=== PATIENT | female | born 1950 | race Caucasian/White ===

== ENCOUNTER 2019-08-13 10:33 | Outpatient (CLI) | payer MEDICARE, OTHER, SELFPAY ==
--- NOTE | ~2019-08-13 | MM_ITS ---
EXAMINATION: MM screening brandon BI w amira HISTORY: Screening mammogram TECHNIQUE: Craniocaudal and mediolateral oblique 3-D tomosynthesis images were obtained and synthetic 2-D images were generated. CAD analysis was submitted and interpreted. COMPARISON: 07/30/2018, 02/12/2017, 12/02/2015 bilateral digital screening mammogram examinations BREAST PARENCHYMAL COMPOSITION: The breasts are almost entirely fatty. FINDINGS: There is no evidence of suspicious mass, calcification, or architectural distortion to sugg est malignancy in either breast. There has been no suspicious interval change. IMPRESSION: 1. No mammographic evidence of malignancy. 2. Recommend routine screening mammography in one year. BI-RADS Category 1: Negative Reviewed, dictated and finalized at location A.
== END 2019-08-13 10:34 | disposition home or self-care (01) ==
PROVIDERS: PCP Internal Medicine; Visit Provider Nurse Practitioner
DX: Z12.31 Encounter for screening mammogram for malignant neoplasm of breast (principal)
CPT/HCPCS: 77063; 77067

== ENCOUNTER 2019-11-04 08:23 | Outpatient (CLI) | payer MEDICARE, OTHER, SELFPAY ==
[2019-11-04 08:55] LABS: Basophils Percent Auto 0.6 % (0.2-1.2); Eosinophils Absolute Auto 0.2 K/mm3 (0-0.3); Eosinophils Percent Auto 4.5 % (0-4.4); Hematocrit 35.8 % (37.0-47.0); Hemoglobin 11.9 g/dL (12.0-15.0); Immature Granulocyte Absolute 0.01 K/mm3 (0.00-0.031); Immature Granulocyte Percent A 0.3 % (0-0.5); Lymphocytes Absolute Auto 1.29 K/mm3 (0.9-3.2); Lymphocytes Percent Auto 36.6 % (18.3-44.2); Mean Corpuscular HGB Conc 33.2 g/dl (32-36); Mean Corpuscular Hemoglobin 34.5 pg (26-34); Mean Corpuscular Volume 103.8 fl (80-100); Mean Platelet Volume 11.1 fl (7.4-10.4); Monocytes Absolute Auto 0.4 K/mm3 (0.1-0.6); Monocytes Percent Auto 10.5 % (2.6-8.5); Neutrophils Absolute Auto 1.7 K/mm3 (1.3-6.7); Neutrophils Percent Auto 47.5 % (45.5-73.1); Platelet Count Result 116 k/mm3 (150-375); Red Blood Count 3.45 M/mm3 (4.2-5.4); Red Cell Distribution Width 12.7 % (11.5-14.5); White Blood Count 3.5 K/mm3 (4.5-10.0)
[2019-11-04 09:07] LABS: Alanine Aminotransferase 17 U/L (4-35); Albumin Level 4.5 g/dL (3.5-5.1); Alkaline Phosphatase 77 U/L (38-126); Anion Gap 10.3 mmol/L (7-16); Aspartate Amino Transferase 30 U/L (14-36); Bilirubin,Total 0.7 mg/dL (0.2-1.3); Blood Urea Nitrogen 25 mg/dL (7-17); Calcium 9.2 mg/dL (8.4-10.2); Carbon Dioxide 27 mmol/L (22-30); Chloride 105 mmol/L (98-107); Cholesterol 195 mg/dL (0-200); Estimated Glomerular Filt Rate > 60; Glucose 115 mg/dL (65-105); HDL Direct 50 mg/dL; Potassium 4.3 mmol/L (3.4-5.0); Sodium 138 mmol/L (137-145); Triglycerides 176 mg/dL (<150)
[2019-11-04 09:11] LABS: Hemoglobin A1C 5.5 % (<5.7)
[2019-11-04 09:18] LABS: LDL Cholesterol Direct 108 mg/dL
[2019-11-04 09:28] LABS: Creatinine Urine 151.4 mg/dL
[2019-11-04 09:43] LABS: Vitamin D 25 Hydroxy 50.4 ng/mL
[2019-11-04 09:49] LABS: MALB Creatinine Ratio 164.8 mg/g (0-30); Microalbumin Urine Random 249.5 mg/L (0-16.7)
== END 2019-11-04 08:24 | disposition home or self-care (01) ==
LOC: ANHLAB 08:26
PROVIDERS: PCP Internal Medicine; Visit Provider Nurse Practitioner
DX: E78.5 Hyperlipidemia, unspecified (principal); E53.8 Deficiency of other specified B group vitamins; E03.9 Hypothyroidism, unspecified; D64.9 Anemia, unspecified; E55.9 Vitamin D deficiency, unspecified; E11.65 Type 2 diabetes mellitus with hyperglycemia; I10 Essential (primary) hypertension
CPT/HCPCS: 36415; 80053; 80061; 82043; 82306; 82607; 83036; 84443; 85025; 85055

== ENCOUNTER 2020-03-06 17:46 | Emergency (ER) | payer MEDICARE, OTHER, SELFPAY ==
--- NOTE | ~2020-03-06 | XR_ITS ---
EXAMINATION: XR elbow RT 2V DATE: 03/06/2020 18:43 INDICATION: Generalized right elbow pain post fall TECHNIQUE: Anteroposterior, oblique and lateral views of the right elbow were obtained. COMPARISON: None. FINDINGS: Alignment is normal. No fracture. Mild osteoarthritis of the right elbow. No right elbow joint effusi on.. Soft tissues are unremarkable. IMPRESSION: 1. Mild right elbow osteoarthritis. No joint effusion or acute osseous abnormality. Reviewed, dictated and finalized at location A. ING MANAGER IMPRESSION: 1. Mild right elbow osteoarthritis. No joint effusion or acute osseous abnormal ity.
--- NOTE | ~2020-03-06 | XR_ITS ---
EXAMINATION: XR shoulder RT min 2V DATE: 03/06/2020 18:43 INDICATION: Proximal right humeral pain post fall TECHNIQUE: AP and transscapular Y views of the right shoulder were obtained. COMPARISON: None FINDINGS: Impacted fracture deformity of the proximal right humerus without a definitive lucent fracture line o r discontinuous or sharply angulated cortex to more specifically suggest acute fracture. Severe right glenohumeral osteoarthritis with moderate to severe nonuniform joint space narrowing, remodeling of the inferior glenoid and prominent marginal osteophytes along the inferior glenoid. Mild acromioclavi cular osteoarthritis. Calcified nodules at the right upper lung zone consistent with old granulomatou s disease. Soft tissues are unremarkable. IMPRESSION: 1. Age indeterminate fracture deformity at the right humeral head. 2. Severe right glenohumeral osteoarthritis. Reviewed, dictated and finalized at location A. ST SURGEON
[2020-03-06 17:48] VITALS: BP 199/79; PULSE 85; RESP 17; TEMP 35.9; O2SAT 98
--- NOTE | 2020-03-06 18:06 | ED.GENADULT ---
HPI - General Adult General Chief complaint: Extremity Injury, Upper Stated complaint: right arm injury/fall Time Seen by Provider: 03/06/20 17:54 Source: patient and family Mode of arrival: ambulatory Limitations: no limitations History of Present Illness HPI narrative: Patient is a 69-year-old female who presents to emergency department for evaluation of right upper extremity injury patient was walking with her hand in her pocket when she tripped over a cable falling onto the right upper extremity injuring the shoulder where she has moderate aching pain with swelling also noting some mild discomfort of the elbow denies head injury syncope loss of consciousness Related Data Home Medications Medication Instructions Recorded Confirmed acetaminophen 500 mg tablet 500 mg PO Q6H PRN 11/10/19 11/10/19 aspirin 81 mg tablet,delayed 81 mg PO DAILY 11/10/19 11/10/19 release calcium carb-vit J4-mtwtjlzka-lzum 1 tablet PO BID tablet 11/10/19 11/10/19 333 mg-200 unit-133 mg-5 mg tablet diphenhydramine HCl 25 mg tablet 25 mg PO .qhs PRN tablet 11/10/19 11/10/19 famotidine 20 mg tablet 20 mg PO BID tablet 11/10/19 11/10/19 loratadine 10 mg tablet 10 mg PO DAILY 11/10/19 11/10/19 naproxen sodium 220 mg tablet 220 mg PO Q12H 11/10/19 11/10/19 vitamin B complex 1 tablet PO .COMPLEX 11/10/19 11/10/19 Allergies Allergy/AdvReac Type Severity Reaction Status Date / Time Penicillins Allergy Unknown Hives Verified 03/06/20 17:52 Sulfa (Sulfonamide Allergy Unknown rash Verified 03/06/20 17:52 Antibiotics) Review of Systems Review of Systems: All systems reviewed & are unremarkable except as noted in HPI and below PMFSH Past Medical History Medical History Screening for breast cancer Screening for colon cancer Surgical History Surgical History History of total right knee replacement Family History Family History Sibling Patient's brother is in good health Patient's brother is Acute myocardial infarction Father Family history of lung cancer, Onset Age: 65 Family history of type 2 diabetes mellitus Social History Social History Smoking status: Current every day smoker Alcohol intake: never Gender identity (if verbalized by the patient): Female Exam Narrative: Exam Narrative: GENERAL: Well-appearing, well-nourished, and in no acute distress. HEAD: Normocephalic, atraumatic. EYES: PERRLA and EOMI. ENT: Nares clear, no rhinorrhea or epistaxis. Mucous membranes moist. Oropharynx without tonsillar hypertrophy exudate or other lesions. Bilateral TMs pearly cordon nonbulging NECK: Supple. No adenopathy or masses. CHEST: Clear to auscultation. No respiratory distress. No wheezes rales or rhonchi HEART: Regular rate and rhythm. No murmur heard. EXTREMITIES: Tenderness of the right shoulder with swelling. Tenderness of the elbow right-sided no deformity. No cervical spine tenderness SKIN: Warm, dry, no rash. NEURO: No focal deficits. Alert and oriented x3. Neurovascularly intact. Capillary refill less than 3 seconds. Cranial nerves II through XII grossly intact PSYCH: Normal mood and affect. Course Course Emergency Course: Patient in the room resting comfortably placed in immobilizer wear discussions with orthopedic surgery will follow in clinic felt appropriate for discharge where she lives with her son patient feels comfortable with this plan Consultations Consultation #1: Discussed the case twice with Dr. Early who reviewed the images and would like the patient to follow in clinic Date: 03/06/20 Time: 20:00 Vital Signs Vital signs: Vital Signs Temperature 96.7 F L 03/06/20 17:48 Pulse Rate 85 03/06/20 17:48 Respiratory Rate 17 03/06/20 17:48 Blood Pressure 199/79
[2020-03-06] MEDS: HYDROcodone/acetaminophen (*CRX) 7.5-325 MG TABLET 1 TAB PO (18:16)
== END 2020-03-06 20:20 | disposition home or self-care (01) ==
PROVIDERS: Emergency Provider Emergency Medicine; PCP Internal Medicine
DX: S42.91XA Fracture of right shoulder girdle, part unspecified, initial encounter for closed fracture (principal); Z79.82 Long term (current) use of aspirin; Z96.651 Presence of right artificial knee joint; F17.200 Nicotine dependence, unspecified, uncomplicated; M19.021 Primary osteoarthritis, right elbow; M19.011 Primary osteoarthritis, right shoulder; W18.09XA Striking against other object with subsequent fall, initial encounter
CPT/HCPCS: 73030; 73070; 73080; 99284; A9270

== ENCOUNTER 2020-05-05 07:23 | Outpatient (CLI) | payer MEDICARE, OTHER, SELFPAY ==
[2020-05-05 08:14] LABS: Alanine Aminotransferase 17 U/L (4-35); Albumin Level 4.2 g/dL (3.5-5.1); Alkaline Phosphatase 75 U/L (38-126); Anion Gap 4 mmol/L (8-16); Aspartate Amino Transferase 31 U/L (14-36); Bilirubin,Total 0.8 mg/dL (0.2-1.3); Blood Urea Nitrogen 18 mg/dL (7-17); Carbon Dioxide 30 mmol/L (22-30); Chloride 107 mmol/L (98-107); Cholesterol 186 mg/dL (0-200); Estimated Glomerular Filt Rate > 60; Glucose 123 mg/dL (65-105); HDL Direct 51 mg/dL; Potassium 4.2 mmol/L (3.4-5.0); Sodium 141 mmol/L (137-145); Triglycerides 192 mg/dL (<150)
[2020-05-05 08:36] LABS: Hemoglobin A1C 5.7 % (<5.7)
[2020-05-05 08:38] LABS: LDL Cholesterol Direct 102 mg/dL
[2020-05-05 09:02] LABS: Creatinine Urine 103.3 mg/dL
[2020-05-05 09:20] LABS: Vitamin D 25 Hydroxy 44.6 ng/mL
[2020-05-05 09:36] LABS: MALB Creatinine Ratio 333.1 mg/g (0-30); Microalbumin Urine Random 344.1 mg/L (0-16.7)
== END 2020-05-05 07:24 | disposition home or self-care (01) ==
PROVIDERS: PCP Internal Medicine; Visit Provider Nurse Practitioner
DX: E55.9 Vitamin D deficiency, unspecified (principal); E53.8 Deficiency of other specified B group vitamins; E11.9 Type 2 diabetes mellitus without complications; E78.5 Hyperlipidemia, unspecified
CPT/HCPCS: 36415; 80053; 80061; 82043; 82306; 82607; 83036

== ENCOUNTER 2020-06-14 16:00 | Outpatient (CLI) | payer MEDICARE, OTHER, SELFPAY | END 2020-06-14 16:01 | disposition home or self-care (01) | LOC: ANHCOVIDVC 16:00 | PROVIDERS: PCP Internal Medicine | DX: Z23 Encounter for immunization (principal) | CPT/HCPCS: 0001A; 91300 ==

== ENCOUNTER 2020-07-05 15:59 | Outpatient (CLI) | payer MEDICARE, OTHER, SELFPAY | END 2020-07-05 16:00 | disposition home or self-care (01) | LOC: ANHCOVIDVC 15:59 | PROVIDERS: PCP Internal Medicine | DX: Z23 Encounter for immunization (principal) | CPT/HCPCS: 0002A; 91300 ==

== ENCOUNTER 2020-08-31 12:18 | Outpatient (CLI) | payer MEDICARE, OTHER, SELFPAY ==
--- NOTE | ~2020-08-31 | MM_ITS ---
EXAMINATION: MM screening brandon BI w amira HISTORY: Screening TECHNIQUE: Craniocaudal and mediolateral oblique 3-D tomosynthesis images were obtained and synthetic 2-D images were generated. CAD analysis was submitted and interpreted. COMPARISON: Comparison to multiple prior studies sequentially, with oldest reviewed study dated 01/30. BREAST PARENCHYMAL COMPOSITION: The breasts are almost entirely fatty. FINDINGS: There is no evidence of suspicious mass, calcification, or architectural distortion to sugg est malignancy in either breast. There has been no suspicious interval change. IMPRESSION: 1. No mammographic evidence of malignancy. 2. Recommend routine screening mammography in one year. BI-RADS Category 1: Negative Reviewed, dictated and finalized at location A.
== END 2020-08-31 12:19 | disposition home or self-care (01) ==
LOC: ANHIMG 12:21
PROVIDERS: PCP Internal Medicine; Visit Provider Internal Medicine
DX: Z12.31 Encounter for screening mammogram for malignant neoplasm of breast (principal)
CPT/HCPCS: 77063; 77067

== ENCOUNTER 2020-11-15 08:53 | Outpatient (CLI) | payer MEDICARE, OTHER, SELFPAY ==
[2020-11-15 09:32] LABS: Basophils Percent Auto 0.3 % (0.2-1.2); Eosinophils Absolute Auto 0.1 K/mm3 (0-0.3); Eosinophils Percent Auto 2.3 % (0-4.4); Hematocrit 34.8 % (37.0-47.0); Hemoglobin 11.5 g/dL (12.0-15.0); Immature Platelet Fraction Pct 5.3 % (0.9-11.2); Lymphocytes Absolute Auto 1.09 K/mm3 (0.9-3.2); Lymphocytes Percent Auto 36.1 % (18.3-44.2); Mean Corpuscular Hemoglobin 33.1 pg (26-34); Mean Corpuscular Volume 100.3 fl (80-100); Mean Platelet Volume 11.3 fl (7.4-10.4); Monocytes Absolute Auto 0.3 K/mm3 (0.1-0.6); Monocytes Percent Auto 9.6 % (2.6-8.5); Neutrophils Absolute Auto 1.6 K/mm3 (1.3-6.7); Neutrophils Percent Auto 51.7 % (45.5-73.1); Platelet Count Result 67 k/mm3 (150-375); Red Blood Count 3.47 M/mm3 (4.2-5.4); Red Cell Distribution Width 13.1 % (11.5-14.5)
[2020-11-15 10:01] LABS: Vitamin D 25 Hydroxy 49.2 ng/mL
[2020-11-15 10:11] LABS: Alanine Aminotransferase 17 U/L (4-35); Albumin Level 4.6 g/dL (3.5-5.1); Alkaline Phosphatase 76 U/L (38-126); Anion Gap 8 mmol/L (8-16); Aspartate Amino Transferase 33 U/L (14-36); Bilirubin,Total 0.8 mg/dL (0.2-1.3); Blood Urea Nitrogen 13 mg/dL (7-17); Calcium 9.2 mg/dL (8.4-10.2); Carbon Dioxide 27 mmol/L (22-30); Chloride 102 mmol/L (98-107); Cholesterol 180 mg/dL (0-200); Estimated Glomerular Filt Rate > 60; Glucose 109 mg/dL (65-110); HDL Direct 52 mg/dL; Potassium 4.3 mmol/L (3.4-5.0); Sodium 137 mmol/L (137-145); Triglycerides 150 mg/dL (<150)
[2020-11-15 10:21] LABS: LDL Cholesterol Direct 93 mg/dL
[2020-11-15 15:24] LABS: Hemoglobin A1C 5.9 % (<5.7)
== END 2020-11-15 08:54 | disposition home or self-care (01) ==
PROVIDERS: PCP Internal Medicine; Visit Provider Internal Medicine
DX: D64.9 Anemia, unspecified (principal); I10 Essential (primary) hypertension; R73.02 Impaired glucose tolerance (oral); E78.5 Hyperlipidemia, unspecified; E03.9 Hypothyroidism, unspecified; E53.8 Deficiency of other specified B group vitamins; E55.9 Vitamin D deficiency, unspecified
CPT/HCPCS: 36415; 80053; 80061; 82306; 82607; 83036; 84443; 85025; 85055

== ENCOUNTER 2020-12-14 12:26 | Outpatient (CLI) | payer MEDICARE, OTHER, SELFPAY ==
--- NOTE | 2020-12-14 12:33 | ECHO_ITS ---
Patient Info Name: Rimma Monzon Age: 70 years : 1950 Gender: Female Ht: 63 in Wt: 180 lbs BSA: 1.94 m2 HR: 72 bpm BP: 176 / 80 mmHg Heart Rhythm: Sinus Rhythm Exam Date: 12/14/2020 1:17 PM Exam Location: [facility] Patient Status: Outpatient Admit Date: 12/14/2020 Staff Ordering Physician: Alejandra Li Pin Attacher: Heraclio Chacon RDCS, RT Attending Provider: Alejandra Li Referring Physician: Jen LOWERY; Exam Type: CA echo doppler color flow Study Info Indications R01.1 - Cardiac murmur, unspecified Complete two-dimensional, color flow and Doppler transthoracic echocardiogram is performed. Strain analysis performed. Summary 1. Complete two-dimensional, color flow and Doppler transthoracic echocardiogram is performed. 2. Strain analysis performed. 3. Left ventricular chamber dimension is normal. 4. Left ventricular systolic function is normal, estimated at 65-70%. 5. There is mildly increased left ventricular wall thickness. 6. The left ventricular diastolic function is normal. 7. Global longitudinal strain is abnormal at -16 %. 8. Left atrial chamber dimension is mildly enlarged. 9. There is moderate aortic valve stenosis with a peak velocity of 252 cm/s, mean gradient of 13 mmHg, and aortic valve area of 1.1 cm2. 10. There is mild aortic valve regurgitation. 11. There is moderate aortic valve calcification. 12. There is mild mitral valve regurgitation. 13. There is mild tricuspid valve regurgitation. Left Ventricle Left ventricular chamber dimension is normal. Left ventricular systolic function is normal, estimated at 65-70%. There is mildly increased left ventricular wall thickness. The left ventricular diastolic function is normal. Global longitudinal strain is abnormal at -16 %. Right Ventricle Right ventricular chamber dimension is normal. Right ventricular systolic function is normal. Left Atria Left atrial chamber dimension is mildly enlarged. Right Atria Right atrial chamber dimension is normal. Atrial Septum Intact interatrial septum visualized by color flow imaging. Aortic Valve The aortic valve is not well visualized. There is moderate aortic valve stenosis with a peak velocity of 252 cm/s, mean gradient of 13 mmHg, and aortic valve area of 1.1 cm2. There is mild aortic valve regurgitation. There is moderate aortic valve calcification. Pulmonic Valve The pulmonic valve is normal. There is no pulmonic valve stenosis. There is trace pulmonic regurgitation. Mitral Valve The mitral valve has thickened leaflets. There is no mitral valve stenosis. There is mild mitral valve regurgitation. Tricuspid Valve The tricuspid valve leaflets are normal. There is no significant tricuspid valve stenosis. There is mild tricuspid valve regurgitation. No pulmonary hypertension, estimated pulmonary arterial systolic pressure is 33 mmHg. Pericardium/Pleural The pericardium appears normal. There is no pericardial effusion. Inferior Vena Cava Normal inferior vena cava with >50% collapse upon inspiration consistent with normal right atrial pressure, 5 mmHg. Aorta The aortic root size at the sinus of Valsalva is normal. The prox ascending aorta size is normal. There is mild aortic atherosclerosis. Left Ventricular Outflow Tract Name Value Normal
== END 2020-12-14 12:27 | disposition home or self-care (01) ==
PROVIDERS: PCP Internal Medicine; Visit Provider Nurse Practitioner
DX: R01.1 Cardiac murmur, unspecified (principal); I34.0 Nonrheumatic mitral (valve) insufficiency; I35.1 Nonrheumatic aortic (valve) insufficiency; I36.1 Nonrheumatic tricuspid (valve) insufficiency
CPT/HCPCS: 93306

== ENCOUNTER 2020-12-19 13:32 | Outpatient (CLI) | payer MEDICARE, OTHER, SELFPAY ==
--- NOTE | ~2020-12-19 | XR_ITS ---
EXAMINATION: XR lumbar spine 2-3V DATE: 12/19/2020 13:53 INDICATION: Low back pain. TECHNIQUE: 3 views of lumbar spine were obtained. COMPARISON: CT abdomen and pelvis 06/19/2012, chest 2 views 08/04/14 FINDINGS: There is a compression fracture of L1 with 1/5 loss of height and focal kyphosis. There is 9 degrees levocurvature of lumbar spine. There is moderately decreased disc height at L1-L2 and sever av decreased disc height at L2-L3 with endplate remodeling. There are endplate osteophytes at all le vels. There is severe facet joint osteoarthritis in lower lumbar spine. Surgical clips in the right u pper quadrant are likely from cholecystectomy. There are staple lines in the area of the stomach and bowel. IMPRESSION: 1. Age-indeterminate L1 compression fracture, new from 08/04/2014. 2. Severe lumbar spondylosis. Reviewed, dictated and finalized at location A.
== END 2020-12-19 13:33 | disposition home or self-care (01) ==
LOC: ANHIMG 13:34
PROVIDERS: PCP Internal Medicine; Visit Provider Internal Medicine
DX: M47.896 Other spondylosis, lumbar region (principal); S32.010A Wedge compression fracture of first lumbar vertebra, initial encounter for closed fracture; X58.XXXA Exposure to other specified factors, initial encounter
CPT/HCPCS: 72100

== ENCOUNTER 2021-01-16 09:32 | Outpatient (CLI) | payer MEDICARE, OTHER, SELFPAY ==
--- NOTE | ~2021-01-16 | DEXA_ITS ---
Bone Density Report Name: Rimma Monzon Age: 70 Sex: Female Ethnicity: White Date of : 1950 Indication: osteopenia; height loss; prior fracture; postmenopausal Referring Provider: Alejandra Li Study: Bone densitometry was performed. Exam Date: January 16, 2021 Accession number: [id number] Bone Density: Region BMD T-score Z-score Classification AP Spine (L1-L4) 1.130 0.8 2.7 Normal Femoral Neck (Left) 0.641 -1.9 -0.2 Osteopenia Total Hip (Left) 0.867 -0.6 0.8 Normal Total Hip Bilateral Avg 0.823 -1.0 0.5 Osteopenia Femoral Neck (Right) 0.617 -2.1 -0.4 Osteopenia Total Hip (Right) 0.778 -1.3 0.1 Osteopenia World Health Organization criteria for BMD impression classify patients as: Normal (T-score at or above -1.0), Osteopenia (T-score between -1.0 and -2.5), or Osteoporosis (T-score at or below -2.5). 10-year Fracture Risk: FRAX not reported because: Prior hip or vertebral fracture Previous Exams: Region Exam Age BMD T-score BMD Change BMD Change Date g/cm2 vs Baseline vs Previous AP Spine(L1-L4) 01/16/2021 70 1.130 0.8 0.094(9.0%)# 0.090(8.7%)* 07/30/2018 67 1.040 -0.1 0.004(0.3%)# 0.063(6.5%)# 03/10/2010 59 0.977 -0.6 -0.060(-5.8%)* -0.060(-5.8%)* 05/04/2003 52 1.037 -0.1 Total Hip(Left) 01/16/2021 70 0.867 -0.6 -0.034(-3.8%)# -0.044(-4.8%)* 07/30/2018 67 0.911 -0.3 0.010(1.1%)# 0.010(1.1%)# 03/10/2010 59 0.901 -0.3 Total Hip(Right) 01/16/2021 70 0.778 -1.3 0.018(2.3%)# -0.029(-3.6%)* 07/30/2018 67 0.807 -1.1 0.047(6.2%)# 0.047(6.2%)# 03/10/2010 59 0.760 -1.5 *Denotes significance at 95% confidence level, LSC for AP Spine = 0.022 g/cm2, LSC for Total Hip = 0.027 g/cm2 Clinical Information Provided by Patient: Have had a previous hip or vertebral fracture Has had a low trauma fracture Has used the following medications: Vitamin D, Calcium Patient maximum height was 63 Menopause Age: 52 No regular weight bearing exercise Drinks caffeinated beverages Onset of menses at age 15 Number of children 2 Impression: The patient has low bone mass, based on the Right Femoral Neck T-score. The patient has risk factors, including: previous fracture. The BMD for the Total Hip(Left) decreased, changing by -4.8% since the last DXA exam. The BMD for the Total Hip(Right) decreased, changing by -3.6% since the last DXA exam. Discussion: INCREASED RISK OF FRACTURE DUE TO HISTORY OF FRACTU
== END 2021-01-16 09:33 | disposition home or self-care (01) ==
PROVIDERS: PCP Internal Medicine; Visit Provider Nurse Practitioner
DX: Z78.0 Asymptomatic menopausal state (principal); M85.852 Other specified disorders of bone density and structure, left thigh; M85.851 Other specified disorders of bone density and structure, right thigh
CPT/HCPCS: 77080

== ENCOUNTER 2021-06-02 07:45 | Outpatient (CLI) | payer MEDICARE, OTHER, SELFPAY ==
[2021-06-02 08:19] LABS: Basophils Percent Auto 0.6 % (0.2-1.2); Eosinophils Absolute Auto 0.1 K/mm3 (0-0.3); Eosinophils Percent Auto 3.9 % (0-4.4); Hematocrit 31.8 % (37.0-47.0); Hemoglobin 10.6 g/dL (12.0-15.0); Immature Granulocyte Absolute 0.01 K/mm3 (0.00-0.031); Immature Granulocyte Percent A 0.3 % (0-0.5); Immature Platelet Fraction Pct 4.2 % (0.9-11.2); Lymphocytes Absolute Auto 1.19 K/mm3 (0.9-3.2); Lymphocytes Percent Auto 38.4 % (18.3-44.2); Mean Corpuscular HGB Conc 33.3 g/dl (32-36); Mean Corpuscular Hemoglobin 35.3 pg (26-34); Mean Platelet Volume 10.1 fl (7.4-10.4); Monocytes Absolute Auto 0.4 K/mm3 (0.1-0.6); Monocytes Percent Auto 11.6 % (2.6-8.5); Neutrophils Absolute Auto 1.4 K/mm3 (1.3-6.7); Neutrophils Percent Auto 45.2 % (45.5-73.1); Platelet Count Result 72 k/mm3 (150-375); Red Cell Distribution Width 13.2 % (11.5-14.5); White Blood Count 3.1 K/mm3 (4.5-10.0)
[2021-06-02 08:32] LABS: Alanine Aminotransferase 17 U/L (4-35); Albumin Level 4.2 g/dL (3.5-5.1); Alkaline Phosphatase 60 U/L (38-126); Anion Gap 6 mmol/L (8-16); Aspartate Amino Transferase 32 U/L (14-36); Bilirubin,Total 0.7 mg/dL (0.2-1.3); Blood Urea Nitrogen 13 mg/dL (7-17); Calcium 8.4 mg/dL (8.4-10.2); Carbon Dioxide 26 mmol/L (22-30); Chloride 108 mmol/L (98-107); Cholesterol 183 mg/dL (0-200); Estimated Glomerular Filt Rate > 60; Glucose 112 mg/dL (65-110); HDL Direct 51 mg/dL; Potassium 4.2 mmol/L (3.4-5.0); Sodium 140 mmol/L (137-145); Triglycerides 147 mg/dL (<150)
[2021-06-02 08:43] LABS: LDL Cholesterol Direct 94 mg/dL
[2021-06-02 08:48] LABS: Hemoglobin A1C 5.5 % (<5.7)
[2021-06-02 09:00] LABS: Creatinine Urine 172.4 mg/dL
[2021-06-02 09:22] LABS: MALB Creatinine Ratio 141.6 mg/g (0-30); Microalbumin Urine Random 244.2 mg/L (0-16.7)
== END 2021-06-02 07:46 | disposition home or self-care (01) ==
LOC: ANHLAB 07:53
PROVIDERS: PCP Internal Medicine; Visit Provider Nurse Practitioner
DX: E11.9 Type 2 diabetes mellitus without complications (principal); E55.9 Vitamin D deficiency, unspecified; D64.9 Anemia, unspecified; E78.2 Mixed hyperlipidemia
CPT/HCPCS: 36415; 80053; 80061; 82043; 82306; 83036; 85025; 85055

== ENCOUNTER 2021-07-04 11:55 | Outpatient (CLI) | payer MEDICARE, OTHER, SELFPAY ==
--- NOTE | 2021-07-04 13:11 | ECG_ITS ---
Measurements Intervals [place] Rate: 68 P: 37 IA: 159 QRS: 21 QRSD: 78 T: 7 QT: 375 QTc: 400 Interpretive Statements SINUS RHYTHM WITH MARKED SINUS ARRHYTHMIA NO PREVIOUS ECG AVAILABLE FOR COMPARISON Electronically Signed On 07-04-2021 16:49:32 CDT by Zaida Leahy M.D.
[2021-07-04 13:35] LABS: Basophils Percent Auto 0.7 % (0.2-1.2); Eosinophils Absolute Auto 0.2 K/mm3 (0-0.3); Eosinophils Percent Auto 3.9 % (0-4.4); Hematocrit 35.2 % (37.0-47.0); Hemoglobin 11.6 g/dL (12.0-15.0); Immature Granulocyte Absolute 0.01 K/mm3 (0.00-0.031); Immature Granulocyte Percent A 0.2 % (0-0.5); Immature Platelet Fraction Pct 4.9 % (0.9-11.2); Lymphocytes Absolute Auto 1.52 K/mm3 (0.9-3.2); Lymphocytes Percent Auto 34.7 % (18.3-44.2); Mean Corpuscular Hemoglobin 35.7 pg (26-34); Mean Corpuscular Volume 108.3 fl (80-100); Mean Platelet Volume 10.7 fl (7.4-10.4); Monocytes Absolute Auto 0.5 K/mm3 (0.1-0.6); Monocytes Percent Auto 10.3 % (2.6-8.5); Neutrophils Absolute Auto 2.2 K/mm3 (1.3-6.7); Neutrophils Percent Auto 50.2 % (45.5-73.1); Platelet Count Result 75 k/mm3 (150-375); Red Blood Count 3.25 M/mm3 (4.2-5.4); Red Cell Distribution Width 12.8 % (11.5-14.5); White Blood Count 4.4 K/mm3 (4.5-10.0)
[2021-07-04 13:47] LABS: Urine Cotinine NEGATIVE
[2021-07-04 13:51] LABS: Anion Gap 7 mmol/L (8-16); Blood Urea Nitrogen 14 mg/dL (7-17); Calcium 8.3 mg/dL (8.4-10.2); Carbon Dioxide 28 mmol/L (22-30); Chloride 104 mmol/L (98-107); Estimated Glomerular Filt Rate 49; Glucose 101 mg/dL (65-110); Potassium 4.3 mmol/L (3.4-5.0); Sodium 139 mmol/L (137-145)
== END 2021-07-04 11:56 | disposition home or self-care (01) ==
LOC: ANHSURGERY 11:59
PROVIDERS: PCP Internal Medicine; Visit Provider Orthopaedic Surgery
DX: M17.12 Unilateral primary osteoarthritis, left knee (principal); Z01.818 Encounter for other preprocedural examination
CPT/HCPCS: 80048; 80307; 85025; 85055; 86850; 86900; 86901; 87070; 93005

== ENCOUNTER 2021-07-17 01:09 | Day surgery (SDC) | payer MEDICARE, OTHER, SELFPAY ==
--- NOTE | 2021-07-04 12:04 | PC.NURSE ---
Report to the Outpatient Waiting Room, entrance under the green pavilion located off [facility], at time __6:00AM on date __07/17/21 . OR Time: __7:30AM . - You and your visitor will be asked a series of questions to screen for COVID 19 for your protection. - A mask is required within the hospital. Preoperative COVID Testing Requirements: No COVID Test needed if: (proof is required; if not received patient will have Rapid Test prior to entry) - Patient has received COVID Vaccine at least 14 days prior to procedure date or - Patient has positive COVID test result within last 90 days of surgery date. COVID Test needed if above criteria is not met If not COVID vaccinated a COVID test must be conducted within 72 hours of surgery and patient is asked to isolate self from time of testing until procedure. You will go to the [facility] for your COVID testing. The [employer] [facility] site is located at the corner of [address] from [facility]. You will only be called if COVID results are positive and your surgeon may reschedule your elective surgery date. Patients may have clear liquids (water, carbonated beverages, clear teas, apple juice) until 3 hours prior to surgery with a maximum of 20 ounces. - No food from midnight until time of surgery - Infants may have breast milk until 4 hours before surgery, formula 6 hours prior to surgery. - Children will be allowed to drink immediately following surgery. If applicable, please bring a bottle or sippy cup to assist with drinking. Juice, water, soda, and popsicles are readily available. For infants on formula, please bring formula the day of surgery. Pacifiers are allowed. Take the following medications with a SIP of water the morning of surgery: __LEVOTHYROXINE, METOPROLOL Medications to discontinue per physician ____HOLD ASPIRIN, MELOXICAM AND ALL VITAMINS/SUPPLEMENTS 7 DAYS PRE-OP Date to take last dose____07/10/21 Please no make-up, nail pitcairn islander, hairspray, perfume, deodorant, or body powder the day of surgery. No jewelry (including any body piercings) or valuables the day of surgery, leave them at home. Please take a shower or bath the night before, or the morning of, surgery with an antibacterial soap. Wear comfortable, loose fitting clothing. Children are encouraged to wear pajamas. - Jewelry must be removed prior to entering the operating room. Rings and piercings that are not removed may be cut off. - The hospital will not accept responsibility for valuables. - Please leave all valuables, including medications, at home the day of surgery. If you are going home after surgery, a licensed furniture delivery driver must drive you home. - NO public transportation without another adult. - We recommend that an adult stay with you for 24 hours following discharge. - We also recommend that you do not drive, make important decision, drink alcoholic beverages, or take any drugs that were not prescribed by your health care provider for at least 24 hours after your discharge time. For Pediatric surgeries, we recommend two adults accompany the child home (only one inside the building at this time). One visitor will be allowed to accompany the patient into the hospital. Patients visitor will be instructed to remain with patient at all times or leave the building. We will allow the visitor to come back to the postoperative area when patient is ready. Follow any additional instructions given to you from your surgeon. Telephone instructions given to __PATIENT and asked if any additional questions and then verbalized understanding. Patient advised to call surgeon office or pre surgery nurse liaison [phone] if any additional questions.
[2021-07-04 12:27] VITALS: BP 153/75; PULSE 80; RESP 16; TEMP 36.9; O2SAT 97; BMI 34.2
--- NOTE | 2021-07-14 08:06 | PM.IMHP ---
H&P: HPI History of Present Illness Date/Time: 07/14/21 08:06 70-year-old female patient who presents today for left total knee arthroplasty. She has had a right knee replaced in the and doing that. She has had continued symptoms in left knee. She has had cortisone injections in the past with minimal symptoms. She has been on meloxicam 15 daily. She has severe medial osteoarthritis in knee and feels this point she is ready to proceed with total knee arthroplasty rather than continue nonsurgical treatment. Chief Complaint: Left knee DJD Review of Systems Review of Systems: All systems reviewed & are unremarkable except as noted in HPI and below PMFSH Past Medical History Medical History Screening for breast cancer Screening for colon cancer Surgical History Surgical History History of total right knee replacement Family History Family History Sibling Patient's brother is in good health Patient's brother is Acute myocardial infarction Father Family history of lung cancer, Onset Age: 65 Family history of type 2 diabetes mellitus Social History Social History Smoking packs per day: 2.5 Smoking cigarettes per day: 50.0 Years smoked: 25 Smoking pack-years: 62.50 Smoking status: Former smoker Tobacco type: cigarettes Second hand tobacco smoke exposure: Yes Smoking end date: 09/29/84 Alcohol intake: current Drinks per week: 1 Alcohol use details: occational use Substance use: never Substance use type: does not use Additional living arrangements comments: SON Gender identity (if verbalized by the patient): Female Spiritual care concerns: No Meds Home Medications and Allergies Home Medications Medication Instructions Recorded Confirmed Type acetaminophen 500 mg tablet 500 mg PO Q6H PRN 11/10/19 07/04/21 History aspirin 81 mg tablet,delayed 81 mg PO DAILY 11/10/19 07/04/21 History release calcium carb-vit N0-maqdtcvln-eecx 1 tablet PO TID tablet 11/10/19 07/04/21 History 333 mg-200 unit-133 mg-5 mg tablet famotidine 20 mg tablet 20 mg PO QACLUNCH tablet 11/10/19 07/04/21 History loratadine 10 mg tablet 10 mg PO DAILY 11/10/19 07/04/21 History alendronate 70 mg tablet 70 mg PO WEEKLY #12 tablet 01/30/21 07/04/21 Rx tizanidine 4 mg capsule 4 mg PO QHS PRN #30 cap 06/07/21 07/04/21 Rx L. gasseri-B. bifidum-B longum 1 cap PO QAM 07/04/21 07/04/21 History [[facility]] aspirin [Aspirin Extra Strength] 500 mg PO Q4-6H PRN 07/04/21 07/04/21 History coenzyme Q10 [CoQ-10] 30 mg PO DAILY 07/04/21 07/04/21 History coffee xt-phosphatidyl serine 1 cap PO QAM 07/04/21 07/04/21 History [Neuriva Original] cyanocobalamin (vitamin B-12) 1,000 mcg PO 2XW 07/04/21 07/04/21 History escitalopram oxalate 10 mg PO QAM 07/04/21 07/04/21 History mgmdrujwlsh-uvgqdnupd-jvw C-Mn 1 cap PO BID 07/04/21 07/04/21 History [Glucosamine Chondroitin MaxStr] losartan 50 mg PO QACLUNCH 07/04/21 07/04/21 History melatonin 3 mg PO HS 07/04/21 07/04/21 History meloxicam 15 mg PO HS 07/04/21 07/04/21 History metoprolol succinate 25 mg PO QAM 07/04/21 07/04/21 History hqxmpvqtusxf-Cq-peyf-minerals 1 tablet PO DAILY 07/04/21 07/04/21 History [Multiple Vitamin, Womens] nutritional supplement-fiber [Keto 1 ea PO DAILY 07/04/21 07/04/21 History Formula] omeprazole 20 mg PO DAILY 07/04/21 07/04/21 History simvastatin 40 mg PO HS 07/04/21 07/04/21 History levothyroxine 88 mcg tablet 88 mcg PO QAM #90 tablet 07/06/21 Rx Allergies Allergy/AdvReac Type Severity Reaction Status Date / Time Penicillins Allergy Mild Hives Verified 07/04/21 12:07 Sulfa (Sulfonamide Allergy Mild rash Verified 07/04/21 12:07 Antibiotics) Exam Narrative: 62-year-old
--- NOTE | 2021-07-14 13:52 | WPDANESEPPF ---
Anes - Initial Pre Proc Eval Procedure: Operation Date: 07/17/21 07:30 Proposed Procedures p Left Total Knee Arthroplasty - Med Hugo MD Date/Time: 07/14/21 13:52 Surgeon: Med Hugo MD Pre Op Diagnosis: OA left knee Patient Data Age: 70 Gender: F Height: 1.55 m Weight: 82.2 kg Last Vital Signs Temp 98.4 F 07/04/21 12:27 Pulse 80 07/04/21 12:27 Resp 16 07/04/21 12:27 BP 153/75 H 07/04/21 12:27 Pulse Ox 97 07/04/21 12:27 Allergies Allergy/AdvReac Type Severity Reaction Status Date / Time Penicillins Allergy Mild Hives Verified 07/17/21 06:24 Sulfa (Sulfonamide Allergy Mild rash Verified 07/17/21 06:24 Antibiotics) Home Medications Medication Instructions Recorded Confirmed Type acetaminophen 500 mg tablet 500 mg PO Q6H PRN 11/10/19 07/17/21 History aspirin 81 mg tablet,delayed 81 mg PO DAILY 11/10/19 07/17/21 History release calcium carb-vit R2-awkescarv-ghwo 1 tablet PO TID tablet 11/10/19 07/17/21 History 333 mg-200 unit-133 mg-5 mg tablet famotidine 20 mg tablet 20 mg PO QACLUNCH tablet 11/10/19 07/17/21 History loratadine 10 mg tablet 10 mg PO DAILY 11/10/19 07/17/21 History alendronate 70 mg tablet 70 mg PO WEEKLY #12 tablet 01/30/21 07/17/21 Rx tizanidine 4 mg capsule 4 mg PO QHS PRN #30 cap 06/07/21 07/17/21 Rx L. gasseri-B. bifidum-B longum 1 cap PO QAM 07/04/21 07/17/21 History [[facility]] aspirin [Aspirin Extra Strength] 500 mg PO Q4-6H PRN 07/04/21 07/17/21 History coenzyme Q10 [CoQ-10] 30 mg PO DAILY 07/04/21 07/17/21 History coffee xt-phosphatidyl serine 1 cap PO QAM 07/04/21 07/17/21 History [Neuriva Original] cyanocobalamin (vitamin B-12) 1,000 mcg PO 2XW 07/04/21 07/17/21 History escitalopram oxalate 10 mg PO QAM 07/04/21 07/17/21 History axetejmbgpd-sdrybkphj-diq C-Mn 1 cap PO BID 07/04/21 07/17/21 History [Glucosamine Chondroitin MaxStr] losartan 50 mg PO QACLUNCH 07/04/21 07/17/21 History melatonin 3 mg PO HS 07/04/21 07/17/21 History meloxicam 15 mg PO HS 07/04/21 07/17/21 History metoprolol succinate 25 mg PO QAM 07/04/21 07/17/21 History redqyihyyccc-Gp-kjna-minerals 1 tablet PO DAILY 07/04/21 07/17/21 History [Multiple Vitamin, Womens] nutritional supplement-fiber [Keto 1 ea PO DAILY 07/04/21 07/17/21 History Formula] omeprazole 20 mg PO DAILY 07/04/21 07/17/21 History simvastatin 40 mg PO HS 07/04/21 07/17/21 History levothyroxine 88 mcg tablet 88 mcg PO QAM #90 tablet 07/06/21 07/17/21 Rx Patient hx anesthesia problems: post op nausea/vomiting Family hx anesthesia problems: none Results Review: All pre-operative results and documents have been reviewed as part of the pre-operative evaluation. [facility] Past Medical History Medical History Screening for breast cancer Screening for colon cancer Surgical History Surgical History History of total right knee replacement Family History Family History Sibling Patient's brother is in good health Patient's brother is Acute myocardial infarction Father Family history of lung cancer, Onset Age: 65 Family history of type 2 diabetes mellitus Social History Social History Smoking packs per day: 2.5 Smoking cigarettes per day: 50.0 Years smoked: 25 Smoking pack-years: 62.50 Smoking status: Former smoker Tobacco type: cigarettes Second hand tobacco smoke exposure: Yes Smoking end date: 09/29/84 Alcohol intake: current Drinks per week: 1 Alcohol use details: occational use Substance use: never Substance use type: does not use Living arrangements: with family Additional living arrangements comments: SON Gender identity (if verbalized by the patient): Female Spiritual care concerns: No Janusz - Prisca
[2021-07-17] VITALS (15 sets, daily range): BP systolic 113–153; BP diastolic 50–67; PULSE 78–88; RESP 14–20; TEMP 36.5–37.2; O2SAT 86–100; BMI 33.7
--- NOTE | ~2021-07-17 | XR_ITS ---
EXAMINATION: XR knee LT 2V DATE: 07/17/2021 11:06 INDICATION: Total left knee arthroplasty. Postop. TECHNIQUE: 2 views of left knee were obtained. COMPARISON: None. FINDINGS: There is a total left knee arthroplasty in near-anatomic alignment without patellar resurfa cing. No fracture. There are tiny osteophytes of the patella. There is gas in the knee joint and soft tissues, consistent with recent surgery. IMPRESSION: 1. Total left knee arthroplasty in near-anatomic alignment. Reviewed, dictated and finalized at location B.
[2021-07-17] MEDS: ACETAMINOPHEN 500 MG TABLET 1000 MG PO ×3 (06:37→20:41)
[2021-07-17] MEDS: LACTATED RINGERS 1,000 ML 30 ML IV CONT ×2 (06:47→11:11)
[2021-07-17] MEDS: TRANEXAMIC ACID 1,000MG/ISO100 1,000 MG/100 ML BAG 200 MG IVPB (06:48)
--- NOTE | 2021-07-17 07:13 | SUR.PREOP ---
DR MADERA NOTIFIED OF PT'S LT FOOT BUNION, RED AND CALOUSED
--- NOTE | 2021-07-17 07:21 | WPDHPUPDATE1 ---
History and Physical Update Update Date/Time: 07/17/21 07:21 History and Physical has been reviewed, including an updated exam of the patient. There are NO changes in the patient's condition. Risks, benefits, and alternatives have been discussed and questions answered. Patient agrees to proceed with procedure.
[2021-07-17] MEDS: SCOPOLAMINE 1.5 MG PATCH TRANSDERM (07:29)
[2021-07-17] MEDS: ceFAZolin 2 GM/D5W 50 ML 2 GM/50 ML BAG IVPB (07:34)
[2021-07-17] MEDS: ceFAZolin SODIUM 1 GM VIAL IV PUSH (10:17)
[2021-07-17] MEDS: TRANEXAMIC ACID 1,000 MG/10 ML AMPUL 1000 MG IV PUSH (10:23)
[2021-07-17] MEDS: ceFAZolin SODIUM 1 GM VIAL 3 GM IRRIGATION (10:24)
--- NOTE | 2021-07-17 11:01 | W.PM.PROC2 ---
Procedure Note - Detailed Date of Procedure 07/17/21 Pre-op Diagnosis OA left knee Post-op Diagnosis Same Procedure Performed Left total knee arthroplasty Surgeon Med Hugo MD Telehealth Nurse Akil Anesthesia General Description of Procedure Patient was brought to the operating room and general anesthesia was administered. She received 2 g of Ancef weight based vancomycin 1 g of tranexamic acid preoperatively. With her history of nausea she had a scopolamine patch placed and also received 8 mg of Decadron. The left knee was prepped draped usual fashion. Limb was exsanguinated and tourniquet elevated to 275 mmHg. A 7 in longitudinal incision and a vastus medialis splitting approach utilized. Infrapatellar and suprapatellar fat pads were excised the quadriceps synovectomy carried out. Her skin was not very stretchable and I found it preferable to increase the length of the incision other 1/2 inch distally and 3/4 of an inch proximally to avoid excessive tension on the skin edges. The patella had normal articular cartilage except for the medial facet. There was chondromalacia of the medial facet with minor osteophytes. I felt this was best treated with non resurfacing. A limited lateral facetectomy was performed. Next a guide roman was inserted down the femoral canal after aspiration of canal contents. As she came out to full extension easily, I elected to removed 8 mm from the distal femur. Next the tibial plateau was cut. Our initial cut was a skim cut. This removed about 8 mm laterally. We were too tight in flexion and additional 2 mm of bone was removed from the tibial plateau at that time. This was made perpendicular to the axis of the tibia. The PCL was recessed. Flexion gap measured a tight 8 mm medially and 11 mm laterally. The femoral sizing guide was applied for degrees of external rotation which matched [place] line and posterior referencing pinholes were placed and the femur was cut with the 62.5 vanguard cutting block. The trial component fit line to line all the way around. Meniscal remnants were excised. We placed the 10 CR insert and it was too tight to insert and therefore we removed an additional 1/2 mm of bone from the tibial plateau. The tibia was sized to a 67. I noted that the center of the lateral tibial plateau was exceptionally soft and 1 could push it with the tip of the finger and indented in the center lateral plateau therefore I elected to use an extended stem length for additional support. As the knee was too tight in extension medially relative to the lateral side we elected to remove posteromedial tibial osteophyte this time. Flexion gaps at 90? were equal between the mediolateral sides.. We trialed and the 10 insert was appropriate in extension. It was significantly loose though in flexion. Additional 2 mm of bone removed the distal femur chamfer cuts revisited and we trialed with the 12 insert which came out to full extension with a negative bounce with 1 mm medial opening and 3 mm lateral opening and had excellent stability with a mm of medial lateral opening at 90? to valgus and varus stress respectively. [place] flexion was to 125. Patellar tracking was excellent. There was no additional posterior femoral osteophytes removed. We did not need to perform a posterior capsular release. Lug holes were drilled in the femoral component. Step drill was used to make drill holes in the denser portions of the medial tibial plateau the medial femoral condyle. On the back table we assembled the 67 vanguard tray to the 80 mm x 10 mm thin stem. Limb was exsanguinated again and tourniquet real a vape. We had put it down at 90 minutes. The bony surfaces were thoroughly irrigated and dried. Methylmethacrylate was mixed 1 containing gentamicin powder the cement was immediately applied the tibial component and the femoral component cement applied to the tibia and inject the canal and pressurized and the tibial compo
--- NOTE | 2021-07-17 11:44 | SUR.PHASEI ---
Simple mask off at 1144.
[2021-07-17] MEDS: fentaNYL CITRATE INJ (*CRX) 100 MCG/2 ML VIAL 25 MCG IV PUSH (12:11)
--- NOTE | 2021-07-17 13:33 | ADMGEN ---
This patient, Rimma Monzon, was admitted to 2 Medical Room 242-. Patient/family oriented to hospital policies and general routines including ID bracelet, bed and alarms, visiting hours, pain management, procedures, bathroom and other care routines, personal items, smoking policy, room service/diet, and visiting hours. Information on how to activate the Rapid Response Team has been discussed. Patient/Family are encouraged to report perceived risks to care and to ask questions if they do not understand what they are told or what they should do. Patient in bed resting comfortably at this time with no complaints. Will continue to monitor patient.
[2021-07-17] MEDS: SODIUM CHLORIDE 0.9% IV 1,000 ML 125 ML IV CONT (13:48)
[2021-07-17] MEDS: oxyCODONE HCL (*CRX) 2.5 MG TAB IR PO ×3 (13:50→20:41)
[2021-07-17] MEDS: SENNA/DOCUSATE SODIUM TABLET 2 TAB PO (16:24)
[2021-07-17] MEDS: SIMVASTATIN 20 MG TABLET 40 MG PO (20:41)
[2021-07-17] MEDS: FAMOTIDINE 20 MG TABLET PO (20:41)
[2021-07-18 01:20] VITALS: BP 130/57; PULSE 80; RESP 16; TEMP 37.2; O2SAT 99
[2021-07-18] MEDS: oxyCODONE HCL (*CRX) 2.5 MG TAB IR PO ×4 (01:31→13:32)
[2021-07-18] MEDS: ACETAMINOPHEN 500 MG TABLET 1000 MG PO ×3 (01:31→13:32)
[2021-07-18 05:29] VITALS: BP 132/57; PULSE 68; RESP 14; TEMP 36.4; O2SAT 98
[2021-07-18 05:40] LABS: Basophils Percent Auto 0.2 % (0.2-1.2); Hematocrit 26.5 % (37.0-47.0); Hemoglobin 8.6 g/dL (12.0-15.0); Immature Granulocyte Absolute 0.02 K/mm3 (0.00-0.031); Immature Granulocyte Percent A 0.3 % (0-0.5); Immature Platelet Fraction Pct 4.9 % (0.9-11.2); Lymphocytes Absolute Auto 1.13 K/mm3 (0.9-3.2); Lymphocytes Percent Auto 18.9 % (18.3-44.2); Mean Corpuscular HGB Conc 32.5 g/dl (32-36); Mean Corpuscular Hemoglobin 35.2 pg (26-34); Mean Corpuscular Volume 108.6 fl (80-100); Mean Platelet Volume 11.1 fl (7.4-10.4); Monocytes Absolute Auto 0.5 K/mm3 (0.1-0.6); Neutrophils Absolute Auto 4.4 K/mm3 (1.3-6.7); Neutrophils Percent Auto 72.6 % (45.5-73.1); Platelet Count Result 54 k/mm3 (150-375); Red Blood Count 2.44 M/mm3 (4.2-5.4)
[2021-07-18 05:53] LABS: Anion Gap 6 mmol/L (8-16); Blood Urea Nitrogen 12 mg/dL (7-17); Calcium 7.6 mg/dL (8.4-10.2); Carbon Dioxide 25 mmol/L (22-30); Chloride 107 mmol/L (98-107); Estimated CRCL calculation 51 ml/min; Estimated Glomerular Filt Rate > 60; Glucose 104 mg/dL (65-110); Potassium 4.3 mmol/L (3.4-5.0); Sodium 138 mmol/L (137-145)
[2021-07-18] MEDS: LEVOTHYROXINE SODIUM 88 MCG TABLET PO (06:21)
--- NOTE | 2021-07-18 06:25 | PM.PNORT ---
Subjective Subjective Date/Time Seen: 07/18/21 06:25 POd 1 alert avss , labs-pending, dressing is dry ,NVI, no nausea and pain is well controlled, pt was up walking yesterday comfortable, plan to have pt work with PT today then home this afternoon Objective Data Vital Signs Vital Signs: Vital Signs - 24 hr 07/17/21 06:30 07/17/21 11:11 07/17/21 11:23 Temperature 36.5 C 36.8 C Pulse Rate 84 78 81 Respiratory Rate 18 20 14 Blood Pressure 153/67 H 127/50 L 116/53 L Pulse Oximetry 98 97 98 07/17/21 11:25 07/17/21 11:40 07/17/21 11:52 Temperature Pulse Rate 81 78 Respiratory Rate 16 16 Blood Pressure 131/63 126/51 L Pulse Oximetry 98 98 86 L 07/17/21 11:55 07/17/21 12:10 07/17/21 12:25 Temperature 36.6 C Pulse Rate 78 79 81 Respiratory Rate 16 16 16 Blood Pressure 120/65 121/59 L 113/55 L Pulse Oximetry 97 95 96 07/17/21 12:40 07/17/21 12:55 07/17/21 13:25 Temperature 36.6 C 36.6 C 36.6 C Pulse Rate 84 84 82 Respiratory Rate 16 16 18 Blood Pressure 118/60 128/66 130/60 Pulse Oximetry 100 100 99 07/17/21 14:22 07/17/21 18:08 07/17/21 20:00 Temperature 36.9 C 37.2 C 36.9 C Pulse Rate 83 88 87 Respiratory Rate 16 16 16 Blood Pressure 126/62 140/59 L 129/51 L Pulse Oximetry 100 95 99 07/18/21 01:20 07/18/21 05:29 Temperature 37.2 C 36.4 C Pulse Rate 80 68 Respiratory Rate 16 14 Blood Pressure 130/57 L 132/57 L Pulse Oximetry 99 98 Intake/Output Intake/Output: Intake & Output 07/15/21 07/16/21 07/17/21 07/18/21 23:59 23:59 23:59 23:59 Intake Total 1620 550 Output Total 550 1600 Balance 1070 -1050 Meds/Results Medications: Active Medications Generic Name Dose Route Start Last Admin Trade Name Freq PRN Reason Stop Dose Admin Acetaminophen 1,000 mg 04/18/22 14:00 07/18/21 01:31 Acetaminophen 500 Mg Tablet PO 1,000 mg Q6H [facility] Administration Apixaban 2.5 mg 07/18/21 09:00 Apixaban 2.5 Mg Tablet PO 07/29/21 21:01 Q12HR JENNY Cephalexin HCl 500 mg 07/18/21 12:00 Cephalexin 500 Mg Capsule PO Q6HR [facility] Cyanocobalamin 1,000 mcg 07/21/21 09:00 Cyanocobalamin 1,000 Mcg Tablet PO MoFr@0900 [facility] Diphenhydramine HCl 25 mg 07/17/21 12:37 Diphenhydramine Hcl Inj 50 Mg/Ml Vial IV PUSH Q6H PRN Itching Escitalopram Oxalate 10 mg 07/18/21 09:00 Escitalopram Oxalate 10 Mg Tablet PO QAM [facility] Famotidine 20 mg 07/17/21 21:00 07/17/21 20:41 Famotidine 20 Mg Tablet PO 20 mg Q12HR [facility] Administration Vancomycin HCl 1,000 mg in 250 mls @ 250 mls/hr 07/17/21 18:00 07/18/21 05:52 Vancomycin 1,000 Mg/D5w 250 Ml IVPB 07/18/21 06:59 250 mls/hr Q12H [facility] Administration Cefazolin Sodium 1 gm in 50 mls @ 100 mls/hr 07/17/21 15:00 07/17/21 23:30 Ancef 1 Gm/D5w 50 Ml Pm IVPB 07/18/21 07:29 Infused Q8H [facility] Infusion Levothyroxine Sodium 88 mcg 07/18/21 06:30 07/18/21 06:21 Levothyroxine Sodium 88 Mcg Tablet PO 88 mcg DAILY@0630 [facility] Administration Losartan Potassium 50 mg 07/18/21 11:30 Losartan Potassium 50 [place] 1130 JENNY Magnesium Hydroxide 30 ml 07/17/21 12:37 Magnesium Hydroxide Susp 30 Ml Udc PO BID PRN Constipation Metoprolol Succinate 25 mg 07/18/21 09:00 Metoprolol Succinate Ext Rel 25 Mg Tabcr PO QAM JENNY Naloxone HCl 0.1 mg 07/17/21 12:37 Naloxone Hcl 0.4 Mg/Ml Vial IV PUSH Q2M PRN Opiate Reversal Ondansetron HCl 4 mg 07/17/21 12:37 Ondansetron Inj 4 Mg/2 Ml Vial IV PUSH Q4H PRN Nausea And Vomiting Oxycodone HCl 2.5 mg 07/17/21 12:37 Oxycodone Hcl (*Crx) 2.5 Mg Tab Ir PO Q4H PRN Pain Rated 1-3 Oxycodone HCl 2.5 mg 07/17/21 13:00 07/18/21 05:08 Oxycodone Hcl (*Crx) 2.5 Mg Tab Ir PO 2.5 mg Q4HR JENNY Administration Polyethylene Glycol 17 gm 07/18/21 09:00 Polyethylene Glycol 3350 17 Gm Powd.Pack PO QAM JENNY Senna/Docusate Sodium 2 tab 07/17/21 17:00
--- NOTE | 2021-07-18 06:33 | PM.DS ---
DS: Admitting Diagnosis Discharge Date 07/18 Admitting Diagnosis Left knee DJD DS: Summary Hospital Course Hospital Course: Stable Time Spent with Patient Time attestation: Total time spent providing and/or coordinating discharge services: 70-year-old female underwent left total knee arthroplasty on 07/17. On the procedure without complications. Postoperatively she has been afebrile vital signs are stable. She has had no nausea postop as she has had with her prior surgery. Pain overall is very well controlled. She was up walking with physical therapy they have surgery comfortable. She is on scheduled Tylenol as well as oxycodone 2.5 mg for pain control. She is allergic to sulfa and therefore we are not using Celebrex on her. Patient is weight-bearing as tolerated. She is on Eliquis for DVT prophylaxis. The patient has a history of thrombocytopenia we are going to be getting blood work postoperatively when she has outpatient to continue to monitor this while she is on the Eliquis per the coil wrapper. Postop day 1 platelets were 54,000. We will recheck these on . Hemoglobin was 8.6. Patient is asymptomatic from the anemia. Patient was advised to keep leg elevated home prevent swelling but her exercise on a regular basis. She has had a right knee replaced in past and is well aware of the exercises. She has outpatient therapy set up. She also go home on a 10 day course Keflex. To also go home on Senokot and MiraLax. Patient was advise any questions or concerns she is to call the office otherwise we will see her at her appointment date. DS: Data Data Completed and Pending Labs on day of discharge: Labs from last 24 hours 07/18/21 07/18/21 05:12 05:12 WBC 6.0 RBC 2.44 L Hgb 8.6 L D Hct 26.5 L MCV 108.6 H MCH 35.2 H MCHC 32.5 RDW 12.0 Plt Count 54 L MPV 11.1 H Immature Gran % (Auto) 0.3 Neut % (Auto) 72.6 Lymph % (Auto) 18.9 Schley % (Auto) 8.0 Eos % (Auto) 0.0 Baso % (Auto) 0.2 Lymph # (Auto) 1.13 Schley # (Auto) 0.5 Eos # (Auto) 0.0 Baso # (Auto) 0.0 Abs Immat Gran (auto) 0.02 Absolute Neuts (auto) 4.4 Absolute Nucleated RBC 0.0 Nucleated RBC % 0.0 % Immature Plt Fraction 4.9 Sodium 138 Potassium 4.3 Chloride 107 Carbon Dioxide 25 Anion Gap 6 L BUN 12 Creatinine 0.90 Estim Creat Clear Calc 51 Estimated GFR > 60 Glucose 104 Calcium 7.6 L Discharge Plan Discharge Patient Disposition: Home, Self-Care Discharge Instructions: MED HUGO [facility], [place] [id number] [place] [id number] POST-OPERATIVE DISCHARGE INSTRUCTIONS TOTAL KNEE ARTHROPLASTY 1. When resting, lie on back with leg elevated above hear to minimize swelling. Significant swelling could indicate a blood clot and if this occurs call the office (or go to the ER) to have a venous ultrasound. 2. Do exercise 5 times a day. 3. Do not sit with leg down except for meals. 4. Wound Care: Nursing will give additional dressings at discharge. Patient to change dressing at home 1 week from surgery, then maintain until seen in office. 5. May shower with dressing in place. Stand Alone Forms: General Discharge Instructions Follow-up/Referrals: Med Hugo MD [Physician] - Keep Reg. Scheduled Appt. Discharge Medications: New polyethylene glycol 3350 [Miralax] 17 gram Powder In Packet 17 g PO QAM Qty: 30 RF: 0 sennosides-docusate sodium [Senokot-S] 8.6-50 mg Tablet 2 tab PO BID Qty: 60 RF: 0 acetaminophen 500 mg Tablet 1,000 mg PO Q6H Qty: 90 RF: 0 cephalexin 500 mg Capsule 500 mg PO Q6HR Qty: 40 RF: 0 Eliquis 2.5 mg Tablet 2.5 mg PO Q12HR Qty: 27 RF: 0 oxycodone 5 mg tablet 5 mg PO Q4H PRN (Reason: pain) Qty: 30 RF: 0 Continued loratadine 10 mg tablet 10 mg PO DAILY RF: 0 famotidine [Pepcid AC] 20 mg tablet 20 mg PO QACLUNCH R
[2021-07-18] MEDS: FAMOTIDINE 20 MG TABLET PO (09:05)
[2021-07-18] MEDS: ESCITALOPRAM OXALATE 10 MG TABLET PO (09:05)
[2021-07-18] MEDS: SENNA/DOCUSATE SODIUM TABLET 2 TAB PO (09:05)
[2021-07-18] MEDS: polyethylene glycoL 3350 17 GM POWD.PACK PO (09:07)
[2021-07-18 09:08] VITALS: PULSE 80
[2021-07-18] MEDS: METOPROLOL SUCCINATE EXT REL 25 MG TABCR PO (09:08)
[2021-07-18 10:03] VITALS: BP 115/56; PULSE 83; RESP 16; TEMP 36.6; O2SAT 96
[2021-07-18 11:37] VITALS: BP 98/51
[2021-07-18] MEDS: CEPHALEXIN 500 MG CAPSULE PO (11:40)
[2021-07-18] MEDS: APIXABAN 2.5 MG TABLET PO (13:31)
--- NOTE | 2021-07-18 14:00 | WPDANESPN ---
Anes - Prog Note Post-Op Date/Time: 07/18/21 14:00 Cardiovascular status: normal Respiratory status: normal Airway patency: baseline Mental status: baseline Post-Op hydration status: normal Vital Signs: Last Vital Signs Temp 97.9 F 07/18/21 10:03 Pulse 83 07/18/21 10:03 Resp 16 07/18/21 10:03 BP 98/51 L 07/18/21 11:37 Pulse Ox 96 07/18/21 10:03 Pain Score (VAS): 3 I/O: Intake & Output 07/17/21 07/18/21 07/18/21 23:59 07:59 15:59 Intake Total 770 850 240 Output Total 350 1600 Balance 420 -750 240 Laboratory Tests 07/18/21 05:12 07/18/21 05:12 07/18/21 07/18/21 05:12 05:12 WBC 6.0 RBC 2.44 L Hgb 8.6 L D Hct 26.5 L MCV 108.6 H MCH 35.2 H MCHC 32.5 RDW 12.0 Plt Count 54 L MPV 11.1 H Immature Gran % (Auto) 0.3 Neut % (Auto) 72.6 Lymph % (Auto) 18.9 Johnson % (Auto) 8.0 Eos % (Auto) 0.0 Baso % (Auto) 0.2 Lymph # (Auto) 1.13 Johnson # (Auto) 0.5 Eos # (Auto) 0.0 Baso # (Auto) 0.0 Abs Immat Gran (auto) 0.02 Absolute Neuts (auto) 4.4 Absolute Nucleated RBC 0.0 Nucleated RBC % 0.0 % Immature Plt Fraction 4.9 Sodium 138 Potassium 4.3 Chloride 107 Carbon Dioxide 25 Anion Gap 6 L BUN 12 Creatinine 0.90 Estim Creat Clear Calc 51 Estimated GFR > 60 Glucose 104 Calcium 7.6 L Post-procedural complaints: none Patient Feedback: Patient satisfied with anesthetic care.
[2021-07-18 14:14] VITALS: BP 132/58; PULSE 69; RESP 16; TEMP 36.6; O2SAT 99
--- NOTE | 2021-07-18 15:07 | PM.IMCN ---
Assessment and Plan Assessment and plan (1) History of total left knee replacement: Code(s): Z96.652 - Presence of left artificial knee joint Status: Acute Assessment and Plan: Patient is doing very well postoperatively from her left total knee replacement. Pain medication and VTE prophylaxis will be deferred to Orthopedic surgery. For the medical standpoint patient is stable for discharge home will need to follow up with her primary care provider (2) Anemia, unspecified: Code(s): D64.9 - Anemia, unspecified Status: Acute Assessment and Plan: Does appear to be somewhat delusional. Will recommend the patient have a follow-up CBC done in 1-2 weeks postoperatively. (3) Essential (primary) hypertension: Code(s): I10 - Essential (primary) hypertension Status: Acute Assessment and Plan: Patient's blood pressure has been stable will continue with home medications. (4) Heart murmur: Code(s): R01.1 - Cardiac murmur, unspecified Status: Acute Assessment and Plan: Patient states that her cardiac murmur is no and she follows with Cardiology on a routine basis. No further workup is needed at this time. HPI Data of Consult Consult date: 07/18/21 Requesting Physician: Med Hugo MD Primary Care Provider: Angus Cope DO Consult Narrative Narrative: Rimma Monzon is a 70 year old female who presented to the hospital as an outpatient for an elective left total knee replacement. Patient underwent left total knee arthroplasty on 07/17/2021 and has been doing well postoperatively. Patient states she has had no nausea until this afternoon when she attempted to eat lunch she became mildly nauseous, but denies any vomiting. Patient states she does have a history of PVCs at home and she does take Lopressor for this. Patient states she also has a history of hypertension she takes losartan on a daily basis and her blood pressure has been well controlled with this. 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 Patient states she has been out of bed today without any difficulty. Patient denies any lightheadedness, dizziness, syncopal, or near syncopal episodes. Patient denies any chest pain, shortness a breath, orthopnea, or PND. Review of Systems Review of Systems: A 12 point review of systems was completed patient all pertinent positive and negative per HPI the remainder are unremarkable. [facility] Past Medical History Medical History (Updated 07/18/21 @ 15:10 by Lizzy Degroot APRN) Aortic stenosis, moderate Essential (primary) hypertension Hypothyroidism, unspecified Screening for breast cancer Screening for colon cancer Surgical History Surgical History (Updated 07/18/21 @ 15:13 by Lizzy Degroot APRN) History of total left knee replacement History of total right knee replacement Family History Family History Sibling Patient's brother is in good health Patient's brother is Acute myocardial infarction Father Family history of lung cancer, Onset Age: 65 Family history of type 2 diabetes mellitus Social History Social History Smoking packs per day: 2.5 Smoking cigarettes per day: 50.0 Years smoked: 16 Smoking pack-years: 40.00 Smoking status: Former smoker Tobacco type: cigarettes Second hand tobacco smoke exposure: Yes Smoking end date: 09/29/84 Alcohol intake: never Drinks per week: 1 Alcohol use details: occational use Substance use: never Substance use type: does not use Living arrangements: with family Additional living arrangements comments: SON Gender identity (if verbalized by the patient): Female Spiritual care concerns: No Meds Home Medications and Allergies Home Medications Medication Instructions Rec
== END 2021-07-18 16:17 | disposition home or self-care (01) ==
LOC: ANHSURGERY 06:08 → ANH2MED 12:42
PROVIDERS: Physician Assistant Surgical; PCP Internal Medicine; Visit Provider Orthopaedic Surgery
PROC: (CPT 27447; principal; 2021-07-17 07:30)
DX: M17.12 Unilateral primary osteoarthritis, left knee (principal); I10 Essential (primary) hypertension; D64.9 Anemia, unspecified; R01.1 Cardiac murmur, unspecified; I35.0 Nonrheumatic aortic (valve) stenosis; E03.9 Hypothyroidism, unspecified; Z87.891 Personal history of nicotine dependence; E66.9 Obesity, unspecified; Z68.33 Body mass index [BMI] 33.0-33.9, adult
CPT/HCPCS: 27447; 36415; 73560; 80048; 85025; 85055; 97110; 97116; 97161; 97165; 97530; 97535; A9270; C1713; C1776; J0171; J0690; J1100; J1170; J1885; J2250; J2270; J2405; J2704; J2795; J3010; J3370; J7030; J7120

== ENCOUNTER 2021-07-24 10:26 | Outpatient (RCR) | payer MEDICARE, OTHER, SELFPAY ==
[2021-07-19 11:12] LABS: Basophils Percent Auto 0.4 % (0.2-1.2); Eosinophils Absolute Auto 0.2 K/mm3 (0-0.3); Eosinophils Percent Auto 3.6 % (0-4.4); Hematocrit 26.1 % (37.0-47.0); Hemoglobin 8.7 g/dL (12.0-15.0); Immature Granulocyte Absolute 0.01 K/mm3 (0.00-0.031); Immature Granulocyte Percent A 0.2 % (0-0.5); Immature Platelet Fraction Pct 5.7 % (0.9-11.2); Lymphocytes Absolute Auto 0.84 K/mm3 (0.9-3.2); Lymphocytes Percent Auto 16.6 % (18.3-44.2); Mean Corpuscular HGB Conc 33.3 g/dl (32-36); Mean Corpuscular Hemoglobin 36.1 pg (26-34); Mean Corpuscular Volume 108.3 fl (80-100); Mean Platelet Volume 11.1 fl (7.4-10.4); Monocytes Absolute Auto 0.4 K/mm3 (0.1-0.6); Monocytes Percent Auto 8.5 % (2.6-8.5); Neutrophils Absolute Auto 3.6 K/mm3 (1.3-6.7); Neutrophils Percent Auto 70.7 % (45.5-73.1); Platelet Count Result 53 k/mm3 (150-375); Red Blood Count 2.41 M/mm3 (4.2-5.4); Red Cell Distribution Width 12.3 % (11.5-14.5); White Blood Count 5.1 K/mm3 (4.5-10.0)
[2021-07-21 10:16] LABS: Basophils Percent Auto 0.5 % (0.2-1.2); Eosinophils Absolute Auto 0.1 K/mm3 (0-0.3); Eosinophils Percent Auto 1.9 % (0-4.4); Hematocrit 27.7 % (37.0-47.0); Immature Granulocyte Absolute 0.02 K/mm3 (0.00-0.031); Immature Granulocyte Percent A 0.5 % (0-0.5); Immature Platelet Fraction Pct 5.8 % (0.9-11.2); Lymphocytes Absolute Auto 0.72 K/mm3 (0.9-3.2); Lymphocytes Percent Auto 16.8 % (18.3-44.2); Mean Corpuscular HGB Conc 32.5 g/dl (32-36); Mean Corpuscular Hemoglobin 35.3 pg (26-34); Mean Corpuscular Volume 108.6 fl (80-100); Mean Platelet Volume 10.8 fl (7.4-10.4); Monocytes Absolute Auto 0.3 K/mm3 (0.1-0.6); Monocytes Percent Auto 6.8 % (2.6-8.5); Neutrophils Absolute Auto 3.2 K/mm3 (1.3-6.7); Neutrophils Percent Auto 73.5 % (45.5-73.1); Platelet Count Result 72 k/mm3 (150-375); Red Blood Count 2.55 M/mm3 (4.2-5.4); Red Cell Distribution Width 12.2 % (11.5-14.5); White Blood Count 4.3 K/mm3 (4.5-10.0)
[2021-07-24 10:50] LABS: Basophils Percent Auto 0.4 % (0.2-1.2); Eosinophils Absolute Auto 0.2 K/mm3 (0-0.3); Eosinophils Percent Auto 3.3 % (0-4.4); Hematocrit 28.5 % (37.0-47.0); Hemoglobin 9.3 g/dL (12.0-15.0); Immature Granulocyte Absolute 0.02 K/mm3 (0.00-0.031); Immature Granulocyte Percent A 0.4 % (0-0.5); Immature Platelet Fraction Pct 3.2 % (0.9-11.2); Lymphocytes Absolute Auto 1.29 K/mm3 (0.9-3.2); Lymphocytes Percent Auto 28.3 % (18.3-44.2); Mean Corpuscular HGB Conc 32.6 g/dl (32-36); Mean Corpuscular Hemoglobin 34.8 pg (26-34); Mean Corpuscular Volume 106.7 fl (80-100); Mean Platelet Volume 10.1 fl (7.4-10.4); Monocytes Absolute Auto 0.5 K/mm3 (0.1-0.6); Monocytes Percent Auto 11.4 % (2.6-8.5); Neutrophils Absolute Auto 2.6 K/mm3 (1.3-6.7); Neutrophils Percent Auto 56.2 % (45.5-73.1); Platelet Count Result 99 k/mm3 (150-375); Red Blood Count 2.67 M/mm3 (4.2-5.4); Red Cell Distribution Width 12.3 % (11.5-14.5); White Blood Count 4.6 K/mm3 (4.5-10.0)
== END 2021-10-17 23:59 | disposition home or self-care (01) ==
LOC: ANHLAB 10:26
PROVIDERS: PCP Internal Medicine; Visit Provider Orthopaedic Surgery
DX: D64.9 Anemia, unspecified (principal); Z96.653 Presence of artificial knee joint, bilateral
CPT/HCPCS: 36415; 85025; 85055

== ENCOUNTER 2021-08-17 10:05 | Outpatient (CLI) | payer MEDICARE, OTHER, SELFPAY ==
--- NOTE | ~2021-08-17 | US_ITS ---
US abdomen complete EXAMINATION: US Abdomen Complete INDICATION: Secondary thrombocytopenia. Recent knee replacement. PROCEDURE: Realtime High Resolution abdomen ultrasound. COMPARISON: Ultrasound dated 04/09/[address] dated 06/19/2012 FINDINGS: Gallbladder is surgically absent. Common bile duct measures 13 mm. Liver echotexture is increased, consistent with fatty infiltration.. Pancreas within normal limits. Pancreatic tail is obscured by bowel gas. Spleen is unremarkeable. Renal echotexture is within norm al limits bilaterally without hydronephrosis, contour deforming mass or renal stone. Right kidney rebeca sures 9.4 cm. Left kidney measures 10 cm. There is a left renal parapelvic cyst measuring 1.3 cm. Visualized aspects of the aorta and IVC are within normal limits. Portal vein is patent. No sonograph ic Chacon's sign indicated by the technologist. IMPRESSION: 1: Status post cholecystectomy with expected prominence of the common duct. 2: Hepatic steatosis. Reviewed, dictated and finalized at location B.
== END 2021-08-17 10:06 | disposition home or self-care (01) ==
LOC: ANHIMG 10:06
PROVIDERS: PCP Internal Medicine; Visit Provider Internal Medicine Hematology & Oncology
DX: D69.59 Other secondary thrombocytopenia (principal); K76.0 Fatty (change of) liver, not elsewhere classified; Z90.49 Acquired absence of other specified parts of digestive tract
CPT/HCPCS: 76700

== ENCOUNTER 2021-09-07 08:35 | Outpatient (CLI) | payer MEDICARE, OTHER, SELFPAY ==
[2021-09-07 09:42] LABS: Basophils Percent Auto 0.6 % (0.2-1.2); Eosinophils Absolute Auto 0.1 K/mm3 (0-0.3); Eosinophils Percent Auto 2.6 % (0-4.4); Hematocrit 32.6 % (37.0-47.0); Hemoglobin 10.4 g/dL (12.0-15.0); Immature Granulocyte Absolute 0.01 K/mm3 (0.00-0.031); Immature Granulocyte Percent A 0.3 % (0-0.5); Immature Platelet Fraction Pct 5.6 % (0.9-11.2); Lymphocytes Absolute Auto 1.18 K/mm3 (0.9-3.2); Lymphocytes Percent Auto 33.6 % (18.3-44.2); Mean Corpuscular HGB Conc 31.9 g/dl (32-36); Mean Corpuscular Hemoglobin 35.1 pg (26-34); Mean Corpuscular Volume 110.1 fl (80-100); Mean Platelet Volume 11.2 fl (7.4-10.4); Monocytes Absolute Auto 0.4 K/mm3 (0.1-0.6); Monocytes Percent Auto 10.8 % (2.6-8.5); Neutrophils Absolute Auto 1.8 K/mm3 (1.3-6.7); Neutrophils Percent Auto 52.1 % (45.5-73.1); Platelet Count Result 70 k/mm3 (150-375); Red Blood Count 2.96 M/mm3 (4.2-5.4); Red Cell Distribution Width 12.8 % (11.5-14.5); White Blood Count 3.5 K/mm3 (4.5-10.0)
[2021-09-07 09:57] LABS: Alanine Aminotransferase 11 U/L (6-35); Albumin Level 4.2 g/dL (3.5-5.1); Alkaline Phosphatase 61 U/L (38-126); Anion Gap 5 mmol/L (8-16); Aspartate Amino Transferase 23 U/L (14-36); Bilirubin,Total 0.6 mg/dL (0.2-1.3); Blood Urea Nitrogen 16 mg/dL (7-17); Calcium 8.5 mg/dL (8.4-10.2); Carbon Dioxide 27 mmol/L (22-30); Chloride 108 mmol/L (98-107); Estimated Glomerular Filt Rate 55; Glucose 96 mg/dL (65-110); Potassium 4.4 mmol/L (3.4-5.0); Sodium 140 mmol/L (137-145)
[2021-09-07 10:25] LABS: Iron 81 ug/dL (37-170)
[2021-09-07 10:34] LABS: Percent Iron Saturation 28 % (20-50)
[2021-09-07 11:02] LABS: Folic Acid > 20.0 ng/mL (2.76->20); Vitamin B12 > 1000.0 pg/mL (239-931)
[2021-09-12 09:42] LABS: Methylmalonic Acid 208 nmol/L (87-318)
[2021-09-14 01:17] LABS: Platelet Antibody, Direct IgG NEGATIVE (NEGATIVE)
== END 2021-09-07 08:36 | disposition home or self-care (01) ==
LOC: ANHLAB 08:46
PROVIDERS: PCP Internal Medicine; Visit Provider Internal Medicine Hematology & Oncology
DX: D53.1 Other megaloblastic anemias, not elsewhere classified (principal); D69.59 Other secondary thrombocytopenia
CPT/HCPCS: 36415; 80053; 82607; 82728; 82746; 83540; 83550; 83921; 84443; 85025; 85055; 86023

== ENCOUNTER 2021-10-26 09:43 | Outpatient (CLI) | payer MEDICARE, OTHER, SELFPAY ==
--- NOTE | ~2021-10-26 | MM_ITS ---
EXAMINATION: MM screening brandon BI w amira HISTORY: Screening mammogram TECHNIQUE: Craniocaudal and mediolateral oblique 3-D tomosynthesis images were obtained and synthetic 2-D images were generated. CAD analysis was submitted and interpreted. COMPARISON: 08/31/2020, 08/13/2019, 07/30/2018 bilateral screening mammogram examinations BREAST PARENCHYMAL COMPOSITION: The breasts are almost entirely fatty. FINDINGS: There is no evidence of suspicious mass, calcification, or architectural distortion to sugg est malignancy in either breast. There has been no suspicious interval change. IMPRESSION: 1. No mammographic evidence of malignancy. 2. Recommend routine screening mammography in one year. BI-RADS Category 1: Negative.... Reviewed, dictated and finalized at location A.
== END 2021-10-26 09:44 | disposition home or self-care (01) ==
LOC: ANHIMG 09:48
PROVIDERS: PCP Internal Medicine; Visit Provider Internal Medicine
DX: Z12.31 Encounter for screening mammogram for malignant neoplasm of breast (principal)
CPT/HCPCS: 77063; 77067

== ENCOUNTER 2021-12-06 08:11 | Outpatient (CLI) | payer MEDICARE, OTHER, SELFPAY ==
[2021-12-06 08:54] LABS: Basophils Percent Auto 0.3 % (0.2-1.2); Eosinophils Absolute Auto 0.1 K/mm3 (0-0.3); Eosinophils Percent Auto 3.2 % (0-4.4); Hematocrit 32.1 % (37.0-47.0); Hemoglobin 10.8 g/dL (12.0-15.0); Immature Granulocyte Absolute 0.01 K/mm3 (0.00-0.031); Immature Granulocyte Percent A 0.3 % (0-0.5); Immature Platelet Fraction Pct 5.8 % (0.9-11.2); Lymphocytes Absolute Auto 1.19 K/mm3 (0.9-3.2); Lymphocytes Percent Auto 37.5 % (18.3-44.2); Mean Corpuscular HGB Conc 33.6 g/dl (32-36); Mean Corpuscular Hemoglobin 35.6 pg (26-34); Mean Corpuscular Volume 105.9 fl (80-100); Mean Platelet Volume 11.5 fl (7.4-10.4); Monocytes Absolute Auto 0.3 K/mm3 (0.1-0.6); Monocytes Percent Auto 9.5 % (2.6-8.5); Neutrophils Absolute Auto 1.6 K/mm3 (1.3-6.7); Neutrophils Percent Auto 49.2 % (45.5-73.1); Platelet Count Result 65 k/mm3 (150-375); Red Blood Count 3.03 M/mm3 (4.2-5.4); Red Cell Distribution Width 13.2 % (11.5-14.5); White Blood Count 3.2 K/mm3 (4.5-10.0)
[2021-12-06 09:02] LABS: Cholesterol 170 mg/dL (0-200); HDL Direct 53 mg/dL; Triglycerides 140 mg/dL (<150)
[2021-12-06 09:08] LABS: Hemoglobin A1C 5.6 % (<5.7)
[2021-12-06 09:10] LABS: LDL Cholesterol Direct 71 mg/dL
[2021-12-06 09:31] LABS: Anisocytosis 1+ (NORMAL); Platelet Estimate Decreased (Adequate)
[2021-12-06 09:39] LABS: Iron 94 ug/dL (37-170)
[2021-12-06 09:44] LABS: Vitamin D 25 Hydroxy 39.3 ng/mL
[2021-12-06 09:49] LABS: Percent Iron Saturation 31 % (20-50)
== END 2021-12-06 08:12 | disposition home or self-care (01) ==
PROVIDERS: PCP Internal Medicine; Visit Provider Internal Medicine
DX: E11.9 Type 2 diabetes mellitus without complications (principal); E55.9 Vitamin D deficiency, unspecified; E78.5 Hyperlipidemia, unspecified; D64.9 Anemia, unspecified; E53.8 Deficiency of other specified B group vitamins
CPT/HCPCS: 36415; 80061; 82306; 82607; 83036; 83540; 83550; 85025; 85055

== ENCOUNTER 2021-12-12 11:58 | Outpatient (CLI) | payer MEDICARE, OTHER, SELFPAY ==
--- NOTE | 2021-12-12 12:14 | ECHO_ITS ---
Patient Info Name: Rimma Monzon Age: 71 years : 1950 Gender: Female Ht: 62 in Wt: 180 lbs BSA: 1.92 m2 HR: 67 bpm BP: 154 / 86 mmHg Technical Quality: Good Exam Date: 12/12/2021 12:48 PM Exam Location: [facility] Patient Status: Outpatient Admit Date: 12/12/2021 Staff Ordering Physician: Parminder Reese DO Signing Agent: Heraclio Chacon RDCS, RT Attending Provider: Parminder Reese DO Referring Physician: Hugh TURNER; Exam Type: CA echo doppler color flow Study Info Indications I35.0 - Nonrheumatic aortic (valve) stenosis Complete two-dimensional, color flow and Doppler transthoracic echocardiogram is performed. Summary 1. Complete two-dimensional, color flow and Doppler transthoracic echocardiogram is performed. 2. Left ventricular chamber dimension is normal. 3. Left ventricular systolic function is normal, estimated at 60-65%. 4. The left ventricular diastolic function is grade I diastolic dysfunction. 5. E/e' 12 is mildly elevated. 6. The aortic valve is not well visualized. Cannot determine number of aortic valve leaflets. 7. There is moderate aortic valve sclerosis. 8. There is moderate aortic valve stenosis with a peak velocity of 234 cm/s, mean gradient of 12 mmHg, and aortic valve area of 1.2 cm2. 9. There is trace aortic valve regurgitation. 10. There is trace mitral valve regurgitation. Left Ventricle E/e' 12 is mildly elevated. Left ventricular chamber dimension is normal. Left ventricular systolic function is normal, estimated at 60-65%. The left ventricular diastolic function is grade I diastolic dysfunction. Right Ventricle Right ventricular systolic function is normal and with normal TAPSE 2.0 cm. Right ventricular chamber dimension is normal. Left Atria Left atrial chamber dimension is normal. Right Atria Right atrial chamber dimension is normal. Aortic Valve The aortic valve is not well visualized. Cannot determine number of aortic valve leaflets. There is moderate aortic valve sclerosis. There is moderate aortic valve stenosis with a peak velocity of 234 cm/s, mean gradient of 12 mmHg, and aortic valve area of 1.2 cm2. There is trace aortic valve regurgitation. Pulmonic Valve There is no pulmonic regurgitation. Mitral Valve There is no mitral valve stenosis. There is trace mitral valve regurgitation. Tricuspid Valve There is no tricuspid valve regurgitation. Pericardium/Pleural There is no pericardial effusion. Inferior Vena Cava Normal inferior vena cava with >50% collapse upon inspiration consistent with normal right atrial pressure, 5 mmHg. Aorta The aortic root size at the sinus of Valsalva is normal. Left Ventricular Outflow Tract Name Value Normal LVOT 2D LVOT Diameter 2.0 cm LVOT Doppler LVOT Peak Gradient 4 mmHg LVOT Mean Gradient 2 mmHg LVOT VTI 19 cm LVOT VTI/AV VTI Ratio 0.4 LVOT Stroke Volume 61 ml LVOT CO 4.9 l/min LVOT CI
== END 2021-12-12 11:59 | disposition home or self-care (01) ==
PROVIDERS: PCP Internal Medicine; Visit Provider Internal Medicine Cardiovascular Disease
DX: I35.0 Nonrheumatic aortic (valve) stenosis (principal)
CPT/HCPCS: 93306

== ENCOUNTER 2022-03-12 10:07 | Outpatient (CLI) | payer MEDICARE, OTHER, SELFPAY ==
[2022-03-12 10:58] LABS: Basophils Percent Auto 0.5 % (0.2-1.2); Eosinophils Absolute Auto 0.1 K/mm3 (0-0.3); Eosinophils Percent Auto 2.7 % (0-4.4); Hematocrit 31.5 % (37.0-47.0); Hemoglobin 10.5 g/dL (12.0-15.0); Immature Platelet Fraction Pct 5.3 % (0.9-11.2); Lymphocytes Absolute Auto 1.35 K/mm3 (0.9-3.2); Lymphocytes Percent Auto 36.2 % (18.3-44.2); Mean Corpuscular HGB Conc 33.3 g/dl (32-36); Mean Corpuscular Hemoglobin 36.6 pg (26-34); Mean Corpuscular Volume 109.8 fl (80-100); Mean Platelet Volume 11.6 fl (7.4-10.4); Monocytes Absolute Auto 0.4 K/mm3 (0.1-0.6); Monocytes Percent Auto 10.2 % (2.6-8.5); Neutrophils Absolute Auto 1.9 K/mm3 (1.3-6.7); Neutrophils Percent Auto 50.4 % (45.5-73.1); Platelet Count Result 56 k/mm3 (150-375); Red Blood Count 2.87 M/mm3 (4.2-5.4); Red Cell Distribution Width 12.3 % (11.5-14.5); White Blood Count 3.7 K/mm3 (4.5-10.0)
== END 2022-03-12 10:08 | disposition home or self-care (01) ==
LOC: ANHLAB 10:10
PROVIDERS: PCP Internal Medicine; Visit Provider Internal Medicine Hematology & Oncology
DX: D53.1 Other megaloblastic anemias, not elsewhere classified (principal)
CPT/HCPCS: 36415; 85025; 85055

== ENCOUNTER 2022-03-20 00:48 | Day surgery (SDC) | payer MEDICARE, OTHER, SELFPAY ==
[2022-03-19 14:58] VITALS: BMI 32.5
--- NOTE | ~2022-03-20 | BM_ITS ---
EXAMINATION: CCL bone marrow asp w bx diag DATE: 03/20/2022 10:38 INDICATION: Pancytopenia. TECHNIQUE: A time-out was performed to verify the patient's name, date of , and procedure to b e performed. The procedure including the risks, benefits, and alternatives was discussed with the pat ient. Risks discussed included bleeding and infection. The patient understood the risks and agreed to proceed. The skin overlying the left ilium was prepped and draped in usual sterile fashion. Anesth etic was administered with 1% lidocaine subcutaneously. Moderate sedation was achieved with 1 mg Vers ed IV and 50 mg fentanyl IV. An 11 gauge needle was inserted into the ilium with fluoroscopic guidan ce. Bone marrow was aspirated. An 8 gauge needle was then inserted into the ilium with fluoroscopic g uidance. A core bone marrow biopsy was obtained. There were no immediate complications. Fluoroscopy e xposure time was 0.1 minutes. The total number of images was 41. FINDINGS: Real-time fluoroscopy demonstrates a marker overlying the left posterior superior iliac spi ne. IMPRESSION: 1. Fluoro-guided bone marrow aspiration. 2. Fluoro-guided bone marrow core biopsy. Reviewed, dictated and finalized at location A. AGE CALLER
[2022-03-20 09:18] VITALS: BP 153/80; PULSE 77; RESP 18; TEMP 36.7; O2SAT 97
[2022-03-20 09:18] LABS: Basophils Percent Auto 0.7 % (0.2-1.2); Eosinophils Absolute Auto 0.1 K/mm3 (0-0.3); Eosinophils Percent Auto 3.3 % (0-4.4); Hematocrit 32.4 % (37.0-47.0); Hemoglobin 10.9 g/dL (12.0-15.0); Immature Granulocyte Absolute 0.01 K/mm3 (0.00-0.031); Immature Granulocyte Percent A 0.3 % (0-0.5); Immature Platelet Fraction Pct 4.9 % (0.9-11.2); Lymphocytes Absolute Auto 1.19 K/mm3 (0.9-3.2); Mean Corpuscular HGB Conc 33.6 g/dl (32-36); Mean Corpuscular Hemoglobin 36.7 pg (26-34); Mean Corpuscular Volume 109.1 fl (80-100); Mean Platelet Volume 11.1 fl (7.4-10.4); Monocytes Absolute Auto 0.3 K/mm3 (0.1-0.6); Monocytes Percent Auto 10.2 % (2.6-8.5); Neutrophils Absolute Auto 1.4 K/mm3 (1.3-6.7); Neutrophils Percent Auto 46.5 % (45.5-73.1); Platelet Count Result 60 k/mm3 (150-375); Red Blood Count 2.97 M/mm3 (4.2-5.4); Red Cell Distribution Width 12.4 % (11.5-14.5); White Blood Count 3.1 K/mm3 (4.5-10.0)
[2022-03-20 09:31] LABS: Prothrombin Time 12.7 Seconds (11.1-14.7)
[2022-03-20 09:42] LABS: Anisocytosis 1+ (NORMAL); Ovalocytes 1+ (NORMAL); Platelet Estimate Decreased (Adequate)
--- NOTE | 2022-03-20 09:51 | WPDMODSED ---
Moderate Sedation Note-Pt Data Patient Data Diagnosis: Pancytopenia. Present Complaint: Pancytopenia. Procedure to be performed/Plan: Fluoro-guided bone marrow biopsy of ilium. Allergies Allergy/AdvReac Type Severity Reaction Status Date / Time Penicillins Allergy Mild Hives Verified 03/20/22 09:12 Sulfa (Sulfonamide Allergy Mild rash Verified 03/20/22 09:12 Antibiotics) Home Medications Medication Instructions Recorded Confirmed Type calcium carb-vit O2-sidkozvwd-yono 1 tablet PO BID 11/10/19 03/19/22 History 333 mg-200 unit-133 mg-5 mg tablet famotidine 20 mg tablet (Pepcid AC) 20 mg PO QACLUNCH 11/10/19 03/19/22 History loratadine 10 mg tablet 10 mg PO DAILY 11/10/19 03/19/22 History tizanidine 4 mg capsule 4 mg PO QHS PRN muscle spasticity 06/07/21 03/19/22 Rx #30 caps Lactobacills gasseri-Bifidobac 1 cap PO QAM 07/04/21 03/19/22 History bifidum,longum 1.5 billion cell capsule (IGG) alflszcorfew-Ys-zyqw-minerals 1 tablet PO DAILY 07/04/21 03/19/22 History omeprazole 20 mg capsule,delayed 20 mg PO DAILY 07/04/21 03/19/22 History release aspirin 81 mg tablet,delayed 81 mg PO BID 08/21/21 03/19/22 History release (Adult Low Dose Aspirin) losartan 50 mg tablet 50 mg PO QACLUNCH #90 tabs 10/19/21 03/19/22 Rx cyanocobalamin (vitamin B-12) 1,000 mcg PO WEEKLY 12/15/21 03/19/22 History 1,000 mcg capsule metoprolol succinate 25 mg 25 mg PO QAM #90 tabs 12/25/21 03/19/22 Rx tablet,extended release 24 hr levothyroxine 88 mcg tablet 88 mcg PO QAM #90 tabs 01/03/22 03/19/22 Rx (Euthyrox) simvastatin 40 mg tablet 40 mg PO HS #90 tabs 02/27/22 03/19/22 Rx acetaminophen 500 mg tablet 1,000 mg PO Q8H 03/19/22 03/19/22 History escitalopram oxalate 10 mg tablet 10 mg PO QAM #90 tabs 03/19/22 03/19/22 Rx melatonin 5 mg tablet 5 mg PO HS 03/19/22 03/19/22 History meloxicam 15 mg tablet 15 mg PO HS 03/19/22 03/19/22 History Sedation/Anesthesia: No previous sedation/anesthesia problems (including family history). [facility] Past Medical History Medical History Aortic stenosis, moderate Essential (primary) hypertension Hypothyroidism, unspecified Screening for breast cancer Screening for colon cancer Surgical History Surgical History History of left knee replacement History of total left knee replacement History of total right knee replacement Family History Family History Sibling Patient's brother is in good health Patient's brother is Acute myocardial infarction Father Family history of lung cancer, Onset Age: 65 Family history of type 2 diabetes mellitus Social History Social History Smoking packs per day: 2.5 Smoking cigarettes per day: 50.0 Years smoked: 16 Smoking pack-years: 40.00 Smoking status: Former smoker Tobacco type: cigarettes Second hand tobacco smoke exposure: Yes Smoking end date: 09/29/84 Additional smoking assessment comments: quit smoking 30 plus years Alcohol intake: current Drinks per week: 1 Alcohol use details: last drinks in october Substance use: never Substance use type: does not use Living arrangements: with family Additional living arrangements comments: SON Gender identity (if verbalized by the patient): Female Spiritual care concerns: No Mod Sed Physical Exam Physical Exam Pre Procedural Exam: Normal: Airway, Lungs, Heart Rate, Heart Rhythm and Abdomen Hours since solid foods: 12 Hours since liquid intake: 12 Mallampati Classification: class 1 Internal Medicine - PN: Obj Da Vital Signs Vital Signs: Vital Signs - 24 hr 03/20/22 09:18 Temperature 36.7 C Pulse Rate 77 Respiratory Rate 18 Blood Pressure 153/80 H Pulse Oximetry 97 Oxygen Delivery Room
[2022-03-20 10:30] VITALS: BP 130/81; PULSE 89; RESP 21; O2SAT 95
[2022-03-20 10:36] LABS: Schistocytes None Seen (NORMAL)
[2022-03-20 10:45] VITALS: BP 123/63; PULSE 74; RESP 18; O2SAT 94
[2022-03-20 11:00] VITALS: BP 135/88; PULSE 87; RESP 16; O2SAT 96
[2022-03-20 11:28] VITALS: BP 132/84; PULSE 84; RESP 18; O2SAT 96
== END 2022-03-20 11:30 | disposition home or self-care (01) ==
PROVIDERS: PCP Nurse Practitioner; Referring Provider Internal Medicine Hematology & Oncology; Visit Provider Radiology Diagnostic Radiology
DX: D61.818 Other pancytopenia (principal); I10 Essential (primary) hypertension; E03.9 Hypothyroidism, unspecified; I35.0 Nonrheumatic aortic (valve) stenosis; Z79.82 Long term (current) use of aspirin; Z87.891 Personal history of nicotine dependence
CPT/HCPCS: 36415; 38222; 85025; 85055; 85610; 88184; 88185; 88237; 88264; 88305; 88311; 88313; 88341; 88342; 88360; J1642; J2250; J3010; J7040

== ENCOUNTER 2022-04-19 12:51 | Outpatient (CLI) | payer MEDICARE, OTHER, SELFPAY ==
[2022-04-19 14:56] LABS: Basophils Percent Auto 0.7 % (0.2-1.2); Eosinophils Absolute Auto 0.1 K/mm3 (0-0.3); Eosinophils Percent Auto 1.9 % (0-4.4); Hematocrit 30.8 % (37.0-47.0); Hemoglobin 10.2 g/dL (12.0-15.0); Immature Granulocyte Absolute 0.01 K/mm3 (0.00-0.031); Immature Granulocyte Percent A 0.2 % (0-0.5); Immature Platelet Fraction Pct 4.5 % (0.9-11.2); Lymphocytes Absolute Auto 1.24 K/mm3 (0.9-3.2); Lymphocytes Percent Auto 29.7 % (18.3-44.2); Mean Corpuscular HGB Conc 33.1 g/dl (32-36); Mean Corpuscular Hemoglobin 36.8 pg (26-34); Mean Corpuscular Volume 111.2 fl (80-100); Mean Platelet Volume 11.3 fl (7.4-10.4); Monocytes Absolute Auto 0.4 K/mm3 (0.1-0.6); Monocytes Percent Auto 10.1 % (2.6-8.5); Neutrophils Absolute Auto 2.4 K/mm3 (1.3-6.7); Neutrophils Percent Auto 57.4 % (45.5-73.1); Platelet Count Result 87 k/mm3 (150-375); Red Blood Count 2.77 M/mm3 (4.2-5.4); Red Cell Distribution Width 13.2 % (11.5-14.5); White Blood Count 4.2 K/mm3 (4.5-10.0)
[2022-04-19 15:21] LABS: Partial Thromboplastin Time 24.4 SECONDS (22.3-36.8)
[2022-04-19 15:43] LABS: Anisocytosis 1+ (NORMAL); Hypochromasia 1+ (NORMAL); Platelet Estimate Decreased (Adequate); Schistocytes None Seen (NORMAL)
[2022-04-19 15:44] LABS: Atypical Lymphocytes Present
== END 2022-04-19 12:52 | disposition home or self-care (01) ==
LOC: ANHSURGERY 12:54
PROVIDERS: PCP Nurse Practitioner; Visit Provider Surgery
DX: D46.9 Myelodysplastic syndrome, unspecified (principal); Z01.818 Encounter for other preprocedural examination
CPT/HCPCS: 36415; 85025; 85055; 85730

== ENCOUNTER 2022-04-25 01:31 | Day surgery (SDC) | payer MEDICARE, OTHER, SELFPAY ==
[2022-04-18 09:21] VITALS: BMI 33.7
--- NOTE | 2022-04-18 09:36 | PC.NURSE ---
PRE-OP INSTRUCTIONS, PLEASE READ CAREFULLY Report to the Outpatient Waiting Room, entrance under the green pavilion located off [facility], at time _1230_ on date _04/25/22_. Planned Procedure Time: _2:30 PM_. Time changes happen often and if your time is changed the preop area will call you the afternoon before. - You and your visitor will be asked to self-screen and do not enter if you have any COVID symptoms. - Only one visitor is requested with a max of two and NO children visitors are allowed at this time. - The patient visitor may be requested to leave or wait in car when not with patient due to distancing restrictions. - A mask is optional within the hospital. Patients may have clear liquids (water, carbonated beverages, clear teas, apple juice) until 3 hours prior to surgery (1130 AM) with a maximum of 20 ounces. - No food from midnight until time of surgery Take the following medications with a SIP of water the morning of surgery: _ESCITALOPRAM, LEVOTHYROXINE, METOPROLOL_ Medications to discontinue _ASPIRIN PER DR. MARES, Date last dose taken 04/17/22_ Medications to discontinue per ANESTHESIA - _MULTIVITAMIN, Date to take last dose 04/21/22_ Please no make-up, nail american, hairspray, perfume, deodorant, or body powder the day of surgery. No jewelry (including any body piercings) or valuables the day of surgery, leave them at home. Please take a shower or bath the night before, or the morning of, surgery with an antibacterial soap. Wear comfortable, loose fitting clothing. Children are encouraged to wear pajamas. - Jewelry must be removed prior to entering the operating room. Rings and piercings that are not removed may be cut off. - The hospital will not accept responsibility for valuables. - Please leave all valuables, including medications, at home the day of surgery. If you are going home after surgery, a licensed [place] driver must drive you home. - NO public transportation without another adult if you receive anesthesia. - We recommend that an adult stay with you for 24 hours following discharge. - We also recommend that you do not drive, make important decision, drink alcoholic beverages, or take any drugs that were not prescribed by your health care provider for at least 24 hours after your discharge time. Follow any additional instructions given to you from your surgeon. If you or anyone in your household have experienced Covid symptoms in the past week, please notify your surgeon or the nurse liaison at the phone number below for possible testing. Telephone instructions given to __PATIENT__and asked if any additional questions and then verbalized understanding. Patient advised to call surgeon office or pre surgery nurse liaison [phone] if any additional questions.
--- NOTE | ~2022-04-25 | XR_ITS ---
EXAMINATION: XR chest port-a-cath/central DATE: 04/25/2022 15:13 INDICATION: Port placement. TECHNIQUE: A single frontal view of the chest was obtained. COMPARISON: Chest 2 views 08/04/2014 FINDINGS: There is mild elevation of right hemidiaphragm. There is mild atelectasis at right lung bas e. No pleural effusion or pneumothorax. The heart size is normal. There is a right internal jugular p ort with tip in superior vena cava. There is a total right shoulder arthroplasty. IMPRESSION: 1. Port tip in superior vena cava. Reviewed, dictated and finalized at location A. OMER INSIGHT ANALYST
--- NOTE | ~2022-04-25 | XR_ITS ---
EXAMINATION: XR fl guide central line place DATE: 04/25/2022 14:54 INDICATION: Port placement. TECHNIQUE: A single intraoperative fluoroscopic view of the chest was obtained. I was not present. Fl uoroscopy exposure time was 30 seconds. COMPARISON: None. FINDINGS: There is a right chest port with tip overlying superior cavoatrial junction. IMPRESSION: 1. Port tip overlying superior cavoatrial junction. Reviewed, dictated and finalized at location A. T LOADER
--- NOTE | 2022-04-25 07:43 | WPDANESEPPF ---
Anes - Initial Pre Proc Eval Procedure: Operation Date: 04/25/22 14:30 Proposed Procedures p Insertion Iktty Cath - Bob Cameron MD Date/Time: 04/25/22 07:43 Surgeon: Bob Cameron MD Pre Op Diagnosis: Myelodysplastic Syndrome Patient Data Age: 71 Gender: F Height: 1.55 m Weight: 80.9 kg Allergies Allergy/AdvReac Type Severity Reaction Status Date / Time Penicillins Allergy Mild Hives Verified 04/18/22 09:21 Sulfa (Sulfonamide Allergy Mild rash Verified 04/18/22 09:21 Antibiotics) Home Medications Medication Instructions Recorded Confirmed Type calcium carb-vit L9-jobmvylmf-scqt 1 tablet PO BID 11/10/19 04/18/22 History 333 mg-200 unit-133 mg-5 mg tablet famotidine 20 mg tablet (Pepcid AC) 20 mg PO QACLUNCH 11/10/19 04/18/22 History loratadine 10 mg tablet 10 mg PO DAILY 11/10/19 04/18/22 History tizanidine 4 mg capsule 4 mg PO QHS PRN muscle spasticity 06/07/21 04/18/22 Rx #30 caps Lactobacills gasseri-Bifidobac 1 cap PO QAM 07/04/21 04/18/22 History bifidum,longum 1.5 billion cell capsule ([employer]) adhdhkpybsoy-Kl-swyw-minerals 1 tablet PO DAILY 07/04/21 04/18/22 History omeprazole 20 mg capsule,delayed 20 mg PO DAILY 07/04/21 04/18/22 History release aspirin 81 mg tablet,delayed 81 mg PO BID 08/21/21 04/18/22 History release (Adult Low Dose Aspirin) cyanocobalamin (vitamin B-12) 1,000 mcg PO WEEKLY 12/15/21 04/18/22 History 1,000 mcg capsule metoprolol succinate 25 mg 25 mg PO QAM #90 tabs 12/25/21 04/18/22 Rx tablet,extended release 24 hr levothyroxine 88 mcg tablet 88 mcg PO QAM #90 tabs 01/03/22 04/18/22 Rx (Euthyrox) simvastatin 40 mg tablet 40 mg PO HS #90 tabs 02/27/22 04/18/22 Rx acetaminophen 500 mg tablet 1,000 mg PO Q8H 03/19/22 04/18/22 History escitalopram oxalate 10 mg tablet 10 mg PO QAM #90 tabs 03/19/22 04/18/22 Rx melatonin 5 mg tablet 5 mg PO HS 03/19/22 04/18/22 History meloxicam 15 mg tablet 15 mg PO HS 03/19/22 04/18/22 History losartan 50 mg tablet 50 mg PO QACLUNCH #90 tabs 04/24/22 Rx Patient hx anesthesia problems: none Family hx anesthesia problems: none Results Review: All pre-operative results and documents have been reviewed as part of the pre-operative evaluation. [facility] Past Medical History Medical History (Updated 04/25/22 @ 07:43 by Deyvi Metzger DO) Aortic stenosis, moderate Essential (primary) hypertension Hypothyroidism, unspecified PONV (postoperative nausea and vomiting) Screening for breast cancer Screening for colon cancer Surgical History Surgical History History of left knee replacement History of total left knee replacement History of total right knee replacement Family History Family History Sibling Patient's brother is in good health Patient's brother is Acute myocardial infarction Father Family history of lung cancer, Onset Age: 65 Family history of type 2 diabetes mellitus Social History Social History Smoking packs per day: 2.5 Smoking cigarettes per day: 50.0 Years smoked: 25 Smoking pack-years: 62.50 Smoking status: Former smoker Tobacco type: cigarettes Second hand tobacco smoke exposure: No Smoking end date: 09/29/84 Additional smoking assessment comments: quit smoking 30 plus years Alcohol intake: current Drinks per week: 1 Alcohol use details: RARELY 2-3 DRINKS/YEAR Substance use: never Substance use type: does not use Living arrangements: with family Additional living arrangements comments: PT LIVES WITH SON Gender identity (if verbalized by the patient): Female Spiritual care concerns: No Anes - Eval Final PreProcedure Day of Procedure 04/25/22 07:43 Patient weight: obese Heart: regular rate and rhythm Lungs: clear to auscultation
[2022-04-25 12:35] VITALS: BP 156/60; PULSE 80; RESP 18; TEMP 36.9; O2SAT 97
[2022-04-25] MEDS: LACTATED RINGERS 1,000 ML 30 ML IV CONT (12:53)
[2022-04-25 13:08] LABS: Basophils Percent Auto 0.4 % (0.2-1.2); Eosinophils Absolute Auto 0.2 K/mm3 (0-0.3); Eosinophils Percent Auto 3.8 % (0-4.4); Hematocrit 31.4 % (37.0-47.0); Hemoglobin 10.6 g/dL (12.0-15.0); Immature Granulocyte Absolute 0.01 K/mm3 (0.00-0.031); Immature Granulocyte Percent A 0.2 % (0-0.5); Immature Platelet Fraction Pct 4.3 % (0.9-11.2); Lymphocytes Absolute Auto 1.39 K/mm3 (0.9-3.2); Lymphocytes Percent Auto 31.1 % (18.3-44.2); Mean Corpuscular HGB Conc 33.8 g/dl (32-36); Mean Corpuscular Hemoglobin 37.1 pg (26-34); Mean Corpuscular Volume 109.8 fl (80-100); Mean Platelet Volume 10.9 fl (7.4-10.4); Monocytes Absolute Auto 0.5 K/mm3 (0.1-0.6); Monocytes Percent Auto 11.4 % (2.6-8.5); Neutrophils Absolute Auto 2.4 K/mm3 (1.3-6.7); Neutrophils Percent Auto 53.1 % (45.5-73.1); Platelet Count Result 76 k/mm3 (150-375); Red Blood Count 2.86 M/mm3 (4.2-5.4); Red Cell Distribution Width 13.3 % (11.5-14.5); White Blood Count 4.5 K/mm3 (4.5-10.0)
--- NOTE | 2022-04-25 13:56 | PM.IMHP ---
H&P: HPI History of Present Illness Date/Time: 04/25/22 13:56 Chief Complaint: Need for portacatheter placement Narrative: Pt with myelodysplastic syndrome who needs portacatheter placed in anticipation of treatment by medical oncology. [place] [address] today. Review of Systems Review of Systems: The remainder of the review of systems to include constitutional, HEENT, cardiovascular, respiratory, GI, , integumentary, musculoskeletal, endocrine, immunologic, hematologic, psychiatric, and neurologic are all negative except for which is mentioned above in the HPI. [facility] Past Medical History Medical History Aortic stenosis, moderate Essential (primary) hypertension Hypothyroidism, unspecified PONV (postoperative nausea and vomiting) Screening for breast cancer Screening for colon cancer Surgical History Surgical History History of left knee replacement History of total left knee replacement History of total right knee replacement Family History Family History Sibling Patient's brother is in good health Patient's brother is Acute myocardial infarction Father Family history of lung cancer, Onset Age: 65 Family history of type 2 diabetes mellitus Social History Social History Smoking packs per day: 2.5 Smoking cigarettes per day: 50.0 Years smoked: 25 Smoking pack-years: 62.50 Smoking status: Former smoker Tobacco type: cigarettes Second hand tobacco smoke exposure: No Smoking end date: 09/29/84 Additional smoking assessment comments: quit smoking 30 plus years Alcohol intake: current Drinks per week: 1 Alcohol use details: RARELY 2-3 DRINKS/YEAR Substance use: never Substance use type: does not use Living arrangements: with family Additional living arrangements comments: PT LIVES WITH SON Gender identity (if verbalized by the patient): Female Spiritual care concerns: No Meds Home Medications and Allergies Home Medications Medication Instructions Recorded Confirmed Type calcium carb-vit L4-ksvhvdddg-mukb 1 tablet PO BID 11/10/19 04/18/22 History 333 mg-200 unit-133 mg-5 mg tablet famotidine 20 mg tablet (Pepcid AC) 20 mg PO QACLUNCH 11/10/19 04/18/22 History loratadine 10 mg tablet 10 mg PO DAILY 11/10/19 04/18/22 History tizanidine 4 mg capsule 4 mg PO QHS PRN muscle spasticity 06/07/21 04/18/22 Rx #30 caps Lactobacills gasseri-Bifidobac 1 cap PO QAM 07/04/21 04/18/22 History bifidum,longum 1.5 billion cell capsule ([employer]) bgegpuyjbtsi-Cp-nskd-minerals 1 tablet PO DAILY 07/04/21 04/18/22 History omeprazole 20 mg capsule,delayed 20 mg PO DAILY 07/04/21 04/18/22 History release aspirin 81 mg tablet,delayed 81 mg PO BID 08/21/21 04/18/22 History release (Adult Low Dose Aspirin) cyanocobalamin (vitamin B-12) 1,000 mcg PO WEEKLY 12/15/21 04/18/22 History 1,000 mcg capsule metoprolol succinate 25 mg 25 mg PO QAM #90 tabs 12/25/21 04/18/22 Rx tablet,extended release 24 hr levothyroxine 88 mcg tablet 88 mcg PO QAM #90 tabs 01/03/22 04/18/22 Rx (Euthyrox) simvastatin 40 mg tablet 40 mg PO HS #90 tabs 02/27/22 04/18/22 Rx acetaminophen 500 mg tablet 1,000 mg PO Q8H 03/19/22 04/18/22 History escitalopram oxalate 10 mg tablet 10 mg PO QAM #90 tabs 03/19/22 04/18/22 Rx melatonin 5 mg tablet 5 mg PO HS 03/19/22 04/18/22 History meloxicam 15 mg tablet 15 mg PO HS 03/19/22 04/18/22 History losartan 50 mg tablet 50 mg PO QACLUNCH #90 tabs 04/24/22 Rx Allergies Allergy/AdvReac Type Severity Reaction Status Date / Time Penicillins Allergy Mild Hives Verified 04/18/22 09:21 Sulfa (Sulfonamide Allergy Mild rash Verified 04/18/22 09:21 Antibiotics) Vital Signs Vital Signs - 24 hr 04/25/22
--- NOTE | 2022-04-25 14:01 | WPDHPUPDATE1 ---
History and Physical Update Update Date/Time: 04/25/22 14:01 History and Physical has been reviewed, including an updated exam of the patient. There are NO changes in the patient's condition. Risks, benefits, and alternatives have been discussed and questions answered. Patient agrees to proceed with procedure.
[2022-04-25] MEDS: ceFAZolin 2 GM/D5W 50 ML 2 GM/50 ML BAG IVPB (14:04)
[2022-04-25] MEDS: BUPIVACAINE/EPINEPHRINE 0.5% 30 ML VIAL INFILTRATE (14:22)
--- NOTE | 2022-04-25 14:22 | SUR.OPER ---
platelets 76 and surgeon informed in preop/no blood consent as per surgeon
[2022-04-25] MEDS: HEPARIN SODIUM 5,000 UNITS/ML VIAL 1000 UNITS IRRIGATION (14:45)
[2022-04-25] MEDS: HEPARIN SODIUM 5,000 UNITS/ML VIAL 5000 UNITS IRRIGATION (14:47)
--- NOTE | 2022-04-25 14:52 | SUR.OPER ---
PACU AND RADIOLOGY INFORMED OF POST OP CHEST XRAY.
[2022-04-25 15:02] VITALS: BP 128/57; PULSE 76; RESP 16
--- NOTE | 2022-04-25 15:02 | W.PM.PROC2 ---
Procedure Note - Detailed Date of Procedure 04/25/22 Pre-op Diagnosis Myelodysplastic Syndrome Post-op Diagnosis Same Procedure Performed Placement of right internal jugular vein single-lumen Smart Port. Surgeon Bob Cameron MD Research Chemist Amber WOMACK Anesthesia MAC Indications Patient has myelodysplastic syndrome and needs placement of a Port a catheter for oncology treatment. Description of Procedure After informed consent was obtained the patient was brought to the operating room where she was placed in the supine position and then IV sedation was administered by anesthesia. The bilateral anterior upper chest and neck was then prepped and draped in usual sterile fashion. a time-out was then performed correctly identifying the patient as well as the procedure to be performed and verified that she received Ancef for IV antibiotics. We then placed the patient in the head-down Trendelenburg position and then I utilized 0.5% Marcaine mixed with 2% lidocaine and injected this between the 2 heads of the right sternocleidomastoid muscle. I also anesthetized the area of the intended port pocket on the upper right anterior chest just below the medial 1/3 of the clavicle. A 18gauge long spinal needle was then used to percutaneously cannulate the right internal jugular vein on the 1st pass without difficulty. There was return of dark venous appearing blood and then I advanced a guidewire through the needle into the right internal jugular vein and down into the superior vena cava. Intraoperative fluoroscopy was used to verify proper placement of the tip of the guidewire. I then made a transverse incision on the right anterior chest with a scalpel and then dissected down through the subcutaneous tissues with electro cautery to the anterior pectoralis major muscle fascia. With a combination electrocautery and blunt finger dissection I developed the subcutaneous port pocket. I then enlarged the incision at the insertion site of the guidewire and then tunneled the catheter between the incision on the chest wall and the neck. I then advanced a dilator and breakaway sheath over the guidewire and then removed the guidewire and dilator. A 9.6 Lao single-lumen catheter was then advanced through the sheath into the right internal jugular vein and subsequently down into the right atrium of the heart. Utilizing intraoperative fluoroscopy once again I visualize the tip of the catheter and then pulled back on the catheter until the tip was located at the atrial caval junction on fluoroscopy. I then cut the catheter to the appropriate length at the skin level and then attached it to the Smart Port. the port was then secured in the subcutaneous port pocket utilizing multiple 3 0 Prolene sutures. Then irrigated out the incision with sterile saline solution and then closed the port pocket incision utilizing interrupted 3 0 Vicryl sutures in the subcu tissues which was then followed by a running subcuticular 4 0 Monocryl suture to approximate the skin edges. I then percutaneously access the port and it aspirated blood easily. It was then flushed with 5000 units of heparin. The incision was then cleaned and skin glue was applied for dressing. The patient tolerated the procedure well no complications. All sponges, needles, and instrument counts were correct at the end procedure. EBL was _10__cc. The patient was awakened and taken to recovery in stable satisfactory condition. Post procedure chest x-ray result was pending at the time of dictation. Implants Smart Port in Right IJ vein. Estimated Blood Loss 10 Drains No Packing No Pathology None sent Complications No immediate complications Condition Stable Disposition PACU [facility] Billing Surgery - Charge Forward: Surgery Billing
[2022-04-25 15:30] VITALS: BP 156/81; PULSE 67; RESP 20
[2022-04-25 15:45] VITALS: BP 140/71; PULSE 73; RESP 20
== END 2022-04-25 15:53 | disposition home or self-care (01) ==
PROVIDERS: PCP Nurse Practitioner; Visit Provider Surgery
PROC: (CPT 36561; principal; 2022-04-25 14:30)
DX: D46.9 Myelodysplastic syndrome, unspecified (principal); I10 Essential (primary) hypertension; E03.9 Hypothyroidism, unspecified; I35.0 Nonrheumatic aortic (valve) stenosis; Z79.82 Long term (current) use of aspirin; Z87.891 Personal history of nicotine dependence; E66.9 Obesity, unspecified; Z68.33 Body mass index [BMI] 33.0-33.9, adult
CPT/HCPCS: 36561; 36415; 77001; 85025; 85055; C1788; J0690; J1644; J2250; J2370; J2704; J3010; J7030; J7120

== ENCOUNTER 2022-06-22 07:29 | Outpatient (CLI) | payer MEDICARE, OTHER, SELFPAY ==
[2022-06-22 08:03] LABS: Alanine Aminotransferase 19 U/L (6-35); Albumin Level 4.1 g/dL (3.5-5.1); Alkaline Phosphatase 59 U/L (38-126); Anion Gap 4 mmol/L (8-16); Aspartate Amino Transferase 26 U/L (14-36); Bilirubin,Total 0.8 mg/dL (0.2-1.3); Blood Urea Nitrogen 18 mg/dL (7-17); Calcium 8.7 mg/dL (8.4-10.2); Carbon Dioxide 28 mmol/L (22-30); Chloride 108 mmol/L (98-107); Cholesterol 167 mg/dL (0-200); Estimated Glomerular Filt Rate 55; Glucose 120 mg/dL (65-110); HDL Direct 47 mg/dL; Potassium 4.9 mmol/L (3.4-5.0); Sodium 140 mmol/L (137-145); Triglycerides 166 mg/dL (<150)
[2022-06-22 08:14] LABS: LDL Cholesterol Direct 78 mg/dL
[2022-06-22 08:47] LABS: Hemoglobin A1C 5.7 % (<5.7)
== END 2022-06-22 07:30 | disposition home or self-care (01) ==
PROVIDERS: Visit Provider Nurse Practitioner
DX: R73.02 Impaired glucose tolerance (oral) (principal); E78.5 Hyperlipidemia, unspecified
CPT/HCPCS: 36415; 80053; 80061; 83036

== ENCOUNTER 2022-11-14 12:53 | Outpatient (CLI) | payer MEDICARE, OTHER, SELFPAY ==
--- NOTE | ~2022-11-14 | MM_ITS ---
EXAMINATION: MM screening brandon BI w amira HISTORY: Screening TECHNIQUE: Craniocaudal and mediolateral oblique 3-D tomosynthesis images were obtained and synthetic 2-D images were generated. CAD analysis was submitted and interpreted. COMPARISON: Comparison to multiple prior studies sequentially, with oldest reviewed study dated 05/2015. BREAST PARENCHYMAL COMPOSITION: The breasts are almost entirely fatty. FINDINGS: There is no evidence of suspicious mass, calcification, or architectural distortion to sugg est malignancy in either breast. There has been no suspicious interval change. IMPRESSION: 1. No mammographic evidence of malignancy. 2. Recommend routine screening mammography in one year. BI-RADS Category 1: Negative Reviewed, dictated and finalized at location A.
== END 2022-11-14 12:54 | disposition home or self-care (01) ==
LOC: ANHIMG 12:56
PROVIDERS: PCP Family Medicine; Visit Provider Nurse Practitioner
DX: Z12.31 Encounter for screening mammogram for malignant neoplasm of breast (principal)
CPT/HCPCS: 77063; 77067

== ENCOUNTER 2023-02-01 12:29 | Outpatient (CLI) | payer MEDICARE, OTHER, SELFPAY ==
--- NOTE | 2023-02-01 12:34 | ECHO_ITS ---
Patient Info Name: Rimma Monzon Age: 72 years : 1950 Gender: Female Ht: 63 in Wt: 170 lbs BSA: 1.88 m2 HR: 78 bpm BP: 139 / 63 mmHg Technical Quality: Fair Exam Date: 02/01/2023 12:55 PM Exam Location: Echo Lab Patient Status: Outpatient Admit Date: 02/01/2023 Staff Ordering Physician: Parminder Reese DO [employer] Supervisor: Shauna Santos RDCS Attending Provider: Parminder Reese DO Referring Physician: Hugh TURNER; Exam Type: CA echo doppler color flow Study Info Indications - nonrheumatic aortic valve stenosis chemo Complete two-dimensional, color flow and Doppler transthoracic echocardiogram is performed. Summary 1. Complete two-dimensional, color flow and Doppler transthoracic echocardiogram is performed. 2. Left ventricular chamber dimension is normal. 3. Left ventricular systolic function is normal, estimated at 65-70%. 4. The left ventricular diastolic function is grade I diastolic dysfunction. 5. E/e' 12 is mildly elevated. 6. There is severe aortic valve sclerosis. 7. There is moderate aortic valve stenosis with a peak velocity of 322 cm/s, mean gradient of 27 mmHg, and aortic valve area of 1.0 cm2. 8. There is mild aortic valve regurgitation. 9. There is mild mitral valve regurgitation. 10. There is trace tricuspid valve regurgitation. 11. No pulmonary hypertension, estimated pulmonary arterial systolic pressure is 37 mmHg. Left Ventricle E/e' 12 is mildly elevated. Left ventricular chamber dimension is normal. Left ventricular systolic function is normal, estimated at 65-70%. The left ventricular diastolic function is grade I diastolic dysfunction. Right Ventricle Right ventricular chamber dimension is normal. Right ventricular systolic function is normal. Left Atria Left atrial chamber dimension is normal. Right Atria Right atrial chamber dimension is normal. Aortic Valve The aortic valve is probable trileaflet. There is severe aortic valve sclerosis. There is moderate aortic valve stenosis with a peak velocity of 322 cm/s, mean gradient of 27 mmHg, and aortic valve area of 1.0 cm2. There is mild aortic valve regurgitation. Pulmonic Valve There is no pulmonic regurgitation. Mitral Valve There is no mitral valve stenosis. There is mild mitral valve regurgitation. Tricuspid Valve There is trace tricuspid valve regurgitation. No pulmonary hypertension, estimated pulmonary arterial systolic pressure is 37 mmHg. Pericardium/Pleural There is no pericardial effusion. Inferior Vena Cava Normal inferior vena cava with >50% collapse upon inspiration consistent with normal right atrial pressure, 5 mmHg. Aorta The aortic root size at the sinus of Valsalva is normal. Left Ventricular Outflow Tract Name Value Normal LVOT 2D LVOT Diameter 2.0 cm LVOT Doppler LVOT Peak Gradient 6 mmHg LVOT Mean Gradient 3 mmHg LVOT VTI 22 cm LVOT VTI/AV VTI Ratio 0.3 LVOT Stroke Volume 67 ml LVOT CO 15.8 l/min LVOT CI 8.4 l/min/m2 Pulmonic Valve
== END 2023-02-01 12:30 | disposition home or self-care (01) ==
PROVIDERS: PCP Nurse Practitioner; Visit Provider Internal Medicine Cardiovascular Disease
DX: I35.0 Nonrheumatic aortic (valve) stenosis (principal); I34.0 Nonrheumatic mitral (valve) insufficiency; I35.1 Nonrheumatic aortic (valve) insufficiency
CPT/HCPCS: 93306

== ENCOUNTER 2023-02-05 03:09 | Day surgery (SDC) | payer MEDICARE, OTHER, SELFPAY ==
--- NOTE | 2023-02-01 11:32 | SUR.PREOP ---
Patient called regarding upcoming procedure. Reviewed preop instructions, appointment times, and procedure prep.
[2023-02-05 08:38] VITALS: BP 117/69; PULSE 84; RESP 18; TEMP 36.1; O2SAT 100
[2023-02-05] MEDS: LACTATED RINGERS 1,000 ML 150 ML IV CONT (08:52)
--- NOTE | 2023-02-05 09:35 | PM.HPGS ---
History of Present Illness History of Present Illness Consent: Risks, benefits, and alternatives have been discussed and questions answered. Patient agrees to proceed with procedure. Chief complaint: Chronic Anemia, fecal abnormalities Narrative: Rimma Monzon is a 72 year old female with h/o myelodysplasia on treatment but recently more anemia than usual, also gastric bypass, denies overt gib but occult blood stool positive. Last colonoscopy 10 years ago Review of Systems Constitutional: Constitutional: Denies headache(s) and Denies weakness Eyes: Eyes: Denies blurry vision ENT: Reports Normal hearing present, Denies headache(s) and Denies neck pain Cardiovascular: Cardiovascular: Denies chest pain and Denies dyspnea Respiratory: Respiratory: Denies dyspnea Gastrointestinal: Gastrointestinal: Reports no additional gastrointestinal complaints Genitourinary: Genitourinary: Denies dysuria Musculoskeletal: Musculoskeletal: Denies neck pain Integumentary/Breasts: Skin/Breast: Denies dry skin Neurologic: Reports Normal hearing present, Denies headache(s) and Denies weakness Psychiatric: Psychiatric: Denies anxiety Endocrine: Endocrine: Denies change in body appearance Hematologic/Lymphatic: Hematologic/Lymphatic: Denies easy bleeding Allergic/Immunologic: Allergic/Immunologic: Denies urticaria PMFSH Past Medical History Medical History Aortic stenosis, moderate Essential (primary) hypertension Hypothyroidism, unspecified PONV (postoperative nausea and vomiting) Screening for breast cancer Screening for colon cancer Surgical History Surgical History History of left knee replacement History of total left knee replacement History of total right knee replacement Family History Family History Sibling Patient's brother is in good health Patient's brother is Acute myocardial infarction Father Family history of lung cancer, Onset Age: 65 Family history of type 2 diabetes mellitus Social History Social History Smoking packs per day: 3 Smoking cigarettes per day: 60.0 Years smoked: 30 Smoking pack-years: 90.00 Smoking status: Former smoker Tobacco type: cigarettes Second hand tobacco smoke exposure: No Smoking end date: 01/08/98 Additional smoking assessment comments: quit smoking 30 plus years Alcohol intake: current Drinks per week: 1 Alcohol use details: RARELY 2-3 DRINKS/YEAR Substance use: never Substance use type: does not use Living arrangements: with family Additional living arrangements comments: PT LIVES WITH SON Gender identity (if verbalized by the patient): Female Spiritual care concerns: No Meds Home Medications and Allergies Home Medications Medication Instructions Recorded Confirmed Type calcium carb-vit [id number]-[id number]-[id number] 1 tablet PO BID 11/10/19 01/24/23 History 333 mg-200 unit-133 mg-5 mg tablet famotidine 20 mg tablet (Pepcid AC) 20 mg PO QACLUNCH 11/10/19 01/24/23 History loratadine 10 mg tablet 10 mg PO DAILY 11/10/19 01/24/23 History Lactobacills gasseri-Bifidobac 1 cap PO QAM 07/04/21 01/24/23 History bifidum,longum 1.5 billion cell capsule ([employer]) hfocfclfzzcq-Wr-mpxh-minerals 1 tablet PO DAILY 07/04/21 01/24/23 History omeprazole 20 mg capsule,delayed 20 mg PO DAILY 07/04/21 01/24/23 History release aspirin 81 mg tablet,delayed 81 mg PO DAILY 08/21/21 01/24/23 History release (Adult Low Dose Aspirin) cyanocobalamin (vitamin B-12) 1,000 mcg PO WEEKLY 12/15/21 01/24/23 History 1,000 mcg capsule acetaminophen 500 mg tablet 1,000 mg PO Q8H 03/19/22 01/24/23 History melatonin 5 mg tablet 10 mg PO HS 03/19/22 01/24/23 History metoprolol succinate 25 mg 25 mg PO QAM #90
--- NOTE | 2023-02-05 09:42 | WPDANESEPPF ---
Anes - Initial Pre Proc Eval Procedure: Operation Date: 02/05/23 10:00 Proposed Procedures p Colonoscopy - Nino Bautista MD Date/Time: 02/05/23 09:42 Surgeon: Nino Bautista MD Pre Op Diagnosis: Chronic Anemia, fecal abnormalities Patient Data Age: 72 Gender: F Height: 1.6 m Weight: 74.2 kg Last Vital Signs Temp 97.0 F L 02/05/23 08:38 Pulse 84 02/05/23 08:38 Resp 18 02/05/23 08:38 BP 117/69 02/05/23 08:38 Pulse Ox 100 02/05/23 08:38 O2 Del Method Room Air 02/05/23 08:38 Allergies Allergy/AdvReac Type Severity Reaction Status Date / Time Penicillins Allergy Mild Hives Verified 02/05/23 08:35 Sulfa (Sulfonamide Allergy Mild rash Verified 02/05/23 08:35 Antibiotics) Home Medications Medication Instructions Recorded Confirmed Type calcium carb-vit H5-cqgmsffxz-mbrv 1 tablet PO BID 11/10/19 01/24/23 History 333 mg-200 unit-133 mg-5 mg tablet famotidine 20 mg tablet (Pepcid AC) 20 mg PO QACLUNCH 11/10/19 01/24/23 History loratadine 10 mg tablet 10 mg PO DAILY 11/10/19 01/24/23 History Lactobacills gasseri-Bifidobac 1 cap PO QAM 07/04/21 01/24/23 History bifidum,longum 1.5 billion cell capsule ([employer]) vemgaytwzxgw-Vf-fwud-minerals 1 tablet PO DAILY 07/04/21 01/24/23 History omeprazole 20 mg capsule,delayed 20 mg PO DAILY 07/04/21 01/24/23 History release aspirin 81 mg tablet,delayed 81 mg PO DAILY 08/21/21 01/24/23 History release (Adult Low Dose Aspirin) cyanocobalamin (vitamin B-12) 1,000 mcg PO WEEKLY 12/15/21 01/24/23 History 1,000 mcg capsule acetaminophen 500 mg tablet 1,000 mg PO Q8H 03/19/22 01/24/23 History melatonin 5 mg tablet 10 mg PO HS 03/19/22 01/24/23 History metoprolol succinate 25 mg 25 mg PO QAM #90 tabs 03/28/23 10/26/23 Rx tablet,extended release 24 hr simvastatin 40 mg tablet 40 mg PO HS #90 tabs 06/26/22 01/24/23 Rx losartan 100 mg tablet 100 mg PO DAILY #90 tabs 07/31/22 01/24/23 Rx escitalopram oxalate 10 mg tablet 10 mg PO QAM #90 tabs 09/20/22 01/24/23 Rx felodipine 5 mg tablet,extended 5 mg PO DAILY #30 tabs 10/03/22 01/24/23 Rx release 24 hr tizanidine 4 mg capsule 4 mg PO QHS PRN muscle spasticity 10/03/22 01/24/23 Rx #30 caps meloxicam 15 mg tablet 15 mg PO HS #90 tabs 12/06/22 01/24/23 Rx levothyroxine 88 mcg tablet 88 mcg PO QAM #90 tabs 12/31/22 01/24/23 Rx (Euthyrox) acyclovir 400 mg tablet 400 mg PO DAILY 01/24/23 01/24/23 History ferrous sulfate 325 mg (65 mg 325 mg PO BID 01/24/23 01/24/23 History iron) tablet (Iron (ferrous sulfate)) fluconazole 100 mg tablet 100 mg PO DAILY 01/24/23 01/24/23 History Patient hx anesthesia problems: none Family hx anesthesia problems: none Results Review: All pre-operative results and documents have been reviewed as part of the pre-operative evaluation. [facility] Past Medical History Medical History Aortic stenosis, moderate Essential (primary) hypertension Hypothyroidism, unspecified PONV (postoperative nausea and vomiting) Screening for breast cancer Screening for colon cancer Surgical History Surgical History History of left knee replacement History of total left knee replacement History of total right knee replacement Family History Family History Sibling Patient's brother is in good health Patient's brother is Acute myocardial infarction Father Family history of lung cancer, Onset Age: 65 Family history of type 2 diabetes mellitus Social History Social History Smoking packs per day: 3 Smoking cigarettes per day: 60.0 Years smoked: 30 Smoking pack-years: 90.00 Smoking status: Former smoker Tobacco type: cigarettes Second hand tobacco smoke exposure: No
[2023-02-05 09:59] VITALS: BP 87/48; PULSE 73; RESP 26; O2SAT 99
[2023-02-05 10:09] VITALS: BP 102/48; PULSE 72; RESP 22; O2SAT 99
[2023-02-05 10:19] VITALS: BP 123/53; PULSE 73; RESP 16; O2SAT 96
== END 2023-02-05 10:29 | disposition home or self-care (01) ==
PROVIDERS: PCP Nurse Practitioner; Visit Provider Internal Medicine Gastroenterology
PROC: 0DJD8ZZ Inspection of Lower Intestinal Tract, Via Natural or Artificial Opening Endoscopic (ICD-10-PCS; CPT 45378; principal; 2023-02-05 10:00)
DX: D64.9 Anemia, unspecified (principal); K57.30 Diverticulosis of large intestine without perforation or abscess without bleeding; K64.8 Other hemorrhoids; R19.5 Other fecal abnormalities; I10 Essential (primary) hypertension; E03.9 Hypothyroidism, unspecified; I35.0 Nonrheumatic aortic (valve) stenosis; Z79.82 Long term (current) use of aspirin; Z87.891 Personal history of nicotine dependence
CPT/HCPCS: 45378; J2704; J7120

== ENCOUNTER 2023-04-15 09:16 | Outpatient (CLI) | payer MEDICARE, OTHER, SELFPAY ==
[2023-04-15 11:04] LABS: Cholesterol 169 mg/dL (0-200); HDL Direct 46 mg/dL; Triglycerides 146 mg/dL (<150)
[2023-04-15 11:14] LABS: LDL Cholesterol Direct 84 mg/dL
[2023-04-15 11:19] LABS: Vitamin D 25 Hydroxy 48.1 ng/mL
[2023-04-15 11:23] LABS: Hemoglobin A1C 5.7 % (<5.7)
[2023-04-15 11:33] LABS: Thyroid Stimulating Hormone 0.746 uIU/mL (0.465-4.680)
== END 2023-04-15 09:17 | disposition home or self-care (01) ==
LOC: ANHLAB 09:20
PROVIDERS: PCP Nurse Practitioner; Visit Provider Internal Medicine Hematology & Oncology
DX: E78.5 Hyperlipidemia, unspecified (principal); E03.9 Hypothyroidism, unspecified; E55.9 Vitamin D deficiency, unspecified; R73.02 Impaired glucose tolerance (oral)
CPT/HCPCS: 36415; 80061; 82306; 83036; 84443

== ENCOUNTER 2023-11-04 08:25 | Outpatient (CLI) | payer MEDICARE, OTHER, SELFPAY ==
[2023-11-04 09:57] LABS: Cholesterol 169 mg/dL (0-200); HDL Direct 47 mg/dL; Triglycerides 150 mg/dL (<150)
[2023-11-04 10:07] LABS: LDL Cholesterol Direct 81 mg/dL
[2023-11-04 11:01] LABS: Hemoglobin A1C 5.5 % (<5.7)
== END 2023-11-04 08:26 | disposition home or self-care (01) ==
LOC: ANHLAB 08:30
PROVIDERS: PCP Nurse Practitioner; Visit Provider Internal Medicine Hematology & Oncology
DX: E78.5 Hyperlipidemia, unspecified (principal); E11.9 Type 2 diabetes mellitus without complications; E03.9 Hypothyroidism, unspecified
CPT/HCPCS: 36415; 80061; 83036; 84443

== ENCOUNTER 2023-11-19 13:47 | Outpatient (CLI) | payer MEDICARE, OTHER, SELFPAY ==
--- NOTE | ~2023-11-19 | MM_ITS ---
EXAMINATION: MM screening brandon BI w amira HISTORY: Screening TECHNIQUE: Craniocaudal and mediolateral oblique 3-D tomosynthesis images were obtained and synthetic 2-D images were generated. CAD analysis was submitted and interpreted. COMPARISON: Comparison to multiple prior studies sequentially, with oldest reviewed study dated 04/2018. BREAST PARENCHYMAL COMPOSITION: Not dense: There are scattered areas of fibroglandular density. FINDINGS: There is no evidence of suspicious mass, calcification, or architectural distortion to sugg est malignancy in either breast. There has been no suspicious interval change. IMPRESSION: 1. No mammographic evidence of malignancy. 2. Recommend routine screening mammography in one year. BI-RADS Category 1: Negative Reviewed, dictated and finalized at location B.
== END 2023-11-19 13:48 | disposition home or self-care (01) ==
PROVIDERS: PCP Nurse Practitioner; Visit Provider Nurse Practitioner
DX: Z12.31 Encounter for screening mammogram for malignant neoplasm of breast (principal)
CPT/HCPCS: 77063; 77067

== ENCOUNTER 2024-01-24 01:33 | Day surgery (SDC) | payer MEDICARE, OTHER, SELFPAY ==
[2024-01-23 10:20] VITALS: BMI 29.2
--- NOTE | ~2024-01-24 | BM_ITS ---
EXAMINATION: CCL bone marrow asp w bx diag Moderate sedation (sedation time 30 minutes). ORDER COMPLETED DATE: 01/24/2024 14:43 INDICATION: Leukopenia TECHNIQUE: The procedure including the risks and benefits was discussed with the patient. Risks discussed includ ed bleeding, infection, nerve injury and allergic reaction. The patient understood the risks and agreed to proceed. The patient was brought to the interventional suite and placed in the prone position on the intervent ional table. A time-out was then performed to verify the patient's name, date of , and procedure to be perf ormed. The skin overlying the right posterior iliac spine was prepped and draped in usual sterile fashion. Anesthetic was administered with 1% lidocaine subcutaneously. Moderate conscious sedation was then performed at my direction and given by the nurse in the room for the procedure (Wendy Monzon RN) who monitored throughout. The patient received a total of: 4 mg of Zofran IV, 50 mcg fentanyl IV and 2 mg of Versed IV. An 8 gauge bone marrow biopsy device was inserted into the right ilium with fluoroscopic guidance. Bone marrow was aspirated, and passed off the table as a specimen. This device was then utilized to gain a core biopsy. The specimen was somewhat limited, and therefore an additional specimen was obtained. The 8 gauge needle was then re-inserted into the right ilium with fluoroscopic guidance. A second core bone marrow biopsy was obtained. The needle was removed and the entry site was cleaned and dressed. There were no immediate complications. A total of 11 fluoroscopic images were recorded. Fluoroscopy exposure time was 0.3 minutes. DOSE AREA PRODUCT: 437 Gy-cm2 FINDINGS: Real-time fluoroscopy demonstrates the forceps overlying the right posterior iliac spine. IMPRESSION: 1. Successful fluoroscopic guided bone marrow aspiration. 2. Successful fluoroscopic guided bone marrow core biopsy x2. The patient tolerated the procedure without difficulty, and was transported to the recovery area in s table condition. Reviewed, dictated and finalized at location A. IMPRESSION: 1. Successful fluoroscopic guided bone marrow aspiration. 2. Successful fluoroscopic guided bone marrow core biopsy x2. The patient tolerated the procedure without difficulty, and was transported to the recovery area in stable condition.
[2024-01-24 08:26] LABS: Basophils Percent Auto 1.3 % (0.2-1.2); Eosinophils Absolute Auto 0.1 K/mm3 (0-0.3); Eosinophils Percent Auto 5.7 % (0-4.4); Hematocrit 26.4 % (37.0-47.0); Hemoglobin 8.9 g/dL (12.0-15.0); Immature Granulocyte Absolute 0.01 K/mm3 (0.00-0.031); Immature Granulocyte Percent A 0.6 % (0-0.5); Immature Platelet Fraction Pct 5.2 % (0.9-11.2); Lymphocytes Absolute Auto 0.83 K/mm3 (0.9-3.2); Lymphocytes Percent Auto 52.2 % (18.3-44.2); Mean Corpuscular HGB Conc 33.7 g/dl (32-36); Mean Corpuscular Volume 115.8 fl (80-100); Mean Platelet Volume 12.2 fl (7.4-10.4); Monocytes Absolute Auto 0.1 K/mm3 (0.1-0.6); Monocytes Percent Auto 8.2 % (2.6-8.5); Neutrophils Absolute Auto 0.5 K/mm3 (1.3-6.7); Platelet Count Result 40 k/mm3 (150-375); Red Blood Count 2.28 M/mm3 (4.2-5.4); Red Cell Distribution Width 14.3 % (11.5-14.5)
[2024-01-24 08:31] VITALS: BP 160/95; PULSE 65; RESP 14; TEMP 36.6; O2SAT 98; BMI 29.2
[2024-01-24 08:36] LABS: INR 0.9; Prothrombin Time 12.9 Seconds (11.1-14.7)
[2024-01-24 09:02] LABS: White Blood Count 1.6 K/mm3 (4.5-10.0)
[2024-01-24 09:03] LABS: Macrocytosis 1+ (NORMAL); Platelet Estimate Decreased (Adequate); Schistocytes None Seen
[2024-01-24 11:40] VITALS: BP 113/79; PULSE 73; RESP 16; TEMP 37.3; O2SAT 94
[2024-01-24 11:55] VITALS: BP 111/68; PULSE 74; RESP 16; O2SAT 91
--- NOTE | 2024-01-24 12:01 | P.SEDATION_ITS ---
Moderate Sedation Note-Pt Data Patient Data Diagnosis: MDS Present Complaint: leukopenia Procedure to be performed/Plan: BM Bx Allergies Allergy/AdvReac Type Severity Reaction Status Date / Time Penicillins Allergy Mild Hives Verified 01/24/24 08:29 Sulfa (Sulfonamide Allergy Mild rash Verified 01/24/24 08:29 Antibiotics) Home Medications Medication Instructions Recorded Confirmed Type calcium 333 mg-vit D3 200 1 tablet PO BID 11/10/19 01/24/24 History unit-magnesium 133 mg-zinc 5 mg tablet famotidine 20 mg tablet (Pepcid AC) 20 mg PO QACLUNCH 11/10/19 01/24/24 History loratadine 10 mg tablet 10 mg PO DAILY 11/10/19 01/24/24 History Lactobacills gasseri-Bifidobac 1 cap PO QAM 07/04/21 01/24/24 History bifidum,longum 1.5 billion cell capsule ([employer]) yrzxsbmiwike-Ct-eadh-minerals 1 tablet PO DAILY 07/04/21 01/24/24 History omeprazole 20 mg capsule,delayed 20 mg PO DAILY 07/04/21 01/24/24 History release aspirin 81 mg tablet,delayed 81 mg PO DAILY 08/21/21 01/24/24 History release (Adult Low Dose Aspirin) cyanocobalamin (vitamin B-12) 1,000 mcg PO DAILY 12/15/21 01/24/24 History 1,000 mcg capsule acetaminophen 500 mg tablet 1,000 mg PO Q8H PRN Pain 03/19/22 01/24/24 History melatonin 5 mg tablet 10 mg PO HS 03/19/22 01/24/24 History tizanidine 4 mg capsule 4 mg PO QHS PRN muscle spasticity 10/03/22 01/24/24 Rx #30 caps acyclovir 400 mg tablet 400 mg PO BID 01/24/23 01/24/24 History ferrous sulfate 325 mg (65 mg 325 mg PO TID 01/24/23 01/24/24 History iron) tablet (Iron (ferrous sulfate)) meloxicam 15 mg tablet 15 mg PO HS #90 tabs 12/06/23 01/24/24 Rx felodipine 5 mg tablet,extended 5 mg PO DAILY #90 tabs 12/18/23 01/24/24 Rx release 24 hr levothyroxine 88 mcg tablet 88 mcg PO QAM #90 tabs 12/18/23 01/24/24 Rx (Euthyrox) metoprolol succinate 25 mg 25 mg PO QAM #90 tabs 12/18/23 01/24/24 Rx tablet,extended release 24 hr escitalopram oxalate 10 mg tablet 10 mg PO DAILY 01/23/24 01/24/24 History losartan 100 mg tablet 100 mg PO DAILY 01/23/24 01/24/24 History simvastatin 40 mg tablet 40 mg PO HS 01/23/24 01/24/24 History Sedation/Anesthesia: No previous sedation/anesthesia problems (including family history). [facility] Past Medical History Medical History Aortic stenosis, moderate Essential (primary) hypertension Hypothyroidism, unspecified PONV (postoperative nausea and vomiting) Screening for breast cancer Screening for colon cancer Surgical History Surgical History History of left knee replacement History of total left knee replacement History of total right knee replacement Family History Family History Sibling Patient's brother is in good health Patient's brother is Acute myocardial infarction Father Family history of lung cancer, Onset Age: 65 Family history of type 2 diabetes mellitus Social History Social History Smoking packs per day: 3 Smoking cigarettes per day: 60.0 Years smoked: 20 Smoking pack-years: 60.00 Smoking status: Former smoker Tobacco type: cigarettes Second hand tobacco smoke exposure: Yes Smoking end date: 01/08/98 Additional smoking assessment comments: quit smoking 30 plus years Alcohol intake: current Drinks per week: 1 Alcohol use details: RARELY 2-3 DRINKS/YEAR Substance use: never Substance use type: does not use Do You Feel Safe in your Home?: Yes Lack of Transportation: No Lack of Food: Never True Current Housing: I Have Housing Concerned About Future Housing: No Difficulty Paying Gas/Electric Bills: No Difficulty Paying for Meds: No Currently Unemployed: No Education: Associate Degree Difficulty w/ Childcare or Family Care: No Living arrangements: with family Additional living arrangements comments: son lives w/ her Gender identity (if verbalized by the patient): Female Spiritual care concerns: No Mod Sed Physical Exam Physical Exam Pre Procedural Exam: Normal: Appearance, Eyes, Airway, Lungs, Heart Rhythm, Neuro Exam and Abdomen Hours since solid foods: 8 Hours since liquid intake: 8 Mallampati Classification: class II Internal Medicine - PN: Obj Da Vital Signs Vital Signs: Vital Signs - 24 hr 01/24/24 08:31 Temperature 36.6 C Pulse Rate 65 Respiratory Rate 14 Blood Pressure 160/95 H Pulse Oximetry 98 Oxygen Delivery Room Air Labs 01/24/24 08:15 Labs: Laboratory Results - last 24 hr 01/24/24 08:15 WBC 1.6 L* RBC 2.28 L Hgb 8.9 L Hct 26.4 L MCV 115.8 H MCH 39.0 H MCHC 33.7 RDW 14.3 Plt Count 40 L MPV 12.2 H Immature Gran % (Auto) 0.6 H Neut % (Auto) 32.0 L Lymph % (Auto) 52.2 H [place] % (Auto) 8.2 Eos % (Auto) 5.7 H Baso % (Auto) 1.3 H Lymph # (Auto) 0.83 L [place] # (Auto) 0.1 Eos # (Auto) 0.1 Baso # (Auto) 0.0 Abs Immat Gran (auto) 0.01 Absolute Neuts (auto) 0.5 L Absolute Nucleated RBC 0.000 Nucleated RBC % 0.0 Platelet Estimate Decreased % Immature Plt Fraction 5.2 Macrocytosis 1+ Schistocytes None seen PT 12.9 INR 0.9 ASA Classification/Sedation ASA Classification/Sedation ASA Class: II Emergent: No Risks: Risks, benefits and alternatives explained and patient accepted plan for sedation. Patient re-evaluated immediately prior to sedation.
[2024-01-24 12:10] VITALS: BP 126/65; PULSE 72; RESP 16; O2SAT 92
[2024-01-24 12:25] VITALS: BP 130/61; PULSE 72; RESP 16; O2SAT 94
[2024-01-24 13:00] VITALS: BP 132/69; PULSE 67; RESP 16; O2SAT 95
== END 2024-01-24 13:30 | disposition home or self-care (01) ==
PROVIDERS: PCP Nurse Practitioner; Referring Provider Radiology Diagnostic Radiology; Visit Provider Radiology Diagnostic Radiology
DX: D46.9 Myelodysplastic syndrome, unspecified (principal); I35.0 Nonrheumatic aortic (valve) stenosis; I10 Essential (primary) hypertension; E03.9 Hypothyroidism, unspecified; Z79.82 Long term (current) use of aspirin; Z98.890 Other specified postprocedural states; Z87.891 Personal history of nicotine dependence; Z80.1 Family history of malignant neoplasm of trachea, bronchus and lung; Z82.49 Family history of ischemic heart disease and other diseases of the circulatory system
CPT/HCPCS: 36415; 38222; 85025; 85055; 85610; 88305; 88311; 88313; J2003; J2250; J2405; J3010

== ENCOUNTER 2024-03-13 07:32 | Outpatient (CLI) | payer MEDICARE, OTHER, SELFPAY ==
--- NOTE | 2024-03-13 07:37 | ECHO_ITS ---
Patient Info Name: Rimma Monzon Age: 73 years : 1950 Gender: Female Ht: 63 in Wt: 165 lbs BSA: 1.85 m2 HR: 81 bpm BP: 126 / 74 mmHg Technical Quality: Good Exam Date: 03/13/2024 7:39 AM Exam Location: Echo Lab Patient Status: Outpatient Admit Date: 03/13/2024 Staff Ordering Physician: Parminder Reese DO Household Appliance Repairer: Gris Stringer RDCS Attending Provider: Parminder Reese DO Referring Physician: Hugh TURNER; Exam Type: CA echo doppler color flow Study Info Indications I35.0 - Nonrheumatic aortic (valve) stenosis Complete two-dimensional, color flow and Doppler transthoracic echocardiogram is performed. Strain analysis performed. Summary 1. Complete two-dimensional, color flow and Doppler transthoracic echocardiogram is performed. 2. Left ventricular chamber dimension is normal. 3. Left ventricular systolic function is normal, estimated at 60-65%. 4. The left ventricular diastolic function is abnormal. 5. E/e' 13 is mildly elevated. 6. Global longitudinal strain is normal at -17.4%. 7. There is severe aortic valve sclerosis. 8. There is moderate to severe aortic valve stenosis with a peak velocity of 330 cm/s, mean gradient of 21 mmHg, and aortic valve area of 1.0 cm2. 9. There is trace aortic valve regurgitation. 10. There is trace mitral valve regurgitation. 11. There is trace tricuspid valve regurgitation. 12. Mild pulmonary hypertension, estimated pulmonary arterial systolic pressure is 40 mmHg. Left Ventricle E/e' 13 is mildly elevated. Global longitudinal strain is normal at -17.4%. Left ventricular chamber dimension is normal. Left ventricular systolic function is normal, estimated at 60-65%. The left ventricular diastolic function is abnormal. Right Ventricle Right ventricular chamber dimension is normal. Right ventricular systolic function is normal. Left Atria Left atrial chamber dimension is normal. Right Atria Right atrial chamber dimension is normal. Aortic Valve The aortic valve is trileaflet. There is severe aortic valve sclerosis. There is moderate to severe aortic valve stenosis with a peak velocity of 330 cm/s, mean gradient of 21 mmHg, and aortic valve area of 1.0 cm2. There is trace aortic valve regurgitation. Pulmonic Valve There is no pulmonic regurgitation. Mitral Valve There is no mitral valve stenosis. There is trace mitral valve regurgitation. Tricuspid Valve There is trace tricuspid valve regurgitation. Mild pulmonary hypertension, estimated pulmonary arterial systolic pressure is 40 mmHg. Pericardium/Pleural There is no pericardial effusion. Inferior Vena Cava Normal inferior vena cava with >50% collapse upon inspiration consistent with normal right atrial pressure, 5 mmHg. Aorta The aortic root size at the sinus of Valsalva is normal. Left Ventricular Outflow Tract Name Value Normal LVOT 2D LVOT Diameter 2.0 cm LVOT Doppler LVOT Peak Gradient 5 mmHg LVOT Mean Gradient 3 mmHg LVOT VTI 25 cm LVOT VTI/AV VTI Ratio 0.3 LVOT Stroke Volume 75 ml LVOT CO 5.8 l/min LVOT CI 3.1 l/min/m2 Pulmonic Valve Name Value Normal RVOT Doppler RVOT Peak Gradient 2 mmHg PV Doppler PV Peak Gradient 4 mmHg Mitral Valve Name Value Normal MV Doppler MV Decel [place] 721 cm/s2 MV PHT 49 ms MV Area (PHT) 4.5 cm2 4.0-5.0 MV Diastolic Function MV E Peak Velocity 122 cm/s MV A Peak Velocity 117 cm/s MV E/A 1.0 MV Decel Time 170 ms Tricuspid Valve Name Value Normal TV Regurgitation Doppler TR Peak Velocity 296 cm/s TR Peak Gradient 35 mmHg Estimated PAP/RSVP RA Pressure 5 mmHg <=5 PA Systolic Pressure 40 mmHg <36 RV Systolic Pressure 40 mmHg <36 Aorta Name Value Normal Ascending Aorta Ao Root Diameter (MM) 2.2 cm Ao Root Diam Index (MM) 1.2 cm/m2 Aortic Valve Name Value Normal AV Doppler AV Peak Velocity 330 cm/s AV Peak Gradient 37 mmHg AV Mean Gradient 21 mmHg AV VTI 77 cm AV Area (Cont Eq VTI) 1.0 cm2 >=3.0 AV Area (Cont Eq Arjun) 1.1 cm2 AV Regurgitation 2D LVOT Area 3.0 cm2 AV Regurgitation Doppler AR Decel Time 1,594 ms AR Decel [place] 220 cm/s2 AR PHT 462 ms Ventricles Name Value Normal LV Dimensions 2D/MM IVS Diastolic Thickness (2D) 0.9 cm 0.6-1.0 IVS Diastole Thickness (MM) 0.9 cm 0.6-0.9 LVID Diastole (2D) 3.6 cm 3.8-5.2 LVID Diastole (MM) 5.7 cm 3.8-5.2 LVIW Diastolic Thickness (2D) 1.0 cm 0.6-0.9 LVIW Diastolic Thickness (MM) 1.0 cm 0.6-0.9 LVID Systole (2D) 2.4 cm 2.2-3.5 LVID Systole (MM) 3.4 cm 2.2-3.5 LVOT Diameter 2.0 cm LV Mass (2D Cubed) 97.91 g 67.00-162.00 LV Mass Index (2D Cubed) 53 g/m2 43-95 Relative Wall Thickness (2D) 0.54 LV Mass (MM Cubed) 206.14 g 67.00-162.00 LV Mass Index (MM Cubed) 112 g/m2 43-95 Relative Wall Thickness (MM) 0.34 LV Fractional Shortening/Ejection Fraction 2D/MM LV Fractional Shortening (2D) 34 % 27-45 LV Fractional Shortening (MM) 41 % 27-45 LV EF (MM Teicholz) 71 % 54-74 LV EF (2D Teicholz) 63 % 54-74 LV Diastolic Volume (4C MOD) 72 ml LV EF (4C MOD) 60 % LV Diastolic Volume (2C MOD) 68 ml LV EF (2C MOD) 58 % LV Diastolic Volume (BP MOD) 70 ml 46-106 LV Diastolic Volume Index (BP MOD) 38 ml/m2 29-61 LV Systolic Volume (BP MOD) 30 ml 14-42 LV Systolic Volume Index (BP MOD) 16 ml/m2 8-24 LV EF (BP MOD) 58 % 54-74 LV Diastolic Length (4C) 7.6 cm LV Systolic Length (4C) 6.7 cm LV Stroke Volume (4C MOD) 43 ml Atria Name Value Normal LA Dimensions LA Dimension (MM) 4.2 cm 2.7-3.8 LA Volume (4C A-L) 23 ml LA Volume (BP A-L) 39 ml RA Dimensions RA Area (4C) 11.3 cm2 <=18.0 EchoPAC Name Value Normal AutoEF LVCO_BiP_Q (Ztfa3JXE) 4.1 l/min LVEF_BiP_Q (Fsfw7OIS) 61 % LVSV_BiP_Q (Ppqw3KAA) 56 ml LVVED_BiP_Q (Woet0UIR) 92 ml LVVES_BiP_Q (Sdpa6CNJ) 36 ml HR_4Ch_Q (Bals0HDR) 71 bpm LVCO_4Ch_Q (Sbgj2JYV) 3.6 l/min LVEF_4Ch_Q (Uvww8VWT) 60 % LVLd_4Ch_Q (Bvhj7HKW) 8.0 cm LVLs_4Ch_Q (Ogte9TUY) 6.8 cm LVSV_4Ch_Q (Ujqb1QCI) 50 ml LVVED_4Ch_Q (Dren3FWM) 83 ml LVVES_4Ch_Q (Vdgv4SUR) 33 ml HR_2Ch_Q (Kowm3DFF) 73 bpm LVCO_2Ch_Q (Hrlw5VSR) 4.6 l/min LVEF_2Ch_Q (Sctt3ORU) 62 % LVLd_2Ch_Q (Noci5VKZ) 7.6 cm LVLs_2Ch_Q (Slbk6TFK) 6.5 cm LVSV_2Ch_Q (Xkqm7NIQ) 63 ml LVVED_2Ch_Q (Ynde9KXI) 102 ml LVVES_2Ch_Q (Mdlh1DYB) 38 ml ALEKS AA peak sys SL (AWMA) 15.1 % AAS peak sys SL (AWMA) 27.4 % AI peak sys SL (AWMA) 25.1 % AL peak sys SL (AWMA) 12.6 % AP peak sys SL (AWMA) 13.9 % peak sys SL (AWMA) 22.2 % AVC (AWMA) 360 ms BA peak sys SL (AWMA) 16.5 % BAS peak sys SL (AWMA) 14.7 % BI peak sys SL (AWMA) 19.4 % BL peak sys SL (AWMA) 14.0 % BP peak sys SL (AWMA) 13.3 % BS peak sys SL (AWMA) 15.7 % G peak SL(A2C) (AWMA) 19.4 % G peak SL(A4C) (AWMA) 16.6 % G peak SL(APLAX) (AWMA) 16.2 % G peak SL(Avg) (AWMA) 17.4 % MA peak sys SL (AWMA) 13.1 % MAS peak sys SL (AWMA) 22.3 % IN peak sys SL (AWMA) 27.8 % ML peak sys SL (AWMA) 13.4 % MP peak sys SL (AWMA) 7.1 % MS peak sys SL (AWMA) 22.6 % Report Signatures
== END 2024-03-13 07:33 | disposition home or self-care (01) ==
LOC: ANHCARD 07:33
PROVIDERS: PCP Nurse Practitioner; Visit Provider Internal Medicine Cardiovascular Disease
DX: I35.0 Nonrheumatic aortic (valve) stenosis (principal)
CPT/HCPCS: 93306

== ENCOUNTER 2024-09-09 07:44 | Outpatient (CLI) | payer MEDICARE, OTHER, SELFPAY ==
--- NOTE | ~2024-09-09 | XR_ITS ---
SINGLE AP VIEW PELVIS Ordering provider: Bang Donnelly MD History: . bI HIP PAIN . Comparison: None. FINDINGS: BONES: No acute fracture or dislocation. HIP JOINT SPACES: Bilateral hip mild to moderate osteoarthritic changes. SACROILIAC JOINT SPACES/LUMBAR SPINE: The sacroiliac joint spaces are normal. Mild degenerative kennedy es of the visualized lower lumbar spine. PUBIC SYMPHYSIS: Normal. SOFT TISSUES: Normal. IMPRESSION: No acute osseous abnormality pelvis. Reviewed, dictated and finalized at location A.
--- OUTSIDE RECORDS SUMMARY | 2024-09-09 07:58 | XMS_ITS | Data Portability ---
Author Organization [facility], Main Office Address [address] [place] [address] Care Team Providers Care Set Decorator Name Role Phone CAL SAKSHI Primary Care Provider CAL SAKSHI Referring Provider [phone] Assessment Encounter Date Assessment Date Assessment LastModified by Organization Details LastModified Time 07/18/2022 07/18/2022 HPI: Patient returns. She is 1 year out from left total knee arthroplasty. She states the knee is doing well for her. She is very happy with the. She has problems since last time we saw her August of last year. Physical exam: 71 year female alert pleasant. She walks well. She has well-healed incision. Range motion is from 0-115 degrees. She has lost of her flexion. She has excellent stability in both flexion extension. Impression: Patient doing well 1 out left total arthroplasty. X-rays of excellent. She has last little bit of motion but at this point patient is content. She is having symptoms in the knee. Long-term risk of infection as discussed. On seeing her back in 5 years for routine x-ray surveillance or sooner if she has problems. [email or web address] Not available 07/18/2022 09:29:56 Plan of Treatment Reminders Order Date Submit Date Provider Last Modified By Organization Details Last Modified Time Details Appointments None record ed. Lab None record ed. Referral None record ed. Procedures None record ed. Surgeries None record ed. Imaging XR, knee 023 07/19/19 23 [email or web address] [facility] [place], [facility], [place], [address], 3 10:50:57 Medication Orders None record ed. Patient TargetsNo targets recorded. Patient InstructionsNo instructions recorded. Reason for Referral None Reported. Results Created Date Observation Date Name Description Value Unit Range Abnormal Flag Note LastModifiedBy Organization Detail LastModifiedTime 07/18/19 22 07/17/2021 XR, knee No observ ation record ed. [id number] [facility] [address], [place], [address], 05/30/2022 03:10:56 08/31/19 22 XR, knee No observ ation record ed. [id number] [facility] [place] [address], [place], [address], 05/30/2022 03:10:56 01/24/20 22 XR, shoul gwen, 2 or more view No observ ation record ed. [id number] [facility] [place] [address], [place], [address], 05/30/2022 03:10:56 07/19/19 23 XR, knee No observ ation record ed. [email or web address] [facility] [place] [address], [place], [address], 07/18/2022 09:28:53 Result Notes None recorded. Problems Name Problem SNOMED Code Status Onset Date Resolution Date Notes Provider Name and Address Organization Details Recorded Time Knee pain Active Not Available [facility] 3 02:57:11 Osteoarthriti s [id number] Active Not Available [facility] 3 02:57:11 Problem Notes None recorded. Procedures Surgical History Date Name Laterality Status Provider Name and Address Organization Details Recorded Time total knee replacement completed Not Available [facility] 05/30/2022 02:46:36 total shoulder replacement completed Not Available [facility] 05/30/2022 02:46:36 Imaging Results None recorded. Procedure Notes None recorded. Medical Equipment None Reported. Allergies Allergen ID Allergen Name Allergen Category Reaction Reaction Severity Criticality Documentation Date Start Date Code Code System Note Provider Name and Address Organization Details Recorded Time 5377 Substance with sulfonami de structure and antibacte rial mechanism of action (substanc e) medicatio n rash Not available Not available 05/30/2022 50038 8003 SNOMED Not Available [facility] 3 03:10:23 5378 Product containin g penicilli n (product) medicatio n hives severe Not available 05/30/2022 59088 8001 SNOMED Not Available [facility] 3 03:10:23 Medications Name Sig Start Date Stop Date Status Note LastModified by Organization Details LastModified Time losartan 50 mg tablet TAKE 1 TABLET BY MOUTH ONCE DAILY BEFORE LUNCH active Not Available Not Available No t Available fluconazole 100 mg tablet TAKE 1 TABLET BY MOUTH ONCE DAILY active Not Available Not Available No t Available cefuroxime axetil 250 mg tablet 03/09 completed Not Available Not Available Not Available hydrocodone 5 mg-acetamin ophen 325 mg tablet TAKE 1 TABLET BY MOUTH EVERY 4 HOURS NEEDED FOR PAIN active Not Available Not Available No t Available ondansetron HCl 8 mg tablet TAKE 1 TABLET BY MOUTH EVERY 8 HOURS NEEDED FOR NAUSEA/EM ESIS active Not Available Not Available No t Available meloxicam 15 mg tablet TAKE 1 TABLET BY MOUTH ONCE DAILY AT BEDTIME active Not Available Not Available No t Available alendronate 70 mg tablet TAKE 1 TABLET BY MOUTH ONCE A WEEK IN THE MORNING WITH A FULL GLASS OF WATER, 30 MINUTES BEFORE THE FIRST MEAL, BEVERAGE OR MEDICATIO N OF THE DAY. REMAIN UPRIGHT 07/28 completed Not Available Not Available Not Available clindamycin HCl 150 mg capsule TAKE FOUR CAPSULES BY MOUTH ONE HOUR BEFORE APPOINTME NT active Not Available Not Available No t Available acyclovir 400 mg tablet TAKE 1 TABLET BY MOUTH. SEE ADMINISTR ATION INSTRUCTI ONS active Not Available Not Available No t Available ciprofloxac in 500 mg tablet TAKE 1 TABLET BY MOUTH TWICE DAILY active Not Available Not Available No t Available simvastatin 40 mg tablet TAKE 1 TABLET BY MOUTH ONCE DAILY AT BEDTIME active Not Available Not Available No t Available lidocaine-p rilocaine 2.5 %-2.5 % topical cream APPLY TO THE AFFECTED AREA(S) DIRECTED active Not Available Not Available No t Available levothyroxi ne 100 mcg tablet 03/09 completed Not Available Not Available Not Available levothyroxi ne 88 mcg tablet TAKE 1 TABLET BY MOUTH ONCE DAILY IN THE MORNING active Not Available Not Available No t Available Kenalog 10 mg/mL suspension for injection In office injection administe red by the provider 04/05 completed [facility]: 0003- 0494- 20 Not Available Not Available Not Available hydrocodone 7.5 mg-acetamin ophen 325 mg tablet TAKE 1 TABLET BY MOUTH EVERY 6 HOURS NEEDED FOR MODERATE PAIN (4 TO 6 ON SCALE) active Not Available Not Available No t Available cephalexin 500 mg capsule TAKE 1 CAPSULE BY MOUTH EVERY 6 HOURS 08/14 completed Not Available Not Available Not Available levothyroxi ne 125 mcg tablet TK 1 T PO QD 02/05 completed Not Available Not Available Not Available losartan 25 mg tablet 06/21 completed Not Available Not Available Not Available omeprazole 20 mg capsule,del ayed release 03/09 completed Not Available Not Available Not Available metoprolol succinate ER 25 mg tablet,exte nded release 24 hr TAKE 1 TABLET BY MOUTH ONCE DAILY IN THE MORNING active Not Available Not Available No t Available Pepcid 20 mg tablet Take 1 tablet twice a day by oral route. 2018 active Not Available Not Available Not Avai lable levofloxaci n 500 mg tablet TAKE 1 TABLET BY MOUTH ONCE DAILY FOR 7 DAYS active Not Available Not Available No t Available doxycycline hyclate 100 mg tablet 03/09 completed Not Available Not Available Not Available oxycodone 5 mg tablet Take 1 tablet every 4 hours by oral route. active Not Available Not Available No t Available escitalopra m 10 mg tablet TAKE 1 TABLET BY MOUTH ONCE DAILY IN THE MORNING active Not Available Not Available No t Available tizanidine 4 mg capsule TAKE 1 CAPSULE BY MOUTH ONCE DAILY AT BEDTIME NEEDED FOR MUSCLE SPASTICIT Y active Not Available Not Available No t Available loratadine 2020 active Not Available Not Available Not Avai lable aspirin 81 mg once daily 07/28 completed Not Available Not Available Not Available levothyroxi ne 2020 active Not Available Not Available Not Avai lable IBU-200 NEEDED 06/21 completed Not Available Not Available Not Available Glucosamine 07/28 completed Not Available Not Available Not Available multivitami n 2020 active Not Available Not Available Not Avai lable lidocaine (PF) 10 mg/mL (1 %) injection solution In office injection administe red by the provider 04/05 completed [facility]: 0409- 4276- 17 Not Available Not Available Not Available B12 2020 active Not Available Not Available Not Avai lable Eliquis 2.5 mg tablet TAKE 1 TABLET BY MOUTH EVERY 12 HOURS 08/14 completed Not Available Not Available Not Available Tylenol 325 mg capsule Take as needed by oral route. 2020 active Not Available Not Available Not Avai lable Fluad 2017- 65yr up(PF)45 mcg(15 mcgx3)/0.5 mL intramuscul ar syringe ADM 0.5ML IM UTD 02/05 completed Not Available Not Available Not Available Fluad Quad (6 5yr up)(PF) 60 mcg (15 mcg x 4)/0.5mL IM syringe ADM 0.5ML IM UTD 04/05 completed Not Available Not Available Not Available Neuriva De-Stress 07/28 completed Not Available Not Available Not Available Vitals Date Recorded Body height Provider Name an d Address Organization Details Last Updated DateTime 07/18/2022 154.94 cm ESCOBAR Sofia [place] - [facility] [employer] [facility] 07/18/2022 09:00:33 Date Recorded Body height Provider Name an d Address Organization Details Last Updated DateTime 08/14/2021 154.94 cm Not Available [facility] 3 02:54:22 Date Recorded Body height Provider Name an d Address Organization Details Last Updated DateTime 08/30/2021 154.94 cm Not Available [facility] 3 02:54:22 Date Recorded Body height Provider Name an d Address Organization Details Last Updated DateTime 09/27/2021 154.94 cm Not Available [facility] 3 02:54:22 Date Recorded Body mass index (BMI) Body height Body weight Provider Name and Address Organization Details Last Updated DateTime 01/23/2022 32.1 kg/m2 154.94 cm 42564.7 g Not Available [facility] 05/30/2022 02:54:23 Social History Question Answer Notes LastModified by Organizat ion Details LastModified Time Tobacco Smoking Status Former Smoker quit 30 yrs ago Not Available [facility] 05/30/2022 02:44:17 What Was The Date Of Your Most Recent Tobacco Screening? 08/09/2020 [id number] Information not available 05/30/2022 Sex: Unknown Functional Status Question Answer Note LastModified by Organizat ion Details LastModified Time What is your level of alcohol consumption? Occasional [id number] Information not available 05/30/2022 Mental Status None recorded. Family History Relationship Description Onset Age of this Age Resolved Age Notes LastModified by Organization Details LastModified Time Father Family history of malignant neoplasm [id number] Not available 05/30/2022 02:46:46 Father Diabetes mellitus [id number] Not available 05/30/2022 02:46:46 Medical History Condition Response BLINDNESS N KIDNEY STONES N MRSA N CARPAL TUNNEL SYNDROME N LUNG DISEASE/DISORDER N HISTORY OF DRUG ABUSE N COPD N RADIATION / CHEMOTHERAPY N SPORTS INJURY N ANKLE PAIN N BLOOD DISEASES N SCHIZOPHRENIA N SHINGLES N BOWEL PROBLEMS N SHOULDER PAIN N DEPRESSION (INCLUDING POST ) N STROKE/TIA N KNEE PAIN N ULCERS N BENIGN PROSTATIC HYPERPLASIA N OBESITY N GERD/NAUSEA N ANEURYSM N URINARY/BLADDER/KIDNEY PROBLEMS N CORONARY ARTERY DISEASE (CAD) N ADDICTION CONCERNS N USE OF BLOOD THINNERS N SKIN PROBLEMS N EMPHYSEMA N MUSCLE,JOINT OR BONE PROBLEMS N DVT N STOMACH ULCERS N BLOOD CLOTS N USE OF NSAIDS Y CONCUSSION OR SPINAL TRAUMA N NEUROPATHY N AIDS/HIV N FRACTURES N ELBOW PAIN N HYPERTENSION Y TOURETTE'S N ANXIETY DISORDER N Metal allergy N BLOOD TRANSFUSION N ANEMIA/BLOOD DISORDER N BIPOLAR DISORDER N BRONCHITIS N OSTEOARTHRITIS N TUBERCULOSIS N FOOT PROBLEM N HEART VALVE DISORDERS N ALLERGIES/HAYFEVER N SOFT TISSUE INJURY N INFECTIOUS DISEASE N HEART ARRHYTHMIA N INSOMNIA N RHEUMATOID ARTHRITIS N HIGH CHOLESTEROL / HYPERLIPIDEMIA N EDEMA N CHRONIC PAIN SYNDROME N CAROTID BLOCKAGE N BACK / NECK PROBLEMS N HAVE YOU BEEN HOSPITALIZED OR SEEN IN [facility] IN THE PAST YEAR ? N BURSITIS N HERNIATED DISC N DIALYSIS N FIBROMYALGIA N OSTEOPOROSIS N ARTHRITIS Y NO SIGNIFICANT PAST MEDICAL HISTORY N PERIPHERAL NEUROPATHY N DIABETES, TYPE Y HEARTBURN / REFLUX N HEPATITIS / LIVER DISEASE N GOUT N SLEEP DISORDER N ALZHEIMER'S DISEASE N HERPES N SEIZURES/EPILEPSY N HEADACHES/MIGRAINES N VASCULAR DISEASE N HIP PAIN N Blood Disorder N DIZZINESS N HEAD TRAUMA OR INJURY N HEART DISEASE/HEART PROBLEMS N MULTIPLE SCLEROSIS N CARDIAC ARRHYTHMIA N CANCER: SPECIFY N ANESTHESIA COMPLICATIONS N ATRIAL FIBRILLATION N AUTOIMMUNE DISEASE N Gynecological HistoryNo gynecological history recorded. Obstetrics History GPAL:G 0 P 0 0 0 0 Past Encounters Encounter ID Performer Location Encounter Start Date Encounter Closed Date Diagnosis/Indication Diagnosis SNOMED-CT Code Diagnosis ICD10 Code Diagnosis Note [id number] [facility] [place] [address] [place] [address] 06/14/2020 00:00:00 06/14/2020 14:42:18 [id number] Josse Miller MD [facility] [place] [address] [place] [address] 07/12/2020 00:00:00 07/12/2020 15:00:07 [id number] Josse Miller MD [facility] [place] [address] [place] [address] 08/09/2020 00:00:00 08/09/2020 13:00:01 [id number] Josse Miller MD [facility] [place] [address] [place] [address] 09/27/2020 00:00:00 09/27/2020 12:34:17 [id number] Josse Miller MD [facility] [place] [address] [place] [address] 01/24/2021 00:00:00 01/24/2021 12:15:13 [id number] Med Hugo MD [facility] [place] [address] [place] [address] 06/21/2021 00:00:00 07/05/2021 15:05:20 [id number] Med Hugo MD [facility] [place] [address] [place] [address] 07/28/2021 00:00:00 07/28/2021 10:12:10 [id number] Med Hugo MD [facility] [place] [address] [place] [address] 08/14/2021 00:00:00 08/14/2021 15:35:33 [id number] Med Hugo MD [facility] [place] [address] [place] [address] 08/30/2021 00:00:00 09/04/2021 13:04:54 [id number] Med Hugo MD [facility] [place] [address] [place] [address] 09/27/2021 00:00:00 09/27/2021 08:57:24 [id number] Josse Miller MD [facility] [place] [address] [place] [address] 01/23/2022 00:00:00 01/23/2022 12:21:52 [id number] Med Hugo MD [facility] [place] [address] [place], [place] [address] 07/18/2022 08:57:45 07/18/2022 09:31:55 History of left total knee replacement [id number] Z96.652 Health Concerns Section Related Observation LastModified by Organization Detai ls LastModified Time None Recorded Concern Status LastModified by Organization Details LastModified Time None Recorded Advance Directives Directive None Recorded Payers Encounter Date Sequence Insurance Name Policy Number Policy Tatum Covered Member ID Tatum Member ID Guarantor Name 07/18/2022 1 [place] Rimma Monzon [id number] Rimma Monzon 07/18/2022 2 [facility] (MEDICARE SUPPLEMENT) Rimma Monzon [id number] Rimma Monzon OBGyn Episode No OBEpisode recorded.
--- OUTSIDE RECORDS SUMMARY | 2024-09-09 07:58 | XMS_ITS | Encounter Summary ---
Author Organization [facility] Address [address] [place] [address] Care Team Providers Care Keno Clerk Name Role Phone Unavailable Primary Care Provider Unavailabl e Encounter Details Date Type Department Care Team (Late st Contact Info) Description 01/27/2024 Lab Requisition [facility] - Pathology Lab [address] [place] [address] Kannan Short MD [address] [place] [address] Illness, unspecified Social History Tobacco Use Types Packs/Day Years Used Date Smoking Tobacco: Never Assessed Comments Unknown Sex and Gender Information Value Date Recorded Sex Assigned at Not on file 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 Gender Identity Not on file Sexual Orientation Not on file documented as of this encounter Plan of Treatment Not on file documented as of this encounter Procedures Procedure Name Priority Date/Time Associated Diagnosis Comments BONE MARROW BIOPSY (STL) Routine 01/24/2024 11:00 AM CDT Illness, unspecified documented in this encounter Results * BONE MARROW BIOPSY (STL) (01/24/2024 11:00 AM CDT) Case Report Bone Marrow Patholog y Report Case: [id number] Authorizing Provider: Kannan Short Collected: 01/24/2024 11:00 AM MD [place] Ordering Location: [facility] - Received: 01/27/2024 04:22 PM Pathology Lab Pathologist: Natalee Ceja MD Specimens: A) - Bone Marrow Clot B) - Bone Marrow Core 01/28/2024 2:26 PM [facility] Final Diagnosis Bone marrow, aspirate, clot section, and core biopsy: - 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 01/28/2024 2:26 PM [facility] at 1426 CDT Peripheral Smear Description Not submitted. 01/28/2024 2:26 PM [facility] Bone Marrow Aspirate Differential count (200 cells): not performed due to hemodilution. Specimen quality: hemodilute. Spicules: absent. Most of the paucicellularity represents peripheral blood elements. No overtly increased blasts are seen. 01/28/2024 2:26 PM [facility] Bone Marrow Core Biopsy and Clot Section Description Specimen quality: fragmented with 0.9 cm of evaluable marrow. Cellularity: 30% Myeloid to Erythroid ratio: normal. Myeloid maturation and localization: left-shifted with increased blasts. Erythroid maturation and localization: architectural disarray. Megakaryocyte number: increased. Megakaryocyte distribution: dysplastic. Lymphoid aggregates: absent. Bone trabeculae: thin. Plasma cells: normal. Clot section marrow particles: few. Clot section morphology: similar to core biopsy. Storage iron (by special stain): increased. Sideroblastic iron (by special stain): no ring sideroblasts. 01/28/2024 2:26 PM [facility] Flow Cytometry Summary Bone marrow, flow cytometry ([id number]): - Expanded CD34+ blast population identified (~8% of overall events 01/28/2024 2:26 PM [facility] Clinical History MDS with excess blasts. 01/28/2024 2:26 PM [facility] Materials Received Received are 18 slide(s) and 3 blocks labeled [id number] along with a copy of the outside pathology report. [place] [address]. All original materials are returned to the referring institution, along with a copy of our final report. 01/28/2024 2:26 PM [facility] Microscopic Description Immunohistochemistry is performed to assess staining cells in an architectural context: CD34 and CD117 highlight mildly increased blasts at ~7% of marrow cellularity. CD61 highlights the increased and dysplastic blasts. P53 is essentially negative. 01/28/2024 2:26 PM CDT [facility] Pathologist Location at [facility] 01/28/2024 2:26 PM CDT [facility] Disclaimer The performance characteristics of all immunohistochemical and indirect immunofluorescence stains (if any) cited in this report were determined by the Histopathology Laboratory of [facility]. Some of these tests were developed by our own laboratory and have not been cleared or approved by the US Food and Drug Administration. The FDA does not require this test to go through premarket FDA review. These tests are used for clinical purposes. They should not be regarded as investigational or for research. This laboratory is certified under the Clinical Laboratory Improvement Amendments (CLIA) as qualified to perform high complexity clinical laboratory testing. This case has been personally reviewed and interpreted by the attending (teaching) pathologist. 01/28/2024 2:26 PM CDT [facility] Embedded Images 01/28/2024 2:26 PM CDT [facility] Pathology/Cytology BONE MARROW SPECIMEN / Unknown 01/24/2024 11:00 AM CDT 01/27/2024 4:22 PM CDT Miscellaneous samples (specimen) BONE MARROW SPECIMEN / Unknown 01/24/2024 11:00 AM CDT 01/27/2024 4:22 PM CDT Kannan Short MD LAB - PATHOLOGY/CYT OLOGY ORDERABLES Final Result Performing Organization Address City/State/[facility] Co de Phone Number [facility] [address] [place], [place] [id number] [place] [address] documented in this encounter Visit Diagnoses Diagnosis Illness, unspecified documented in this encounter
--- OUTSIDE RECORDS SUMMARY | 2024-09-09 07:58 | XMS_ITS | Clinical Summary ---
Author Organization [facility] Address [address] [place] [address] Care Team Providers Care Teleservices Representative Name Role Phone Unavailable Primary Care Provider Unavailabl e Source Comments [facility],non-owned Affiliates and Associated Physician Practices is amultiple site organization consisting of ambulatory clinics and hospital sitesin [place], [place], [place] and [place]. This disclosure is being madepursuant to the Care Everywhere program and may not contain all information available regarding this patient. 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 Gender Identity Not on file Sexual Orientation Not on file Plan of Treatment Health Maintenance Due Date Last Done Comments BONE DENSITY TESTING 1950 COLOGUARD (AGES 45-75) - COL ON CA SCREENING 1950 COLON MONITORING 1952 COLONOSCOPY - COLON CA SCREENING 1952 CT COLONOGRAPHY - COLON CA SCREENING 1950 Colorectal Cancer Screening 1950 FIT - COLON CA SCREENING 1952 FLEX SIG - COLON CA SCREENING 1952 LIPID TESTING 1950 MAMMOGRAM 1950 MEDICARE AWV 12 MONTHS 1950 HEPATITIS C SCREENING 11/13/1970 DTAP/TDAP/TD VACCINES (1 - Tdap) 11/18/1971 ZOSTER VACCINE (2 of 3) 04/24/2016 02/28/2016 PNEUMOCOCCAL VACCINE 50+ (2 of 2 - PPSV23) 02/27/2017 02/28/2016 COVID-19 VACCINE (2023-2 5 season) 2023 DEPRESSION SCREENING 04/01/2024 INFLUENZA VACCINE (Season Ended) 2024 Respiratory Syncytial Virus (RSV) Vaccine Pt: or over 60 yrs (1 - 1-dose 75+ series) 11/18/2027 HEPATITIS B VACCINE Aged Out No longe r eligible based on patient's age to complete this topic HIB VACCINE Aged Out No longer eligi ble based on patient's age to complete this topic HPV VACCINE Aged Out No longer eligi ble based on patient's age to complete this topic MENINGOCOCCAL (Group B) VACC INE SHARED DECISION-MAKING Aged Out No longer eligibl e based on patient's age to complete this topic MENINGOCOCCAL GROUPS A/C/Y/W VACCINE Aged Out No longer eligible b ased on patient's age to complete this topic Insurance MEDICARE MEDICARE
--- OUTSIDE RECORDS SUMMARY | 2024-09-09 07:58 | XMS_ITS | Clinical Summary ---
Author Organization [facility] Address [address], [address] [address] Phone Care Team Providers Care Shell Molder Name Role Phone Micha Baker MD Primary Care Provider [phone] Rakesh Irby DO Unavailable [phone] Allergies Active Allergy Reactions Criticality Noted Date Comments Penicillins Unknown 10/14/2015 Sulfa Antibiotics Unknown 10/14/2015 Medications escitalopram (LEXAPRO) 10 MG Tablet Take 10 mg by mouth 2 times daily. Active metoprolol Succinate (TOPROL-XL) 25 MG TABLET SR 24 HR Take 25 mg by mouth daily. Active levothyroxine (SYNTHROID) 100 MCG Tablet Take 100 mcg by mouth daily. Active Aspirin 81 MG Tablet Take 81 mg by mouth daily. Active famotidine (PEPCID) 20 MG Tablet Take 20 mg by mouth 2 times daily. Active Loratadine 10 MG Capsule Take by mouth daily. Active Glucosamine-Panchito droit-Vit C-Mn (GLUCOSAMINE CHONDR 1500 COMPLX) Capsule Take by mouth 2 times daily. Active Calcium Carbonate-Vitami n D (CALCIUM + D PO) Take by mouth 2 times daily. Active Multiple Vitamins-Mineral s (MULTIVITAMIN PO) Take by mouth daily. Active vitamin b-12 (CYANOCOBALAMIN) 100 MCG Tablet Take 100 mcg by mouth once a week. Active Immunizations Immunization Administration Dates Next Due Covid-19, Mrna, Lnp-s, Pf, 30 Mcg/0.3 Ml Dose (Ramona paredes) 07/05/2020,06/14/2020 Family History Medical History Relation Name Comments Diabetes Brother Diabetes Father Lung Cancer Father Hypertension Mother Breast Cancer Other aunt Relation Name Status Comments Brother Father Mother Other Social History Tobacco Use Types Packs/Day Years Used Date Smoking Tobacco: Former Cigarettes 3 30 Smokeless Tobacco: Never Alcohol Use Standard Drinks/Week Comments Yes 0 (1 standard drink = 0.6 oz pur e alcohol) Comments Unknown Sex and Gender Information Value Date Recorded Sex Assigned at Not on file Legal Sex Female 11:50 PM CDT Gender Identity Not on file Sexual Orientation Not on file Plan of Treatment Health Maintenance Due Date Last Done Comments DEXA Bone Density 1950 Hepatitis C Virus (HCV) Screening 1950 TdaP Immunization 1950 Cologuard 2002 Immunochemical Fecal Occult Blood 2002 Mammogram 2002 Zoster Immunization (2 of 3) 04/24/2016 02/28/2016 Pneumococcal Immunization (5 0+ years) (2 of 2 - PPSV23) 02/27/2017 02/28/2016 Influenza Immunization (#1) 12/01/202312/01, 01/14/2018 SARS-COV-2 Immunization ( season) 2023 01/10/2021, 07/05/2020, 06/14/2020 Colonoscopy 10/09/2025 10/10/2015 Colorectal Cancer Screening 10/09/2025 Respiratory Syncytial Virus (RSV) Immunization (Adult) (1 - 1-dose 75+ series) 11/18/2027 Pneumococcal Immunization Combined Discontinued 02/28/2016 Hepatitis B Immunization Aged Out No longer eligible based on patient's age to complete this topic Meningococcal Immunization (ACWY) Aged Out No longer eligible based on patient's age to complete this topic Rotavirus Immunization Aged Out No lo nger eligible based on patient's age to complete this topic Procedures Procedure Name Priority Date/Time Associated Diagnosis Comments COLONOSCOPY Routine 10/10/2015 from Last 3 Months or Most Recently Relevant to Health Maintenance Results * COLONOSCOPY (10/10/2015) Micha Baker MD PROCEDURE/MINOR SURGICAL ORDER DELVIN Final Result from Last 3 Months or Most Recently Relevant to Health Maintenance Insurance [facility] Care Teams Shell Molder Relationship Specialty Start Date End Date Micha Baker MD [address] [facility] [address] [place] [address] PCP - General Internal Medicine 10/10/15 Rakesh Irby DO [address] [facility] [address] [place] [address] Consulting Physician Gastroenterology 10/10/15
--- OUTSIDE RECORDS SUMMARY | 2024-09-09 07:58 | XMS_ITS | Clinical Summary ---
Author Organization [facility] Address [address] [place] [address] Care Team Providers Care Cooler Room Worker Name Role Phone Angus Cope DO Primary Care Provider [phone] Allergies Active Allergy Reactions Criticality Noted Date Comments Penicillins Hives High 07/14/2021 Sulfa (Sulfonamide Antibiotics) Rash Low 06/30 Medications escitalopram oxalate (LEXAPRO) 10 mg tablet Take 10 mg by mouth daily. 2 Active losartan (COZAAR) 50 mg tablet Take 50 mg by mouth daily. 2 Active meloxicam (MOBIC) 15 mg tablet Take 15 mg by mouth daily. 2 Active metoprolol succinate (TOPROL XL) 25 mg Extended Release 24 hour tablet Take 25 mg by mouth daily. 2 Active simvastatin (ZOCOR) 40 mg tablet Take 40 mg by mouth daily. 2 Active famotidine (Pepcid) 20 mg tablet Pepcid 20 mg tablet Take 1 tablet twice a day by oral route. 9 Active coffee-theanin e-superoxide dis (Neuriva De-Stress) 100-200-10 mg Capsule Neuriva De-Stress 1 Active loratadine 10 mg Capsule loratadine 1 Active levothyroxine 88 mcg tablet levothyroxine 1 Active mecobalamin, vitamin B12, (B12 Active) 1,000 mcg Tablet, Chewable 1,000 mcg twice weekly. 1 Active acetaminophen (TylenoL) 325 mg Capsule Tylenol 325 mg capsule Take as needed by oral route. 1 Active cyanocobalamin (VITAMIN B-12) 100 mcg tablet Take 100 mcg by mouth every 7 days. Active aspirin (ECOTRIN EC) 81 mg Tablet, Delayed Release (E.C.) Take 81 mg by mouth daily. Active melatonin 5 mg Tablet Take by mouth nightly as needed. Active omeprazole (PriLOSEC) 20 mg Capsule, Delayed Release(E.C.) Take 20 mg by mouth daily. Active calcium as carbonate (CALTRATE) 1,500 mg (600 mg elemental) Tablet Take 600 mg by mouth. Active multivitamin (DAILY-MAGUE) tablet Take 1 Tablet by mouth daily. 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 60 Tablet 3 3 Active ferrous sulfate 325 mg (65 mg iron) tablet Take 325 mg by mouth 2 times daily. Active metroNIDAZOLE (FLAGYL) 500 mg tablet Take 1 Tablet (500 mg) by mouth 3 times daily. 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 30 Tablet 5 Active cephALEXin (KEFLEX) 500 mg capsule Take 1 Capsule (500 mg) by mouth 4 times daily for 7 days. 28 Capsule 5 025 Active Problems Problem Noted Date Diagnosed Date MDS (myelodysplastic syndrome) 08/05/2023 Pancytopenia 07/14/2021 Encounters Date Type Department Care Team Description 09/07/2024 9:30 AM CDT Office Visit [facility] - [address] [place] [id number] Bang Donnelly MD Bilateral hip pain (Primary Dx); MDS (myelodysplastic syndrome) (CMS/HCC) 09/01/2024 Telephone [facility] - [address] [place] [phone] Bang Donnelly MD Nail Problem 08/28/2024 Orders Only [facility] - [address] [place] [id number] Bang Donnelly MD 08/25/2024 External Device Data STL ABSTRACTION Provider, Abstract 08/24/2024 Orders Only [facility] - [address] [place] [id number] Bang Donnelly MD MDS (myelodysplastic syndrome) ([facility]/HCC) 08/20/2024 External Device Data STL ABSTRACTION Provider, Abstract 08/19/2024 External Device Data STL ABSTRACTION Provider, Abstract 08/18/2024 External Device Data STL ABSTRACTION Provider, Abstract 08/17/2024 Orders Only [facility] - [address] [place] [phone] Bang Donnelly MD 08/12/2024 Orders Only [facility] - [address] [place] [id number] Scanning, Provider 08/11/2024 Orders Only [facility] - [address] [place] [address] Bang Donnelly MD 08/10/2024 9:30 AM CDT Office Visit [facility] - [address] [place] [id number] Bang Donnelly MD MDS (myelodysplastic syndrome) (CMS/HCC) 08/10/2024 Orders Only [facility] - [address] Bang Donnelly MD MDS (myelodysplastic syndrome) (CMS/HCC) (Primary Dx) 08/06/2024 Orders Only [facility]ology - [address] [place] [address] Bang Donnelly MD 08/05/2024 Orders Only [facility] - [address] Bang Donnelly MD 07/27/2024 Orders Only [facility] - [address] Bang Donnelly MD MDS (myelodysplastic syndrome) ([facility]/HCC) 07/22/2024 Orders [facility] - [address] [place] [address] Bang Donnelly MD 07/20/2024 Orders [facility] - [address] Bang Donnelly MD 07/14/2024 Orders [facility] - [address] Bang Donnelly MD 07/13/2024 Orders Only [facility] - [address] [place] [address] Bang Donnelly MD MDS (myelodysplastic syndrome) (CMS/HCC) 07/07/2024 Orders [facility] - [address] [place] [phone] Bang Donnelly MD 07/06/2024 9:15 AM CDT [facility] - [address] Bang Donnelly MD MDS (myelodysplastic syndrome) (CMS/HCC) 07/03/2024 Abstract [facility] - [address] Bang Donnelly MD 07/01/2024 Telephone [facility] - [address] Bang Donnelly MD Lab Results 06/30/2024 Orders Only [facility] - [address] [place] [address] Bang Donnelly MD MDS (myelodysplastic syndrome) ([facility]/HCC) (Primary Dx) 06/25/2024 Refill [facility] - [address] Dot Bean MD 06/22/2024 Orders Only [facility] - [address] Bang Donnelly MD MDS (myelodysplastic syndrome) ([facility]/HCC) 06/18/2024 Orders Only [facility] - [address] Bang Donnelly MD 06/17/2024 External Device Data STL ABSTRACTION Provider, Abstract 06/15/2024 Refill [facility] - [address] [place] [address] Bang Donnelly MD from Last 3 Months Family History Medical History Relation Name Comments Lung Cancer Father Relation Name Status Comments Brother 1 Alive Brother 2 Alive Brother 3 Brother 4 Brother 5 Brother 6 Father Mother Son 1 Alive Son 2 Social History Tobacco Use Types Packs/Day Years Used Date Smoking Tobacco: Former Cigarettes Smokeless Tobacco: Never Tobacco Cessation:Counseling Given: Not Answered Comments:quit 25 years ago Alcohol Use Standard Drinks/Week Comments Never 0 (1 standard drink = 0.6 oz pur e alcohol) Comments Unknown Sex and Gender Information Value Date Recorded Sex Assigned at Not on file Legal Sex Female 9:09 AM CDT Gender Identity Not on file Sexual Orientation Not on file Last Filed Vital Signs Vital Sign Reading Time Taken Comments Blood Pressure 92/69 09/07/2024 9:17 AM CDT Pulse 64 09/07/2024 9:17 AM CDT Temperature 36.6 C (97.9 F) 09/07/2024 9:17 AM CDT Respiratory Rate 15 09/07/2024 9:17 AM CDT Oxygen Saturation 95% 09/07/2024 9:17 AM CDT Inhaled Oxygen Concentration - - Weight 72 kg (158 lb 12.8 oz) 09/07/2024 9:17 AM CDT Height 157.5 cm (5' 2) 12/12/2021 2:16 PM CDT Body Mass Index 29.04 12/12/2021 2:16 PM CDT Plan of Treatment Upcoming Encounters Date Type Department Care Team (Late st Contact Info) Description 10/07/2024 9:00 AM CDT Office Visit [facility] - [address] [facility] [address] [place] [address] Bang Donnelly MD [address] [facility] [address] [place] [address] Health Maintenance Due Date Last Done Comments DTAP/TDAP/TD VACCINES (1 - Tdap) 11/18/1971 Traditional Medicare (ACO) A nnual Wellness Visit 11/18/1971 FIT-DNA Q 3 years 1997 FIT/FOBT Q 1 year 1997 Flex Sig/CT Colonography Q 5 years 1997 ZOSTER VACCINE (2 of 3) 04/24/2016 02/28/2016 PNEUMOCOCCAL VACCINE 50+ YEA RS (2 of 2 - PPSV23) 02/27/2017 02/28/2016 OSTEOPOROSIS SCREENING 07/31/2023 07/30/2018 INFLUENZA VACCINE (#1) 2023 COVID-19 Vaccine (3 - 2023-2 5 season) 2023 07/05/2020, 06/14/2020 BREAST CANCER SCREENING 11/18/2024 11/19/19, 11/19/2023, 11/14/2022, Additional history exists RSV VACCINE (60+ or ) (1 - 1-dose 75+ series) 11/18/2027 COLORECTAL SCREENING 02/05/2033 02/05/2023, 10/10/19 Colorectal Cancer Screening 02/05/2033 Procedures Procedure Name Priority Date/Time Associated Diagnosis Comments CBC WITH DIFFERENTIAL Routine 08/21/2024 4:24 PM CDT CBC WITH DIFFERENTIAL Routine 08/17/2024 3:38 PM CDT BASIC METABOLIC PANEL Routine 08/10/2024 3:29 PM CDT COMPREHENSIVE METABOLIC PANEL Routine 08/10/2024 2:18 PM CDT CBC WITH AUTODIFFERENTIAL Routine 2024 1:12 PM CDT CBC WITH DIFFERENTIAL Routine 08/05/2024 3:47 PM CDT IRON, TIBC, AND PERCENT SATURATION Routine 08/05/2024 10:24 AM CDT CBC MIXED CELL DIFFERENTIAL Routine 07/01 1:04 PM CDT CBC MIXED CELL DIFFERENTIAL Routine 07/01 3:25 PM CDT COMPREHENSIVE METABOLIC PANEL Routine 07/13/2024 3:51 PM CDT BASIC METABOLIC PANEL Routine 07/13/2024 11:54 AM CDT CBC WITH AUTODIFFERENTIAL Routine 2024 11:58 AM CDT BASIC METABOLIC PANEL Routine 07/06/2024 12:07 PM CDT CBC WITH AUTODIFFERENTIAL Routine 2024 1:01 PM CDT CBC WITH DIFFERENTIAL Routine 06/16/2024 8:11 AM CDT from Last 3 Months Results * CBC WITH DIFFERENTIAL (08/21/2024 4:24 PM CDT) Only the most recent of4 resultswithin the time period is included. Blood us Bang Donnelly MD HEMATOLOGY ORDERABLES Final Res ult * BASIC METABOLIC PANEL (08/10/2024 3:29 PM CDT) Only the most recent of3 resultswithin the time period is included. Blood Bang Donnelly MD CHEMISTRY ORDERABLES Final Resu lt * COMPREHENSIVE METABOLIC PANEL (08/10/2024 2:18 PM CDT) Only the most recent of2 resultswithin the time period is included. Blood Provider Scanning CHEMISTRY ORDERABLES Final Res ult * CBC WITH AUTODIFFERENTIAL (08/10/2024 1:12 PM CDT) Only the most recent of3 resultswithin the time period is included. Blood Bang Donnelly MD HEMATOLOGY ORDERABLES Final Res ult * IRON, TIBC, AND PERCENT SATURATION (08/05/2024 10:24 AM CDT) Blood Bang Donnelly MD CHEMISTRY ORDERABLES Final Resu lt * CBC MIXED CELL DIFFERENTIAL (07/22/2024 1:04 PM CDT) Only the most recent of2 resultswithin the time period is included. Blood Bang Donnelly MD HEMATOLOGY ORDERABLES Final Res ult from Last 3 Months Insurance MEDICARE PART A AND B [facility] Care Teams Cooler Room Worker Relationship Specialty Start Date End Date Angus Cope DO [address] [facility] [address] [facility] [address] [place] [address] PCP - General Internal Medicine 11/04/23
--- OUTSIDE RECORDS SUMMARY | 2024-09-09 07:58 | XMS_ITS | Encounter Summary ---
Author Organization [facility] Address [address] [facility] [place] [address] Care Team Providers Care Resource Forester Name Role Phone Unavailable Primary Care Provider Unavailabl e Encounter Details Date Type Department Care Team (Late st Contact Info) Description 01/24/2024 Lab Requisition [facility] - Pathology Lab [address] [place] [address] Kannan Short MD [address] [facility] [address] [place] [id number] Myelodysplastic syndrome, unspecified Social History Tobacco Use Types Packs/Day Years Used Date Smoking Tobacco: Never Assessed Comments Unknown Sex and Gender Information Value Date Recorded Sex Assigned at Not on file 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 Gender Identity Not on file Sexual Orientation Not on file documented as of this encounter Plan of Treatment Not on file documented as of this encounter Procedures Procedure Name Priority Date/Time Associated Diagnosis Comments FLOW CYTOMETRY BONE MARROW Routine 01/24/2024 11:10 AM CDT Myelodysplastic syndrome, unspecified (HCC) documented in this encounter Results * FLOW CYTOMETRY BONE MARROW (01/24/2024 11:10 AM CDT) Case Report Flow Cytometry Case: [id number] Authorizing Provider: Kannan Short Collected: 01/24/2024 11:10 AM MD [place] Ordering Location: [facility] - Received: 01/24/2024 02:58 PM Pathology Lab Pathologist: Natalee Ceja MD Specimen: Bone Marrow 01/27/2024 8:40 AM CDT [facility] PATH[facility] Final Diagnosis Bone marrow, flow cytometry: - Expanded CD34+ blast population identified (~8% of overall events) 01/27/2024 8:40 AM [facility] PATH[facility] at 0840 CDT Flow Cytometry Interpretation Viability: 100% B-cells: polytypic, kappa:lambda ratio 2:1 T-cells: not increased Blasts: detected, ~8%, express CD34, CD33, CD13, CD117, subset CD56, A small subset of CD64+ monocytic events are immature with diminished CD14 expression and CD117 expression (~5% of overall events). A bone marrow aspirate smear prepared from the flow cytometry specimen has been reviewed for quality control systems manager purposes. 01/27/2024 8:40 AM [facility] Flow Cytometry Results Differential Result Comment Flow Cell Count /uL 1,800 Total Viability % 100.0 Lymphocytes % 17 Dim CD45 Region % 16 Monocytes % 14 Granulocytes % 51 01/27/2024 8:40 AM [facility] Reason for test Myelodysplastic syndrome, unspecified (HCC) 238.75 01/27/2024 8:40 AM [facility] Client Specimen ID # [id number] 01/27/2024 8:40 AM [facility] Number of markers 19 were performed. A-2 Flow CD10 A-3 Flow CD13 A-5 Flow CD20 A-11 Flow CD2 A-13 Flow CD14 A-16 Flow CD117 A-17 Flow CD11b A-18 Flow CD11c A-1 Flow CD5 A-4 Flow CD19 A-6 Flow CD33 A-7 Flow CD34 A-8 Flow CD45 A-12 Flow CD7 A-14 Flow CD56 A-15 Flow CD64 A-9 [place]+CD19+ A-10 Lambda+CD19+ A-19 Flow HLA-DR 01/27/2024 8:40 AM [facility] Pathologist Location at [facility] 01/27/2024 8:40 AM [facility] Disclaimer Test performed at [facility], [address] [place] [address], [id number]. *The established laboratory minimum viability is 70%. Values below the minimum may result in the failure to find an abnormal population of cells. This test was developed and its performance characteristics determined by the Flow Cytometry Laboratory. It has not been cleared by the [place] Food and Drug Administration (FDA). The FDA has determined that such clearance or approval is not necessary. This test is used for clinical purposes. It should not be regarded as investigational or for research. This laboratory is regulated under the Clinical Laboratory Improvement Amendments of 1998 (CLIA) as a qualified to perform high complexity clinical testing. 01/27/2024 8:40 AM CDT [facility] Embedded Images 8:40 AM CDT [facility] Pathology/Cytolo gy BONE MARROW SPECIMEN / Unknown 01/24/2024 11:10 AM CDT 01/24/2024 2:58 PM CDT Kannan Short MD LAB - PATHOLOGY/CYT OLOGY ORDERABLES Final Result Performing Organization Address City/State/[facility] Co de Phone Number [facility] [address] [place] [address], [facility] [phone] documented in this encounter Visit Diagnoses Diagnosis Myelodysplastic syndrome, unspecified (HCC) Myelodysplastic syndrome, unspecified documented in this encounter
--- OUTSIDE RECORDS SUMMARY | 2024-09-09 07:58 | XMS_ITS | Encounter Summary ---
Author Organization [facility] Address [address] [facility] [place] [address] Care Team Providers Care Government Affairs Manager Name Role Phone Unavailable Primary Care Provider Unavailabl e Encounter Details Date Type Department Care Team (Late st Contact Info) Description 03/21/2022 Lab Requisition [facility] Care Pathology Lab [address] [place] [address] Zurdo Thurman MD [address] [address] Illness, unspecified Social History Tobacco Use Types Packs/Day Years Used Date Smoking Tobacco: Never Assessed Comments Unknown Sex and Gender Information Value Date Recorded Sex Assigned at Not on file 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 Gender Identity Not on file Sexual Orientation Not on file documented as of this encounter Plan of Treatment Not on file documented as of this encounter Procedures Procedure Name Priority Date/Time Associated Diagnosis Comments BONE MARROW BIOPSY (STL) Routine 03/20/2022 10:10 AM AGRICULTURE ENGINEER Illness, unspecified documented in this encounter Results * BONE MARROW BIOPSY (STL) (03/20/2022 10:10 AM AGRICULTURE ENGINEER) Case Report Bone Marrow Patholog y Report Case: [id number] Authorizing Provider: Zurdo Thurman MD Collected: 03/20/2022 10:10 AM Ordering Location: [facility] Care Pathology Lab Received: 03/21/2022 02:13 PM Pathologist: Yvonne Cassidy Mai, DO Specimens: A) - Bone Marrow Clot B) - Bone Marrow Core 03/22/2022 10:49 AM AGRICULTURE ENGINEER [facility] Final Diagnosis Bone marrow, aspirate, clot section, and core biopsy: - Normocellular marrow with multilineage dysplasia and increased blasts (11% by manual count) - See description Peripheral blood smear: - Pancytopenia - See description 03/22/2022 10:49 AM AGRICULTURE ENGINEER [facility] PATHOLOGY LAB at 1049 AGRICULTURE ENGINEER AP Comment The bone marrow specimen is normocellular for age (20-30%) but demonstrates dysplasia involving the myeloid and megakaryocyte lineages. There is an increased proportion of blasts by manual differential count (11%), CD34 immunohistochemistry (5-10%) and flow cytometry (10.7% by CD34). 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 Per the 2022 International Consensus Classification of Myeloid Neoplasms and Acute Leukemias, although the blast threshold of 20% defining AML remains, several additional genetic lesions are now considered to be defining of AML for myeloid neoplasms with >=10% BM or blood blasts. To acknowledge the biologic continuum between MDS and AML, the name of the previous category of MDS-EB2 in adults with 10% or more blasts is changed to MDS/AML, defined as a cytopenic myeloid neoplasm and 10% to 19% blasts in the blood or BM. Patients with MDS/AML should be eligible for both MDS and AML trials, which will facilitate optimizing the management of such patients. In the future, genetic features rather than an arbitrary blast cutoff may drive treatment decisions in this group [1]. Correlation with pending cytogenetic/molecular testing is required for further classification of this process. [place] DA, Mariel A, Naya RP, Erik MJ, Disha KR, Nikki HM, Pierce SA, Brock A, Pipo T, Broadway S, [place] CE, Galindo JE, Kendrick Venegas P, Dereje CD, Andrew H, David EJ, Abbey BL, Jose Miguel EH, Ivan F, Fopriscar K, Ganjairo N, Jeimy U, Joanie LA, G kamaljit N, Del J, [facility] E, El GS, Figueroa R, Miles EJ, Park JohnsonJ, Jairo RA, Shireen Arechiga MM, Crow ML, L claudia B, Krishan E, Jenifer L, Antonio CG, Jan C, Shirley OM, Ogawa S, Orfao A, Papaemmanuil E, Passamonti F, Porkka K, Nishant CH, Radihema LAY, Karlo A, Morro M, Adam M, Arline MR, Elizabeth CA, Aleah A, Guillermo A, Nina J, Jaziel WA, Stone RM, Caleb MS, Charles J, Cesar HF, Hazel A, Shelbi AM, Michael P, Kosta AH, Criss OK, Gela A, Librado Baumann, Carey daley H, Mehdi A. International Consensus Classification of Myeloid Neoplasms and Acute Leukemias: integrating morphologic, clinical, and genomic data. Blood. 2021 15;140(11):8638-4406. doi: 10.1182/blood.98277685 50. PMID: 67146647; PMCID: [id number]. 03/22/2022 10:49 AM [facility] Peripheral Smear Description Manual Differential Count (100 cells): 50% neutrophils, 34% lymphocytes, 10% monocytes, 5% eosinophils, and 1% basophils. 0 nRBCs / 100 WBCs. Leukocytes: Decreased with reactive lymphocytes, no circulating blasts seen Erythrocytes: Macrocytic anemia with no significant anisopoikilocytosis Platelets: Decreased 03/22/2022 10:49 AM [facility] Bone Marrow Aspirate Differential count (500 cells): 11% blasts, 44.4% maturing myeloid precursors, 21.8% erythroid progenitors, 4.4% monocytes, 7.6% eosinophils, 7.6% lymphocytes, 3.2% plasma cells. Myeloid/erythroid ratio= 2.6 The sample is spiculated and cellular. There is maturing trilineage hematopoeisis with normal myeloid/erythroid ratio. Myeloid elements show slightly left shifted maturation and a subset with hypogranular cytoplasm consistent with dysgranulopoiesis. Erythroid elements show occasional forms with irregular nuclear contours but no obvious dysplasia. Megkaryocytes demonstrate hyperlobated forms and forms with widely nuclei consistent with dysmegakaryopoiesis. Storage iron (by special stain): Decreased stainable storage iron (trace amount), however, the sample is paucispiculate. Control is appropriately reactive. Sideroblastic iron (by special stain): No ring sideroblasts seen 03/22/2022 10:49 AM [facility] Bone Marrow Core Biopsy and Clot Section Description The core biopsy is adequate with 1.4 cm of evaluable marrow. Cellularity is variable and estimated at 20-30% overall with maturing trilineage hematopoiesis. Myeloid/erythroid ratio is reflective of the aspirate count. Myeloid elements show left shifted but complete maturation into segmented neutrophils. Erythroid elements show normal maturation and localization. Megakaryocytes are adequate with a subset showing dysplasia. There are no lymphoid aggregates. The clot section contains variably cellular marrow particles with similar morphologic features to the core. Immunohistochemical stains are performed on the core biopsy in the [facility] Department of Pathology, with appropriately reactive controls, and demonstrate the following: CD34: Stains variable density of blasts, 5-10% of marrow cellularity CD117: Highlights blasts, mast cells and erythroid precursors E-cadherin: Weakly stains erythroid precursors 03/22/2022 10:49 AM [facility] Flow Cytometry Summary [id number]: Increased myeloblasts (10.7% by CD34) 03/22/2022 10:49 AM [facility] Clinical History Pancytopenia 03/22/2022 10:49 AM [facility] Materials Received Received are 21 slides and three blocks (A1, A2, B1) labeled [id number] along with a copy of the outside pathology report. [place] [address]. All original materials are returned to the referring institution, along with a copy of our final report. 03/22/2022 10:49 AM [facility] Disclaimer The performance characteristics of all immunohistochemical and indirect immunofluorescence stains (if any) cited in this report were determined by the Histopathology Laboratory of [facility]. Some of these tests were developed by [...] and interpreted by the attending (teaching) pathologist. 03/22/2022 10:49 AM AGRICULTURE ENGINEER [facility] Embedded Images 03/22/2022 10:49 AM AGRICULTURE ENGINEER [facility] Pathology/Cytology BONE MARROW SPECIMEN / Unknown 03/20/2022 10:10 AM AGRICULTURE ENGINEER 03/21/2022 2:13 PM AGRICULTURE ENGINEER Miscellaneous samples (specimen) BONE MARROW SPECIMEN / Unknown 03/20/2022 10:10 AM AGRICULTURE ENGINEER 03/21/2022 2:13 PM AGRICULTURE ENGINEER us Zurdo Thurman MD LAB - PATHOLOGY/CYTOLOGY ORDERAB LES Final Result [facility] [address] [place] [address], [facility] [phone] documented in this encounter Visit Diagnoses Diagnosis Illness, unspecified documented in this encounter
--- OUTSIDE RECORDS SUMMARY | 2024-09-09 07:58 | XMS_ITS | Encounter Summary ---
Author Organization [facility] Address [address] [facility] [place] [address] Care Team Providers Care Publishing Systems Analyst Name Role Phone Unavailable Primary Care Provider Unavailabl e Encounter Details Date Type Department Care Team (Late st Contact Info) Description 03/21/2022 Lab Requisition [facility] Pathology Lab [address] [place] [address] uZrdo Thurman MD [address] [address] Other pancytopenia Social History Tobacco Use Types Packs/Day Years Used Date Smoking Tobacco: Never Assessed Comments Unknown Sex and Gender Information Value Date Recorded Sex Assigned at Not on file Legal 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 Female 8:51 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 OUTPUT 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 Gender Identity Not on file Sexual Orientation Not on file documented as of this encounter Plan of Treatment Not on file documented as of this encounter Procedures Procedure Name Priority Date/Time Associated Diagnosis Comments FLOW CYTOMETRY BONE MARROW Routine 03/20/2022 10:10 AM INPUT OUTPUT CLERK Other pancytopenia (CMS/HCC) documented in this encounter Results * FLOW CYTOMETRY BONE MARROW (03/20/2022 10:10 AM INPUT OUTPUT CLERK) Case Report Flow Cytometry Case: [id number] Authorizing Provider: Zurdo Thurman MD Collected: 03/20/2022 10:10 AM Ordering Location: [facility] Care Pathology Lab Received: 03/21/2022 09:01 AM Pathologist: Yvonne Cassidy Mai, DO Specimen: Bone Marrow 03/21/2022 11:58 AM INPUT OUTPUT CLERK [facility] Final Diagnosis Bone marrow, flow cytometric immunophenotypic analysis: - Increased myeloblasts (10.7% by CD34) - See description 03/21/2022 11:58 AM [facility] PATH[facility] at 1158 INPUT OUTPUT CLERK Flow Cytometry Interpretation The bone marrow specimen has a viability of 93%. The dim CD45 region is expanded (21%). Within the lymphocyte gate, there is no monotypic B-cell population identified (kappa: lambda ratio = 1.9:1). By CD34, 10.7% of all events analyzed are blasts. The blasts express CD34, CD117, CD33, and CD13. The blasts lack/show no significant expression of CD19, CD20, CD10, CD5, CD11b, CD11c, CD14, CD64, CD2, CD7, HLA-DR, and CD56. A bone marrow aspirate smear prepared from the flow cytometry specimen is reviewed for manufacturing quality engineer purposes. The sample is aspiculate and hemodilute. The bone marrow aspirate specimen shows an increased myeloblast population comprising 10.7% of events analyzed. Correlation with clinical findings, the concurrent bone marrow core biopsy (accession number pending), and relevant cytogenetic/molecu lar studies is required. 03/21/2022 11:58 AM [facility] Flow Cytometry Results Differential Result Comment Flow Cell Count /uL 16,000 Total Viability % 93.0 Lymphocytes % 33 Dim CD45 Region % 21 Monocytes % 10 Granulocytes % 35 03/21/2022 11:[address] [facility] Reason for test Other pancytopenia (CMS/HCC) 284.19 03/21/2022 11:58 AM [facility] Client Specimen ID # [id number] 03/21/2022 11:58 AM [facility] Number of markers 19 were performed. A-2 Flow CD10 A-3 Flow CD13 A-5 Flow CD20 A-11 Flow CD2 A-13 Flow CD14 A-16 Flow CD117 A-17 Flow CD11b A-18 Flow CD11c A-1 Flow CD5 A-4 Flow CD19 A-6 Flow CD33 A-7 Flow CD34 A-8 Flow CD45 A-12 Flow CD7 A-14 Flow CD56 A-15 Flow CD64 A-9 [place]+CD19+ A-10 Lambda+CD19+ A-19 Flow HLA-DR 03/21/2022 11:58 AM [facility] Disclaimer Test performed at [facility], [address] [place], [place], [address]. *The established laboratory minimum viability is 70%. [...] qualified to perform high complexity clinical testing. 03/21/2022 11:58 AM INPUT OUTPUT CLERK [facility] Embedded Images 11:58 AM INPUT OUTPUT CLERK [facility] Pathology/Cytolo gy BONE MARROW SPECIMEN / Unknown 03/20/2022 10:10 AM INPUT OUTPUT CLERK 03/21/2022 9:01 AM INPUT OUTPUT CLERK Zurdo Thurman MD LAB - PATHOLOGY/CYTOLOGY ORDERAB LES Final Result [facility] [address] [place] [address], [facility] [place] [phone] documented in this encounter Visit Diagnoses Diagnosis Other pancytopenia (HCC) Other pancytopenia documented in this encounter
== END 2024-09-09 07:45 | disposition home or self-care (01) ==
PROVIDERS: PCP Nurse Practitioner; Visit Provider Internal Medicine Hematology & Oncology
DX: M25.552 Pain in left hip (principal); M25.551 Pain in right hip
CPT/HCPCS: 72170

== ENCOUNTER 2024-11-05 14:57 | Emergency (ER) | payer MEDICARE, OTHER, SELFPAY ==
--- NOTE | ~2024-11-05 | XR_ITS ---
XR lumbar spine 2-3V 11/05/2024 15:31 Indication: Low back pain status post recent fall Procedure: 3 views lumbar spine Comparison: 12/19/2020 Findings: There is a chronic wedge compression fracture of L1 unchanged. There is severe multilevel s pondylosis characterized by disc narrowing, endplate hypertrophy and facet arthropathy. There is hype rtrophy of the spinous processes. There is a new severe superior endplate compression fracture of L4, age indeterminate. Impression: 1: Severe L4 superior endplate compression fracture which is new compared with 12/19/2020, although ag e-indeterminate. 2: Chronic wedge compression fracture of L2. 3: Severe lumbar spondylosis. Reviewed, dictated and finalized at location A. Impression: 1: Severe L4 superior endplate compression fracture which is new compared with 12/19/2020, although age-indeterminate. 2: Chronic wedge compression fracture of L2. 3: Severe lumbar spondylosis.
--- NOTE | 2024-11-05 14:59 | ED_ITS ---
HPI - Back Pain/Injury General Chief Complaint: Back Pain/Injury Stated Complaint: fall/back pain Time Seen by Provider: 11/05/24 15:15 Source: patient, RN notes reviewed and old records reviewed Mode of arrival: ambulatory Limitations: no limitations History of Present Illness HPI Narrative: Patient sitting in exam room. Patient presents with low back pain after getting her slipper caught on a bath mat and falling backwards landing on her backside. Currently wearing a brace, wearing a walker to help assist her. Has chronic back pain No bruising or swelling noted States that she is taking ibuprofen and acetaminophen. Has tramadol and Zanaflex at home Denies any numbness or tingling that is new in her feet. No loss or retention of bowel or bladder. Denies abdominal pain. Denies hitting head, no loss of consciousness. Denies neck pain Onset (ago): hour(s) Related Data Home Medications ?Medication ?Instructions ?Recorded ?Confirmed ?Last Taken ?Type calcium 333 mg-vit D3 200 1 tablet PO BID 11/10/19 07/29/24 01/23/24 History unit-magnesium 133 mg-zinc 5 mg tablet famotidine 20 mg tablet (Pepcid AC) 20 mg PO QACLUNCH 11/10/19 07/29/24 01/23/24 History loratadine 10 mg tablet 10 mg PO DAILY 11/10/19 07/29/24 01/23/24 History Lactobacills gasseri-Bifidobac 1 cap PO QAM 07/04/21 07/29/24 01/23/24 History bifidum,longum 1.5 billion cell capsule ([facility]) zpretlkdnbbi-Sa-mmcg-minerals 1 tablet PO DAILY 07/04/21 07/29/24 01/23/24 History omeprazole 20 mg capsule,delayed 20 mg PO DAILY 07/04/21 07/29/24 01/23/24 History release cyanocobalamin (vitamin B-12) 1,000 mcg PO DAILY 12/15/21 07/29/24 01/23/24 History 1,000 mcg capsule melatonin 5 mg tablet 10 mg PO HS 03/19/22 07/29/24 01/23/24 History acyclovir 400 mg tablet 400 mg PO BID 01/24/23 07/29/24 01/23/24 History ferrous sulfate 325 mg (65 mg 325 mg PO TID 01/24/23 07/29/24 01/23/24 History iron) tablet (Iron (ferrous sulfate)) Magic Mouthwash 50 mL suspension 10 ml PO .every 4 hours PRN mouth 07/03/24 07/29/24 Unknown History pain #50 mL epoetin whit 20,000 unit/mL 20,000 unit subcut WEEKLY PRN 07/29/24 08/05/24 Unknown History injection solution (Epogen) based on labs ondansetron HCl 8 mg tablet 8 mg PO Q12H 07/29/24 08/05/24 Unknown History tramadol 50 mg tablet 50 mg PO Q6H PRN pain 09/14/24 09/14/24 Unknown History gabapentin 100 mg capsule 100 mg PO Q12H 10/01/24 10/01/24 Unknown History decitabine 50 mg intravenous 11/05/24 Unknown History solution (Dacogen) Allergies Allergy/AdvReac Type Severity Reaction Status Date / Time Penicillins Allergy Mild Hives Verified 11/05/24 15:08 Sulfa (Sulfonamide Allergy Mild rash Verified 11/05/24 15:08 Antibiotics) Review of Systems 2 Review of Systems: All systems reviewed & are unremarkable except as noted in HPI and below Constitutional: Constitutional: Reports no additional constitutional complaints Genitourinary: Genitourinary: Reports no additional female genitourinary complaints Musculoskeletal: Musculoskeletal: Reports as per HPI and Reports back pain Integumentary/Breasts: Skin/Breast: Reports system reviewed and no additional complaints, except as docu Neurologic: Denies confusion, Denies vertigo and Denies dizziness PMFSH Past Medical History Medical History BMI 28.0-28.9,adult PONV (postoperative nausea and vomiting) Aortic stenosis, moderate Screening for breast cancer Screening for colon cancer Essential (primary) hypertension Hypothyroidism, unspecified Surgical History Surgical History History of left knee replacement History of total left knee replacement History of total right knee replacement Family History Family History Sibling Patient's brother is Acute myocardial infarction Father Family history of lung cancer, Onset Age: 65 Family history of type 2 diabetes mellitus Mother No problems noted. Other Social History Social History Smoking packs per day: 3 Smoking cigarettes per day: 60.0 Years smoked: 20 Smoking pack-years: 60.00 Smoking status: Former smoker Tobacco type: cigarettes Second hand tobacco smoke exposure: Yes Smoking end date: 01/08/98 Additional smoking assessment comments: quit smoking 30 plus years Alcohol intake: current Drinks per week: 1 Alcohol use details: RARELY 2-3 DRINKS/YEAR Substance use: never Substance use type: does not use Do You Feel Safe in your Home?: Yes Lack of Transportation: No Lack of Food: Never True Current Housing: I Have Housing Concerned About Future Housing: No Difficulty Paying Gas/Electric Bills: No Difficulty Paying for Meds: No Currently Unemployed: No Education: Associate Degree Difficulty w/ Childcare or Family Care: No Living arrangements: with family Additional living arrangements comments: son lives w/ her Occupation/Education: retired 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 Gender identity (if verbalized by the patient): Female Spiritual care concerns: No Comments At the time of my signature, I reviewed and agree with the nursing past medical, surgical, social, and family history. There is no relevant family history pertinent to the patient complaint. Exam 2 Const: General: cooperative, no acute distress, well developed, alert, ill appearing chronically; not acutely, uncomfortable and well nourished N utritional Appearance: well nourished Orientation/consciousness: patient oriented x3 Limitations: no limitations HENMT: Head: normal to inspection Eyes: General: appearance normal, both eyes and all related structures A lignment and Position: alignment normal Neck: Neck: normal visual inspection, full ROM, no lymphadenopathy and no meningeal signs Resp: Effort & Inspection: normal respiratory effort and able to speak in complete sentences Cardio: Rate: regular rate GI: GI Palp: No abdominal tenderness : General: Yes no CVA tenderness Back/Spine/Pelvis: Back: No ecchymosis and back tenderness (Low lumbar) C ervical Spine: normal cervical lordosis, cervical ROM normal, No cervical muscular tenderness and No Cervical spine tenderness Thoracic/Lumbar Spine: N o thoracic spinal tenderness and lumbar spinal tenderness at L3, at L4 and at L5 Pelvis: no pain with anterior-posterior compression and no pain with lateral compression Back/spine/pelvis image: 1. Tenderness to palpation without erythema, ecchymosis. No rashes, no swelling. Skin: General skin exam: normal color and no rashes or lesions noted Neuro: General: patient oriented x3, gait normal, moves all extremities and no meningeal signs Cognition (Neuro): normal cognition Speech: normal speech Gait exam (Neuro): Normal gait present Extrem: General: normal to inspection, full ROM, capillary refill normal and normal gait Psych: Appearance: grossly normal and well kempt Mental Status: mental status grossly normal Speech and movement: Normal speech and movement present and Clear speech present Affect: normal affect Attitude: cooperative Course Course Emergency Course: Call neuro CAD, talked with female. They will see her, discussed putting Dr. Naylor on the discharge papers, name and date of given they will look her up if no referral is given. Level of Care: Express Care Visit Vital Signs Vital signs: Vital Signs Temperature 97.1 F L 11/05/24 15:11 Pulse Rate 77 11/05/24 15:11 Respiratory Rate 18 11/05/24 15:11 Blood Pressure 147/63 H 11/05/24 15:11 Pulse Oximetry 100 11/05/24 15:11 Oxygen Delivery Room Air 11/05/24 15:11 Temperature 97.1 F L 11/05/24 15:11 Pulse Rate 77 11/05/24 15:11 Respiratory Rate 18 11/05/24 15:11 Blood Pressure 147/63 H 11/05/24 15:11 Pulse Oximetry 100 11/05/24 15:11 Oxygen Delivery Room Air 11/05/24 15:11 Reviewed MDM - Back Pain/Injury MDM Narrative Medical decision making narrative: Patient sitting in exam room. Patient is nontoxic, vitals are stable. Patient presents with low back pain, currently wearing a brace that she has had for her back pain in the past Walking with a walker X-ray does show L4 endplate fracture superior Patient with no neurologic deficits Discussed in great detail with patient and her family member signs and symptoms to proceed to the emergency room which she verbalized understanding. Discharge instructions reviewed with patient, as well as provided in writing per nursing staff. The instructions also include specific and strict return/GO TO THE ER as well as f/u information. All questions have been answered, and the patient deny any further questions with discharge and discharge plan. Some parts of this dictation were generated by voice recognition software and may contain typographical and/or grammatical inaccuracies. Differential Diagnosis Differential diagnosis: Likely lumbar radiculopathy, sciatica and strain of lumbar region Imaging Data Radiologist's impression: XR lumbar spine 2-3V 11/05/2024 15:31 Indication: Low back pain status post recent fall Procedure: 3 views lumbar spine Comparison: 12/19/2020 Findings: There is a chronic wedge compression fracture of L1 unchanged. There is severe multilevel spondylosis characterized by disc narrowing, endplate hypertrophy and facet arthropathy. There is hypertrophy of the spinous processes. There is a new severe superior endplate compression fracture of L4, age indeterminate. Impression: 1: Severe L4 superior endplate compression fracture which is new compared with 12/19/2020, although age-indeterminate. 2: Chronic wedge compression fracture of L2. 3: Severe lumbar spondylosis. Critical Care Time Critical Care Time Critical Care Time: No Discharge Plan Discharge Clinical Impression: Acute exacerbation of chronic low back pain Fall Qualifiers: Encounter type: initial encounter Qualified Code(s): W19.XXXA - Unspecified fall, initial encounter Compression fracture of L4 vertebra Qualifiers: Encounter type: initial encounter Qualified Code(s): S32.040A - Wedge compression fracture of fourth lumbar vertebra, initial encounter for closed fracture Patient Disposition: Home Condition: Stable Instructions: Vertebral Compression Fracture (ED), Fall Prevention (ED) Additional Instructions: Take pain medications as prescribed Do not lift anything more than a gal of the Proper Posture:Good posture is important for avoiding future problems. A therapist can teach you how to safely stand, sit, and lift. Use warm moist heat to help with pain. Using topical such as Biofreeze, Francis-Wang or Aspercreme can also help Follow up with Primary provider in 2-3 days, This may become a chronic condition and they will be the one to help manage your pain and order additional testing. Follow-up with neuro surgery Go to the nearest ER if you develop problems with bladder/bowel function, weakness or loss of feeling in one or both of your legs. Patient Language: Salvadorean Prescriptions: New tizanidine 4 mg capsule 4 mg PO HS PRN (Reason: muscle spasticity) Qty: 14 0RF No Action decitabine [Dacogen] 50 mg recon soln Magic Mouthwash 50 mL suspension 10 ml PO .every 4 hours PRN (Reason: mouth pain) Qty: 50 Patient Comments: . tramadol 50 mg tablet 50 mg PO Q6H PRN (Reason: pain) gabapentin 100 mg capsule 100 mg PO Q12H loratadine 10 mg tablet 10 mg PO DAILY Patient Comments: . famotidine [Pepcid AC] 20 mg tablet 20 mg PO QACLUNCH Patient Comments: . calcium carb-D3-mag [id number] [phone] pq-arta-bq-mg tablet 1 tablet PO BID Patient Comments: . Rx Instructions: administer with a meal escitalopram oxalate 10 mg tablet 10 mg PO DAILY Qty: 90 2RF Patient Comments: . Rx Instructions: TAKE 1 TABLET BY MOUTH ONCE DAILY IN THE MORNING felodipine 5 mg tablet extended release 24 hr 5 mg PO DAILY Qty: 90 2RF Patient Comments: . ondansetron HCl 8 mg tablet 8 mg PO Q12H Epogen 20,000 unit/mL solution 20,000 unit subcut WEEKLY PRN (Reason: based on labs) Patient Comments: . cyanocobalamin (vitamin B-12) 1,000 mcg capsule 1,000 mcg PO DAILY Patient Comments: . tizanidine 4 mg capsule 4 mg PO QHS PRN (Reason: muscle spasticity) Qty: 30 2RF Patient Comments: . melatonin 5 mg Tablet 10 mg PO HS Patient Comments: . acyclovir 400 mg tablet 400 mg PO BID Patient Comments: . ferrous sulfate [Iron (ferrous sulfate)] 325 mg (65 mg iron) Tablet 325 mg PO TID Patient Comments: . omeprazole 20 mg Capsule,Delayed Release(Dr/Ec) 20 mg PO DAILY yrhndbwemjcu-Tx-hsqt-minerals Tablet 1 tablet PO DAILY [facility] 1.5 billion cell Capsule 1 cap PO QAM Patient Comments: ... losartan 100 mg tablet See Rx Instructions .ROUTE .COMPLEX Qty: 90 2RF Dose Instruction: Take 1 tablet by mouth once daily Patient Comments: . Rx Instructions: Take 1 tablet by mouth once daily simvastatin 40 mg tablet 40 mg PO HS Qty: 90 2RF Rx Instructions: TAKE 1 TABLET BY MOUTH ONCE DAILY AT BEDTIME metoprolol succinate 25 mg tablet extended release 24 hr 25 mg PO QAM Qty: 90 2RF Rx Instructions: Take 1 tablet by mouth once daily meloxicam 15 mg tablet 15 mg PO HS Qty: 90 1RF Patient Comments: . levothyroxine [Levoxyl] 100 mcg tablet 100 mcg PO DAILY Qty: 90 1RF Follow-up/Referrals: Shashank Sheehan APRN [Primary Care Provider] - 1 Week (fall express care follow up ) Elizabeth Mckinnon MD [Physician] - 3 Days (express care follow up ) Time of Disposition: 16:09
--- OUTSIDE RECORDS SUMMARY | 2024-11-05 15:00 | XMS_ITS | Encounter Summary ---
Author Organization [facility] Address [address] [place] [address] Care Team Providers Care Environmental Education Specialist Name Role Phone Unavailable Primary Care Provider Unavailabl e Encounter Details Date Type Department Care Team (Late st Contact Info) Description 03/21/2022 Lab Requisition [facility] Pathology Lab [address] [place] [address] Zurdo Thurman MD [address] [address] Other pancytopenia Social History Tobacco Use Types Packs/Day Years Used Date Smoking Tobacco: Never Assessed Comments Unknown Sex and Gender Information Value Date Recorded Sex Assigned at Not on file Legal Sex Female 8:51 AM SCANNER OPERATOR Gender Identity Not on file Sexual Orientation Not on file documented as of this encounter Plan of Treatment Not on file documented as of this encounter Procedures Procedure Name Priority Date/Time Associated Diagnosis Comments FLOW CYTOMETRY BONE MARROW Routine 03/20/2022 10:10 AM SCANNER OPERATOR Other pancytopenia (CMS/HCC) documented in this encounter Results * FLOW CYTOMETRY BONE MARROW (03/20/2022 10:10 AM SCANNER OPERATOR) Case Report Flow Cytometry Case: [id number] Authorizing Provider: Zurdo Thurman MD Collected: 03/20/2022 10:10 AM Ordering Location: [facility] Care Pathology Lab Received: 03/21/2022 09:01 AM Pathologist: Yvonne Cassidy Mai, DO Specimen: Bone Marrow 03/21/2022 11:58 AM SCANNER OPERATOR [facility] Final Diagnosis Bone marrow, flow cytometric immunophenotypic analysis: - Increased myeloblasts (10.7% by CD34) - See description 03/21/2022 11:58 AM [facility] PATHOLOGY LAB at [address] SCANNER OPERATOR Flow Cytometry Interpretation The bone marrow specimen [...] the flow cytometry specimen is reviewed for senior manager quality assurance purposes. The sample is aspiculate and hemodilute. The bone marrow aspirate specimen shows an increased myeloblast population comprising 10.7% of events analyzed. Correlation with clinical findings, the concurrent bone marrow core biopsy (accession number pending), and relevant cytogenetic/molecu lar studies is required. 03/21/2022 11:58 AM [facility] PATH[facility] Flow Cytometry Results Differential Result Comment Flow Cell Count /uL 16,000 Total Viability % 93.0 Lymphocytes % 33 Dim CD45 Region % 21 Monocytes % 10 Granulocytes % 35 03/21/2022 11:58 AM [facility] Reason for test Other pancytopenia (CMS/HCC) 284.19 03/21/2022 11:58 AM [facility] PATH[facility] Client Specimen ID # [id number] 03/21/2022 11:58 AM [facility] Number of markers 19 were performed. A-2 Flow CD10 A-3 Flow CD13 A-5 Flow CD20 A-11 Flow CD2 A-13 Flow CD14 A-16 Flow CD117 A-17 Flow CD11b A-18 Flow CD11c A-1 Flow CD5 A-4 Flow CD19 A-6 Flow CD33 A-7 Flow CD34 A-8 Flow CD45 A-12 Flow CD7 A-14 Flow CD56 A-15 Flow CD64 A-9 [facility] [place]+CD19+ A-10 Lambda+CD19+ A-19 Flow HLA-DR 03/21/2022 11:58 AM [facility] PATH[facility] Disclaimer Test performed at [facility], [address] [place], [place], [address]. *The established laboratory minimum viability is 70%. [...] high complexity clinical testing. 03/21/2022 11:58 AM SCANNER OPERATOR [facility] PATHOLOGY LAB Embedded Images 11:58 AM SCANNER OPERATOR [facility] PATHOLOGY LAB Pathology/Cytolo gy BONE MARROW SPECIMEN / Unknown 03/20/2022 10:10 AM SCANNER OPERATOR 03/21/2022 9:01 AM SCANNER OPERATOR Zurdo Thurman MD LAB - PATHOLOGY/CYTOLOGY ORDERAB LES Final Result [facility] PATHOLOGY LAB [address] [place] [address], [facility] [phone] documented in this encounter Visit Diagnoses Diagnosis Other pancytopenia (HCC) Other pancytopenia documented in this encounter
--- OUTSIDE RECORDS SUMMARY | 2024-11-05 15:00 | XMS_ITS | Encounter Summary ---
Author Organization [facility] Address [address] [place] [address] Care Team Providers Care Resident Services Manager Name Role Phone Unavailable Primary Care Provider Unavailabl e Encounter Details Date Type Department Care Team (Late st Contact Info) Description 03/21/2022 Lab Requisition [facility] Care Pathology Lab [address] [place] [address] Zurdo Thurman MD [address] [address] Illness, unspecified Social History Tobacco Use Types Packs/Day Years Used Date Smoking Tobacco: Never Assessed Comments Unknown Sex and Gender Information Value Date Recorded Sex Assigned at Not on file Legal Sex Female 8:51 AM NEWS ANALYST Gender Identity Not on file Sexual Orientation Not on file documented as of this encounter Plan of Treatment Not on file documented as of this encounter Procedures Procedure Name Priority Date/Time Associated Diagnosis Comments BONE MARROW BIOPSY (STL) Routine 03/20/2022 10:10 AM NEWS ANALYST Illness, unspecified documented in this encounter Results * BONE MARROW BIOPSY (STL) (03/20/2022 10:10 AM NEWS ANALYST) Case Report Bone Marrow Patholog y Report Case: [id number] Authorizing Provider: Zurdo Thurman MD Collected: 03/20/2022 10:10 AM Ordering Location: [facility] Care Pathology Lab Received: 03/21/2022 02:13 PM Pathologist: Yvonne Cassidy Mai, DO Specimens: A) - Bone Marrow Clot B) - Bone Marrow Core 03/22/2022 10:49 AM NEWS ANALYST [facility] Final Diagnosis Bone marrow, aspirate, clot section, and core biopsy: - Normocellular marrow with multilineage dysplasia and increased blasts (11% by manual count) - See description Peripheral blood smear: - Pancytopenia - See description 03/22/2022 10:49 AM NEWS ANALYST [facility] PATHOLOGY LAB at [address]49 NEWS ANALYST AP Comment The bone marrow specimen is [...] HM, Pierce SA, Brock A, Pipo T, Howe S, [place] CE, Galindo JE, Kendrick Venegas P, Dereje CD, Andrew H, David EJ, Abbey BL, Jose Miguel EH, Ivan F, Fopriscar K, Ganjairo N, Jeimy U, Joanie LA, G kamaljit N, Del J, [facility] E, El GS, Figueroa R, Miles EJ, [...] morphologic, clinical, and genomic data. Blood. 2021 15;140(11):1879-9961. doi: 10.1182/blood.17045104 50. PMID: [id number]; PMCID: [id number]. 03/22/2022 10:49 AM [facility] PATHOLOG[facility] LAB Peripheral Smear Description Manual Differential Count (100 cells): 50% neutrophils, 34% lymphocytes, 10% monocytes, 5% eosinophils, and 1% basophils. 0 nRBCs / 100 WBCs. Leukocytes: Decreased with reactive lymphocytes, no circulating blasts seen Erythrocytes: Macrocytic anemia with no significant anisopoikilocytosis Platelets: Decreased 03/22/2022 10:49 AM [facility] PATH[facility] Bone Marrow Aspirate Differential count [...] No ring sideroblasts seen 03/22/2022 10:49 AM [facility] PATH[facility] Bone Marrow Core Biopsy and [...] performed on the core biopsy in the [facility] Department of Pathology, with appropriately reactive controls, and demonstrate the following: CD34: Stains variable density of blasts, 5-10% of marrow cellularity CD117: Highlights blasts, mast cells and erythroid precursors E-cadherin: Weakly stains erythroid precursors 03/22/2022 10:49 AM [facility] PATH[facility] Flow Cytometry Summary [id number]: Increased myeloblasts (10.7% by CD34) 03/22/2022 10:49 AM [facility] PATH[facility] Clinical History Pancytopenia 03/22/2022 10:49 AM [facility] Materials Received Received are 21 slides and three blocks (A1, A2, B1) labeled [id number] along with a copy of the outside pathology report. [place] [address]. All original materials are returned to the referring institution, along with a copy of our final report. 03/22/2022 10:49 AM [facility] PATH[facility] Disclaimer The performance characteristics of all immunohistochemical and indirect immunofluorescence stains (if any) cited in this report were determined by the Histopathology Laboratory of [facility]. Some of these tests were developed by [...] the attending (teaching) pathologist. 03/22/2022 10:49 AM NEWS ANALYST [facility] PATHOLOGY LAB Embedded Images 03/22/2022 10:49 AM NEWS ANALYST [facility] PATHOLOGY LAB Pathology/Cytology BONE MARROW SPECIMEN / Unknown 03/20/2022 10:10 AM NEWS ANALYST 03/21/2022 2:13 PM NEWS ANALYST Miscellaneous samples (specimen) BONE MARROW SPECIMEN / Unknown 03/20/2022 10:10 AM NEWS ANALYST 03/21/2022 2:13 PM NEWS ANALYST us Zurdo Thurman MD LAB - PATHOLOGY/CYTOLOGY ORDERAB LES Final Result [facility] PATHOLOGY LAB [address] [place] [address], [facility] [place] [phone] documented in this encounter Visit Diagnoses Diagnosis Illness, unspecified documented in this encounter
--- OUTSIDE RECORDS SUMMARY | 2024-11-05 15:00 | XMS_ITS | Clinical Summary ---
Author Organization [facility] [email or web address] Address [address] [place] [address] Care Team Providers Care Automation Specialist Name Role Phone Unavailable Primary Care Provider Unavailabl e Source Comments [facility],non-owned Affiliates and Associated Physician Practices is amultiple site organization consisting of ambulatory clinics and hospital sitesin [place], [place], [place] and [place]. This disclosure is being madepursuant to the Care Everywhere program and may not contain all information available regarding this patient. Last updated 17.[facility] [email or web address] Immunizations Immunization Administration Dates Next Due Pneumococcal Pcv13 Conj 02/28/2016 ZOSTER VACCINE, LIVE 02/28/2016 Social History Tobacco Use Types Packs/Day Years Used Date Smoking Tobacco: Never Assessed Comments Unknown Sex and Gender Information Value Date Recorded Sex Assigned at Not on file Legal Sex Female 8:51 AM FACULTY INSTRUCTOR Gender Identity Not on file Sexual Orientation [...] PNEUMOCOCCAL VACCINE 50+ (2 of 2 - PCV20 or PCV21) 02/27/2017 02/28/2016 COVID-19 VACCINE (2023-2 5 season) 2023 DEPRESSION SCREENING 04/01/2024 INFLUENZA VACCINE (#1) 2024 Respiratory Syncytial Virus (RSV) Vaccine Pt: [...] patient's age to complete this topic Insurance [facility] Address: [address] [address] [place] [address] [place] [phone]
--- OUTSIDE RECORDS SUMMARY | 2024-11-05 15:00 | XMS_ITS | Encounter Summary ---
Author Organization [facility] Address [address] [facility] [place] [address] Care Team Providers Care Warehouse Handler Name Role Phone Unavailable Primary Care Provider Unavailabl e Encounter Details Date Type Department Care Team (Late st Contact Info) Description 01/24/2024 Lab Requisition [facility] - Pathology Lab [address] [place] [address] Kannan Short MD [address] [facility] [address] [place] [id number] Myelodysplastic syndrome, unspecified Social History Tobacco Use Types Packs/Day Years Used Date Smoking Tobacco: Never Assessed Comments Unknown Sex and Gender Information Value Date Recorded Sex Assigned at Not on file 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 Gender Identity Not on file Sexual Orientation [...] AM CDT) Case Report Flow Cytometry Case: [id number] Authorizing Provider: Kannan Short Collected: 01/24/2024 11:10 AM MD [place] Ordering Location: [facility] - Received: 01/24/2024 02:58 PM Pathology Lab Pathologist: Natalee Ceja MD Specimen: Bone Marrow 01/27/2024 8:40 AM CDT [facility] PATH[facility] Final Diagnosis Bone marrow, flow cytometry: - Expanded CD34+ blast population identified (~8% of overall events) 01/27/2024 8:40 AM [facility] PATHOLOGY LAB at 0840 CDT Flow [...] specimen has been reviewed for quality control specialist purposes. 01/27/2024 8:40 AM [facility] Flow Cytometry Results Differential Result Comment Flow Cell Count /uL 1,800 Total Viability % 100.0 Lymphocytes % 17 Dim CD45 Region % 16 Monocytes % 14 Granulocytes % 51 01/27/2024 8:40 AM [facility] PATH[facility] Reason for test Myelodysplastic syndrome, unspecified (HCC) 238.75 01/27/2024 8:40 AM [facility] Client Specimen ID # [id number] 01/27/2024 8:40 AM [facility] Number of markers 19 were performed. A-2 Flow CD10 A-3 Flow CD13 A-5 Flow CD20 A-11 Flow CD2 A-13 Flow CD14 A-16 Flow CD117 A-17 Flow CD11b A-18 Flow CD11c A-1 Flow CD5 A-4 Flow CD19 A-6 Flow CD33 A-7 Flow CD34 A-8 Flow CD45 A-12 Flow CD7 A-14 Flow CD56 A-15 Flow CD64 A-9 Ophir+CD19+ A-10 Lambda+CD19+ A-19 Flow HLA-DR 01/27/2024 8:40 AM [facility] Pathologist Location at [facility] 01/27/2024 8:40 AM [facility] PATH[facility] Disclaimer Test performed at [facility], [address] [place] [address], [address]. *The established laboratory minimum viability is 70%. [...] complexity clinical testing. 01/27/2024 8:40 AM CDT [facility] PATH[facility] Embedded Images 8:40 AM CDT [facility] Pathology/Cytolo gy BONE MARROW SPECIMEN / Unknown 01/24/2024 11:10 AM CDT 01/24/2024 2:58 PM CDT Kannan Short MD LAB - PATHOLOGY/CYT OLOGY ORDERABLES Final Result Performing Organization Address City/State/[facility] Co de Phone Number [facility] PATHOLOGY LAB [address] [place] [address], [facility] [phone] documented in this encounter Visit Diagnoses Diagnosis Myelodysplastic syndrome, unspecified (HCC) Myelodysplastic syndrome, unspecified documented in this encounter
--- OUTSIDE RECORDS SUMMARY | 2024-11-05 15:00 | XMS_ITS | Clinical Summary ---
Author Organization [facility] Address [address], [address] [address] Phone Care Team Providers Care Carburetor Repairer Name Role Phone Micha Baker MD Primary Care Provider [phone] Rakesh Irby DO Unavailable [phone] Allergies Active Allergy Reactions Criticality Noted [...] Health Maintenance Due Date Last Done Comments Hepatitis C Virus (HCV) Screening 1950 TdaP Immunization 1950 Cologuard 1997 Immunochemical Fecal Occult Blood 1997 Zoster Immunization (2 of 3) 04/24/2016 02/28/2016 Pneumococcal Immunization (5 0+ years) (2 of 2 - PCV20 or PCV21) 02/27/2017 02/28/2016 SARS-COV-2 Immunization ( - season) 2023 01/10/2021, 07/05/2020, 06/14/2020 Influenza Immunization (#1) 2024 0912/2019, 01/14/2018 Colonoscopy 10/09/2025 10/10/2015 Colorectal Cancer Screening 10/09/2025 Respiratory Syncytial Virus (RSV) Immunization (Adult) (1 - 1-dose 75+ series) 11/18/2027 Pneumococcal Immunization Combined Discontinued 02/28/2016 Hepatitis B Immunization Aged Out No longer eligible based on patient's age to complete this topic Human Papillomavirus (HPV) Immunization Aged Out No longer eligible based [...] Most Recently Relevant to Health Maintenance Insurance [facility] Care Teams Carburetor Repairer Relationship Specialty Start Date End Date Micha Baker MD [address] [facility] [address] [place] [address] PCP - General Internal Medicine 10/10/15 Rakesh Irby DO [address] [facility] [address] [place] [address] Consulting Physician Gastroenterology 10/10/15
--- OUTSIDE RECORDS SUMMARY | 2024-11-05 15:00 | XMS_ITS | Encounter Summary ---
Author Organization [facility] CHRISTOPHER Flores [facility] Address [address] [place] [address] Care Team Providers Care Obgyn Nurse Name Role Phone Angus Cope DO Primary Care Provider [phone] Reason for Visit * Reason Comments Chemotherapy Follow Up Encounter Details Date Type Department Care Team (Late st Contact Info) Description 11/04/2024 9:00 AM CDT Office Visit [facility] Oncology and Hematology - Vik [address] [facility] [address] [place] [address] Bang Donnelly MD [address] [facility] [address] [place] [address] MDS (myelodysplastic syndrome) (CMS/HCC) (Primary Dx) Social History Tobacco Use Types Packs/Day Years [...] on file documented as of this encounter Last Filed Vital Signs Vital Sign Reading Time Taken Comments Blood Pressure 119/60 11/04/2024 8:42 AM CDT Pulse 72 11/04/2024 8:42 AM CDT Temperature 36.6 C (97.9 F) 11/04/2024 8:42 AM CDT Respiratory Rate 15 11/04/2024 8:42 AM CDT Oxygen Saturation 91% 11/04/2024 8:42 AM CDT Inhaled Oxygen Concentration - - Weight 70.9 kg (156 lb 3.2 oz) 11/04/2024 8:42 A M CDT Height - - Body Mass Index 28.57 12/12/2021 2:16 PM CDT documented in this encounter Progress Notes * Bang Donnelly MD - 11/04/2024 12:21 PM CDT HEMATOLOGY / ONCOLOGY PROGRESS NOTE Patient Identification: Name: Rimma Monzon Age: 73 y.o. 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 SUBJECTIVE Patient came to the office for follow-up visit and continuation of chemotherapy with decitabine. She has been tolerating chemotherapy well. She has been experiencing some back pain and using tramadol. No other new complaints. Review of system Constitutional: Patient did not mention fevers, sweats, weight and appetite stable, denies any tiredness and fatigue HEENT: Patient did not mention sinus congestion, hearing or vision problems, complain of sore throat Respiratory: Patient did not mention cough, dyspnea, wheeze Cardiovascular: Patient did not mention chest pain, exertional chest pressure/discomfort, nausea, syncope, shortness of breath GI: Patient did not mention constipation, dsyphagia, reflux symptoms, vomiting, denies any diarrheaand bloating : Patient did not mention dysuria, frequency, incontinence, urgency Integumentary system: no lymphadenopathy, sweats, flushing Musculoskeletal: Patient not mention: myalgia, complain of left hip pain Neurological: Patient did not mention blurry or disturbed vision, numbness/weakness, dizziness Skin: No lumps, denies any rash 12 point review of system was reviewed objective: Vital signs in last 24 hours: As per nursing note Exam: General appearance: alert, cooperative, no distress, appears stated age Head: normocephalic, without obvious abnormality, atraumatic Eyes: conjunctivae/corneas clear, EOM's intact Ears: normal external ear canals AU Nose: Nares normal. Septum midline. Mucosa normal. No drainage or sinus tenderness Throat: Lips, mucosa, and tongue normal. Teeth and gums normal Neck: supple, symmetrical, trachea midline. Lungs: clear to auscultation bilaterally Heart: regular rate and rhythm, S1, S2 normal, no murmur, click, rub or gallop Abdomen: soft, non-tender. Bowel sounds normal. No masses, No organomegaly Extremities: extremities normal, atraumatic, no cyanosis or edema Skin: Skin color, texture, turgor normal. Lymph nodes: No lymphadenopathy Neuro: No obvious focal deficit Exam as above PATH LABS Labs from September 07, 2021 showed creatinine 1.0 total bilirubin 0.6 vitamin B12 more than 1000 TSH 0.32 iron 81 iron saturation 28% ferritin 41.9 WBC 3.5 hemoglobin 10.4 MCV 110 platelets 70,000 neutrophils 52% lymphocyte 33% Labs from December 06 showed WBC 3.2 hemoglobin 10.8 MCV 105 platelet 65,000 neutrophils 49% Labs from March 12 showed WBC 3.1 hemoglobin 10.5 platelet 56,000 MCV 109. Labs from May 07 showed creatinine 1.1 WBC 4.1 hemoglobin 10 platelet 54,000 Labs from June 04 showed WBC 2.3 ANC 800 hemoglobin 8.2 platelet 546,000 creatinine 0.9 Labs from July 02 showed WBC 3.1 hemoglobin 9.4 platelet 222,000 ANC 1300 Labs from July 30 showed WBC 2.9 ANC 1300 hemoglobin 9.7 platelet 185,000 creatinine 0.9 Labs from August 28 show WBC 2.7 hemoglobin 9.6 platelet 245,000 ANC 900 Labs from September 24 showed WBC 3.1 ANC 1300 hemoglobin 10.5 platelet 184,000 creatinine 0.9 Labs from October 18 showed WBC 2.2 hemoglobin 10.6 platelet 165,000 ANC 500 creatinine 1.6 Labs from November 26 showed WBC 3.7 ANC 1900 hemoglobin 10.1 platelet 267,000 creatinine 1.0 Labs from December 24 showed WBC 4.0 hemoglobin 8.6 platelet 249,000 creatinine 1.0 MCV 105 Labs from February 18 showed WBC 3.4 hemoglobin 10.4 platelet 244,000 creatinine 1.0 Labs from April 15 showed WBC 3.1 hemoglobin 11.2 platelet 189,000 Labs from June 09 showed WBC 2.5 hemoglobin 10.8 platelet 166,000 Labs from September 01 showed WBC 2.0 hemoglobin 10.4 platelet 143,000 ANC 600 Labs from September 08 showed WBC 5.4 hemoglobin 10.9 ANC 3200 platelet 198,000 creatinine 0.9 Labs from October 06 showed creatinine 1.1 GFR 49 hemoglobin 9.9 WBC 3.4 platelet 95,000 ANC 1800 Labs from November 03 showed WBC 2.1 hemoglobin 9.5 platelet 88,000 ANC 1000 creatinine 1.3 Labs from December 09 show WBC 2.9 hemoglobin 9.8 platelet 99,000 ANC 1400 vitamin B12 more than 1000 iron 35 saturation 12 ferritin 18.6 Labs from January 05 showed creatinine 1.1 WBC 2.4 hemoglobin 8.5 MCV 114 platelet 55,000 Labs from January 07 showed iron 113 saturation 47 ferritin 76 vitamin B12 more than 1000 Labs from February 03 showed WBC 1.6 hemoglobin 8.4 platelet 51,000 creatinine 1.4 GFR 37 Labs from March 09 showed WBC 1.7 hemoglobin 8.9 platelet 36,000 creatinine 1.2 Lab from April 06 showed WBC 1.2 hemoglobin 8.4 platelet 89,000 ANC 300 creatinine 1.6 Labs from May 11 showed creatinine 1.1 WBC 2.4 hemoglobin 10.2 platelet 90,000 ANC 1300 Labs from June 08 showed WBC 1.4 hemoglobin 9.9 platelet 123,000 ANC 500 creatinine 1.1 Labs from July 06 showed WBC 1.1 ANC 300 hemoglobin 9.3 platelet 112,000 creatinine 1.5 Labs from August 10 showed WBC 3.7 hemoglobin 9.7 platelet 225,000 creatinine 1.1 Labs from September 07 showed WBC 2.5 hemoglobin 10.2 platelet 206,000 neutrophils 1200 creatinine 1.0 Labs from October 05 showed WBC 1.3 hemoglobin 9.6 platelet 211,000 ANC 500 creatinine 1.0 Labs from November 02 showed WBC 1.8 hemoglobin 9.7 platelet 197,000 ANC 800 creatinine 1.2 potassium 4.4 Patient Active Problem List Diagnosis Date Noted MDS (myelodysplastic syndrome) ([facility]) 08/05/2023 Pancytopenia ([facility]) 07/14/2021 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 Cytogenetic analysis showed complex cytogenetics including deletion of 5 q. This is unfavorable prognosis with complex cytogenetics. Patient is started cycle 1 day 1 of decitabine treatment on May 07, 2022. Bone marrow aspiration and biopsy was performed on January 24, 2024 that showed persistent MDS withincreased blast count of 7% with no evidence of acute leukemia. Labs showed stable findings. Patient will proceed with chemotherapy with decitabine day 3/5. She has been tolerating treatment well. I plan to see her back in 4 weeks. Neutropenia prophylaxis. ANC stable at 800. Continue Neupogen. She will continue acyclovir and Diflucan for prophylaxis. Hip arthralgia and back pain. She will continue tramadol. I asked her to make follow-up appointmentwith the neurosurgery Anemia of chronic kidney disease. Patient will continue Procrit biweekly basis along with iron and B12. Hemoglobin stable. Follow-up in 4 weeks. 11/04/2024 Bang Donnelly MD documented in this encounter Plan of Treatment Scheduled Orders Name Type Priority Associated Diagnoses Orde r Schedule BASIC METABOLIC PANEL Lab Stat MDS (myelodysplastic syndrome) (CMS/HCC) Expected: 12/02/2024, Expires: 11/04/2025 CBC WITH DIFFERENTIAL Lab Stat MDS (myelodysplastic syndrome) (CMS/HCC) Expected: 12/02/2024, Expires: 11/04/2025 documented as of this encounter Visit Diagnoses Diagnosis MDS (myelodysplastic syndrome) (CMS/HCC)- Primary Myelodysplastic syndrome, unspecified documented in this encounter Care Teams Obgyn Nurse Relationship Specialty Start Date End Date Angus Cope DO [address] [facility] [address] [place] [address] PCP - General Internal Medicine 11/04/23 documented as of this encounter
--- OUTSIDE RECORDS SUMMARY | 2024-11-05 15:00 | XMS_ITS | Encounter Summary ---
Author Organization [facility] CHRISTOPHER Flores [facility] Address [address] [place] [address] Care Team Providers Care Repairer Name Role Phone Angus Cope DO Primary Care Provider [phone] Encounter Details Date Type Department Care Team (Late st Contact Info) Description 11/02/2024 Orders Only [facility] Oncology and Hematology - Vik [address] [facility] [address] [place] [address] Bang Donnelly MD [address] [facility] [address] [place] [address] MDS (myelodysplastic syndrome) (CMS/HCC) Social History Tobacco Use Types Packs/Day Years Used Date Smoking Tobacco: Former Cigarettes Smokeless Tobacco: Never Comments:quit 25 years ago Alcohol Use Standard [...] on file documented as of this encounter Visit Diagnoses Diagnosis MDS (myelodysplastic syndrome) (CMS/HCC) Myelodysplastic syndrome, unspecified documented in this encounter Care Teams Repairer Relationship Specialty Start Date End Date Angus Cope DO [address] [facility] [address] [place] [id number] PCP - General Internal Medicine 11/04/23 documented as of this encounter
--- OUTSIDE RECORDS SUMMARY | 2024-11-05 15:00 | XMS_ITS | Clinical Summary ---
Author Organization [facility] Ward dhaliwal [facility] Address [address] [place] [address] Care Team Providers Care Camp Head Counselor Name Role Phone Angus Cope DO Primary Care Provider [phone] Allergies Active Allergy Reactions Criticality Noted Date Comments Penicillins Hives High 07/14/2021 Sulfa (Sulfonamide Antibiotics) Rash Low 06/30 Medications escitalopram oxalate (LEXAPRO) 10 mg tablet Take 10 mg by mouth daily. 06/29/19 22 Active losartan (COZAAR) 50 mg tablet Take 50 mg by mouth daily. 04/24/19 22 Active meloxicam (MOBIC) 15 mg tablet Take 15 mg by mouth daily. 05/11/19 22 Active metoprolol succinate (TOPROL XL) 25 mg Extended Release 24 hour tablet Take 25 mg by mouth daily. 04/25/19 22 Active simvastatin (ZOCOR) 40 mg tablet Take 40 mg by mouth daily. 06/05/19 22 Active famotidine (Pepcid) 20 mg tablet Pepcid 20 mg tablet Take 1 tablet twice a day by oral route. 03/09/20 19 Active coffee-theani ne-superoxide dis (Neuriva De-Stress) 100-200-10 mg Capsule Neuriva De-Stress 04/05/19 21 Active loratadine 10 mg Capsule loratadine 04/05/19 21 Active levothyroxine 88 mcg tablet levothyroxine 04/05/19 21 Active mecobalamin, vitamin B12, (B12 Active) 1,000 mcg Tablet, Chewable 1,000 mcg twice weekly. 04/05/19 21 Active acetaminophen (TylenoL) 325 mg Capsule Tylenol 325 mg capsule Take as needed by oral route. 04/05/19 21 Active cyanocobalami n (VITAMIN B-12) 100 mcg tablet Take 100 [...] mouth daily. 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 60 Tablet 3 04/30/19 23 Active ferrous sulfate 325 mg (65 mg iron) tablet Take 325 mg by mouth 2 times daily. Active metroNIDAZOLE (FLAGYL) 500 mg tablet Take 1 Tablet (500 mg) by mouth 3 times daily. 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) APPLY TO THE AFFECTED AREA(S) DIRECTED 30 Gram 12/11/19 24 Active fluconazole (DIFLUCAN) 100 mg tablet Take 1 tablet by mouth once daily 90 Tablet 3 06/16/19 25 Active acyclovir (ZOVIRAX) 400 mg tablet Take 1 tablet by mouth twice daily 180 Tablet 09/23/19 25 Active traMADol (ULTRAM) 50 mg tabletIndicat ions:Bilatera l hip pain TAKE 1 TABLET BY MOUTH EVERY 6 HOURS NEEDED FOR PAIN 30 Tablet 10/27/19 25 Active traMADol (ULTRAM) 50 mg tabletIndicat ions:Bilatera l hip pain TAKE 1 TABLET BY MOUTH EVERY 6 HOURS NEEDED FOR PAIN 30 Tablet 09/23/19 25 025 Discontinued dicloxacillin (DYNAPEN) 500 mg Capsule Take 1 Capsule (500 mg) by mouth every 6 hours for 7 days. 28 Capsule 10/10/19 25 025 clindamycin HCL (CLEOCIN) 300 mg Capsule Take 1 Capsule (300 mg) by mouth 3 times daily for 7 days. 21 Capsule 10/15/19 25 025 Active Problems Problem Noted Date Diagnosed Date MDS (myelodysplastic syndrome) 08/05/2023 Pancytopenia 07/14/2021 Encounters Date Type Department Care Team Description 11/04/2024 9:00 AM CDT Office Visit [facility] Oncology and Hematology - [address] [place] [phone] Bang Donnelly MD MDS (myelodysplastic syndrome) ([facility]/HCC) (Primary Dx) 11/03/2024 Orders Only [facility] Oncology and Hematology - [address] [place] [phone] Bang Donnelly MD 11/02/2024 Orders Only [facility] Oncology and Hematology - [address] [place] [phone] Bang Donnelly MD MDS (myelodysplastic syndrome) ([facility]/HCC) 10/27/2024 Orders Only [facility] Oncology and Hematology - [address] Bang Donnelly MD 10/26/2024 Refill [facility] Oncology and Hematology - Vik [address] [place] [phone] Bang Donnelly MD Bilateral hip pain 10/21/2024 Orders Only [facility] Oncology and Hematology - [address] [place] [phone] Bang Donnelly MD 10/19/2024 Orders Only [facility] Oncology and Hematology - Vik [address] [place] [address] Bang Donnelly MD MDS (myelodysplastic syndrome) ([facility]/HCC) 10/16/2024 Orders Only [facility] Oncology and Hematology - [address] Bang Donnelly MD 10/14/2024 External Device Data STL ABSTRACTION Provider, Abstract 10/14/2024 Orders Only [facility] Oncology and Hematology - [address] [place] [address] Bang Donnelly MD 10/14/2024 Telephone [facility] Oncology and Hematology - [address] [place] [address] Bang Donnelly MD Medication Review 10/13/2024 Orders Only [facility] Oncology and Hematology - [address] [place] [address] Bang Donnelly MD 10/13/2024 External Device Data STL ABSTRACTION Provider, Abstract 10/09/2024 Orders Only [facility] Oncology and Hematology - [address] [place] [address] Bang Donnelly MD 10/07/2024 9:00 AM CDT Office Visit [facility] Oncology and Hematology - [address] [place] [address] Bang Donnelly MD MDS (myelodysplastic syndrome) (CMS/HCC) (Primary Dx) 10/05/2024 Orders Only [facility] Oncology and Hematology - [address] [place] [phone] Bang Donnelly MD MDS (myelodysplastic syndrome) (CMS/HCC) 09/25/2024 Orders Only [facility] Oncology and Hematology - [address] [place] [address] Bang Donnelly MD 09/22/2024 External Device Data STL ABSTRACTION Provider, Abstract 09/22/2024 Refill [facility] Oncology and Hematology - [address] [place] [address] Dot Bean MD 09/22/2024 Refill [facility] Oncology and Hematology - [address] [place] [address] Bang Donnelly MD Bilateral hip pain 09/21/2024 Orders Only [facility] Oncology and Hematology - [address] [place] [address] Bang Donnelly MD MDS (myelodysplastic syndrome) ([facility]/HCC) 09/15/2024 Orders Only [facility] Oncology and Hematology - [address] [place] [address] Bang Donnelly MD 09/15/2024 External Device Data STL ABSTRACTION Provider, Abstract 09/14/2024 Orders Only [facility] Oncology and Hematology - [address] [place] [address] Bang Donnelly MD 09/10/2024 Orders Only [facility] Oncology and Hematology - [address] [place] [address] Bang Donnelly MD 09/07/2024 9:30 AM CDT Office Visit [facility] Oncology and Hematology - [place] [address] [place] [address] Bang Donnelly MD Bilateral hip pain (Primary Dx); MDS (myelodysplastic syndrome) ([facility]/HCC) 09/01/2024 Telephone [facility] Oncology and Hematology - [place] [address] [place] [address] Bang Donnelly MD Nail Problem 08/28/2024 Orders Only [facility] Oncology and Hematology - [place] [address] [place], [place] [phone] Bang Donnelly MD 08/25/2024 External Device Data STL ABSTRACTION Provider, Abstract 08/24/2024 Orders Only [facility] Oncology and Hematology - [place] [address] [place] [address] Bang Donnelly MD MDS (myelodysplastic syndrome) (CMS/HCC) 08/20/2024 External Device Data STL ABSTRACTION Provider, Abstract 08/19/2024 External Device Data STL ABSTRACTION Provider, Abstract 08/18/2024 External Device Data STL ABSTRACTION Provider, Abstract 08/17/2024 Orders Only [facility] Oncology and Hematology - [address] [place] [address] Bang Donnelly MD 08/12/2024 Orders Only [facility] Oncology and Hematology - [address] [place] [address] Scanning, Provider 08/11/2024 Orders Only [facility] Oncology and Hematology - [address] [place] [address] Bang Donnelly MD 08/10/2024 9:30 AM CDT Office Visit [facility] Oncology and Hematology - [place] [address] Bang Donnelly MD MDS (myelodysplastic syndrome) (CMS/HCC) 08/10/2024 Orders Only [facility] Oncology and Hematology - Vik [address] [place] [phone] Bang Donnelly MD MDS (myelodysplastic syndrome) (CMS/HCC) (Primary Dx) 08/06/2024 Orders Only [facility] Oncology and Hematology - [place] [address] [place] [phone] Bang Donnelly MD 08/05/2024 Orders Only [facility] Oncology and Hematology - [place] [address] Bang Donnelly MD from Last 3 Months [...] oz) 11/04/2024 8:42 A M CDT Height 157.5 cm (5' 2) 12/12/2021 2:16 PM CDT Body Mass Index 28.57 12/12/2021 2:16 PM CDT Plan of Treatment Health Maintenance Due Date Last Done Comments DTAP/TDAP/TD VACCINES (1 - Tdap) 11/18/1971 Traditional Medicare (ACO) A nnual Wellness Visit 11/18/1971 FIT-DNA Q 3 years 1997 FIT/FOBT Q 1 year 1997 Flex Sig/CT Colonography Q 5 years 1997 ZOSTER VACCINE (2 of 3) 04/24/2016 02/28/2016 PNEUMOCOCCAL VACCINE 50+ YEA RS (2 of 2 - PCV20 or PCV21) 02/27/2017 02/28/2016 OSTEOPOROSIS SCREENING 07/31/2023 07/30/2018 COVID-19 Vaccine (3 - 2023-2 5 season) 2023 07/05/2020, 06/14/2020 INFLUENZA VACCINE (#1) 2024 BREAST CANCER SCREENING 11/18/2024 11/19/19, 11/19/2023, 11/14/2022, Additional history exists RSV VACCINE (60+ or ) (1 - 1-dose 75+ series) 11/18/2027 COLORECTAL SCREENING 02/05/2033 02/05/2023, 10/10/19 Colorectal Cancer Screening 02/05/2033 Procedures Procedure Name Priority Date/Time Associated Diagnosis Comments COMPREHENSIVE METABOLIC PANEL Routine 11/02/2024 11:29 AM CDT COMPREHENSIVE METABOLIC PANEL Routine 11/02/2024 9:25 AM CDT CBC WITH AUTODIFFERENTIAL Routine 2024 8:05 AM CDT CBC WITH DIFFERENTIAL Routine 10/26/2024 4:22 PM CDT CBC WITH DIFFERENTIAL Routine 10/19/2024 2:42 PM CDT CBC WITH DIFFERENTIAL Routine 10/16/2024 1:55 PM CDT CBC WITH DIFFERENTIAL Routine 10/13/2024 4:08 PM CDT IRON LEVEL Routine 10/13/2024 8:59 AM CDT CBC WITH DIFFERENTIAL Routine 09/18/2024 1:29 PM CDT COMPREHENSIVE METABOLIC PANEL Routine 09/14/2024 5:31 PM CDT CBC WITH DIFFERENTIAL Routine 09/14/2024 4:10 PM CDT XR HIP 2 OR 3 VIEWS LT Routine 10:04 AM CDT CBC WITH DIFFERENTIAL Routine 09/04/2024 1:41 PM CDT CBC WITH DIFFERENTIAL Routine 08/21/2024 4:24 PM CDT CBC WITH DIFFERENTIAL Routine 08/17/2024 3:38 PM CDT BASIC METABOLIC PANEL Routine 08/10/2024 3:29 PM CDT COMPREHENSIVE METABOLIC PANEL Routine 08/10/2024 2:18 PM CDT CBC WITH AUTODIFFERENTIAL Routine 2024 1:12 PM CDT CBC WITH DIFFERENTIAL Routine 08/05/2024 3:47 PM CDT IRON, TIBC, AND PERCENT SATURATION Routine 08/05/2024 10:24 AM CDT from Last 3 Months Results * COMPREHENSIVE METABOLIC PANEL (11/02/2024 11:29 AM CDT) Only the most recent of4 resultswithin the time period is included. Blood Bang Donnelly MD CHEMISTRY ORDERABLES Final Resu lt * CBC WITH AUTODIFFERENTIAL (11/02/2024 8:05 AM CDT) Only the most recent of2 resultswithin the time period is included. Blood us Bang Donnelly MD HEMATOLOGY ORDERABLES Final Res ult * CBC WITH DIFFERENTIAL (10/26/2024 4:22 PM CDT) Only the most recent of10 resultswithin the time period is included. Blood us Bang Donnelly MD HEMATOLOGY ORDERABLES Final Res ult * IRON LEVEL (10/13/2024 8:59 AM CDT) Blood Result Richard Donnelly MD CHEMISTRY ORDERABLES Final Resu lt * XR HIP 2 OR 3 VIEWS LT (09/09/2024 10:04 AM CDT) Anatomical Region Laterality Modality Lower Extremity Left Other Result Richard Donnelly MD DIAGNOSTIC IMAGING ORDERABLES F inal Result * BASIC METABOLIC PANEL (08/10/2024 3:29 PM CDT) Blood Result Richard Donnelly MD CHEMISTRY ORDERABLES Final Resu lt * IRON, TIBC, AND PERCENT SATURATION (08/05/2024 10:24 AM CDT) Blood us Bang Donnelly MD CHEMISTRY ORDERABLES Final Resu lt from Last 3 Months Insurance MEDICARE PART A AND B [facility] Care Teams Camp Head Counselor Relationship Specialty Start Date End Date Angus Cope DO [address] [facility] [address] [place] [phone] PCP - General Internal Medicine 11/04/23
--- OUTSIDE RECORDS SUMMARY | 2024-11-05 15:00 | XMS_ITS | Encounter Summary ---
Author Organization [facility] CHRISTOPHER Flores [facility] Address [address] [place] [address] Care Team Providers Care Sales Representative Printing Paper Name Role Phone Angus Cope DO Primary Care Provider [phone] Encounter Details Date Type Department Care Team (Late st Contact Info) Description 11/03/2024 Orders Only [facility] Oncology and Hematology - [address] [facility] [address] [place] [address] Bang Donnelly MD [address] [facility] [address] [place] [address] Social History Tobacco Use Types Packs/Day Years [...] WITH AUTODIFFERENTIAL Routine 2024 8:05 AM CDT documented in this encounter Results * COMPREHENSIVE METABOLIC PANEL (11/02/2024 11:29 AM CDT) Blood us Bang Donnelly MD CHEMISTRY ORDERABLES Final Resu lt * COMPREHENSIVE METABOLIC PANEL (11/02/2024 9:25 AM CDT) Blood us Bang Donnelly MD CHEMISTRY ORDERABLES Final Resu lt * CBC WITH AUTODIFFERENTIAL (11/02/2024 8:05 AM CDT) Blood us Bang Donnelly MD HEMATOLOGY ORDERABLES Final Res ult documented in this encounter Visit Diagnoses Not on filedocumented in this encounter Care Teams Sales Representative Printing Paper Relationship Specialty Start Date End Date Angus Cope DO [address] [facility] [address] [place] [address] PCP - General Internal Medicine 11/04/23 documented as of this encounter
--- OUTSIDE RECORDS SUMMARY | 2024-11-05 15:00 | XMS_ITS | Encounter Summary ---
Author Organization [facility] Address [address] [facility] [place] [address] Care Team Providers Care Food Safety Auditor Name Role Phone Unavailable Primary Care Provider Unavailabl e Encounter Details Date Type Department Care Team (Late st Contact Info) Description 01/27/2024 Lab Requisition [facility] - Pathology Lab [address] [place] [address] Kannan Short MD [address] [facility] [address] [place] [address] Illness, unspecified Social History Tobacco Use Types Packs/Day Years Used Date Smoking Tobacco: Never Assessed Comments Unknown Sex and Gender Information Value Date Recorded Sex Assigned at Not on file 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 Final Diagnosis Bone marrow, aspirate, clot section, and core biopsy: - 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 01/28/2024 2:[address] [facility] PATH[facility]Y [facility] at 1426 CDT Peripheral Smear Description Not submitted. 01/28/2024 2:[address] [facility] Bone Marrow Aspirate Differential count (200 cells): not performed due to hemodilution. Specimen quality: hemodilute. Spicules: absent. Most of the paucicellularity represents peripheral blood elements. No overtly increased blasts are seen. 01/28/2024 2:[address] [facility] Bone Marrow Core [...] stain): no ring sideroblasts. 01/28/2024 2:[address] [facility] Flow Cytometry Summary Bone marrow, flow cytometry ([id number]): - Expanded CD34+ blast population identified (~8% of overall events 01/28/2024 2:[address] [facility] Clinical History MDS with excess blasts. 01/28/2024 2:[address] [facility] Materials Received Received are 18 slide(s) and 3 blocks labeled [id number] along with a copy of the outside pathology report. [place] [address]. All original materials are returned to the referring institution, along with a copy of our final report. 01/28/2024 2:[address] [facility] Microscopic Description Immunohistochemistry is performed to assess staining cells in an architectural context: CD34 and CD117 highlight mildly increased blasts at ~7% of marrow cellularity. CD61 highlights the increased and dysplastic blasts. P53 is essentially negative. 01/28/2024 2:26 PM CDT [facility] PATH[facility] Pathologist Location at [facility] 01/28/2024 2:26 PM CDT [facility] Disclaimer The performance characteristics of all immunohistochemical and indirect immunofluorescence stains (if any) cited in this report were determined by the Histopathology Laboratory of [facility]. Some of these tests were developed [...] attending (teaching) pathologist. 01/28/2024 2:26 PM CDT [facility] Embedded Images 01/28/2024 2:26 PM CDT [facility] Pathology/Cytology BONE MARROW SPECIMEN / Unknown 01/24/2024 11:00 AM CDT 01/27/2024 4:22 PM CDT Miscellaneous samples (specimen) BONE MARROW SPECIMEN / Unknown 01/24/2024 11:00 AM CDT 01/27/2024 4:22 PM CDT Kannan Short MD LAB - PATHOLOGY/CYT OLOGY ORDERABLES Final Result Performing Organization Address City/State/[facility] Co de Phone Number [facility] PATHOLOGY LAB [address] [place], [place] [id number] [place] [address] documented in this encounter Visit Diagnoses Diagnosis Illness, unspecified documented in this encounter
[2024-11-05 15:11] VITALS: BP 147/63; PULSE 77; RESP 18; TEMP 36.2; O2SAT 100
== END 2024-11-05 16:15 | disposition home or self-care (01) ==
PROVIDERS: Emergency Provider Nurse Practitioner; PCP Nurse Practitioner
DX: M54.50 Low back pain, unspecified (principal); G89.29 Other chronic pain; S32.040A Wedge compression fracture of fourth lumbar vertebra, initial encounter for closed fracture; W18.09XA Striking against other object with subsequent fall, initial encounter; Z87.891 Personal history of nicotine dependence; I10 Essential (primary) hypertension; E03.9 Hypothyroidism, unspecified; Z96.653 Presence of artificial knee joint, bilateral; I35.0 Nonrheumatic aortic (valve) stenosis
CPT/HCPCS: 72100; 99213; G0463

== ENCOUNTER 2024-12-04 17:11 | Inpatient (IN) | payer MEDICARE, OTHER, SELFPAY ==
[2024-12-04] VITALS (8 sets, daily range): BP systolic 128–152; BP diastolic 54–96; PULSE 84–96; RESP 14–21; TEMP 36.2–37.1; O2SAT 97–100; BMI 27.3
--- NOTE | ~2024-12-04 | CT_ITS ---
EXAMINATION: CTA chest PE protocol DATE: 12/04/2024 20:38 CDT INDICATION: Shortness of breath. Heart failure. TECHNIQUE: Computed tomographic angiography (CTA) of the chest was performed with 100 mL Omnipaque-350 intravenous contrast. The dose-length product was 427.16 mGy-cm. Maximum intensity projection 3D-reconstructions of the aorta and other arteries were constructed by the technologist on a separate workstation. COMPARISON: None. FINDINGS: No significant pleural or pericardial effusion. Study is technically adequate without evidence for pulmonary embolism. There is evidence of chronic granulomatous disease. Moderate elevation of the right diaphragm. Aorta is within normal limits with without aneurysm or dissection. Mildly enlarged pulmonary arteries consistent with pulmonary hypertension. Calcified granulomas of the spleen. Status post cholecystectomy. There are calcified granulomas of the lung parenchyma. No suspicious pulmonary nodules or masses. No focal airspace consolidation. No endobronchial lesions. There is a right-sided IJ portacatheter, tip in the SVC. There is a right shoulder arthroplasty. Moderate thoracic spondylosis. There is a T12 burst fracture and wedge compression fracture of L1, most likely chronic. IMPRESSION: 1. No acute cardiopulmonary disease. No evidence for pulmonary embolism. 2: Fractures of T12 and L1, most likely chronic. Reviewed, dictated and finalized at location O.
--- NOTE | ~2024-12-04 | XR_ITS ---
XR chest 1V portable 12/04/2024 19:01 Indication: Shortness of breath Procedure: AP portable chest Comparison: 04/25/2022 Findings: Portacatheter tip in the SVC. Elevated right diaphragm. No focal air space disease, pulmonary edema, pleural effusion or suspected pneumothorax. There is a right shoulder arthroplasty. There are cholecystectomy clips. Impression: 1: No acute cardiopulmonary disease. Reviewed, dictated and finalized at location O. Impression: 1: No acute cardiopulmonary disease.
--- NOTE | 2024-12-04 17:59 | ECG_ITS ---
Test Date: 2024-12-04 18:52:13 Measurements Intervals [place] Path Rate: 80 P: 68 MI: 120 QRS: 44 QRSD: 86 T: 40 QT: 368 QTc: 425 Interpretive Statements SINUS RHYTHM WITH OCCASIONAL SUPRAVENTRICULAR PREMATURE COMPLEXES LOW QRS VOLTAGE IN PRECORDIAL LEADS [QRS DEFLECTION < 1.0 mV IN CHEST LEADS] NONSPECIFIC T-WAVE ABNORMALITY No previous ECG available for comparison Electronically Signed On 12-05-2024 10:49:20 CDT by Luis Farrell M.D.
[2024-12-04 18:19] LABS: Hematocrit 32.2 % (37.0-47.0); Hemoglobin 10.4 g/dL (12.0-15.0); Immature Granulocyte Percent A 1.9 % (0-0.5); Lymphocytes Absolute Auto 0.84 K/mm3 (0.9-3.2); Mean Corpuscular HGB Conc 32.3 g/dl (32-36); Mean Corpuscular Hemoglobin 36.2 pg (26-34); Mean Corpuscular Volume 112.2 fl (80-100); Nucleated Red Blood Cells Absolute Auto 0.000 K/mm3 (0.0-0.012); Nucleated Red Blood Cells Perc 0.0 % (0.0-0.2); Platelet Count Result 422 k/mm3 (150-375); Red Blood Count 2.87 M/mm3 (4.2-5.4); White Blood Count 3.2 K/mm3 (4.5-10.0)
--- OUTSIDE RECORDS SUMMARY | 2024-12-04 18:20 | XMS_ITS | Encounter Summary ---
Author Organization [facility] Address [address] [facility] [place] [address] Care Team Providers Care Handtools Repairer Name Role Phone Unavailable Primary Care Provider Unavailabl e Encounter Details Date Type Department Care Team (Late st Contact Info) Description 01/24/2024 Lab Requisition [facility] - Pathology Lab [address] [place] [address] Kannan Short MD [address] [facility] [address] [place] [address] Myelodysplastic syndrome, unspecified Social History Tobacco Use Types Packs/Day Years Used Date Smoking Tobacco: Never Assessed Comments Unknown Sex and Gender Information Value Date Recorded Sex Assigned at Not on file 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 Gender Identity Not on file Sexual Orientation [...] AM CDT) Case Report Flow Cytometry Case: [id number] Authorizing Provider: Kannan Short Collected: 01/24/2024 11:10 AM MD Cuauhtemoc Ordering Location: [facility] - Received: 01/24/2024 02:58 PM Pathology Lab Pathologist: Natalee Ceja MD Specimen: Bone Marrow 01/27/2024 8:40 AM CDT [facility] PATH[facility] Final Diagnosis Bone marrow, flow cytometry: - Expanded CD34+ blast population identified (~8% of overall events) 01/27/2024 8:40 AM [facility] PATHOLOGY LAB at 0840 CDT Flow Cytometry [...] specimen has been reviewed for quality control lab tech purposes. 01/27/2024 8:40 AM [facility] PATH[facility] Flow Cytometry Results Differential Result Comment Flow Cell Count /uL 1,800 Total Viability % 100.0 Lymphocytes % 17 Dim CD45 Region % 16 Monocytes % 14 Granulocytes % 51 01/27/2024 8:40 AM [facility] PATH[facility] Reason for test Myelodysplastic syndrome, unspecified (HCC) 238.75 01/27/2024 8:40 AM [facility] Client Specimen ID # [id number] 01/27/2024 8:40 AM [facility] Number of markers 19 were performed. A-2 Flow CD10 A-3 Flow CD13 A-5 Flow CD20 A-11 Flow CD2 A-13 Flow CD14 A-16 Flow CD117 A-17 Flow CD11b A-18 Flow CD11c A-1 Flow CD5 A-4 Flow CD19 A-6 Flow CD33 A-7 Flow CD34 A-8 Flow CD45 A-12 Flow CD7 A-14 Flow CD56 A-15 Flow CD64 A-9 [place]+CD19+ A-10 Lambda+CD19+ A-19 Flow HLA-DR 01/27/2024 8:40 AM [facility] Pathologist Location at [facility] 01/27/2024 8:40 AM [facility] Disclaimer Test performed at [facility], [address] [place] [address], [id number]. *The established laboratory minimum viability is 70%. [...] complexity clinical testing. 01/27/2024 8:40 AM CDT [facility] PATH[facility] Embedded Images 8:40 AM CDT [facility] Pathology/Cytolo gy BONE MARROW SPECIMEN / Unknown 01/24/2024 11:10 AM CDT 01/24/2024 2:58 PM CDT Kannan Short MD LAB - PATHOLOGY/CYT OLOGY ORDERABLES Final Result Performing Organization Address City/State/[facility] Co de Phone Number [facility] PATHOLOGY LAB [address] [place] [address], [facility] [phone] documented in this encounter Visit Diagnoses Diagnosis Myelodysplastic syndrome, unspecified (HCC) Myelodysplastic syndrome, unspecified documented in this encounter
--- OUTSIDE RECORDS SUMMARY | 2024-12-04 18:20 | XMS_ITS | Clinical Summary ---
Author Organization [facility] Ward d[facility] [facility] Address [address] [place] [address] Care Team Providers Care Social Welfare Administrator Name Role Phone Angus Cope DO Primary Care Provider Allergies Active Allergy Reactions Criticality Noted Date [...] 6 HOURS NEEDED FOR PAIN 30 Tablet 11/24/19 25 Active HYDROcodone-a cetaminophen (NORCO) 5-325 mg tabletIndicat ions:Bilatera l hip pain Take 1 Tablet by mouth every 4 hours as needed for Pain, Moderate. Max Daily Amount: 6 Tablets 20 Tablet 11/28/19 25 Active traMADol (ULTRAM) 50 mg tabletIndicat ions:Bilatera l hip pain TAKE 1 TABLET BY MOUTH EVERY 6 HOURS NEEDED FOR PAIN 30 Tablet 10/27/19 25 025 Discontinued traMADol (ULTRAM) 50 mg tabletIndicat ions:Bilatera l hip pain TAKE 1 TABLET BY MOUTH EVERY 6 HOURS NEEDED FOR PAIN 30 Tablet 11/13/19 25 025 Discontinued Active Problems Problem Noted Date Diagnosed Date MDS (myelodysplastic syndrome) 08/05/2023 Pancytopenia 07/14/2021 Encounters Date Type Department Care Team Description 12/02/2024 Orders Only [facility] Oncology and Hematology - [address] Bang Donnelly MD 12/02/2024 Telephone [facility] Oncology and Hematology [facility] [address] [place] [phone] Mable Caputo MD Urine Results 12/01/2024 Orders Only [facility] Oncology and Hematology [facility] [address] [place] [address] Bang Donnelly MD MDS (myelodysplastic syndrome) ([facility]/HCC) (Primary Dx) 11/30/2024 Orders Only [facility] Oncology and Hematology - Vik [address] [place] [address] Bang Donnelly MD MDS (myelodysplastic syndrome) ([facility]/HCC) 11/27/2024 Orders Only [facility] Oncology and Hematology - [address] [place] [address] Bang Donnelly MD Bilateral hip pain (Primary Dx) 11/23/2024 Refill [facility] Oncology and Hematology - [address] [place] [address] Bang Donnelly MD Bilateral hip pain 11/16/2024 Orders Only [facility] Oncology and Hematology [facility] [address] [place] [address] Bang Donnelly MD MDS (myelodysplastic syndrome) ([facility]/HCC) 11/11/2024 Refill [facility] Oncology and Hematology - [place] [address] [place] [id number] Bang Donnelly MD Bilateral hip pain 11/10/2024 Orders Only [facility] Oncology and Hematology - [address] [place] [address] Bang Donnelly MD 11/04/2024 9:00 AM CDT [facility] Oncology and Hematology - Vik [address] [place] [address] Bang Donnelly MD MDS (myelodysplastic syndrome) (CMS/HCC) (Primary Dx) 11/03/2024 Orders Only [facility] Oncology and Hematology - [address] [place] [address] Bang Donnelly MD 11/02/2024 Orders Only [facility] Oncology and Hematology - [address] [place] [address] Bang Donnelly MD MDS (myelodysplastic syndrome) (CMS/HCC) 10/27/2024 Orders Only [facility] Oncology and Hematology - Vik [address] [place] [address] Bang Donnelly MD 10/26/2024 Refill [facility] Oncology and Hematology - [address] [place] [address] Bang Donnelly MD Bilateral hip pain 10/21/2024 Orders Only [facility] Oncology and Hematology - [address] [place] [address] Bang Donnelly MD 10/19/2024 Orders Only [facility] Oncology and Hematology - [address] [place] [address] Bang Donnelly MD MDS (myelodysplastic syndrome) (CMS/HCC) 10/16/2024 Orders Only [facility] Oncology and Hematology - [address] [place] [id number] Bang Donnelly MD 10/14/2024 External Device Data STL ABSTRACTION Provider, Abstract 10/14/2024 Orders Only [facility] Oncology and Hematology - [address] [place] [address] Bang Donnelly MD 10/14/2024 Telephone [facility] Oncology and Hematology - [address] Bang Donnelly MD Medication Review 10/13/2024 Orders Only [facility] Oncology and Hematology - [address] [place] [id number] Bang Donnelly MD 10/13/2024 External Device Data STL ABSTRACTION Provider, Abstract 10/09/2024 Orders Only [facility] Oncology and Hematology - Vik [address] [place] [id number] Bang Donnelly MD 10/07/2024 9:00 AM CDT Office Visit [facility] Oncology and Hematology [facility] [address] Bang Donnelly MD MDS (myelodysplastic syndrome) (CMS/HCC) (Primary Dx) 10/05/2024 Orders Only [facility] Oncology and Hematology - Vik [address] [place] [id number] Bang Donnelly MD MDS (myelodysplastic syndrome) (CMS/HCC) 09/25/2024 Orders Only [facility] Oncology and Hematology - Vik [address] Bang Donnelly MD 09/22/2024 External Device Data STL ABSTRACTION Provider, Abstract 09/22/2024 Refill [facility] Oncology and Hematology - [place] [address] Dot Breen MD 09/22/2024 Refill [facility] Oncology and Hematology - Vik [address] [place] [address] Bang Donnelly MD Bilateral hip pain 09/21/2024 Orders Only [facility] Oncology and Hematology - Vik [address] [place] [address] Bang Donnelly MD MDS (myelodysplastic syndrome) (CMS/HCC) 09/15/2024 Orders Only [facility] Oncology and Hematology - [address] [place] [address] Bang Donnelly MD 09/15/2024 External Device Data STL ABSTRACTION Provider, Abstract 09/14/2024 Orders Only [facility] Oncology and Hematology - Vik [address] [place] [address] Bang Donnelly MD 09/10/2024 Orders Only [facility] Oncology and Hematology - [address] [place] [address] Bang Donnelly MD 09/07/2024 9:30 AM CDT Office Visit [facility] Oncology and Hematology - Vik [address] [place] [address] Bang Donnelly MD Bilateral hip pain (Primary Dx); MDS (myelodysplastic syndrome) (CMS/HCC) from Last 3 Months Family History Medical [...] Care Team (Late st Contact Info) Description 12/09/2024 9:30 AM CDT Office Visit [facility] Oncology and Hematology - [place] [address] [place] [address] Mable Caputo MD [address] [place] [address] Health Maintenance Due Date Last Done Comments DTAP/TDAP/TD VACCINES (1 - Tdap) 11/18/1971 FIT-DNA Q 3 years 1997 FIT/FOBT Q 1 year 1997 Flex Sig/CT Colonography Q 5 years 1997 ZOSTER VACCINE (2 of 3) 04/24/2016 02/28/2016 PNEUMOCOCCAL VACCINE 50+ YEA RS (2 of 2 - PCV20 or PCV21) 02/27/2017 02/28/2016 OSTEOPOROSIS SCREENING 07/31/2023 07/30/2018 INFLUENZA VACCINE (#1) 2024 BREAST CANCER SCREENING 11/18/2024 11/19/19, 11/19/2023, 11/14/2022, Additional history exists COVID-19 Vaccine (3 - 2024-2 6 season) 2024 07/05/2020, 06/14/2020 RSV VACCINE (60+ or ) (1 - 1-dose 75+ series) 11/18/2027 COLORECTAL SCREENING 02/05/2033 02/05/2023, 10/10/19 Colorectal Cancer Screening 02/05/2033 Procedures Procedure Name Priority Date/Time Associated Diagnosis Comments URINE CULTURE Routine 12/01/2024 12:51 PM CDT BASIC METABOLIC PANEL Routine 12/01/2024 12:31 PM CDT COMPREHENSIVE METABOLIC PANEL Routine 12/01/2024 12:28 PM CDT CBC WITH AUTODIFFERENTIAL Routine 2024 12:27 PM CDT CBC WITH AUTODIFFERENTIAL Routine 2024 12:53 PM CDT CBC WITH AUTODIFFERENTIAL Routine 2024 12:27 PM CDT COMPREHENSIVE METABOLIC PANEL Routine 11/02/2024 11:29 AM [...] WITH DIFFERENTIAL Routine 09/04/2024 1:41 PM CDT from Last 3 Months Results * URINE CULTURE (12/01/2024 12:51 PM CDT) Urine us Bang Donnelly MD MICROBIOLOGY - GENERAL ORDERABL ES Final Result * BASIC METABOLIC PANEL (12/01/2024 12:31 PM CDT) Blood us Bang Donnelly MD CHEMISTRY ORDERABLES Final Resu lt * COMPREHENSIVE METABOLIC PANEL (12/01/2024 12:28 PM CDT) Only the most recent of4 resultswithin the time period is included. Blood us Bang Donnelly MD CHEMISTRY ORDERABLES Final Resu lt * CBC WITH AUTODIFFERENTIAL (11/27/2024 12:27 PM CDT) Only the most recent of4 resultswithin the time period is included. Blood us Bang Donnelly MD HEMATOLOGY ORDERABLES Final Res ult * CBC WITH DIFFERENTIAL (10/26/2024 4:22 PM CDT) Only the most recent of7 resultswithin the time period is included. Blood us Bang Donnelly MD HEMATOLOGY ORDERABLES Final Res ult * IRON LEVEL (10/13/2024 8:59 AM CDT) Blood us Bagn Donnelly MD CHEMISTRY ORDERABLES Final Resu lt * XR HIP 2 OR 3 VIEWS LT (09/09/2024 10:04 AM CDT) Anatomical Region Laterality Modality Lower Extremity Left Other us Bang Donnelly MD DIAGNOSTIC IMAGING ORDERABLES F inal Result from Last 3 Months Insurance MEDICARE PART A AND B [employer] [facility] [place] [address] Care Teams Social Welfare Administrator Relationship Specialty Start Date End Date Angus Cope DO [address] [facility] [address] [place] [address] PCP - General Internal Medicine 11/04/23
--- OUTSIDE RECORDS SUMMARY | 2024-12-04 18:20 | XMS_ITS | Encounter Summary ---
Author Organization [facility] Address [address] [place] [address] Care Team Providers Care Land Development Manager Name Role Phone Unavailable Primary Care Provider Unavailabl e Encounter Details Date Type Department Care Team (Late st Contact Info) Description 03/21/2022 Lab Requisition [facility] Care Pathology Lab [address] [place] [address] Zurdo Thurman MD [address] [address] Illness, unspecified Social History Tobacco Use Types Packs/Day Years Used Date Smoking Tobacco: Never Assessed Comments Unknown Sex and Gender Information Value Date Recorded Sex Assigned at Not on file Legal Sex Female 8:51 AM TESTER WASTE DISPOSAL LEAKAGE Gender Identity Not on file Sexual Orientation Not on file documented as of this encounter Plan of Treatment Not on file documented as of this encounter Procedures Procedure Name Priority Date/Time Associated Diagnosis Comments BONE MARROW BIOPSY (STL) Routine 03/20/2022 10:10 AM TESTER WASTE DISPOSAL LEAKAGE Illness, unspecified documented in this encounter Results * BONE MARROW BIOPSY (STL) (03/20/2022 10:10 AM TESTER WASTE DISPOSAL LEAKAGE) Case Report Bone Marrow Patholog y Report Case: [id number] Authorizing Provider: Zurdo Thurman MD Collected: 03/20/2022 10:10 AM Ordering Location: [facility] Care Pathology Lab Received: 03/21/2022 02:13 PM Pathologist: Yvonne Cassidy Mai, DO Specimens: A) - Bone Marrow Clot B) - Bone Marrow Core 03/22/2022 10:49 AM TESTER WASTE DISPOSAL LEAKAGE [facility] Final Diagnosis Bone marrow, aspirate, clot section, and core biopsy: - Normocellular marrow with multilineage dysplasia and increased blasts (11% by manual count) - See description Peripheral blood smear: - Pancytopenia - See description 03/22/2022 10:49 AM TESTER WASTE DISPOSAL LEAKAGE [facility] PATHOLOGY LAB at [address] TESTER WASTE DISPOSAL LEAKAGE AP Comment The bone marrow specimen is [...] HM, Pierce SA, Brock A, Pipo T, [place] S, [place] CE, Gal[place] JE, Kendrick Venegas P, Dereje CD, Andrew H, David EJ, Abbey BL, Jose Miguel EH, Ivan F, Fopriscar K, Ganjairo N, Jeimy U, Joanie LA, G kamaljit N, Del J, [facility]-Rina E, El GS, Figueroa R, Miles [...] morphologic, clinical, and genomic data. Blood. 2021 15;140(11):3280-0052. doi: 10.1182/blood.94354323 50. PMID: [id number]; PMCID: [id number]. 03/22/2022 10:49 AM [facility] PATHOLOGY LAB Peripheral Smear Description Manual Differential Count (100 cells): 50% neutrophils, 34% lymphocytes, 10% monocytes, 5% eosinophils, and 1% basophils. 0 nRBCs / 100 WBCs. Leukocytes: Decreased with reactive lymphocytes, no circulating blasts seen Erythrocytes: Macrocytic anemia with no significant anisopoikilocytosis Platelets: Decreased 03/22/2022 10:49 AM [facility] PATHOLOGY LAB Bone Marrow Aspirate [...] No ring sideroblasts seen 03/22/2022 10:49 AM [facility] PATHOLOGY LAB Bone Marrow Core [...] performed on the core biopsy in the [facility] Department of Pathology, with appropriately reactive controls, and demonstrate the following: CD34: Stains variable density of blasts, 5-10% of marrow cellularity CD117: Highlights blasts, mast cells and erythroid precursors E-cadherin: Weakly stains erythroid precursors 03/22/2022 10:49 AM [facility] PATHOLOGY LAB Flow Cytometry Summary [id number]: Increased myeloblasts (10.7% by CD34) 03/22/2022 10:49 AM [facility] PATHOLOGY LAB Clinical History Pancytopenia 03/22/2022 10:49 AM [facility] PATH[facility] Materials Received Received are 21 slides and three blocks (A1, A2, B1) labeled [id number] along with a copy of the outside pathology report. [place] [address]. All original materials are returned to the referring institution, along with a copy of our final report. 03/22/2022 10:49 AM [facility] PATHOLOGY LAB Disclaimer The performance characteristics of all immunohistochemical and indirect immunofluorescence stains (if any) cited in this report were determined by the Histopathology Laboratory of [facility]. Some of these tests were developed by [...] the attending (teaching) pathologist. 03/22/2022 10:49 AM TESTER WASTE DISPOSAL LEAKAGE [facility] PATHOLOGY LAB Embedded Images 03/22/2022 10:49 AM TESTER WASTE DISPOSAL LEAKAGE [facility] PATHOLOGY LAB Pathology/Cytology BONE MARROW SPECIMEN / Unknown 03/20/2022 10:10 AM TESTER WASTE DISPOSAL LEAKAGE 03/21/2022 2:13 PM TESTER WASTE DISPOSAL LEAKAGE Miscellaneous samples (specimen) BONE MARROW SPECIMEN / Unknown 03/20/2022 10:10 AM TESTER WASTE DISPOSAL LEAKAGE 03/21/2022 2:13 PM TESTER WASTE DISPOSAL LEAKAGE us Zurdo Thurman MD LAB - PATHOLOGY/CYTOLOGY ORDERAB LES Final Result [facility] PATHOLOGY LAB [address] [place] [address], [facility] [phone] documented in this encounter Visit Diagnoses Diagnosis Illness, unspecified documented in this encounter
--- OUTSIDE RECORDS SUMMARY | 2024-12-04 18:20 | XMS_ITS | Encounter Summary ---
Author Organization [facility] Address [address] [place] [address] Care Team Providers Care Client Leader Name Role Phone Unavailable Primary Care Provider Unavailabl e Encounter Details Date Type Department Care Team (Late st Contact Info) Description 01/27/2024 Lab Requisition [facility] - Pathology Lab [address] [place] [address] Kannan Short MD [address] [facility] [address] [place] [address] Illness, unspecified Social History Tobacco Use Types Packs/Day Years Used Date Smoking Tobacco: Never Assessed Comments Unknown Sex and Gender Information Value Date Recorded Sex Assigned at Not on file Legal Sex Female 8:51 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 OPERATOR Gender Identity Not on file Sexual [...] Report Bone Marrow Patholog y Report Case: [id number] Authorizing Provider: Kannan Short Collected: 01/24/2024 11:00 AM MD [place] Ordering Location: [facility] - Received: 01/27/2024 04:22 PM Pathology Lab Pathologist: Natalee Ceja MD Specimens: A) - Bone Marrow Clot B) - Bone Marrow Core 01/28/2024 2:26 PM [facility] PATH[facility] Final Diagnosis Bone marrow, aspirate, clot section, and core biopsy: - 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 01/28/2024 2:26 PM [facility] PATHOLOGY LAB at 1426 CDT Peripheral Smear Description Not submitted. 01/28/2024 2:26 PM [facility] PATH[facility] Bone Marrow Aspirate Differential count (200 cells): not performed due to hemodilution. Specimen quality: hemodilute. Spicules: absent. Most of the paucicellularity represents peripheral blood elements. No overtly increased blasts are seen. 01/28/2024 2:26 PM [facility] PATH[facility] Bone Marrow Core Biopsy [...] stain): no ring sideroblasts. 01/28/2024 2:26 PM [facility] PATH[facility] Flow Cytometry Summary Bone marrow, flow cytometry ([id number]): - Expanded CD34+ blast population identified (~8% of overall events 01/28/2024 2:26 PM [facility] Clinical History MDS with excess blasts. 01/28/2024 2:26 PM [facility] PATH[facility] Materials Received Received are 18 slide(s) and 3 blocks labeled [id number] along with a copy of the outside pathology report. [place] [address]. All original materials are returned to the referring institution, along with a copy of our final report. 01/28/2024 2:26 PM [facility] Microscopic Description Immunohistochemistry is performed to assess staining cells in an architectural context: CD34 and CD117 highlight mildly increased blasts at ~7% of marrow cellularity. CD61 highlights the increased and dysplastic blasts. P53 is essentially negative. 01/28/2024 2:26 PM CDT [facility] Pathologist Location at [facility] 01/28/2024 2:26 PM CDT [facility] Disclaimer The performance characteristics of all immunohistochemical and indirect immunofluorescence stains (if any) cited in this report were determined by the Histopathology Laboratory of [facility]. Some of these tests were developed [...] attending (teaching) pathologist. 01/28/2024 2:26 PM CDT [facility] Embedded Images 01/28/2024 2:26 PM CDT [facility] Pathology/Cytology BONE MARROW SPECIMEN / Unknown 01/24/2024 11:00 AM CDT 01/27/2024 4:22 PM CDT Miscellaneous samples (specimen) BONE MARROW SPECIMEN / Unknown 01/24/2024 11:00 AM CDT 01/27/2024 4:22 PM CDT Kannan Short MD LAB - PATHOLOGY/CYT OLOGY ORDERABLES Final Result Performing Organization Address City/State/[facility] Co de Phone Number [facility] PATHOLOG[facility] LAB [address] [place], [place] [address] [place] [address] documented in this encounter Visit Diagnoses Diagnosis Illness, unspecified documented in this encounter
--- OUTSIDE RECORDS SUMMARY | 2024-12-04 18:20 | XMS_ITS | Clinical Summary ---
Author Organization [facility] [employer] Address [address] [place] [address] Care Team Providers Care Grain Distributor Name Role Phone Unavailable Primary Care Provider Unavailabl e Source Comments [facility],non-owned Affiliates and Associated Physician Practices is amultiple site organization consisting of ambulatory clinics and hospital sitesin [place], [place], [place] and [place]. This disclosure is being madepursuant to the Care Everywhere program and may not contain all information available regarding this patient. Last updated 17.[facility] [employer] Immunizations Immunization Administration Dates Next Due Pneumococcal Pcv13 Conj 02/28/2016 ZOSTER VACCINE, LIVE 02/28/2016 Social History Tobacco Use Types Packs/Day Years Used Date Smoking Tobacco: Never Assessed Comments Unknown Sex and Gender Information Value Date Recorded Sex Assigned at Not on file Legal Sex Female 8:51 AM ADULT CARE PROVIDER Gender Identity Not on file Sexual Orientation [...] 2 - PCV20 or PCV21) 02/27/2017 02/28/2016 DEPRESSION SCREENING 04/01/2024 COVID-19 VACCINE ( - 2023-2 5 season) 2024 INFLUENZA VACCINE (#1) 2024 Respiratory Syncytial Virus [...]
--- OUTSIDE RECORDS SUMMARY | 2024-12-04 18:20 | XMS_ITS | Encounter Summary ---
Author Organization [facility] [employer] [facility] Address [address] [place] [address] Care Team Providers Care Windows Deployment Technician Name Role Phone Angus Cope DO Primary Care Provider [phone] Encounter Details Date Type Department Care Team (Late Contact Info) Description 12/02/2024 Orders Only [facility] Oncology and Hematology [facility] [address] [place] [address] Bang Donnelly MD [address] [facility] [address] [place] [address] Social History Tobacco Use Types [...] as of this encounter Plan of Treatment Upcoming Encounters Date Type Department Care Team (Late st Contact Info) Description 12/09/2024 9:30 AM CDT Office Visit [facility] Oncology and Hematology [address] [place] [address] Mable Caputo MD [address] [place] [address] documented as of this encounter Procedures Procedure Name Priority Date/Time Associated Diagnosis Comments URINE CULTURE Routine 12/01/2024 12:51 PM CDT documented in this encounter Results * URINE CULTURE (12/01/2024 12:51 PM CDT) Urine Bang Donnelly MD MICROBIOLOGY - GENERAL ORDERABL ES Final Result documented in this encounter Visit Diagnoses Not on filedocumented in this encounter Care Teams Windows Deployment Technician Relationship Specialty Start Date End Date Angus Cope DO [address] [facility] [address] [place] [address] PCP - General Internal Medicine 11/04/23 documented as of this encounter
--- OUTSIDE RECORDS SUMMARY | 2024-12-04 18:20 | XMS_ITS | Encounter Summary ---
Author Organization [facility] [employer] [facility] Address [address] [place] [address] Care Team Providers Care Leather Case Finisher Name Role Phone Angus Cope DO Primary Care Provider [phone] Encounter Details Date Type Department Care Team ([facility] Contact Info) Description 11/30/2024 Orders Only [facility] Oncology and Hematology [facility] [address] [place] [address] Bang Donnelly MD [address] [facility] [address] [place] [address] MDS (myelodysplastic syndrome) (CMS/HCC) Social [...] Encounters Date Type Department Care Team (Late Contact Info) Description 12/09/2024 9:30 AM CDT Office Visit [facility] Oncology and Hematology [address] [place] [address] Mable Caputo MD [address] [place] [address] documented as of this encounter Visit Diagnoses Diagnosis MDS (myelodysplastic syndrome) (CMS/HCC) Myelodysplastic syndrome, unspecified documented in this encounter Care Teams Leather Case Finisher Relationship Specialty Start Date End Date Angus Cope DO [address] [facility] [address] [facility] [address] [place] [address] PCP - General Internal Medicine 11/04/23 documented as of this encounter
--- OUTSIDE RECORDS SUMMARY | 2024-12-04 18:20 | XMS_ITS | Clinical Summary ---
Author Organization [facility] Address [address], [address] [address] Phone Care Team Providers Care Corporate Planning Manager Name Role Phone Micha Baker MD Primary Care Provider [phone] Rakesh Irby DO Unavailable [phone] Allergies Active Allergy Reactions Criticality Noted [...] Most Recently Relevant to Health Maintenance Insurance [facility] Care Teams Corporate Planning Manager Relationship Specialty Start Date End Date Micha Baker MD [address] [facility] [address] [place] [address] PCP - General Internal Medicine 10/10/15 Rakesh Irby DO [address] [facility] [address] [place] [address] Consulting Physician Gastroenterology 10/10/15
--- OUTSIDE RECORDS SUMMARY | 2024-12-04 18:20 | XMS_ITS | Encounter Summary ---
Author Organization [facility] Address [address] [place] [address] Care Team Providers Care Agile Java Developer Name Role Phone Unavailable Primary Care Provider Unavailabl e Encounter Details Date Type Department Care Team (Late st Contact Info) Description 03/21/2022 Lab Requisition [facility] Pathology Lab [address] [place] [address] Zurdo Thurman MD [address] [address] Other pancytopenia Social History Tobacco Use Types Packs/Day Years Used Date Smoking Tobacco: Never Assessed Comments Unknown Sex and Gender Information Value Date Recorded Sex Assigned at Not on file Legal Sex Female 8:51 AM [employer] NEED CONSULTANT Gender Identity Not on file Sexual Orientation Not on file documented as of this encounter Plan of Treatment Not on file documented as of this encounter Procedures Procedure Name Priority Date/Time Associated Diagnosis Comments FLOW CYTOMETRY BONE MARROW Routine 03/20/2022 10:10 AM [employer] NEED CONSULTANT Other pancytopenia (CMS/HCC) documented in this encounter Results * FLOW CYTOMETRY BONE MARROW (03/20/2022 10:10 AM [employer] NEED CONSULTANT) Case Report Flow Cytometry Case: [id number] Authorizing Provider: Zurdo Thurman MD Collected: 03/20/2022 10:10 AM Ordering Location: [facility] Pathology Lab Received: 03/21/2022 09:01 AM Pathologist: Yvonne Cassidy Mai, DO Specimen: Bone Marrow 03/21/2022 11:58 AM [employer] NEED CONSULTANT [facility] Final Diagnosis Bone marrow, flow cytometric immunophenotypic analysis: - Increased myeloblasts (10.7% by CD34) - See description 03/21/2022 11:58 AM [facility] at [address] [employer]SULTANT Flow Cytometry Interpretation The bone marrow specimen [...] the flow cytometry specimen is reviewed for quality analyst purposes. The sample is aspiculate and hemodilute. The bone marrow aspirate specimen shows an increased myeloblast population comprising 10.7% of events analyzed. Correlation with clinical findings, the concurrent bone marrow core biopsy (accession number pending), and relevant cytogenetic/molecu lar studies is required. 03/21/2022 11:58 AM [facility] Flow Cytometry Results Differential Result Comment Flow Cell Count /uL 16,000 Total Viability % 93.0 Lymphocytes % 33 Dim CD45 Region % 21 Monocytes % 10 Granulocytes % 35 03/21/2022 11:58 AM [facility] Reason for test Other pancytopenia (CMS/HCC) 284.19 03/21/2022 11:58 AM [facility] Client Specimen ID # [id number] 03/21/2022 11:58 AM [facility] Number of markers 19 were performed. A-2 Flow CD10 A-3 Flow CD13 A-5 Flow CD20 A-11 Flow CD2 A-13 Flow CD14 A-16 Flow CD117 A-17 Flow CD11b A-18 Flow CD11c A-1 Flow CD5 A-4 Flow CD19 A-6 Flow CD33 A-7 Flow CD34 A-8 Flow CD45 A-12 Flow CD7 A-14 Flow CD56 A-15 Flow CD64 A-9 [place]+CD19+ A-10 Lambda+CD19+ A-19 Flow HLA-DR 03/21/2022 11:58 AM [facility] Disclaimer Test performed at [facility], [address] [place], [place], [address]. *The established laboratory minimum viability is 70%. [...] high complexity clinical testing. 03/21/2022 11:58 AM [employer]ER[employer] NEED CONSULTANT [facility] Embedded Images 11:58 AM [employer]ER[employer] NEED CONSULTANT [facility] Pathology/Cytolo gy BONE MARROW SPECIMEN / Unknown 03/20/2022 10:10 AM [employer]ER[employer] NEED CONSULTANT 03/21/2022 9:01 AM [employer] NEED CONSULTANT Zurdo Thurman MD LAB - PATHOLOGY/CYTOLOGY ORDERAB LES Final Result [facility] [address] [facility] [place] [address], [facility] [phone] documented in this encounter Visit Diagnoses Diagnosis Other pancytopenia (HCC) Other pancytopenia documented in this encounter
[2024-12-04 18:31] LABS: INR 1.1; Prothrombin Time 14.3 Seconds (11.1-14.7)
[2024-12-04 18:32] LABS: Partial Thromboplastin Time 37.6 Seconds (22.3-36.8)
[2024-12-04 18:37] LABS: Alanine Aminotransferase 18 U/L (6-35); Albumin Level 2.8 g/dL (3.5-5.1); Alkaline Phosphatase 181 U/L (38-126); Anion Gap 6 mmol/L (4-12); Aspartate Amino Transferase 30 U/L (14-36); Bilirubin,Total 0.3 mg/dL (0.2-1.3); Blood Urea Nitrogen 15 mg/dL (7-17); Calcium 8.3 mg/dL (8.4-10.2); Carbon Dioxide 24 mmol/L (22-30); Chloride 108 mmol/L (98-107); Estimated Glomerular Filt Rate > 60; Glucose 88 mg/dL (65-110); Potassium 3.2 mmol/L (3.4-5.0); Sodium 138 mmol/L (137-145); Total Protein 6.1 g/dL (6.3-8.2)
[2024-12-04 18:43] LABS: Macrocytosis 2+ (NORMAL)
[2024-12-04 18:44] LABS: Band Neutrophils Percent 0 % (0-6); Schistocytes Occasional; Troponin I < 0.012 ng/mL (0.000-0.034)
[2024-12-04 18:45] LABS: Anisocytosis 2+; Microcytosis 1+ (NORMAL)
[2024-12-04 18:46] LABS: Hypochromasia 1+
--- NOTE | 2024-12-04 18:54 | ED.SOB ---
HPI - SOB/Dyspnea General Chief Complaint: Shortness of Breath/Dyspnea Stated Complaint: legs swollen, SOB Time Seen by Provider: 12/04/24 18:11 Related Data Home Medications ?Medication ?Instructions ?Recorded ?Confirmed ?Last Taken ?Type calcium 333 mg-vit D3 200 1 tablet PO BID 11/10/19 12/04/24 12/04/24 History unit-magnesium 133 mg-zinc 5 mg tablet famotidine 20 mg tablet (Pepcid AC) 20 mg PO QACLUNCH 11/10/19 12/04/24 12/04/24 14:00 History 20 mg loratadine 10 mg tablet 10 mg PO DAILY 11/10/19 12/04/24 12/04/24 14:00 History 10 mg Lactobacills gasseri-Bifidobac 1 cap PO QAM 07/04/21 12/04/24 12/04/24 09:08 History bifidum,longum 1.5 billion cell 1 cap capsule (Semantify) knmlghhehztg-Fs-fyqk-minerals 1 tablet PO DAILY 07/04/21 12/04/24 12/03/24 09:13 History 1 tablet omeprazole 20 mg capsule,delayed 20 mg PO DAILY 07/04/21 12/04/24 12/04/24 09:00 History release 20 mg cyanocobalamin (vitamin B-12) 1,000 mcg PO DAILY 12/15/21 11/18/24 01/23/24 History 1,000 mcg capsule melatonin 5 mg tablet 10 mg PO HS 03/19/22 12/04/24 12/03/24 21:09 History 10 mg acyclovir 400 mg tablet 400 mg PO BID 01/24/23 12/04/24 12/04/24 09:06 History 400 mg ferrous sulfate 325 mg (65 mg 325 mg PO TID 01/24/23 12/04/24 12/04/24 14:07 History iron) tablet (Iron (ferrous 325 mg sulfate)) Magic Mouthwash 50 mL suspension 10 ml PO .every 4 hours PRN mouth 07/03/24 12/04/24 Unknown History pain #50 mL epoetin whit 20,000 unit/mL 20,000 unit subcut WEEKLY PRN 07/29/24 11/18/24 Unknown History injection solution (Epogen) based on labs ondansetron HCl 8 mg tablet 8 mg PO Q12H 07/29/24 12/04/24 Unknown History tramadol 50 mg tablet 50 mg PO Q6H PRN pain 09/14/24 12/04/24 12/04/24 16:12 History 50 mg gabapentin 100 mg capsule 100 mg PO Q12H 10/01/24 12/04/24 12/04/24 09:00 History 100 mg decitabine 50 mg intravenous 35 mg IV .COMPLEX 11/05/24 11/18/24 Unknown History solution (Dacogen) Allergies Allergy/AdvReac Type Severity Reaction Status Date / Time Penicillins Allergy Mild Hives Verified 12/08/24 12:15 Sulfa (Sulfonamide Allergy Mild rash Verified 12/08/24 12:15 Antibiotics) [facility] Past Medical History Medical History Myelodysplastic syndrome, unspecified L4 vertebral fracture BMI 28.0-28.9,adult PONV (postoperative nausea and vomiting) Aortic stenosis, moderate Screening for breast cancer Screening for colon cancer Essential (primary) hypertension Hypothyroidism, unspecified Surgical History Surgical History (Updated 12/09/24 @ 15:25 by Josephine Huynh MD) History of total left knee replacement History of total right knee replacement Family History Family History Sibling Patient's brother is Acute myocardial infarction Father Family history of lung cancer, Onset Age: 65 Family history of type 2 diabetes mellitus Mother No problems noted. Other Social History Social History (Updated 12/09/24 @ 15:26 by Josephine Huynh MD) Smoking packs per day: 3 Smoking cigarettes per day: 60.0 Years smoked: 20 Smoking pack-years: 60.00 Smoking status: Former smoker Tobacco type: cigarettes Second hand tobacco smoke exposure: Yes Smoking end date: 01/08/98 Additional smoking assessment comments: quit smoking 30 plus years Alcohol intake: former Drinks per week: 1 Alcohol use details: RARELY 2-3 DRINKS/YEAR Substance use: never Substance use type: does not use Do You Feel Safe in your Home?: Yes Lack of Transportation: No Lack of Food: Never True Current Housing: I Have Housing Concerned About Future Housing: No Difficulty Paying Gas/Electric Bills: No Difficulty Paying for Meds: No Currently Unemployed: No Education: Associate Degree Difficulty w/ Childcare or Family Care: No Living arrangements: with family Additional living arrangements comments: son and grandson live with her Occupation/Education: retired 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 Gender identity (if verbalized by the patient): Female Spiritual care concerns: No Exam Narrative: GENERAL: Well-appearing, well-nourished, and in no acute distress. HEAD: Normocephalic, atraumatic. EYES: Non injected, non icteric ENT: Nares clear, no rhinorrhea or epistaxis. Gross auditory acuity intact. NECK: Supple. No meningismus. CHEST: Speaking in full sentences. No respiratory distress. Lungs clear on auscultation. Non labored. HEART: Regular rate and rhythm. . ABDOMEN: Soft, nondistended. No rigidity or guarding. Not peritoneal EXTREMITIES: Normal range of motion. 2+ left, 1+ right lower extremity pitting edema. SKIN: Warm, dry, no rash. NEURO: No focal deficits. Alert and oriented. Answering questions. Following commands. Normal speech without aphasia or dysarthria. PSYCH: Normal mood and affect. Course Vital Signs Vital signs: Vital Signs Temperature 98.7 F 12/04/24 17:15 Pulse Rate 96 12/04/24 17:15 Respiratory Rate 20 12/04/24 17:15 Blood Pressure 149/54 H 12/04/24 17:15 Pulse Oximetry 100 12/04/24 17:15 Oxygen Delivery Room Air 12/04/24 17:15 Temperature 97.7 F 12/06/24 06:00 Pulse Rate 98 12/06/24 08:29 Respiratory Rate 18 12/06/24 06:00 Blood Pressure 121/49 L 12/06/24 06:00 Pulse Oximetry 95 12/06/24 06:00 Oxygen Delivery Room Air 12/06/24 08:00 MDM - SOB/Dyspnea MDM Narrative Medical decision making narrative: Patient presents with shortness of breath, particularly [place]. ALso acute onset bilateral leg swelling beginning today. Currently undergoing chemo for myelodysplastic syndrome. In the emergency department she is afebrile with acceptable vital signs although slightly elevated systolic and slightly low diastolic but with appropriate mean arterial pressure. Leukopenia (chronic), macrocytic anemia (chronic), thrombocytosis. Mild hypokalemia. Oral repletion ordered. Calcium corrects to normal (9.3) in the setting of albumin level. Elevated alk phos (chronic, likely due to malignancy). Dimer mildly elevated though less than 1. However, will proceed with CTA imaging out of abundance of precaution and for further evaluation. BNP is elevated concerning for acute heart failure. Small dose Lasix ordered. Viral panel negative. Recommend admission for further work up. Reviewed previous Echo (below). I did discuss with patient her code status and she states for now will be full code however she has filled out DNR paperwork and is hoping to have a more extensive discussion with her son regarding this twice in decision but is amenable to being full code as an order at present until she can thoroughly explained to her family her desires and wishes. Discussed with Dr. Narvaez , information technology coordinator hospitalist. Ordered repeat echo to assess / compare Differential Diagnosis Differential diagnosis: Likely congestive heart failure, community acquired pneumonia, pulmonary embolism and other (acute viral syndrome; ACS; myocarditis/pericarditis; pericardial effusion) Medical Records Attestation: I reviewed the patient's medical records. Medical records narrative: Summary 1. Complete two-dimensional, color flow and Doppler transthoracic echocardiogram is performed. 2. Left ventricular chamber dimension is normal. 3. Left ventricular systolic function is normal, estimated at 60-65%. 4. The left ventricular diastolic function is abnormal. 5. E/e' 13 is mildly elevated. 6. Global longitudinal strain is normal at -17.4%. 7. There is severe aortic valve sclerosis. 8. There is moderate to severe aortic valve stenosis with a peak velocity of 330 cm/s, mean gradient of 21 mmHg, and aortic valve area of 1.0 cm2. 9. There is trace aortic valve regurgitation. 10. There is trace mitral valve regurgitation. 11. There is trace tricuspid valve regurgitation. 12. Mild pulmonary hypertension, estimated pulmonary arterial systolic pressure is 40 mmHg. Lab Data Attestation: I reviewed the patient's lab results. 12/06/24 05:14 12/06/24 05:14 Labs: Lab Results 12/04/24 12/04/24 12/04/24 Range/Units 18:15 19:13 19:37 WBC 3.2 L (4.5-10.0) K/mm3 RBC 2.87 L (4.2-5.4) M/mm3 Hgb 10.4 L (12.0-15.0) g/dL Hct 32.2 L (37.0-47.0) % MCV 112.2 H (80-100) fl MCH 36.2 H (26-34) pg MCHC 32.3 (32-36) g/dl RDW 15.9 H (11.5-14.5) % Plt Count 422 H D (150-375) k/mm3 MPV 9.4 (7.4-10.4) fl Immature Gran % (Auto) 1.9 H (0-0.5) % Neut % (Auto) 52.8 (45.5-73.1) % Lymph % (Auto) 26.4 (18.3-44.2) % Major % (Auto) 17.3 H (2.6-8.5) % Eos % (Auto) 0.3 (0-4.4) % Baso % (Auto) 1.3 H (0.2-1.2) % Lymph # (Auto) 0.84 L (0.9-3.2) K/mm3 Major # (Auto) 0.6 (0.1-0.6) K/mm3 Eos # (Auto) 0.0 (0-0.3) K/mm3 Baso # (Auto) 0.0 (0.0-0.1) K/mm3 Abs Immat Gran (auto) 0.06 H (0.00-0.031) K/mm3 Absolute Neuts (auto) 1.7 (1.3-6.7) K/mm3 Absolute Nucleated RBC 0.000 (0.0-0.012) K/mm3 Band Neutrophils % 0 (0-6) % Nucleated RBC % 0.0 (0.0-0.2) % Platelet Estimate Increased (Adequate) Hypochromasia 1+ Anisocytosis 2+ Microcytosis 1+ (NORMAL) Macrocytosis 2+ (NORMAL) Ovalocytes Schistocytes Occasional PT 14.3 (11.1-14.7) Seconds INR 1.1 APTT 37.6 H (22.3-36.8) Seconds D-Dimer 0.85 H (<0.48) ug/mL Sodium 138 (137-145) mmol/L Potassium 3.2 L (3.4-5.0) mmol/L Chloride 108 H (98-107) mmol/L Carbon Dioxide 24 (22-30) mmol/L Anion Gap 6 (4-12) mmol/L BUN 15 D (7-17) mg/dL Creatinine 0.86 (0.7-1.0) mg/dL Estim Creat Clear Calc Not Reportable Estimated GFR > 60 (59 - ) Glucose 88 (65-110) mg/dL Calcium 8.3 L (8.4-10.2) mg/dL Magnesium 2.1 (1.6-2.3) mg/dL Total Bilirubin 0.3 (0.2-1.3) mg/dL AST 30 (14-36) U/L ALT 18 (6-35) U/L Alkaline Phosphatase 181 H (38-126) U/L Total Creatine Kinase 34 (30-135) U/L Troponin I < 0.012 (0.000-0.034) ng/mL NT-Pro-B Natriuret Pep 2770 H (19.9-100) pg/mL Total Protein 6.1 L (6.3-8.2) g/dL Albumin 2.8 L (3.5-5.1) g/dL TSH 2.690 (0.465-4.680) uIU/mL Urine Color Yellow (Yellow) Urine Appearance Clear (Clear) Urine pH 5.0 (5.0-9.0) Ur Specific [place] 1.020 (1.001-1.035) Urine Protein Negative (Negative) mg/dL Urine Glucose (UA) Negative (Negative) mg/dL Urine Ketones Negative (Negative) mg/dL Ur Blood (Man) Negative (Negative) Urine Nitrate Negative (Negative) Urine Bilirubin Negative (Negative) Urine Urobilinogen 0.2 (<2.0) mg/dL Leukocyte Esterase Rfl Negative (Negative) YANCI/UL Influenza A (RT-PCR) Negative (Negative) Influenza B (RT-PCR) Negative (Negative) RSV (RT-PCR) Negative (Negative) SARS-CoV-2 RNA (RT-PCR) Negative (Negative) 12/05/24 Range/Units 05:46 WBC 2.7 L (4.5-10.0) K/mm3 RBC 2.60 L (4.2-5.4) M/mm3 Hgb 9.4 L (12.0-15.0) g/dL Hct 29.1 L (37.0-47.0) % MCV 111.9 H (80-100) fl MCH 36.2 H (26-34) pg MCHC 32.3 (32-36) g/dl RDW 15.9 H (11.5-14.5) % Plt Count 420 H (150-375) k/mm3 MPV 9.7 (7.4-10.4) fl Immature Gran % (Auto) 2.6 H (0-0.5) % Neut % (Auto) 42.6 L (45.5-73.1) % Lymph % (Auto) 31.4 (18.3-44.2) % Major % (Auto) 21.5 H (2.6-8.5) % Eos % (Auto) 0.4 (0-4.4) % Baso % (Auto) 1.5 H (0.2-1.2) % Lymph # (Auto) 0.86 L (0.9-3.2) K/mm3 Major # (Auto) 0.6 (0.1-0.6) K/mm3 Eos # (Auto) 0.0 (0-0.3) K/mm3 Baso # (Auto) 0.0 (0.0-0.1) K/mm3 Abs Immat Gran (auto) 0.07 H (0.00-0.031) K/mm3 Absolute Neuts (auto) 1.2 L (1.3-6.7) K/mm3 Absolute Nucleated RBC 0.000 (0.0-0.012) K/mm3 Band Neutrophils % Not Reportable (0-6) % Nucleated RBC % 0.0 (0.0-0.2) % Platelet Estimate Slightly increased (Adequate) Hypochromasia 1+ Anisocytosis 1+ Microcytosis (NORMAL) Macrocytosis 1+ (NORMAL) Ovalocytes Occasional Schistocytes None seen PT (11.1-14.7) Seconds INR APTT (22.3-36.8) Seconds D-Dimer (<0.48) ug/mL Sodium 138 (137-145) mmol/L Potassium 3.4 (3.4-5.0) mmol/L Chloride 107 (98-107) mmol/L Carbon Dioxide 27 (22-30) mmol/L Anion Gap 4 (4-12) mmol/L BUN 13 (7-17) mg/dL Creatinine 0.84 (0.7-1.0) mg/dL Estim Creat Clear Calc 49 Estimated GFR > 60 (59 - ) Glucose 80 (65-110) mg/dL Calcium 8.0 L (8.4-10.2) mg/dL Magnesium 1.8 (1.6-2.3) mg/dL Total Bilirubin < 0.1 L (0.2-1.3) mg/dL AST 26 (14-36) U/L ALT 15 (6-35) U/L Alkaline Phosphatase 145 H (38-126) U/L Total Creatine Kinase (30-135) U/L Troponin I (0.000-0.034) ng/mL NT-Pro-B Natriuret Pep (19.9-100) pg/mL Total Protein 5.3 L (6.3-8.2) g/dL Albumin 2.4 L (3.5-5.1) g/dL TSH (0.465-4.680) uIU/mL Urine Color (Yellow) Urine Appearance (Clear) Urine pH (5.0-9.0) Ur Specific [place] (1.001-1.035) Urine Protein (Negative) mg/dL Urine Glucose (UA) (Negative) mg/dL Urine Ketones (Negative) mg/dL Ur Blood (Man) (Negative) Urine Nitrate (Negative) Urine Bilirubin (Negative) Urine Urobilinogen (<2.0) mg/dL Leukocyte Esterase Rfl (Negative) YANCI/UL Influenza A (RT-PCR) (Negative) Influenza B (RT-PCR) (Negative) RSV (RT-PCR) (Negative) SARS-CoV-2 RNA (RT-PCR) (Negative) Imaging Data Attestation: I personally reviewed and interpreted this imaging study as follows: My impression: Elevated diaphragm on my independent interpretation of chest x-ray performed at bedside Radiologist's impression: Impression: 1: No acute cardiopulmonary disease. IMPRESSION: 1. No acute cardiopulmonary disease. No evidence for pulmonary embolism. 2: Fractures of T12 and L1, most likely chronic. ECG Data EKG #1: Attestation: I personally reviewed and interpreted this ECG as follows: ECG completion date: 12/04/24 ECG completion time: 18:52 Interpretation: Normal sinus rhythm at a rate of 80 beats per minute. WV interval 120 milliseconds, QRS 86. QT/QTC 368/425. Good R-wave progression across the precordial leads. No T-wave inversions. Normal axis. Discharge Plan Discharge Clinical Impression: Shortness of breath, Anemia, macrocytic, Leukopenia, Thrombocytosis, Hypokalemia, Hypoalbuminemia, Alkaline phosphatase raised, Bilateral lower extremity edema, Acute heart failure, Closed T12 fracture Closed L1 vertebral fracture Qualifiers: Encounter type: subsequent encounter Patient Disposition: Still a Patient Condition: Stable
[2024-12-04 19:17] LABS: Creatine Kinase 34 U/L (30-135)
[2024-12-04 19:18] LABS: NT Pro B Type Natriuretic Pept 2770 pg/mL (19.9-100)
[2024-12-04] MEDS: POTASSIUM BICARBONATE 25 MEQ TABEF PO (19:19)
[2024-12-04 19:29] LABS: Magnesium 2.1 mg/dL (1.6-2.3)
[2024-12-04 19:53] LABS: Thyroid Stimulating Hormone 2.690 uIU/mL (0.465-4.680)
[2024-12-04 20:00] LABS: Influenza A QL RT-PCR Negative (Negative); Influenza B QL RT-PCR Negative (Negative); RSV RNA, RT-PCR Negative (Negative); SARS-CoV-2 RNA PCR Negative (Negative)
[2024-12-04 20:20] LABS: Add Urine Microscopic? NO; Appearance Urine Clear (Clear); Glucose Urine UA Negative (Negative); Leukocyte Esterase Ur Negative LEU/UL (Negative); Nitrate Urine Negative (Negative); Specific Grav Ur 1.020 (1.001-1.035)
[2024-12-04] MEDS: FUROSEMIDE INJ 40 MG/4 ML VIAL 20 MG IV PUSH (20:57)
--- NOTE | 2024-12-04 22:05 | PM.IMHP ---
H&P: HPI History of Present Illness Date/Time: 12/04/24 22:05 Chief Complaint: Shortness of breath and leg swelling Narrative: A 74-year-old female who presents with complaint of a few days of shortness of breath. When she woke up on the day of admission, 12/04/2024 she had 4+ leg swelling decided to present to [facility] ER. 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 PMH L4 vertebral fracture with ongoing workup with Neurosurgery, aortic stenosis (followed by Dr. Reese), essential hypertension, hypothyroidism, myelodysplastic syndrome started decide to being treatment on May 07, 2022, chronic pancytopenia on acyclovir,, Procrit, iron, B12. She follows with Dr. Donnelly, he is out of town and she was supposed to get chemotherapy last week but the replacement oncologist said she is too weak to get it and advised her to seek care at the ER. The patient refused. The patient felt weak and had chills and an episode of incontinence. Patient reports she is upset with that doctor does not know why she needed to go to the ER. Your evaluation: Afebrile, blood pressure 135/59, respiratory rate 19, wonder % O2 saturation on room air, WBC 3200, hemoglobin 10.4 grams/deciliter, platelets 422, INR 1.1, potassium 3.2, serum creatinine 0.86, magnesium 2.1, alkaline phosphatase 181, AST ALT and total bilirubin normal, troponin 0.012, BNP 2770, TSH 2.690, urinalysis unremarkable, quad viral screen negative. D-dimer 0.85 and subsequently a CTA PE protocol was performed which did not demonstrate evidence for PE, no acute cardiopulmonary disease, fractures of T12 and L4, most likely chronic. She was given furosemide 20 mg IV x1, potassium 25 mEq p.o. x1. Patient reports her bilateral leg swelling have decreased greatly and her shortness of breath has also improved greatly. She is admitted on 12/04/2024 for further evaluation. Review of Systems Review of Systems: All systems reviewed & are unremarkable except as noted in HPI and below (Subjective) [facility] Past Medical History Medical History (Updated 12/04/24 @ 20:48 by Josephine Huynh MD) L4 vertebral fracture BMI 28.0-28.9,adult PONV (postoperative nausea and vomiting) Aortic stenosis, moderate Screening for breast cancer Screening for colon cancer Essential (primary) hypertension Hypothyroidism, unspecified Surgical History Surgical History History of left knee replacement History of total left knee replacement History of total right knee replacement Family History Family History Sibling Patient's brother is Acute myocardial infarction Father Family history of lung cancer, Onset Age: 65 Family history of type 2 diabetes mellitus Mother No problems noted. Other Social History Social History Smoking packs per day: 3 Smoking cigarettes per day: 60.0 Years smoked: 20 Smoking pack-years: 60.00 Smoking status: Former smoker Tobacco type: cigarettes Second hand tobacco smoke exposure: Yes Smoking end date: 01/08/98 Additional smoking assessment comments: quit smoking 30 plus years Alcohol intake: current Drinks per week: 1 Alcohol use details: RARELY 2-3 DRINKS/YEAR Substance use: never Substance use type: does not use Do You Feel Safe in your Home?: Yes Lack of Transportation: No Lack of Food: Never True Current Housing: I Have Housing Concerned About Future Housing: No Difficulty Paying Gas/Electric Bills: No Difficulty Paying for Meds: No Currently Unemployed: No Education: Associate Degree Difficulty w/ Childcare or Family Care: No Living arrangements: with family Additional living arrangements comments: son lives w/ her Occupation/Education: retired 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 Gender identity (if verbalized by the patient): Female Spiritual care concerns: No Meds Home Medications and Allergies Home Medications ?Medication ?Instructions ?Recorded ?Confirmed ?Type calcium 333 mg-vit D3 200 1 tablet PO BID 11/10/19 11/18/24 History unit-magnesium 133 mg-zinc 5 mg tablet famotidine 20 mg tablet (Pepcid AC) 20 mg PO QACLUNCH 11/10/19 11/18/24 History loratadine 10 mg tablet 10 mg PO DAILY 11/10/19 11/18/24 History Lactobacills gasseri-Bifidobac 1 cap PO QAM 07/04/21 11/18/24 History bifidum,longum 1.5 billion cell capsule ([facility]) vkhcbuhsvsej-Go-puqn-minerals 1 tablet PO DAILY 07/04/21 11/18/24 History omeprazole 20 mg capsule,delayed 20 mg PO DAILY 07/04/21 11/18/24 History release cyanocobalamin (vitamin B-12) 1,000 mcg PO DAILY 12/15/21 11/18/24 History 1,000 mcg capsule melatonin 5 mg tablet 10 mg PO HS 03/19/22 11/18/24 History acyclovir 400 mg tablet 400 mg PO BID 01/24/23 11/18/24 History ferrous sulfate 325 mg (65 mg 325 mg PO TID 01/24/23 11/18/24 History iron) tablet (Iron (ferrous sulfate)) escitalopram oxalate 10 mg tablet 10 mg PO DAILY #90 tabs 03/05/24 11/18/24 Rx felodipine 5 mg tablet,extended 5 mg PO DAILY #90 tabs 03/05/24 11/18/24 Rx release 24 hr losartan 100 mg tablet See Rx Instructions .Route 03/06/24 11/18/24 Rx .COMPLEX #90 tabs metoprolol succinate 25 mg 25 mg PO QAM #90 tabs 05/27/24 11/18/24 Rx tablet,extended release 24 hr simvastatin 40 mg tablet 40 mg PO HS #90 tabs 05/27/24 11/18/24 Rx Magic Mouthwash 50 mL suspension 10 ml PO .every 4 hours PRN mouth 07/03/24 11/18/24 History pain #50 mL epoetin whit 20,000 unit/mL 20,000 unit subcut WEEKLY PRN 07/29/24 11/18/24 History injection solution (Epogen) based on labs ondansetron HCl 8 mg tablet 8 mg PO Q12H 07/29/24 11/18/24 History tramadol 50 mg tablet 50 mg PO Q6H PRN pain 09/14/24 11/18/24 History levothyroxine 100 mcg tablet 100 mcg PO DAILY #90 tabs 09/15/24 11/18/24 Rx (Levoxyl) gabapentin 100 mg capsule 100 mg PO Q12H /06/2311/18/24 History decitabine 50 mg intravenous 35 mg IV .COMPLEX 11/05/24 11/18/24 History solution (Dacogen) tizanidine 4 mg capsule 4 mg PO HS PRN muscle spasticity 11/05/24 11/18/24 Rx #14 caps tizanidine 4 mg capsule 4 mg PO QHS PRN muscle spasticity 11/26/24 Rx #30 caps meloxicam 15 mg tablet 15 mg PO HS #90 tabs 12/03/24 Rx Allergies Allergy/AdvReac Type Severity Reaction Status Date / Time Penicillins Allergy Mild Hives Verified 11/27/24 09:50 Sulfa (Sulfonamide Allergy Mild rash Verified 11/27/24 09:50 Antibiotics) Vital Signs Vital Signs - 24 hr 12/04/24 17:15 12/04/24 18:02 12/04/24 18:16 Temperature 98.7 F Pulse Rate 96 84 88 Respiratory Rate 20 21 H Blood Pressure 149/54 H 152/57 H Pulse Oximetry 100 99 Oxygen Delivery Room Air 12/04/24 19:15 12/04/24 20:00 12/04/24 20:45 Temperature Pulse Rate 85 87 84 Respiratory Rate 19 19 20 Blood Pressure 140/63 128/62 135/59 L Pulse Oximetry 99 100 97 Oxygen Delivery 12/04/24 21:55 Temperature Pulse Rate 94 Respiratory Rate 19 Blood Pressure 151/96 H Pulse Oximetry 100 Oxygen Delivery Exam Const: General: comfortable and no acute distress Other: A&O x3 HENMT: Mouth: Yes moist mucous membranes Eyes: Pupils: Equal, round and reactive pupils present Neck: Neck: supple Resp: Effort & Inspection: normal respiratory effort Auscultation: clear to auscultation bilaterally Cardio: Rate: regular rate Rhythm: regular rhythm Heart sounds: Murmur heart sound present (Systolic) GI: Inspection: non-distended GI Palp: Yes Soft to palpation : General: Yes bladder normal to palpation Extrem: Other: 1+ pitting edema bilateral lower extremity below the knees H&P: Results Labs Labs: Short CBC 12/04/24 Range/Units 18:15 WBC 3.2 L (4.5-10.0) K/mm3 Hgb 10.4 L (12.0-15.0) g/dL Hct 32.2 L (37.0-47.0) % Plt Count 422 H D (150-375) k/mm3 BMP 12/04/24 18:15 Sodium 138 Potassium 3.2 L Chloride 108 H Carbon Dioxide 24 BUN 15 D Creatinine 0.86 Glucose 88 Calcium 8.3 L Cardiac Enzymes 12/04/24 Range/Units 18:15 Total Creatine Kinase 34 (30-135) U/L Troponin I < 0.012 (0.000-0.034) ng/mL Liver Function 12/04/24 Range/Units 18:15 Total Bilirubin 0.3 (0.2-1.3) mg/dL AST 30 (14-36) U/L ALT 18 (6-35) U/L Alkaline Phosphatase 181 H (38-126) U/L Albumin 2.8 L (3.5-5.1) g/dL Urine 12/04/24 Range/Units 19:37 Urine Color Yellow (Yellow) Urine Appearance Clear (Clear) Urine pH 5.0 (5.0-9.0) Ur Specific [place] 1.020 (1.001-1.035) Urine Protein Negative (Negative) mg/dL Urine Glucose (UA) Negative (Negative) mg/dL Assessment and Plan Assessment and plan (1) Heart murmur: Code(s): R01.1 - Cardiac murmur, unspecified Status: Acute (2) Aortic stenosis, moderate: Code(s): I35.0 - Nonrheumatic aortic (valve) stenosis Status: Acute (3) Shortness of breath: Code(s): R06.02 - Shortness of breath Status: Acute (4) Bilateral lower extremity edema: Code(s): R60.0 - Localized edema Status: Acute Plan A 74-year-old female who presents with complaint of a few days of shortness of breath. When she woke up on the day of admission, 12/04/2024 she had 4+ leg swelling decided to present to [facility] ER. 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 PMH L4 vertebral fracture with ongoing workup with Neurosurgery, aortic stenosis (followed by Dr. Reese), essential hypertension, hypothyroidism, myelodysplastic syndrome started decide to being treatment on May 07, 2022, chronic pancytopenia on acyclovir,, Procrit, iron, B12. She follows with Dr. Donnelly, he is out of town and she was supposed to get chemotherapy last week but the replacement oncologist said she is too weak to get it and advised her to seek care at the ER. The patient refused. The patient felt weak and had chills and an episode of incontinence. Patient reports she is upset with that doctor does not know why she needed to go to the ER. Your evaluation: Afebrile, blood pressure 135/59, respiratory rate 19, wonder % O2 saturation on room air, WBC 3200, hemoglobin 10.4 grams/deciliter, platelets 422, INR 1.1, potassium 3.2, serum creatinine 0.86, magnesium 2.1, alkaline phosphatase 181, AST ALT and total bilirubin normal, troponin 0.012, BNP 2770, TSH 2.690, urinalysis unremarkable, quad viral screen negative. D-dimer 0.85 and subsequently a CTA PE protocol was performed which did not demonstrate evidence for PE, no acute cardiopulmonary disease, fractures of T12 and L4, most likely chronic. She was given furosemide 20 mg IV x1, potassium 25 mEq p.o. x1. Patient reports her bilateral leg swelling have decreased greatly and her shortness of breath has also improved greatly. She is admitted on 12/04/2024 for further evaluation. ----- With her history of aortic stenosis and sudden shortness of breath and lower extremity swelling we will obtain echocardiogram. BNP elevated but she has no pulmonary edema evident on the CT. Another possibility is her decitabine causing swelling and heart dysfunction/shortness of breath. Advised the patient to discuss decitabine use with her oncologist. She reports her next cycle is on Saturday and she wants to get it no matter what. Accordingly, she wants to leave the hospital by Saturday. Monitor daily weight, intake/output. Follow-up on echocardiogram. Trend potassium level. Patient wishes to be full code. Heart healthy diet. Saline lock IV. Sawyer bailey. Hospitalist [facility] Advance Care Plan I have confirmed that the patient's Advanced Care Plan is present, code status is documented, or surrogate decision maker is listed in patient medical record.: Yes Medication Reconciliation I have utilized all available resources to obtain, update and review the patients current medications (includes all prescriptions, OTC, herbals, cannabis, and nutritional supplements).: Yes
[2024-12-05] VITALS (10 sets, daily range): BP systolic 155–156; BP diastolic 62–72; PULSE 81–106; RESP 14–20; TEMP 36.3–36.9; O2SAT 95–97
--- NOTE | 2024-12-05 | ECHO_ITS ---
Patient Info Name: Rimma Monzon Age: 74 years : 1950 Gender: Female Ht: 63 in Wt: 152 lbs BSA: 1.77 m2 HR: 87 bpm BP: 156 / 68 mmHg Technical Quality: Good Exam Date: 12/05/2024 7:29 AM Patient Status: I Admit Date: 12/04/2024 Exam Type: CA echo doppler color flow Complete two-dimensional, color flow and Doppler transthoracic echocardiogram is performed. Staff Referring Physician: Josephine Huynh Rubber Chemist: Mariya Rawls Attending Provider: Ana M Zimmerman Summary 1. Complete two-dimensional, color flow and Doppler transthoracic echocardiogram is performed. 2. Left ventricular chamber dimension is normal. 3. Left ventricular systolic function is normal, estimated at 65-70. 4. There is mild concentric increased left ventricular wall thickness. 5. The left ventricular diastolic function is abnormal. 6. E/e' 11 is mildly elevated. 7. Left atrial chamber dimension is mildly enlarged. 8. There is severe aortic valve sclerosis. 9. There is moderate aortic valve stenosis based on a peak velocity of 352 cm/s, mean gradient of 28 mmHg, and aortic valve area of 1.2 cm2. 10. There is mild mitral valve regurgitation. 11. There is mild tricuspid valve regurgitation. 12. Moderate pulmonary hypertension, estimated pulmonary arterial systolic pressure is 53 mmHg. Left Ventricle E/e' 11 is mildly elevated. Left ventricular chamber dimension is normal. Left ventricular systolic function is normal, estimated at 65-70. There is mild concentric increased left ventricular wall thickness. The left ventricular diastolic function is abnormal. Right Ventricle Right ventricular chamber dimension is normal. Right ventricular systolic function is normal. Left Atria Left atrial chamber dimension is mildly enlarged. Right Atria Right atrial chamber dimension is normal. Aortic Valve The aortic valve is not well visualized. There is severe aortic valve sclerosis. There is moderate aortic valve stenosis based on a peak velocity of 352 cm/s, mean gradient of 28 mmHg, and aortic valve area of 1.2 cm2. There is no aortic valve regurgitation. Pulmonic Valve There is no pulmonic regurgitation. Mitral Valve There is no mitral valve stenosis. There is mild mitral valve regurgitation. Tricuspid Valve There is mild tricuspid valve regurgitation. Moderate pulmonary hypertension, estimated pulmonary arterial systolic pressure is 53 mmHg. Pericardium/Pleural There is no pericardial effusion. Inferior Vena Cava Normal inferior vena cava with >50% collapse upon inspiration consistent with normal right atrial pressure, 5 mmHg. Aorta The aortic root size at the sinus of Valsalva is normal. Left Ventricular Outflow Tract Name Value Normal LVOT 2D LVOT Diameter 2.0 cm LVOT Doppler LVOT Peak Velocity 134 cm/s LVOT Peak Gradient 5 mmHg LVOT Mean Gradient 3 mmHg LVOT VTI 32 cm LVOT VTI/AV VTI Ratio 0.4 LVOT Stroke Volume 102 ml LVOT CO 7.2 l/min LVOT CI 4.1 l/min/m2 Pulmonic Valve Name Value Normal RVOT Doppler RVOT Peak Velocity 66 cm/s RVOT Peak Gradient 2 mmHg PV Doppler PV Peak Velocity 110 cm/s PV Peak Gradient 5 mmHg Mitral Valve Name Value Normal MV Diastolic Function MV E Peak Velocity 108 cm/s MV A Peak Velocity 107 cm/s MV E/A 1.0 MV Decel Time (PW) 194 ms MV Annular TDI MV E/e' (Septal) 10.8 MV E/e' (Lateral) 11.3 MV E/e' (Average) 11.1 Tricuspid Valve Name Value Normal TV Regurgitation Doppler TR Peak Velocity 345 cm/s TR Peak Gradient 48 mmHg Estimated PAP/RSVP RA Pressure 5 mmHg <=5 PA Systolic Pressure 53 mmHg <36 RV Systolic Pressure 53 mmHg <36 Aortic Valve Name Value Normal AV Doppler AV Peak Velocity 352 cm/s AV Peak Gradient 49 mmHg AV Mean Gradient 28 mmHg AV VTI 82 cm AV Area (Cont Eq VTI) 1.2 cm2 >=3.0 AV Area (Cont Eq Arjun) 1.2 cm2 AV DI (Arjun) 0.38 AV Regurgitation 2D LVOT Area 3.1 cm2 Ventricles Name Value Normal LV Dimensions 2D/MM IVS Diastolic Thickness (2D) 1.3 cm 0.6-1.0 LVID Diastole (2D) 3.5 cm 3.8-5.2 LVIW Diastolic Thickness (2D) 1.1 cm 0.6-0.9 LVID Systole (2D) 2.3 cm 2.2-3.5 LVOT Diameter 2.0 cm LV Mass (2D Cubed) 138.19 g 67.00-162.00 LV Mass Index (2D Cubed) 78 g/m2 43-95 Relative Wall Thickness (2D) 0.65 <=0.42 LV Fractional Shortening/Ejection Fraction 2D/MM LV Fractional Shortening (2D) 35 % 27-45 LV EF (2D Teichholz) 65 % LV Diastolic Volume (4C MOD) 80 ml LV EF (4C MOD) 63 % LV Diastolic Volume (2C MOD) 85 ml LV EF (2C MOD) 66 % LV Diastolic Volume (BP MOD) 82 ml 46-106 LV Diastolic Volume Index (BP MOD) 47 ml/m2 29-61 LV Systolic Volume (BP MOD) 29 ml 14-42 LV Systolic Volume Index (BP MOD) 17 ml/m2 8-24 LV EF (BP MOD) 65 % 54-74 LV Diastolic Length (4C) 7.6 cm LV Systolic Length (4C) 6.2 cm LV Stroke Volume (4C MOD) 50 ml Atria Name Value Normal LA Dimensions LA Volume (4C A-L) 34 ml LA Volume (BP A-L) 42 ml RA Dimensions RA Systolic Major [place] Length (4C) 4.9 cm 2.2-2.8 RA Area (4C) 11.6 cm2 <=18.0 Report Signatures
[2024-12-05] MEDS: traMADol HCL (*CRX) 50 MG TABLET PO ×2 (03:24→17:41)
[2024-12-05] MEDS: ACETAMINOPHEN 325 MG TABLET 650 MG PO (05:48)
[2024-12-05] MEDS: LEVOTHYROXINE SODIUM 100 MCG TABLET PO (05:49)
[2024-12-05 06:15] LABS: Hematocrit 29.1 % (37.0-47.0); Hemoglobin 9.4 g/dL (12.0-15.0); Immature Granulocyte Percent A 2.6 % (0-0.5); Lymphocytes Absolute Auto 0.86 K/mm3 (0.9-3.2); Mean Corpuscular HGB Conc 32.3 g/dl (32-36); Mean Corpuscular Hemoglobin 36.2 pg (26-34); Mean Corpuscular Volume 111.9 fl (80-100); Nucleated Red Blood Cells Absolute Auto 0.000 K/mm3 (0.0-0.012); Nucleated Red Blood Cells Perc 0.0 % (0.0-0.2); Platelet Count Result 420 k/mm3 (150-375); Red Blood Count 2.60 M/mm3 (4.2-5.4); White Blood Count 2.7 K/mm3 (4.5-10.0)
[2024-12-05 06:49] LABS: Alanine Aminotransferase 15 U/L (6-35); Albumin Level 2.4 g/dL (3.5-5.1); Alkaline Phosphatase 145 U/L (38-126); Anion Gap 4 mmol/L (4-12); Aspartate Amino Transferase 26 U/L (14-36); Bilirubin,Total < 0.1 mg/dL (0.2-1.3); Blood Urea Nitrogen 13 mg/dL (7-17); Calcium 8.0 mg/dL (8.4-10.2); Carbon Dioxide 27 mmol/L (22-30); Chloride 107 mmol/L (98-107); Estimated CRCL calculation 49 ml/min; Estimated Glomerular Filt Rate > 60; Glucose 80 mg/dL (65-110); Magnesium 1.8 mg/dL (1.6-2.3); Potassium 3.4 mmol/L (3.4-5.0); Sodium 138 mmol/L (137-145); Total Protein 5.3 g/dL (6.3-8.2)
[2024-12-05 07:33] LABS: Anisocytosis 1+; Hypochromasia 1+; Ovalocytes Occasional
[2024-12-05 07:34] LABS: Macrocytosis 1+ (NORMAL); Schistocytes None Seen
[2024-12-05] MEDS: ACYCLOVIR 400 MG TABLET PO ×2 (08:26→16:10)
[2024-12-05] MEDS: METOPROLOL SUCCINATE EXT REL 25 MG TABCR PO (08:26)
[2024-12-05] MEDS: LORATADINE 10 MG TABLET PO (08:26)
[2024-12-05] MEDS: FERROUS SULFATE 325 MG TABLET BY MOUTH ×3 (08:26→16:10)
[2024-12-05] MEDS: ESCITALOPRAM OXALATE 10 MG TABLET PO (08:27)
[2024-12-05] MEDS: GABAPENTIN 100 MG CAPSULE PO ×2 (08:27→20:31)
[2024-12-05] MEDS: PANTOPRAZOLE 40 MG TABLET PO (08:27)
[2024-12-05] MEDS: THERAPEUTIC MULTIVITAMINS/MINERALS TAB (*BKC) 1 TABLET PO (08:28)
--- NOTE | 2024-12-05 10:59 | P.PNIM_ITS ---
Progress Note: A&P Assessment and Plan (1) Heart murmur: Code(s): R01.1 - Cardiac murmur, unspecified Status: Acute Assessment and Plan: patient has known history of moderate aortic valve stenosis Echo ordered (2) Aortic stenosis, moderate: Code(s): I35.0 - Nonrheumatic aortic (valve) stenosis Status: Acute Assessment and Plan: Echo ordered Follows with cardiology as outpatient (3) Shortness of breath: Code(s): R06.02 - Shortness of breath Status: Acute Assessment and Plan: s/p CXR s/p CTA Chest without acute findings or PE D-dimer elevated Improved s/p IV lasix x 1 yesterday IV lasix 20 mg x 1 dose again today continuous pulse ox (4) Bilateral lower extremity edema: Code(s): R60.0 - Localized edema Status: Acute Assessment and Plan: Acute onset of 4+ edema in BLE per patient report Patient has no previous history of heart failure, last Echo 12/2023 Patient reports edema is significantly improved, still 1+ to BLE, left > right IV Lasix 20 mg x 1 dose today Echo done, results pending AM labs Sawyer bailey ordered (5) Hypokalemia: Code(s): E87.6 - Hypokalemia Status: Acute Assessment and Plan: k 3.2 on admission s/p 25 meq potassium x 1 dose k 3.4 today give 40 meq PO x 1 dose with IV Lasix AM labs Subjective Date/time seen: 12/05/24 10:59 Interval history: Patient seen and examined for a follow up visit. Patient seen in her room, lying in bed, in no acute distress. Patient reports pain in her back from an injury that occurred 3 weeks ago. Patient reports the pain is controlled with her home dose of Tramadol. Patient reports her breathing has improved and she is on room air. The edema in her legs has improved significantly, but there is still 1+ pitting edema to her bilateral lower extremities, with left being greater than the right. Echo was done this AM, results are pending. Order placed for IV furosemide 20 mg x 1 and potassium PO for diuresis. Patient continues on telemetry. Discussed low sodium diet with patient at bedside as well. Review of Systems Review of Systems: All systems reviewed & are unremarkable except as noted in HPI and below (Subjective) Exam Narrative: General: elderly, no acute distress HEENT: normocephalic, . Mucous membranes moist. EOMI Respiratory: clear to ascultation left side. few crackles heard in the base on the right, otherwise CTA, no rales or wheezes Cardiovascular: Regular rate and rhythm, normal S1-S2 upon ascultation. No murmurs, rubs, or clicks. Abdomen: Soft, round, no pulsatile masses, nondistended and nontender. No rebound, no guarding. Bowel sounds present to all four quadrants Extremities: No cyanosis, clubbing present. Patient with 1+ edema to BLE, left more than right Neuro: Alert and orientated x 4. Cranial nerves 2-12 intact without focal deficit. Skin: Warm, dry, and intact, without rash, erythema, or lesion.? Psych: pleasant, cooperative, normal speech, normal affect Objective Data Vital Signs Vital Signs: Vital Signs - 24 hr 12/04/24 17:15 12/04/24 18:02 12/04/24 18:16 Temperature 98.7 F Pulse Rate 96 84 88 Respiratory Rate 20 21 H Blood Pressure 149/54 H 152/57 H Pulse Oximetry 100 99 Oxygen Delivery Room Air 12/04/24 19:15 12/04/24 20:00 12/04/24 20:45 Temperature Pulse Rate 85 87 84 Respiratory Rate 19 19 20 Blood Pressure 140/63 128/62 135/59 L Pulse Oximetry 99 100 97 Oxygen Delivery 12/04/24 21:55 12/04/24 23:00 12/05/24 00:00 Temperature 97.2 F L Pulse Rate 94 85 81 Respiratory Rate 19 14 Blood Pressure 151/96 H 148/60 H Pulse Oximetry 100 98 Oxygen Delivery 12/05/24 04:00 12/05/24 05:00 12/05/24 08:26 Temperature 97.4 F L Pulse Rate 81 92 106 H Respiratory Rate 14 Blood Pressure 156/68 H Pulse Oximetry 95 Oxygen Delivery Intake/Output Intake/Output: Intake & Output 12/02/24 12/03/24 12/04/24 12/05/24 23:59 23:59 23:59 23:59 Intake Total 460 Output Total 1050 Balance -590 Meds/Results Medications: Active Medications Generic Name Dose Route Start Last Admin Trade Name Freq PRN Reason Stop Dose Admin Acetaminophen 650 mg 12/04/24 21:24 12/05/24 05:48 Acetaminophen 325 Mg Tablet PO 650 mg Q4H PRN Administration Mild Pain (1-3) or Fever Acyclovir 400 mg 12/05/24 09:00 12/05/24 08:26 Acyclovir 400 Mg Tablet PO 400 mg BID JENNY Administration Escitalopram Oxalate 10 mg 12/05/24 09:00 12/05/24 08:27 Escitalopram Oxalate 10 Mg Tablet PO 10 mg DAILY JENNY Administration Famotidine 20 mg 12/05/24 12:00 Famotidine 20 Mg Tablet PO 1200 JENNY Ferrous Sulfate 325 mg 12/05/24 09:00 12/05/24 08:26 Ferrous Sulfate 325 Mg Tablet BY MOUTH 325 mg TID JENNY Administration Gabapentin 100 mg 12/05/24 09:00 12/05/24 08:27 Gabapentin 100 Mg Capsule PO 100 mg Q12HR JENNY Administration Levothyroxine Sodium 100 mcg 12/05/24 06:30 12/05/24 05:49 Levothyroxine Sodium 100 Mcg Tablet PO 100 mcg DAILY@0630 JENNY Administration Loratadine 10 mg 12/05/24 09:00 12/05/24 08:26 Loratadine 10 Mg Tablet PO 10 mg DAILY JENNY Administration Melatonin 10 mg 12/05/24 21:00 Melatonin 5 Mg Tablet PO HS JENNY Metoprolol Succinate 25 mg 12/05/24 09:00 12/05/24 08:26 Metoprolol Succinate Ext Rel 25 Mg Tabcr PO 25 mg QAM JENNY Administration Multivitamins/Calcium 1 tablet 12/05/24 09:00 12/05/24 08:28 Therapeutic Multivitamins/Minerals Tab (*Bkc) PO 1 tablet DAILY JENNY Administration Pantoprazole Sodium 40 mg 12/05/24 09:00 12/05/24 08:27 Pantoprazole 40 Mg Tablet PO 40 mg QAM JENNY Administration Perflutren Lipid Microsphere 0 ml 12/04/24 21:27 Perflutren Lipid Microspheres 1.5 Ml Vial Diluted To 10 Ml Total Volume IV PUSH 12/07/24 21:28 ONCE PRN adequate visualization Protocol Simvastatin 40 mg 12/05/24 21:00 Simvastatin 20 Mg Tablet PO HS JENNY Tizanidine HCl 4 mg 12/05/24 02:43 Tizanidine Hcl 4 Mg Tablet PO HS PRN Muscle Spasticity Tramadol HCl 50 mg 12/05/24 02:43 12/05/24 03:24 Tramadol Hcl (*Crx) 50 Mg Tablet PO 50 mg Q6H PRN Administration Pain Rated 4-6 Radiology Results: ITS Impressions Chest X-Ray 12/04/24 19:03 Impression: 1: No acute cardiopulmonary disease. Chest CTA 12/04/24 20:38 IMPRESSION: 1. No acute cardiopulmonary disease. No evidence for pulmonary embolism. 2: Fractures of T12 and L1, most likely chronic. Labs Labs: Laboratory Results - last 24 hr 12/04/24 12/04/24 12/04/24 18:15 19:13 19:37 WBC 3.2 L RBC 2.87 L Hgb 10.4 L Hct 32.2 L MCV 112.2 H MCH 36.2 H MCHC 32.3 RDW 15.9 H Plt Count 422 H D MPV 9.4 Immature Gran % (Auto) 1.9 H Neut % (Auto) 52.8 Lymph % (Auto) 26.4 [place] % (Auto) 17.3 H Eos % (Auto) 0.3 Baso % (Auto) 1.3 H Lymph # (Auto) 0.84 L [place] # (Auto) 0.6 Eos # (Auto) 0.0 Baso # (Auto) 0.0 Abs Immat Gran (auto) 0.06 H Absolute Neuts (auto) 1.7 Absolute Nucleated RBC 0.000 Band Neutrophils % 0 Nucleated RBC % 0.0 Platelet Estimate Increased Hypochromasia 1+ Anisocytosis 2+ Microcytosis 1+ Macrocytosis 2+ Ovalocytes Schistocytes Occasional PT 14.3 INR 1.1 APTT 37.6 H D-Dimer 0.85 H Sodium 138 Potassium 3.2 L Chloride 108 H Carbon Dioxide 24 Anion Gap 6 BUN 15 D Creatinine 0.86 Estim Creat Clear Calc Not Reportable Estimated GFR > 60 Glucose 88 Calcium 8.3 L Magnesium 2.1 Total Bilirubin 0.3 AST 30 ALT 18 Alkaline Phosphatase 181 H Total Creatine Kinase 34 Troponin I < 0.012 NT-Pro-B Natriuret Pep 2770 H Total Protein 6.1 L Albumin 2.8 L TSH 2.690 Urine Color Yellow Urine Appearance Clear Urine pH 5.0 Ur Specific [place] 1.020 Urine Protein Negative Urine Glucose (UA) Negative Urine Ketones Negative Ur Blood (Man) Negative Urine Nitrate Negative Urine Bilirubin Negative Urine Urobilinogen 0.2 Leukocyte Esterase Rfl Negative Influenza A (RT-PCR) Negative Influenza B (RT-PCR) Negative RSV (RT-PCR) Negative SARS-CoV-2 RNA (RT-PCR) Negative 12/05/24 05:46 WBC 2.7 L RBC 2.60 L Hgb 9.4 L Hct 29.1 L MCV 111.9 H MCH 36.2 H MCHC 32.3 RDW 15.9 H Plt Count 420 H MPV 9.7 Immature Gran % (Auto) 2.6 H Neut % (Auto) 42.6 L Lymph % (Auto) 31.4 [place] % (Auto) 21.5 H Eos % (Auto) 0.4 Baso % (Auto) 1.5 H Lymph # (Auto) 0.86 L [place] # (Auto) 0.6 Eos # (Auto) 0.0 Baso # (Auto) 0.0 Abs Immat Gran (auto) 0.07 H Absolute Neuts (auto) 1.2 L Absolute Nucleated RBC 0.000 Band Neutrophils % Not Reportable Nucleated RBC % 0.0 Platelet Estimate Slightly increased Hypochromasia 1+ Anisocytosis 1+ Microcytosis Macrocytosis 1+ Ovalocytes Occasional Schistocytes None seen PT INR APTT D-Dimer Sodium 138 Potassium 3.4 Chloride 107 Carbon Dioxide 27 Anion Gap 4 BUN 13 Creatinine 0.84 Estim Creat Clear Calc 49 Estimated GFR > 60 Glucose 80 Calcium 8.0 L Magnesium 1.8 Total Bilirubin < 0.1 L AST 26 ALT 15 Alkaline Phosphatase 145 H Total Creatine Kinase Troponin I NT-Pro-B Natriuret Pep Total Protein 5.3 L Albumin 2.4 L TSH Urine Color Urine Appearance Urine pH Ur Specific [place] Urine Protein Urine Glucose (UA) Urine Ketones Ur Blood (Man) Urine Nitrate Urine Bilirubin Urine Urobilinogen Leukocyte Esterase Rfl Influenza A (RT-PCR) Influenza B (RT-PCR) RSV (RT-PCR) SARS-CoV-2 RNA (RT-PCR) Quality VTE Prophylaxis VTE prophylaxis: mechanical ordered
[2024-12-05] MEDS: FAMOTIDINE 20 MG TABLET PO (12:14)
[2024-12-05] MEDS: POTASSIUM CHLORIDE 20 MEQ ER TABLET 40 MEQ PO (12:38)
[2024-12-05] MEDS: FUROSEMIDE INJ 40 MG/4 ML VIAL 20 MG IV PUSH (12:39)
[2024-12-05] MEDS: MELATONIN 5 MG TABLET 10 MG PO (20:30)
[2024-12-05] MEDS: SIMVASTATIN 20 MG TABLET 40 MG PO (20:31)
[2024-12-06] VITALS: PULSE 83
[2024-12-06 04:00] VITALS: PULSE 81
[2024-12-06] MEDS: LEVOTHYROXINE SODIUM 100 MCG TABLET PO (05:30)
[2024-12-06 05:44] LABS: Hematocrit 30.9 % (37.0-47.0); Hemoglobin 10.0 g/dL (12.0-15.0); Mean Corpuscular HGB Conc 32.4 g/dl (32-36); Mean Corpuscular Hemoglobin 36.6 pg (26-34); Mean Corpuscular Volume 113.2 fl (80-100); Platelet Count Result 404 k/mm3 (150-375); Red Blood Count 2.73 M/mm3 (4.2-5.4); White Blood Count 2.7 K/mm3 (4.5-10.0)
[2024-12-06 05:55] LABS: Alanine Aminotransferase 14 U/L (6-35); Albumin Level 2.5 g/dL (3.5-5.1); Alkaline Phosphatase 124 U/L (38-126); Anion Gap 1 mmol/L (4-12); Aspartate Amino Transferase 29 U/L (14-36); Bilirubin,Total 0.2 mg/dL (0.2-1.3); Blood Urea Nitrogen 11 mg/dL (7-17); Calcium 8.3 mg/dL (8.4-10.2); Carbon Dioxide 31 mmol/L (22-30); Chloride 107 mmol/L (98-107); Estimated CRCL calculation 61 ml/min; Estimated Glomerular Filt Rate > 60; Glucose 91 mg/dL (65-110); Potassium 4.2 mmol/L (3.4-5.0); Sodium 139 mmol/L (137-145); Total Protein 5.3 g/dL (6.3-8.2)
[2024-12-06 06:00] VITALS: BP 121/49; PULSE 89; RESP 18; TEMP 36.5; O2SAT 95
[2024-12-06 06:16] LABS: Band Neutrophils Percent 1 % (0-6); Basophils Absolute Manual 0.05 K/mm3 (0.0-0.1); Basophils Percent Manual 2 % (0-1); Eosinophils Absolute Manual 0.02 K/mm3 (0.02-0.50); Eosinophils Percent Manual 1 % (0-4); Giant Platelets Present; Lymphocytes Absolute Manual 0.29 K/mm3 (1.1-4.5); Lymphocytes Percent Manual 11 % (18-44); Monocytes Absolute Manual 0.16 K/mm3 (0.1-0.90); Monocytes Percent Manual 6 % (3-9); Neutrophils Absolute Manual 0.81 K/mm3 (1.3-6.7); Neutrophils Percent Manual 29 % (46-73); Total Cells Counted 50
[2024-12-06 06:17] LABS: Anisocytosis 1+
[2024-12-06 06:18] LABS: Macrocytosis 1+ (NORMAL); Ovalocytes Occasional; Schistocytes None Seen
[2024-12-06 08:00] VITALS: PULSE 113
[2024-12-06 08:29] VITALS: PULSE 98
[2024-12-06] MEDS: FERROUS SULFATE 325 MG TABLET BY MOUTH ×2 (08:29→12:07)
[2024-12-06] MEDS: ACYCLOVIR 400 MG TABLET PO (08:29)
[2024-12-06] MEDS: LORATADINE 10 MG TABLET PO (08:29)
[2024-12-06] MEDS: THERAPEUTIC MULTIVITAMINS/MINERALS TAB (*BKC) 1 TABLET PO (08:29)
[2024-12-06] MEDS: ESCITALOPRAM OXALATE 10 MG TABLET PO (08:29)
[2024-12-06] MEDS: METOPROLOL SUCCINATE EXT REL 25 MG TABCR PO (08:29)
[2024-12-06] MEDS: GABAPENTIN 100 MG CAPSULE PO (08:29)
[2024-12-06] MEDS: PANTOPRAZOLE 40 MG TABLET PO (08:29)
--- NOTE | 2024-12-06 11:48 | PM.DS ---
DS: Admitting Diagnosis Discharge Date 12/06/2024 Admitting Diagnosis shortness of breath, bilateral lower extremity edema DS: Discharge Diagnosis Discharge Diagnosis (1) Heart murmur: Code(s): R01.1 - Cardiac murmur, unspecified Status: Acute Assessment and Plan: patient has known history of moderate aortic valve stenosis Echo reviewed (2) Aortic stenosis, moderate: Code(s): I35.0 - Nonrheumatic aortic (valve) stenosis Status: Acute Assessment and Plan: Echo ordered Follows with cardiology as outpatient, patient will make appt with Dr. Reese Echo reviewed (3) Shortness of breath: Code(s): R06.02 - Shortness of breath Status: Acute Assessment and Plan: s/p CXR s/p CTA Chest without acute findings or PE D-dimer elevated Improved s/p IV lasix x 2 doses PO lasix on discharge (4) Bilateral lower extremity edema: Code(s): R60.0 - Localized edema Status: Acute Assessment and Plan: Acute onset of 4+ edema in BLE per patient report Patient has no previous history of heart failure, last Echo 12/2023 Patient reports edema is significantly improved, still 1+ to BLE, left > right IV Lasix 20 mg x 2 doses Sawyer hose ordered edema resolved continue PO lasix 20 mg daily (5) Hypokalemia: Code(s): E87.6 - Hypokalemia Status: Acute Assessment and Plan: k 3.2 on admission s/p potassium replacement resolved continue 10 meq PO daily on discharge patient to see PCP in 1 week for repeat labs (6) Acute diastolic heart failure: Code(s): I50.31 - Acute diastolic (congestive) heart failure Status: Acute Assessment and Plan: patient presented with dyspnea and BLE edema Echo reviewed with noted new diastolic dysfunction, EF normal patient sees cardiology Dr. Reese as outpatient, she will make appointment to see him on discharge discharge on PO lasix 20 mg daily, patient will monitor edema and notify PCP or ecological risk assessor if dose needs adjusted patient to follow up with PCP to check labs in 1 week DS: Summary Hospital Course Reason for hospitalization: dyspnea Hospital Course: Patient was admitted for dyspnea and bilateral lower extremity edema. Patient was given a one time dose of IV furosemide 20 mg with noted improvement in the dyspnea and BLE edema. Patient had an Echo completed which showed new diastolic dysfunction with normal EF. Patient received a second dose of IV furosemide 20 mg and oral potassium supplementation. Patient was not seen by cardiology prior to discharge, however she needed to be discharged today so she can attend her infusion tomorrow without issue. Patient sees Dr. Reese as an outpatient and will call the office to schedule a visit. Patient will discharge on PO furosemide 20 mg daily, PO potassium chloride 10 mEq daily and a low sodium diet. Patient will follow up with her PCP in 1 week to have a BMP checked for her kidney function and electrolytes. Time Spent with Patient Time attestation: Total time spent providing and/or coordinating discharge services: 35 minutes Exam Narrative: General: elderly, no acute distress HEENT: normocephalic, . Mucous membranes moist. EOMI Respiratory: clear to ascultation left side. few crackles heard in the base on the right, otherwise CTA, no rales or wheezes Cardiovascular: Regular rate and rhythm, normal S1-S2 upon ascultation. No murmurs, rubs, or clicks. Abdomen: Soft, round, no pulsatile masses, nondistended and nontender. No rebound, no guarding. Bowel sounds present to all four quadrants Extremities: No cyanosis, clubbing present. Trace edema to LLE, RLE no edema Neuro: Alert and orientated x 4. Cranial nerves 2-12 intact without focal deficit. Skin: Warm, dry, and intact, without rash, erythema, or lesion.? Psych: pleasant, cooperative, normal speech, normal affect DS: Data Data Completed and Pending Labs on day of discharge: Labs from last 24 hours 12/06/24 05:14 WBC 2.7 L RBC 2.73 L Hgb 10.0 L Hct 30.9 L MCV 113.2 H MCH 36.6 H MCHC 32.4 RDW 16.2 H Plt Count 404 H MPV 9.2 Immature Gran % (Auto) Not Reportable Neut % (Auto) Not Reportable Lymph % (Auto) Not Reportable [place] % (Auto) Not Reportable Eos % (Auto) Not Reportable Baso % (Auto) Not Reportable Lymph # (Auto) Not Reportable [place] # (Auto) Not Reportable Eos # (Auto) Not Reportable Baso # (Auto) Not Reportable Abs Immat Gran (auto) Not Reportable Absolute Neuts (auto) Not Reportable Absolute Nucleated RBC Not Reportable Total Counted 50 Neutrophils % (Manual) 29 L Band Neutrophils % 1 Lymphocytes % (Manual) 11 L Monocytes % (Manual) 6 Eosinophils % (Manual) 1 Basophils % (Manual) 2 H Nucleated RBC % Not Reportable Abs Neuts (Manual) 0.81 L Abs Lymphs (Manual) 0.29 L Abs Monocytes (Manual) 0.16 Absolute Eos (Manual) 0.02 Abs Basophils (Manual) 0.05 Platelet Estimate Slightly increased Large Platelets Present Giant Platelets Present Anisocytosis 1+ Macrocytosis 1+ Ovalocytes Occasional Schistocytes None seen Sodium 139 Potassium 4.2 Chloride 107 Carbon Dioxide 31 H Anion Gap 1 L BUN 11 Creatinine 0.67 L Estim Creat Clear Calc 61 Estimated GFR > 60 Glucose 91 Calcium 8.3 L Total Bilirubin 0.2 AST 29 ALT 14 Alkaline Phosphatase 124 Total Protein 5.3 L Albumin 2.5 L Discharge Plan Discharge Attending physician on discharge: Candice Feliz Consulting providers: Hector Ha Discharging Clinician: Lina Vera Patient Disposition: Home Activity: as tolerated Diet: heart healthy Patient Instructions: Antibiotic Form Patient Language: Estonian Stand Alone Forms: General Discharge Information Follow-up/Referrals: Parminder Reese DO [Physician, Cardiology] Referral Note: Please call upon discharge for an appointment to review your Echocardiogram that was done while inpatient and doses of furosemide and potassium Shashank Sheehan APRN [Primary Care Provider, Internal Medicine] Referral Note: call for an appt to be seen within 1-2 weeks of discharge. Please ask for your PCP to check a BMP (electrolytes and kidney function) about 1 week after discharge. Discharge Medications: New furosemide [Lasix] 20 mg tablet 20 mg PO DAILY Qty: 30 0RF potassium chloride [Klor-Con 10] 10 mEq tablet extended release 10 meq PO DAILY Qty: 30 0RF Continued decitabine [Dacogen] 50 mg recon soln 35 mg IV .COMPLEX Rx Instructions: 35 mg intravenously Monthly for 5 days; tizanidine 4 mg capsule 4 mg PO HS PRN (Reason: muscle spasticity) Qty: 14 0RF Magic Mouthwash 50 mL suspension 10 ml PO .every 4 hours PRN (Reason: mouth pain) Qty: 50 Patient Comments: . tramadol 50 mg tablet 50 mg PO Q6H PRN (Reason: pain) gabapentin 100 mg capsule 100 mg PO Q12H loratadine 10 mg tablet 10 mg PO DAILY Patient Comments: . famotidine [Pepcid AC] 20 mg tablet 20 mg PO QACLUNCH Patient Comments: ... calcium carb-D3-mag [id number] [phone] hr-qqks-jh-mg tablet 1 tablet PO BID Patient Comments: . Rx Instructions: administer with a meal escitalopram oxalate 10 mg tablet 10 mg PO DAILY Qty: 90 2RF Patient Comments: . Rx Instructions: TAKE 1 TABLET BY MOUTH ONCE DAILY IN THE MORNING felodipine 5 mg tablet extended release 24 hr 5 mg PO DAILY Qty: 90 2RF Patient Comments: . ondansetron HCl 8 mg tablet 8 mg PO Q12H Epogen 20,000 unit/mL solution 20,000 unit subcut WEEKLY PRN (Reason: based on labs) Patient Comments: . cyanocobalamin (vitamin B-12) 1,000 mcg capsule 1,000 mcg PO DAILY Patient Comments: . melatonin 5 mg Tablet 10 mg PO HS Patient Comments: . acyclovir 400 mg tablet 400 mg PO BID Patient Comments: ...... ferrous sulfate [Iron (ferrous sulfate)] 325 mg (65 mg iron) Tablet 325 mg PO TID Patient Comments: . omeprazole 20 mg Capsule,Delayed Release(Dr/Ec) 20 mg PO DAILY [id number] Tablet 1 tablet PO DAILY Anavex 1.5 billion cell Capsule 1 cap PO QAM Patient Comments: ... losartan 100 mg tablet See Rx Instructions .ROUTE .COMPLEX Qty: 90 2RF Dose Instruction: Take 1 tablet by mouth once daily Patient Comments: . Rx Instructions: Take 1 tablet by mouth once daily simvastatin 40 mg tablet 40 mg PO HS Qty: 90 2RF Rx Instructions: TAKE 1 TABLET BY MOUTH ONCE DAILY AT BEDTIME metoprolol succinate 25 mg tablet extended release 24 hr 25 mg PO QAM Qty: 90 2RF Rx Instructions: Take 1 tablet by mouth once daily levothyroxine [Levoxyl] 100 mcg tablet 100 mcg PO DAILY Qty: 90 1RF tizanidine 4 mg capsule 4 mg PO QHS PRN (Reason: muscle spasticity) Qty: 30 2RF Patient Comments: . meloxicam 15 mg tablet 15 mg PO HS Qty: 90 1RF Patient Comments: . Date of admission: 12/05/24 13:54 Primary Care Provider: Shashank Sheehan Admitting Provider: Ana M Zimmerman Attending physician on admission: Ana M Zimmerman Condition: Stable Quality VTE Prophylaxis VTE prophylaxis: mechanical ordered
[2024-12-06] MEDS: FAMOTIDINE 20 MG TABLET PO (12:08)
== END 2024-12-06 12:45 | disposition home or self-care (01) | DRG 291 ==
LOC: ANHED 18:18 → ANH3MEDSUR 22:14
PROVIDERS: Admitting Provider General Practice; Emergency Provider Student in an Organized Health Care Education/Training Program; PCP Nurse Practitioner; Visit Provider Nurse Practitioner Adult Health
DX: I11.0 Hypertensive heart disease with heart failure (principal); I50.31 Acute diastolic (congestive) heart failure; D61.818 Other pancytopenia; I35.0 Nonrheumatic aortic (valve) stenosis; D46.9 Myelodysplastic syndrome, unspecified; E03.9 Hypothyroidism, unspecified; E87.6 Hypokalemia; R01.1 Cardiac murmur, unspecified; R60.0 Localized edema; M54.89 Other dorsalgia; Z20.822 Contact with and (suspected) exposure to COVID-19; F10.90 Alcohol use, unspecified, uncomplicated; S32.040D Wedge compression fracture of fourth lumbar vertebra, subsequent encounter for fracture with routine healing; Z96.653 Presence of artificial knee joint, bilateral; Z79.69 Long term (current) use of other immunomodulators and immunosuppressants; Z87.891 Personal history of nicotine dependence; S32.049G Unspecified fracture of fourth lumbar vertebra, subsequent encounter for fracture with delayed healing
CPT/HCPCS: 36415; 71045; 71275; 80053; 81003; 82550; 83735; 83880; 84443; 84484; 85025; 85380; 85610; 85730; 87637; 93005; 93306; 96374; 96375; 96376; 99285; A9270; G0378; J1938; Q9967

== ENCOUNTER 2024-12-10 13:50 | Outpatient (CLI) | payer MEDICARE, OTHER, SELFPAY ==
--- NOTE | ~2024-12-10 | MM_ITS ---
EXAMINATION: MM screening brandon BI w amira HISTORY: Screening TECHNIQUE: Craniocaudal and mediolateral oblique 3-D tomosynthesis images were obtained and synthetic 2-D images were generated. CAD analysis was submitted and interpreted. COMPARISON: Comparison to multiple prior studies sequentially, with oldest reviewed study dated , 07/30/2018 BREAST PARENCHYMAL COMPOSITION: There are scattered areas of fibroglandular density. FINDINGS: There is no evidence of suspicious mass, calcification, or architectural distortion to suggest malignancy in either breast. IMPRESSION: 1. No mammographic evidence of malignancy. 2. Recommend routine screening mammography in one year. BI-RADS Category 1: Negative Reviewed, dictated and finalized at location C.
--- OUTSIDE RECORDS SUMMARY | 2024-12-10 15:35 | XMS_ITS | Clinical Summary ---
Author Organization [facility] Address [address], [address] [address] Phone Care Team Providers Care Display Carver Name Role Phone Micha Baker MD Primary Care Provider [phone] Rakesh Irby DO Unavailable [phone] Allergies Active Allergy Reactions Criticality Noted [...] Most Recently Relevant to Health Maintenance Insurance [facility] Care Teams Display Carver Relationship Specialty Start Date End Date Micha Baker MD [address] [facility] [address] [place] [address] PCP - General Internal Medicine 10/10/15 Rakesh Irby DO [address] [facility] [address] [place] [address] Consulting Physician Gastroenterology 10/10/15
--- OUTSIDE RECORDS SUMMARY | 2024-12-10 15:36 | XMS_ITS | Encounter Summary ---
Author Organization [facility] Address [address] [place] [address] Care Team Providers Care Terminal Operator Name Role Phone Angus Cope DO Primary Care Provider [phone] Encounter Details Date Type Department Care Team (Late Contact Info) Description 12/07/2024 Orders Only [facility] Oncology and Hematology [facility] [address] [place] [address] Bang Donnelly MD [address] [place] [id number] Social History Tobacco Use Types Packs/Day [...] Care Team (Late st Contact Info) Description 01/04/2025 1:00 PM CDT Office Visit [facility] Oncology and Hematology [address] [place] [address] Bang Donnelly MD [address] [place] [address] documented as of this encounter Procedures Procedure Name Priority Date/Time Associated Diagnosis Comments BASIC METABOLIC PANEL Routine 12/07/2024 1:37 PM CDT COMPREHENSIVE METABOLIC PANEL Routine 12/07/2024 1:30 PM CDT documented in this encounter Results * BASIC METABOLIC PANEL (12/07/2024 1:37 PM CDT) Blood us Bang Donnelly MD CHEMISTRY ORDERABLES Final Resu lt * COMPREHENSIVE METABOLIC PANEL (12/07/2024 1:30 PM CDT) Blood us Bang Donnelly MD CHEMISTRY ORDERABLES Final Resu lt documented in this encounter Visit Diagnoses Not on filedocumented in this encounter Care Teams Terminal Operator Relationship Specialty Start Date End Date Angus Cope DO [address] [facility] [address] [place] [address] PCP - General Internal Medicine 11/04/23 documented as of this encounter
--- OUTSIDE RECORDS SUMMARY | 2024-12-10 15:36 | XMS_ITS | Clinical Summary ---
Author Organization [facility] Ward [place] [facility] Address [address] [place] [address] Care Team Providers Care Vocational Adviser Name Role Phone Angus Cope DO Primary Care Provider [phone] Allergies Active Allergy Reactions Criticality Noted Date [...] 6 Tablets 20 Tablet 11/28/19 25 Active furosemide (LASIX) 20 mg tablet Take 20 mg by mouth daily. 12/07/19 25 Active potassium CHLORIDE (KLOR-CON) 10 mEq Extended Release tablet Take 10 mEq by mouth one time only. 12/07/19 25 Active traMADol (ULTRAM) 50 mg tabletIndicat [...] Encounters Date Type Department Care Team Description 12/10/2024 Orders Only [facility] Oncology and Hematology - [address] [place] [address] Bang Donnelly MD Chronic anemia (Primary Dx) 12/07/2024 9:30 AM CDT Office Visit [facility] Oncology and Hematology - Vik [address] [place] [phone] Mable Caputo MD MDS (myelodysplastic syndrome) (CMS/HCC) (Primary Dx); Chronic anemia; Bilateral hip pain 12/07/2024 Orders Only [facility] Oncology and Hematology - [address] [place] [phone] Bang Donnelly MD 12/02/2024 Orders Only [facility] Oncology and Hematology - [address] [place] [phone] Bang Donnelly MD 12/02/2024 Telephone [facility] Oncology and Hematology - [address] [place] [address] Mable Caputo MD Urine Results 12/01/2024 Orders Only [facility] Oncology and Hematology - Vik [address] [place] [address] Bang Donnelly MD MDS (myelodysplastic syndrome) (CMS/HCC) (Primary Dx) 11/30/2024 Orders Only [facility] Oncology and Hematology - Vik [address] [place] [address] Bang Donnelly MD MDS (myelodysplastic syndrome) (CMS/HCC) 11/27/2024 Orders Only [facility] Oncology and Hematology - [address] [place] [address] Bang Donnelly MD Bilateral hip pain (Primary Dx) 11/23/2024 Refill [facility] Oncology and Hematology - [address] [place] [address] Bang Donnelly MD Bilateral hip pain 11/16/2024 Orders Only [facility] Oncology and Hematology - [address] [place] [address] Bang Donnelly MD MDS (myelodysplastic syndrome) ([facility]/HCC) 11/11/2024 Refill [facility] Oncology and Hematology - [address] [place] [address] Bang Donnelly MD Bilateral hip pain 11/10/2024 Orders Only [facility] Oncology and Hematology - Vik [address] [place] [phone] Bang Donnelly MD 11/04/2024 9:00 AM CDT Office Visit [facility] Oncology and Hematology - [address] [place] [phone] Bang Donnelly MD MDS (myelodysplastic syndrome) ([facility]/HCC) (Primary Dx) 11/03/2024 Orders Only [facility] Oncology and Hematology - [address] [place] [address] Bang Donnelly MD 11/02/2024 Orders Only [facility] Oncology and Hematology - [address] [place] [phone] Bang Donnelly MD MDS (myelodysplastic syndrome) (CMS/HCC) 10/27/2024 Orders Only [facility] Oncology and Hematology - [address] [place] [address] Bang Donnelly MD 10/26/2024 Refill [facility] Oncology and Hematology - Vik [address] [place] [address] Bang Donnelly MD Bilateral hip pain 10/21/2024 Orders Only [facility] Oncology and Hematology - [address] [place] [address] Bang Donnelly MD 10/19/2024 Orders Only [facility] Oncology and Hematology - [address] [place] [address] Bang Donnelly MD MDS (myelodysplastic syndrome) ([facility]/HCC) 10/16/2024 Orders Only [facility] Oncology and Hematology - [address] [place] [address] Bang Donnelly MD 10/14/2024 External Device Data STL ABSTRACTION Provider, Abstract 10/14/2024 Orders Only [facility] Oncology and Hematology - [address] [place] [address] Bang Donnelly MD 10/14/2024 Telephone [facility] Oncology and Hematology - [address] [place] [phone] Bang Donnelly MD Medication Review 10/13/2024 Orders Only [facility] Oncology and Hematology - [address] [place] [phone] Bang Donnelly MD 10/13/2024 External Device Data STL ABSTRACTION Provider, Abstract 10/09/2024 Orders Only [facility] Oncology and Hematology - [address] [place] [phone] Bang Donnelly MD 10/07/2024 9:00 AM CDT Office Visit [facility] Oncology and Hematology - [address] [place] [phone] Bang Donnelly MD MDS (myelodysplastic syndrome) ([facility]/HCC) (Primary Dx) 10/05/2024 Orders Only [facility] Oncology and Hematology - [address] [place] [address] Bang Donnelly MD MDS (myelodysplastic syndrome) (CMS/HCC) 09/25/2024 Orders Only [facility] Oncology and Hematology - [address] [place] [address] Bang Donnelly MD 09/22/2024 External Device Data STL ABSTRACTION Provider, Abstract 09/22/2024 Refill [facility] Oncology and Hematology - [address] [place] [address] Dot Bean MD 09/22/2024 Refill [facility] Oncology and Hematology - [address] [place] [address] Bang Donnelly MD Bilateral hip pain 09/21/2024 Orders Only [facility] Oncology and Hematology - [address] [place] [address] Bang Donnelly MD MDS (myelodysplastic syndrome) ([facility]/HCC) 09/15/2024 Orders Only [facility] Oncology and Hematology - [address] [place] [address] Bang Donnelly MD 09/15/2024 External Device Data STL ABSTRACTION Provider, Abstract 09/14/2024 Orders Only [facility] Oncology and Hematology - [address] [place] [address] Bang Donnelly MD 09/10/2024 Orders Only [facility] Oncology and Hematology - [address] [place] [address] Bang Donnelly MD from Last 3 Months [...] Sign Reading Time Taken Comments Blood Pressure 104/71 12/07/2024 9:09 AM CDT Pulse 104 12/07/2024 9:09 AM CDT Temperature 36.5 C (97.7 F) 12/07/2024 9:09 AM CDT Respiratory Rate 16 12/07/2024 9:09 AM CDT Oxygen Saturation 94% 12/07/2024 9:09 AM CDT Inhaled Oxygen Concentration - - Weight 79 kg (174 lb 3.2 oz) 12/07/2024 9:09 AM CDT Height 157.5 cm (5' 2) 12/12/2021 2:16 PM CDT Body Mass Index 31.86 12/12/2021 2:16 PM CDT Plan of Treatment Upcoming Encounters Date Type Department Care Team (Late st Contact Info) Description 01/04/2025 1:00 PM CDT Office Visit [facility] Oncology and Hematology - Vik [address] [facility] [address] [facility] [address] [place] [phone] Bang Donnelly MD [address] [facility] [address] [place] [address] Health Maintenance Due Date Last Done Comments DIABETES ANNUAL FOOT EXAM 1970 DIABETES ANNUAL RETINAL EXAM 1970 DIABETES MICROALBUMIN ANNUAL SCREEN 1970 LDL CHOLESTEROL ANNUAL 1970 DTAP/TDAP/TD VACCINES (1 - Tdap) 11/18/1971 Traditional Medicare (ACO) A nnual Wellness Visit 11/18/1971 FIT-DNA Q 3 years 1997 FIT/FOBT Q 1 year 1997 Flex Sig/CT Colonography Q 5 years 1997 PNEUMOCOCCAL VACCINE 50+ YEA RS (2 of 2 - PPSV23, PCV20, or PCV21) 04/24/2016 02/28/2016 ZOSTER VACCINE (2 of 3) 04/24/2016 02/28/2016 OSTEOPOROSIS SCREENING 07/31/2023 07/30/2018 INFLUENZA VACCINE (#1) 2024 , 01/08/2023, 01/04/2022, Additional history exists BREAST CANCER SCREENING 11/18/2024 11/19/19, 11/19/2023, 11/14/2022, Additional history exists COVID-19 Vaccine (5 - 2024-2 6 season) 2024 12/16/2021, 01/10/2021, 07/05/2020, Additional history exists DIABETES HBA1C Q 6 MONTHS 03/16/20252024, 11/04/2023, 04/15/2023, Additional history exists RSV VACCINE (60+ or ) (1 - 1-dose 75+ series) 11/18/2027 COLORECTAL SCREENING 02/05/2033 02/05/2023, 10/10/19 Colorectal Cancer Screening 02/05/2033 Procedures Procedure Name Priority Date/Time Associated Diagnosis Comments BASIC METABOLIC PANEL Routine 12/07/2024 1:37 PM CDT COMPREHENSIVE METABOLIC PANEL Routine 12/07/2024 1:30 PM CDT URINE CULTURE Routine 12/01/2024 12:51 PM CDT [...] HIP 2 OR 3 VIEWS LT Routine 5 10:04 AM CDT HEMOGLOBIN A1C Routine 11/04/2023 4:22 PM CDT from Last 3 Months or Most Recently Relevant to Health Maintenance Results * BASIC METABOLIC PANEL (12/07/2024 1:37 PM CDT) Only the most recent of2 resultswithin the time period is included. Blood us Bang Donnelly MD CHEMISTRY ORDERABLES Final Resu lt * COMPREHENSIVE METABOLIC PANEL (12/07/2024 1:30 PM CDT) Only the most recent of5 resultswithin the time period is included. Blood us Bang Donnelly MD CHEMISTRY ORDERABLES Final Resu lt * URINE CULTURE (12/01/2024 12:51 PM CDT) Urine us Bang Donnelly MD MICROBIOLOGY - GENERAL ORDERABL ES Final Result * CBC WITH AUTODIFFERENTIAL (11/27/2024 12:27 PM CDT) Only the most recent of4 resultswithin the time period is included. Blood us Bang Donnelly MD HEMATOLOGY ORDERABLES Final Res ult * CBC WITH DIFFERENTIAL (10/26/2024 4:22 PM CDT) Only the most recent of6 resultswithin the time period is included. Blood us Bang Donnelly MD HEMATOLOGY ORDERABLES Final Res ult * IRON LEVEL (10/13/2024 8:59 AM CDT) Blood us Bang Donnelly MD CHEMISTRY ORDERABLES Final Resu lt * XR HIP 2 OR 3 VIEWS LT (09/09/2024 10:04 AM CDT) Anatomical Region Laterality Modality Lower Extremity Left Other Bang Donnelly MD DIAGNOSTIC IMAGING ORDERABLES F inal Result * HEMOGLOBIN A1C (11/04/2023 4:22 PM CDT) Blood Provider Scanning CHEMISTRY ORDERABLES Final Res ult from Last 3 Months or Most Recently Relevant to Health Maintenance Insurance MEDICARE PART A AND B [id number] Care Teams Vocational Adviser Relationship Specialty Start Date End Date Angus Cope DO [address] [facility] [address] [facility] [address] [place] [address] PCP - General Internal Medicine 11/04/23
--- OUTSIDE RECORDS SUMMARY | 2024-12-10 15:36 | XMS_ITS | Encounter Summary ---
Author Organization [facility] [address] [facility] [facility] Address [address] [place] [address] Care Team Providers Care Director Of Photography Name Role Phone Angus Cope DO Primary Care Provider [phone] Encounter Details Date Type Department Care Team (Late Contact Info) Description 12/10/2024 Orders Only [facility] Oncology and Hematology [facility] [address] [place] [address] Bang Donnelly MD [facility] [employer] [address] [place] [address] Chronic anemia (Primary Dx) Social History Tobacco Use Types [...] Department Care Team (Late Contact Info) Description 01/04/2025 1:00 PM CDT Office Visit [facility] Oncology [facility] Hematology [facility] [address] [place] [address] Bang Donnelly MD [address] [employer] [address] [place] [address] Scheduled Orders Name Type Priority Associated Diagnoses Orde r Schedule FERRITIN Lab Routine Chronic anemia Expected: 12/10/2024, Expires: 12/10/2025 IRON, TIBC, AND PERCENT SATURATION Lab Routine Chronic anemia Expected: 12/10/2024, Expires: 12/10/2025 documented as of this encounter Visit Diagnoses Diagnosis Chronic anemia- Primary Anemia, unspecified documented in this encounter Care Teams Director Of Photography Relationship Specialty Start Date End Date Angus Cope DO [address] [facility] [address] [place] [address] PCP - General Internal Medicine 11/04/23 documented as of this encounter
== END 2024-12-10 13:51 | disposition home or self-care (01) ==
LOC: ANHFOHIMG 13:51
PROVIDERS: PCP Nurse Practitioner; Visit Provider Nurse Practitioner
DX: Z12.31 Encounter for screening mammogram for malignant neoplasm of breast (principal)
CPT/HCPCS: 77063; 77067

== ENCOUNTER 2024-12-17 09:39 | Outpatient (CLI) | payer MEDICARE, OTHER, SELFPAY ==
--- NOTE | ~2024-12-17 | MR_ITS ---
EXAMINATION: MR lumbar spine wo/w con DATE: 12/17/2024 10:39 INDICATION: Back pain. Fracture of fourth lumbar vertebra. TECHNIQUE: Magnetic resonance imaging (MRI) of the lumbar spine was performed without and with 13 mL MultiHance intravenous contrast. COMPARISON: Lumbar spine radiographs 11/05/2024, chest CT 12/04/2024 FINDINGS: There is 16 degrees levoscoliosis of thoracolumbar spine. There is a burst fracture of T12 with 3/5 loss of height, retropulsion of bone 4 mm into central spinal canal, and edema-like marrow signal intensity. There is a chronic compression fracture of T12 with 2/5 loss of height. There is a burst fracture of L3 with 2/5 loss of height, edema-like marrow signal intensity of the inferior endplate, and retropulsion of bone 2 mm into central spinal canal. There is a burst fracture of L4 with 3/5 loss of height, edema-like marrow signal intensity, and retropulsion of bone 5 mm into central spinal canal. There is a chronic compression fracture of L5 with 1/5 loss of height. There is ligamentum flavum hypertrophy from L2-L3 through L5-S1. The distal spinal cord signal intensity is normal. The conus medullaris is at L1. The following disc levels are specifically discussed: L1-L2: The disc is bulging. There is severe right and moderate left facet joint osteoarthritis. There is mild bilateral neural foraminal stenosis. There is mild central canal stenosis. L2-L3: The disc is bulging and has an annular fissure. There is severe bilateral facet joint osteoarthritis. There is moderate bilateral neural foraminal stenosis. There is mild central canal stenosis. L3-L4: The disc is bulging and has an annular fissure. There is moderate bilateral facet joint osteoarthritis. There is moderate bilateral neural foraminal stenosis. There is mild central canal stenosis. L4-L5: The disc is bulging and has an annular fissure. There is severe bilateral facet joint osteoarthritis. There is moderate bilateral neural foraminal stenosis. There is mild central canal stenosis. L5-S1: The disc is bulging and has an annular fissure. There is severe bilateral facet joint osteoarthritis. There is mild bilateral neural foraminal stenosis. There is mild central canal stenosis. IMPRESSION: 1. Subacute burst fractures of T12, L3, and L4. 2. Severe lumbar spondylosis. 3. Thoracolumbar levoscoliosis. Reviewed, dictated and finalized at location E.
--- OUTSIDE RECORDS SUMMARY | 2024-12-17 10:11 | XMS_ITS | Clinical Summary ---
Author Organization [facility] Ward dhaliwal [facility] Address [address] [place] [address] Care Team Providers Care Sales Support Rep Name Role Phone Angus Cope DO Primary Care Provider [phone] Allergies Active Allergy Reactions Criticality Noted Date [...] Encounters Date Type Department Care Team Description 12/15/2024 External Device Data STL ABSTRACTION Provider, Abstract 12/15/2024 Orders Only [facility] Oncology and Hematology - Vik [address] [place] [phone] Bang Donnelly MD 12/14/2024 Orders Only [facility] Oncology and Hematology - Vik [address] [place] [phone] Bang Donnelly MD MDS (myelodysplastic syndrome) (CMS/HCC) 12/10/2024 Orders Only [facility] Oncology and Hematology - Vik [address] [place] [phone] Bang Donnelly MD Chronic anemia (Primary Dx) 12/07/2024 9:30 AM CDT Office Visit [facility] Oncology and Hematology - Vik [address] [place] [phone] Mable Caputo MD MDS (myelodysplastic syndrome) ([facility]/HCC) (Primary Dx); Chronic anemia; Bilateral hip pain 12/07/2024 Orders Only [facility] Oncology and Hematology - Vik [address] [place] [address] Bang Donnelly MD 12/02/2024 Orders Only [facility] Oncology and Hematology - Vik [address] [facility] [place] [address] Bang Donnelly MD 12/02/2024 Telephone [facility] Oncology and Hematology - Vik [address] [facility] [place] [address] Mable Caputo MD Urine Results 12/01/2024 Orders Only [facility] Oncology and Hematology - [address] [place] [address] Bang Donnelly MD MDS (myelodysplastic syndrome) (CMS/HCC) (Primary Dx) 11/30/2024 Orders Only [facility] Oncology and Hematology - [address] [place] [address] Bang Donnelly MD MDS (myelodysplastic syndrome) (CMS/HCC) 11/27/2024 Orders Only [facility] Oncology and Hematology - [address] [place] [address] Bang Donnelly MD Bilateral hip pain (Primary Dx) 11/23/2024 Refill [facility] Oncology and Hematology - [address] [place] [address] Bang Donnelly MD Bilateral hip pain 11/16/2024 Orders Only [facility] Oncology and Hematology - [address] [place] [address] Bang Donnelly MD MDS (myelodysplastic syndrome) (CMS/HCC) 11/11/2024 Refill [facility] Oncology and Hematology - [address] [place] [address] Bang Donnelly MD Bilateral hip pain 11/10/2024 Orders Only [facility] Oncology and Hematology - Vik [address] [place] [address] Bang Donnelly MD 11/04/2024 9:00 AM CDT Office Visit [facility] Oncology and Hematology - Vik [address] [place] [address] Bang Donnelly MD MDS (myelodysplastic syndrome) (CMS/HCC) (Primary Dx) 11/03/2024 Orders Only [facility] Oncology and Hematology - Vik [address] [place] [address] Bang Donnelly MD 11/02/2024 Orders Only [facility] Oncology and Hematology - [address] [place] [phone] Bang Donnelly MD MDS (myelodysplastic syndrome) ([facility]/HCC) 10/27/2024 Orders Only [facility] Oncology and Hematology - [address] Bang Donnelly MD 10/26/2024 Refill [facility] Oncology and Hematology - Vik [address] [place] [address] Bang Donnelly MD Bilateral hip pain 10/21/2024 Orders Only [facility] Oncology and Hematology - Vik [address] [place] [address] Bang Donnelly MD 10/19/2024 Orders Only [facility] Oncology and Hematology - [address] [place] [phone] Bang Donnelly MD MDS (myelodysplastic syndrome) ([facility]/HCC) 10/16/2024 Orders Only [facility] Oncology and Hematology - [address] [place] [phone] Bang Donnelly MD 10/14/2024 External Device Data STL ABSTRACTION Provider, Abstract 10/14/2024 Orders Only [facility] Oncology and Hematology - [address] [place] [address] Bang Donnelly MD 10/14/2024 Telephone [facility] Oncology and Hematology - [address] [place] [address] Bang Donnelly MD Medication Review 10/13/2024 Orders Only [facility] Oncology and Hematology - [address] [place] [phone] Bang Donnelly MD 10/13/2024 External Device Data STL ABSTRACTION Provider, Abstract 10/09/2024 Orders Only [facility] Oncology and Hematology - Vik [address] [place] [phone] Bang Donnelly MD 10/07/2024 9:00 AM CDT Office Visit [facility] Oncology and Hematology - [address] [place] [address] Bang Donnelly MD MDS (myelodysplastic syndrome) (CMS/HCC) (Primary Dx) 10/05/2024 Orders Only [facility] Oncology and Hematology - [address] [place] [phone] Bang Donnelly MD MDS (myelodysplastic syndrome) (CMS/HCC) 09/25/2024 Orders Only [facility] Oncology and Hematology - [address] [place] [phone] Bang Donnelly MD 09/22/2024 External Device Data STL ABSTRACTION Provider, Abstract 09/22/2024 Refill [facility] Oncology and Hematology - Vik [address] [place] [address] Dot Bean MD 09/22/2024 Refill [facility] Oncology and Hematology - [address] [place] [address] Bang Donnelly MD Bilateral hip pain 09/21/2024 Orders Only [facility] Oncology and Hematology - [address] [place] [address] Bang Donnelly MD MDS (myelodysplastic syndrome) (CMS/HCC) from Last 3 [...] Description 01/04/2025 1:00 PM CDT Office Visit [facility] Oncology and Hematology - [place] [address] [place] [address] [facility] [address] [place] [address] Bang Donnelly MD [address] [facility] [address] [place] [address] Health Maintenance Due Date Last Done Comments DIABETES ANNUAL FOOT EXAM 1970 DIABETES ANNUAL RETINAL EXAM 1970 DIABETES MICROALBUMIN ANNUAL SCREEN 1970 LDL CHOLESTEROL ANNUAL 1970 DTAP/TDAP/TD VACCINES (1 - Tdap) 11/18/1971 FIT-DNA Q 3 years 1997 FIT/FOBT Q 1 year 1997 Flex Sig/CT Colonography Q 5 years 1997 PNEUMOCOCCAL VACCINE 50+ YEA RS (2 of 2 - PPSV23, PCV20, or PCV21) 04/24/2016 02/28/2016 ZOSTER VACCINE (2 of 3) 04/24/2016 02/28/2016 OSTEOPOROSIS SCREENING 07/31/2023 07/30/2018 INFLUENZA VACCINE (#1) 2024 , 01/08/2023, 01/04/2022, Additional history exists BREAST CANCER SCREENING 11/18/2024 11/19/19 24, 11/19/2023, 11/14/2022, Additional history exists COVID-19 Vaccine (5 - 2024-2 6 season) 2024 12/16/2021, 01/10/2021, 07/05/2020, Additional history exists DIABETES HBA1C Q 6 MONTHS 03/16/20252024, 11/04/2023, 04/15/2023, Additional history exists RSV VACCINE (60+ or ) (1 - 1-dose 75+ series) 11/18/2027 COLORECTAL SCREENING 02/05/2033 02/05/2023, 10/10/19 Colorectal Cancer Screening 02/05/2033 Procedures Procedure Name Priority Date/Time Associated Diagnosis Comments IRON, TIBC, AND PERCENT SATURATION Routine 12/14/2024 2:47 PM CDT CBC WITH AUTODIFFERENTIAL Routine 2024 12:41 PM CDT BASIC METABOLIC PANEL Routine 12/07/2024 1:37 PM [...] WITH DIFFERENTIAL Routine 09/18/2024 1:29 PM CDT HEMOGLOBIN A1C Routine 11/04/2023 4:22 PM CDT from Last 3 Months or Most Recently Relevant to Health Maintenance Results * IRON, TIBC, AND PERCENT SATURATION (12/14/2024 2:47 PM CDT) Blood us Bang Donnelly MD CHEMISTRY ORDERABLES Final Resu lt * CBC WITH AUTODIFFERENTIAL (12/14/2024 12:41 PM CDT) Only the most recent of5 resultswithin the time period is included. Blood us Bang Donnelly MD HEMATOLOGY ORDERABLES Final Res ult * BASIC METABOLIC PANEL (12/07/2024 1:37 PM CDT) Only the most recent of2 resultswithin the time period is included. Blood us Bang Donnelly MD CHEMISTRY ORDERABLES Final Resu lt * COMPREHENSIVE METABOLIC PANEL (12/07/2024 1:30 PM CDT) Only the most recent of4 resultswithin the time period is included. Blood us Bang Donnelly MD CHEMISTRY ORDERABLES Final Resu lt * URINE CULTURE (12/01/2024 12:51 PM CDT) Urine Result Richard Donnelly MD MICROBIOLOGY - GENERAL ORDERABL ES Final Result * CBC WITH DIFFERENTIAL (10/26/2024 4:22 PM CDT) Only the most recent of5 resultswithin the time period is included. Blood Bang Donnelly MD HEMATOLOGY ORDERABLES Final Res ult * IRON LEVEL (10/13/2024 8:59 AM CDT) Blood Bang Donnelly MD CHEMISTRY ORDERABLES Final Resu lt * HEMOGLOBIN A1C (11/04/2023 4:22 PM CDT) Blood Provider Scanning CHEMISTRY ORDERABLES Final Res ult from Last 3 Months or Most Recently Relevant to Health Maintenance Insurance MEDICARE PART A AND B [facility] Care Teams Sales Support Rep Relationship Specialty Start Date End Date Angus Cope DO [address] [facility] 162 [facility] [address] [place] [address] PCP - General Internal Medicine 11/04/23
--- OUTSIDE RECORDS SUMMARY | 2024-12-17 10:11 | XMS_ITS | Clinical Summary ---
Author Organization [facility] Address [address], [address] [address] Phone Care Team Providers Care Radiology Scheduler Name Role Phone Micha Baekr MD Primary Care Provider [phone] Rakesh Irby DO Unavailable [phone] Allergies Active Allergy Reactions Criticality Noted [...] Most Recently Relevant to Health Maintenance Insurance [facility] Care Teams Radiology Scheduler Relationship Specialty Start Date End Date Micha Baker MD [address] [facility] [address] [place] [address] PCP - General Internal Medicine 10/10/15 Rakesh Irby DO [address] [facility] [address] [place] [address] Consulting Physician Gastroenterology 10/10/15
--- OUTSIDE RECORDS SUMMARY | 2024-12-17 10:11 | XMS_ITS | Encounter Summary ---
Author Organization [facility] Address [address] [facility] [place] [address] Care Team Providers Care Pharmacy Technologist Name Role Phone Unavailable Primary Care Provider Unavailabl e Encounter Details Date Type Department Care Team (Late st Contact Info) Description 03/21/2022 Lab Requisition [facility] Pathology Lab [address] [place] [address] Zurdo Thurman MD [address] [address] Other pancytopenia Social History Tobacco Use Types Packs/Day Years Used Date Smoking Tobacco: Never Assessed Comments Unknown Sex and Gender Information Value Date Recorded Sex Assigned at Not on file Legal Sex Female 8:51 AM OPTIONS ADVISOR Gender Identity Not on file Sexual Orientation Not on file documented as of this encounter Plan of Treatment Not on file documented as of this encounter Procedures Procedure Name Priority Date/Time Associated Diagnosis Comments FLOW CYTOMETRY BONE MARROW Routine 03/20/2022 10:10 AM OPTIONS ADVISOR Other pancytopenia (CMS/HCC) documented in this encounter Results * FLOW CYTOMETRY BONE MARROW (03/20/2022 10:10 AM OPTIONS ADVISOR) Case Report Flow Cytometry Case: [id number] Authorizing Provider: Zurdo Thurman MD Collected: 03/20/2022 10:10 AM Ordering Location: [facility] Pathology Lab Received: 03/21/2022 09:01 AM Pathologist: Yvonne Cassidy Mai, DO Specimen: Bone Marrow 03/21/2022 11:58 AM OPTIONS ADVISOR [facility] Final Diagnosis Bone marrow, flow cytometric immunophenotypic analysis: - Increased myeloblasts (10.7% by CD34) - See description 03/21/2022 11:[address] [facility] PATHOLOGY LAB at 1158 OPTIONS ADVISOR Flow Cytometry Interpretation The bone marrow specimen [...] the flow cytometry specimen is reviewed for business quality assurance analyst purposes. The sample is aspiculate and hemodilute. The bone marrow aspirate specimen shows an increased myeloblast population comprising 10.7% of events analyzed. Correlation with clinical findings, the concurrent bone marrow core biopsy (accession number pending), and relevant cytogenetic/molecu lar studies is required. 03/21/2022 11:[address] [facility] Flow Cytometry Results Differential Result Comment Flow Cell Count /uL 16,000 Total Viability % 93.0 Lymphocytes % 33 Dim CD45 Region % 21 Monocytes % 10 Granulocytes % 35 03/21/2022 11:58 AM [facility] Reason for test Other pancytopenia (CMS/HCC) 284.19 03/21/2022 11:[address] [facility] Client Specimen ID # [id number] 03/21/2022 11:[address] [facility] Number of markers 19 were performed. A-2 Flow CD10 A-3 Flow CD13 A-5 Flow CD20 A-11 Flow CD2 A-13 Flow CD14 A-16 Flow CD117 A-17 Flow CD11b A-18 Flow CD11c A-1 Flow CD5 A-4 Flow CD19 A-6 Flow CD33 A-7 Flow CD34 A-8 Flow CD45 A-12 Flow CD7 A-14 Flow CD56 A-15 Flow CD64 A-9 [place]+CD19+ A-10 Lambda+CD19+ A-19 Flow HLA-DR 03/21/2022 11:[address] [facility] Disclaimer Test performed at [facility], [address] [place], [place], [address]. *The established laboratory minimum viability is 70%. [...] high complexity clinical testing. 03/21/2022 11:58 AM OPTIONS ADVISOR [facility] Embedded Images 11:58 AM OPTIONS ADVISOR [facility] Pathology/Cytolo gy BONE MARROW SPECIMEN / Unknown 03/20/2022 10:10 AM OPTIONS ADVISOR 03/21/2022 9:01 AM OPTIONS ADVISOR Zurdo Thurman MD LAB - PATHOLOGY/CYTOLOGY ORDERAB LES Final Result [facility] [address] [facility] [place] [address], [facility] [phone] documented in this encounter Visit Diagnoses Diagnosis Other pancytopenia (HCC) Other pancytopenia documented in this encounter
--- OUTSIDE RECORDS SUMMARY | 2024-12-17 10:11 | XMS_ITS | Encounter Summary ---
Author Organization [facility] Address [address] [facility] [place] [address] Care Team Providers Care Cleaning And Maintenance Worker Name Role Phone Unavailable Primary Care Provider Unavailabl e Encounter Details Date Type Department Care Team (Late st Contact Info) Description 01/27/2024 Lab Requisition 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 - Received: 01/27/2024 04:22 PM Pathology Lab Pathologist: Natalee Ceja MD Specimens: A) - Bone Marrow Clot B) - Bone Marrow Core 01/28/2024 2:26 PM [facility] Final Diagnosis Bone marrow, aspirate, clot section, and core biopsy: - 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 01/28/2024 2:26 PM [facility] PATH[facility] at 1426 CDT Peripheral Smear Description Not submitted. 01/28/2024 2:26 PM [facility] Bone Marrow Aspirate Differential count (200 cells): not performed due to hemodilution. Specimen quality: hemodilute. Spicules: absent. Most of the paucicellularity represents peripheral blood elements. No overtly increased blasts are seen. 01/28/2024 2:26 PM [facility] Bone Marrow Core Biopsy and [...] stain): no ring sideroblasts. 01/28/2024 2:26 PM [facility] Flow Cytometry Summary Bone marrow, flow cytometry ([id number]): - Expanded CD34+ blast population identified (~8% of overall events 01/28/2024 2:26 PM [facility] Clinical History MDS with excess blasts. 01/28/2024 2:26 PM [facility] Materials Received Received are 18 slide(s) and 3 blocks labeled [id number] along with a copy of the outside pathology report. [place] [address]. All original materials are returned to the referring institution, along with a copy of our final report. 01/28/2024 2:26 PM [facility] Microscopic Description Immunohistochemistry is performed to assess staining cells in an architectural context: CD34 and CD117 highlight mildly increased blasts at ~7% of marrow cellularity. CD61 highlights the increased and dysplastic blasts. P53 is essentially negative. 01/28/2024 2:26 PM CDT [facility] Pathologist Location at [facility] 01/28/2024 2:26 PM CDT [facility] Disclaimer The performance characteristics of all immunohistochemical and indirect immunofluorescence stains (if any) cited in this report were determined by the Histopathology Laboratory of [facility]. Some of these tests were developed [...] attending (teaching) pathologist. 01/28/2024 2:26 PM CDT [facility] Embedded Images 01/28/2024 2:26 PM CDT [facility] Pathology/Cytology BONE MARROW SPECIMEN / Unknown 01/24/2024 11:00 AM CDT 01/27/2024 4:22 PM CDT Miscellaneous samples (specimen) BONE MARROW SPECIMEN / Unknown 01/24/2024 11:00 AM CDT 01/27/2024 4:22 PM CDT Kannan Short MD LAB - PATHOLOGY/CYT OLOGY ORDERABLES Final Result Performing Organization Address City/State/[facility] Co de Phone Number [facility] [address] [place], [place] [id number] [place] [address] documented in this encounter Visit Diagnoses Diagnosis Illness, unspecified documented in this encounter
--- OUTSIDE RECORDS SUMMARY | 2024-12-17 10:11 | XMS_ITS | Encounter Summary ---
Author Organization [facility] Address [address] [place] [address] Care Team Providers Care Director Of Communications Name Role Phone Angus Cope DO Primary Care Provider Encounter Details Date Type Department Care Team (Late st Contact Info) Description 12/15/2024 External Device Data ST[place] ABSTRACTION Provider, Abstract NO ADDRESS ON FILE Social History Tobacco Use Types Packs/Day Years [...] Description 01/04/2025 1:00 PM CDT Office Visit [facility] Oncology and Hematology - Vik [address] [facility] [address] [place] [address] Bang Donnelly MD [address] [facility] [address] [place] [address] documented as of this encounter Visit Diagnoses Not on filedocumented in this encounter Care Teams Director Of Communications Relationship Specialty Start Date End Date Angus Cope DO [address] [facility] [address] [facility] [address] [place] [address] PCP - General Internal Medicine 11/04/23 documented as of this encounter
--- OUTSIDE RECORDS SUMMARY | 2024-12-17 10:11 | XMS_ITS | Encounter Summary ---
Author Organization [facility] Address [address] [place] [address] Care Team Providers Care Intermediate Project Manager Name Role Phone Unavailable Primary Care Provider Unavailabl e Encounter Details Date Type Department Care Team (Late st Contact Info) Description 01/24/2024 Lab Requisition [facility] - Pathology Lab [address] [place] [address] Kannan Short MD [address] [facility] [address] [place] [address] Myelodysplastic syndrome, unspecified Social History Tobacco Use Types Packs/Day Years Used Date Smoking Tobacco: Never Assessed Comments Unknown Sex and Gender Information Value Date Recorded Sex Assigned at Not on file 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 Gender Identity Not on file Sexual [...] AM CDT) Case Report Flow Cytometry Case: [id number] Authorizing Provider: Kannan Short Collected: 01/24/2024 11:10 AM MD [place]emoc Ordering Location: [facility] - Received: 01/24/2024 02:58 PM Pathology Lab Pathologist: Natalee Ceja MD Specimen: Bone Marrow 01/27/2024 8:40 AM CDT [facility] Final Diagnosis Bone marrow, flow cytometry: - Expanded CD34+ blast population identified (~8% of overall events) 01/27/2024 8:40 AM [facility] PATH[facility] at 0840 CDT Flow [...] flow cytometry specimen has been reviewed for water quality analyst purposes. 01/27/2024 8:40 AM [facility] Flow Cytometry Results Differential Result Comment Flow Cell Count /uL 1,800 Total Viability % 100.0 Lymphocytes % 17 Dim CD45 Region % 16 Monocytes % 14 Granulocytes % 51 01/27/2024 8:40 AM [facility] Reason for test Myelodysplastic syndrome, unspecified (HCC) 238.75 01/27/2024 8:40 AM [facility] Client Specimen ID # [id number] 01/27/2024 8:40 AM [facility] Number of markers 19 were performed. A-2 Flow CD10 A-3 Flow CD13 A-5 Flow CD20 A-11 Flow CD2 A-13 Flow CD14 A-16 Flow CD117 A-17 Flow CD11b A-18 Flow CD11c A-1 Flow CD5 A-4 Flow CD19 A-6 Flow CD33 A-7 Flow CD34 A-8 Flow CD45 A-12 Flow CD7 A-14 Flow CD56 A-15 Flow CD64 A-9 [place]+CD19+ A-10 Lambda+CD19+ A-19 Flow HLA-DR 01/27/2024 8:40 AM [facility] Pathologist Location at [facility] 01/27/2024 8:40 AM [facility] Disclaimer Test performed at [facility], [address] [place] [address], [address]. *The established laboratory minimum viability is 70%. [...] complexity clinical testing. 01/27/2024 8:40 AM CDT [facility] Embedded Images 8:40 AM CDT [facility] Pathology/Cytolo gy BONE MARROW SPECIMEN / Unknown 01/24/2024 11:10 AM CDT 01/24/2024 2:58 PM CDT Kannan Short MD LAB - PATHOLOGY/CYT OLOGY ORDERABLES Final Result Performing Organization Address City/State/[facility] Co de Phone Number [facility] [address] [place] [address], [facility] [phone] documented in this encounter Visit Diagnoses Diagnosis Myelodysplastic syndrome, unspecified (HCC) Myelodysplastic syndrome, unspecified documented in this encounter
--- OUTSIDE RECORDS SUMMARY | 2024-12-17 10:11 | XMS_ITS | Clinical Summary ---
Author Organization [facility] [employer] Address [address] [place] [place] [address] Care Team Providers Care Scenery Builder Name Role Phone Unavailable Primary Care Provider Unavailabl e Source Comments [facility],non-owned Affiliates and Associated Physician Practices is amultiple site organization consisting of ambulatory clinics and hospital sitesin [place], [place], [place] and [place]. This disclosure is being madepursuant to the Care Everywhere program and may not contain all information available regarding this patient. 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
--- OUTSIDE RECORDS SUMMARY | 2024-12-17 10:11 | XMS_ITS | Encounter Summary ---
Author Organization [facility] [employer] [facility] Address [address] [place] [address] Care Team Providers Care Disc Inspector Name Role Phone Angus Cope DO Primary Care Provider [phone] Encounter Details Date Type Department Care Team (Late Contact Info) Description 12/14/2024 Orders Only [facility] Oncology and Hematology [facility] [address] [place] [address] Bang Donnelly MD [address] [place] [address] [address] [place] [phone] MDS (myelodysplastic syndrome) (CMS/HCC) Social History [...] Description 01/04/2025 1:00 PM CDT Office Visit [facility] Oncology and Hematology [address] [place] [address] Bang Donnelly MD [address] [facility] [address] [place] [phone] documented as of this encounter Visit Diagnoses Diagnosis MDS (myelodysplastic syndrome) (CMS/HCC) Myelodysplastic syndrome, unspecified documented in this encounter Care Teams Disc Inspector Relationship Specialty Start Date End Date Angus Cope DO [address] [facility] [address] [facility] [address] [place] [address] PCP - General Internal Medicine 11/04/23 documented as of this encounter
--- OUTSIDE RECORDS SUMMARY | 2024-12-17 10:11 | XMS_ITS | Encounter Summary ---
Author Organization [facility] Address [address] [place] [address] Care Team Providers Care Concrete Precast Moulder Name Role Phone Unavailable Primary Care Provider Unavailabl e Encounter Details Date Type Department Care Team (Late st Contact Info) Description 03/21/2022 Lab Requisition [facility] Care Pathology Lab [address] [place] [address] Zurdo Thurman MD [address] [address] Illness, unspecified Social History Tobacco Use Types Packs/Day Years Used Date Smoking Tobacco: Never Assessed Comments Unknown Sex and Gender Information Value Date Recorded Sex Assigned at Not on file 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 Gender Identity Not on file Sexual Orientation Not on file documented as of this encounter Plan of Treatment Not on file documented as of this encounter Procedures Procedure Name Priority Date/Time Associated Diagnosis Comments BONE MARROW BIOPSY (STL) Routine 03/20/2022 10:10 AM CHANDELIER MAKER Illness, unspecified documented in this encounter Results * BONE MARROW BIOPSY (STL) (03/20/2022 10:10 AM CHANDELIER MAKER) Case Report Bone Marrow Patholog y Report Case: [id number] Authorizing Provider: Zurdo Thurman MD Collected: 03/20/2022 10:10 AM Ordering Location: [facility] Care Pathology Lab Received: 03/21/2022 02:13 PM Pathologist: Yvonne Cassidy Mai, DO Specimens: A) - Bone Marrow Clot B) - Bone Marrow Core 03/22/2022 10:49 AM CHANDELIER MAKER [facility] Final Diagnosis Bone marrow, aspirate, clot section, and core biopsy: - Normocellular marrow with multilineage dysplasia and increased blasts (11% by manual count) - See description Peripheral blood smear: - Pancytopenia - See description 03/22/2022 10:49 AM CHANDELIER MAKER [facility] at 1049 CHANDELIER MAKER AP Comment The bone marrow specimen is [...] HM, Pierce SA, Brock A, Pipo T, Panora S, [place] CE, Galindo JE, Kendrick Venegas P, Dereje CD, Andrew H, David EJ, Abbey BL, Jose Miguel EH, Ivan F, Fopriscar K, Ganjairo N, Jeimy U, Joanie LA, G kamaljit N, Del J, [facility]-Rina E, El GS, Figueroa R, Miles EJ, [...] morphologic, clinical, and genomic data. Blood. 2021 15;140(11):4246-4482. doi: 10.1182/blood.78906018 50. PMID: [id number]; PMCID: [id number]. 03/22/2022 10:49 AM [facility] Peripheral Smear Description Manual Differential Count (100 cells): 50% neutrophils, 34% lymphocytes, 10% monocytes, 5% eosinophils, and 1% basophils. 0 nRBCs / 100 WBCs. Leukocytes: Decreased with reactive lymphocytes, no circulating blasts seen Erythrocytes: Macrocytic anemia with no significant anisopoikilocytosis Platelets: Decreased 03/22/2022 10:49 AM [facility] Bone Marrow Aspirate [...] No ring sideroblasts seen 03/22/2022 10:49 AM [facility] Bone Marrow Core [...] performed on the core biopsy in the [facility] Department of Pathology, with appropriately reactive controls, and demonstrate the following: CD34: Stains variable density of blasts, 5-10% of marrow cellularity CD117: Highlights blasts, mast cells and erythroid precursors E-cadherin: Weakly stains erythroid precursors 03/22/2022 10:49 AM [facility] Flow Cytometry Summary [id number]: Increased myeloblasts (10.7% by CD34) 03/22/2022 10:49 AM [facility] Clinical History Pancytopenia 03/22/2022 10:49 AM [facility] Materials Received Received are 21 slides and three blocks (A1, A2, B1) labeled [id number] along with a copy of the outside pathology report. [place] [address]. All original materials are returned to the referring institution, along with a copy of our final report. 03/22/2022 10:49 AM [facility] Disclaimer The performance characteristics of all immunohistochemical and indirect immunofluorescence stains (if any) cited in this report were determined by the Histopathology Laboratory of [facility]. Some of these tests were developed by [...] the attending (teaching) pathologist. 03/22/2022 10:49 AM CHANDELIER MAKER [facility] Embedded Images 03/22/2022 10:49 AM CHANDELIER MAKER [facility] Pathology/Cytology BONE MARROW SPECIMEN / Unknown 03/20/2022 10:10 AM CHANDELIER MAKER 03/21/2022 2:13 PM CHANDELIER MAKER Miscellaneous samples (specimen) BONE MARROW SPECIMEN / Unknown 03/20/2022 10:10 AM CHANDELIER MAKER 03/21/2022 2:13 PM CHANDELIER MAKER us Zurdo Thurman MD LAB - PATHOLOGY/CYTOLOGY ORDERAB LES Final Result [facility] [address] [place] [address], [facility] [phone] documented in this encounter Visit Diagnoses Diagnosis Illness, unspecified documented in this encounter
--- OUTSIDE RECORDS SUMMARY | 2024-12-17 10:11 | XMS_ITS | Encounter Summary ---
Author Organization [facility] [employer] [facility] Address [address] [place] [address] Care Team Providers Care Medicinal Chemist Name Role Phone Angus Cope DO Primary Care Provider [phone] Encounter Details Date Type Department Care Team (Late Contact Info) Description 12/15/2024 Orders Only [facility] Oncology and Hematology [facility] [address] [place] [address] Bang Donnelly MD [address] [employer] [address] [place] [phone] Social History Tobacco Use Types Packs/Day [...] Description 01/04/2025 1:00 PM CDT Office Visit [facility] Oncology and Hematology - Vik [address] [place] [address] Bang Donnelly MD [address] [employer] [address] [place] [phone] documented as of this encounter Procedures Procedure Name Priority Date/Time Associated Diagnosis Comments IRON, TIBC, AND PERCENT SATURATION Routine 12/14/2024 2:47 PM CDT CBC WITH AUTODIFFERENTIAL Routine 2024 12:41 PM CDT documented in this encounter Results * IRON, TIBC, AND PERCENT SATURATION (12/14/2024 2:47 PM CDT) Blood us Bang Donnelly MD CHEMISTRY ORDERABLES Final Resu lt * CBC WITH AUTODIFFERENTIAL (12/14/2024 12:41 PM CDT) Blood us Bang Donnelly MD HEMATOLOGY ORDERABLES Final Res ult documented in this encounter Visit Diagnoses Not on filedocumented in this encounter Care Teams Medicinal Chemist Relationship Specialty Start Date End Date Angus Cope DO [address] [facility] [address] [place] [address] PCP - General Internal Medicine 11/04/23 documented as of this encounter
== END 2024-12-17 09:40 | disposition home or self-care (01) ==
PROVIDERS: PCP Nurse Practitioner; Visit Provider Nurse Practitioner Adult Health
DX: M47.896 Other spondylosis, lumbar region (principal); S32.049D Unspecified fracture of fourth lumbar vertebra, subsequent encounter for fracture with routine healing; X58.XXXD Exposure to other specified factors, subsequent encounter
CPT/HCPCS: 72158; A9577

== ENCOUNTER 2025-01-12 08:29 | Outpatient (CLI) | payer MEDICARE, OTHER, SELFPAY ==
--- NOTE | ~2025-01-12 | NM_ITS ---
EXAMINATION: NM brinda stress w perfusion DATE: 01/12/2025 10:20 INDICATION: Encounter for preprocedural cardiovascular examination. TECHNIQUE: Rest images were obtained following intravenous administration of 10.8 mCi Tc99m tetrofosmin (Myoview). The patient was infused intravenously with Lexiscan (regadenoson). Then, 34.7 mCi Tc99m tetrofosmin (Myoview) was administered intravenously, and stress images were obtained. Data was crow nstructed into short axis and horizontal and vertical long axis SPECT images. Gated SPECT images were also obtained. COMPARISON: None. FINDINGS: There is no definite reversible or fixed perfusion abnormality to suggest ischemia or infarction. There is no segmental wall motion abnormality. Left ventricular ejection fraction measures >70%. IMPRESSION: 1. No definite ischemia or infarct. 2. Normal left ventricular ejection fraction measuring >70%. Reviewed, dictated and finalized at location E.
--- OUTSIDE RECORDS SUMMARY | 2025-01-12 08:53 | XMS_ITS | Encounter Summary ---
Author Organization [facility] Address [address] [place] [address] Care Team Providers Care Doctor Of Dental Medicine Name Role Phone Unavailable Primary Care Provider Unavailabl e Encounter Details Date Type Department Care Team (Late st Contact Info) Description 01/24/2024 Lab Requisition [facility] - Pathology Lab [address] [place] [address] Kannan Short MD [address] [facility] [address] [place] [address] Myelodysplastic syndrome, unspecified Social History Tobacco Use Types Packs/Day Years Used Date Smoking Tobacco: Never Assessed Comments Unknown Sex and Gender Information Value Date Recorded Sex Assigned at Not on file 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 Gender Identity Not on file Sexual [...] AM CDT) Case Report Flow Cytometry Case: [id number] Authorizing Provider: Kannan Short Collected: 01/24/2024 11:10 AM MD Cuauhtemoc Ordering Location: [facility] - Received: 01/24/2024 02:58 PM Pathology Lab Pathologist: Natalee Ceja MD Specimen: Bone Marrow 01/27/2024 8:40 AM CDT [facility] Final Diagnosis Bone marrow, flow cytometry: - Expanded CD34+ blast population identified (~8% of overall events) 01/27/2024 8:40 AM [facility] at 0840 CDT [...] flow cytometry specimen has been reviewed for corporate quality assurance manager purposes. 01/27/2024 8:40 AM [facility] Flow Cytometry Results Differential Result Comment Flow Cell Count /uL 1,800 Total Viability % 100.0 Lymphocytes % 17 Dim CD45 Region % 16 Monocytes % 14 Granulocytes % 51 01/27/2024 8:40 AM [facility] Reason for test Myelodysplastic syndrome, unspecified (HCC) 238.75 01/27/2024 8:40 AM [facility] Client Specimen ID # [id number] 01/27/2024 8:40 AM [facility] Number of markers 19 were performed. A-2 Flow CD10 A-3 Flow CD13 A-5 Flow CD20 A-11 Flow CD2 A-13 Flow CD14 A-16 Flow CD117 A-17 Flow CD11b A-18 Flow CD11c A-1 Flow CD5 A-4 Flow CD19 A-6 Flow CD33 A-7 Flow CD34 A-8 Flow CD45 A-12 Flow CD7 A-14 Flow CD56 A-15 Flow CD64 A-9 [place]+CD19+ A-10 Lambda+CD19+ A-19 Flow HLA-DR 01/27/2024 8:40 AM [facility] Pathologist Location at [facility] 01/27/2024 8:40 AM [facility] Disclaimer Test performed at [facility], [address] [place] [address], [address]. *The established laboratory minimum viability is 70%. [...] complexity clinical testing. 01/27/2024 8:40 AM CDT [facility] Embedded Images 8:40 AM CDT [facility] Pathology/Cytolo gy BONE MARROW SPECIMEN / Unknown 01/24/2024 11:10 AM CDT 01/24/2024 2:58 PM CDT Kannan Short MD LAB - PATHOLOGY/CYT OLOGY ORDERABLES Final Result Performing Organization Address City/State/[facility] Co de Phone Number [facility] PATH[facility] LAB [address] [place] [address], [facility] [phone] documented in this encounter Visit Diagnoses Diagnosis Myelodysplastic syndrome, unspecified (HCC) Myelodysplastic syndrome, unspecified documented in this encounter
--- OUTSIDE RECORDS SUMMARY | 2025-01-12 08:53 | XMS_ITS | Encounter Summary ---
Author Organization [facility] Address [address] [place] [address] Care Team Providers Care Vinyl Dipper Name Role Phone Unavailable Primary Care Provider Unavailabl e Encounter Details Date Type Department Care Team (Late st Contact Info) Description 03/21/2022 Lab Requisition [facility] Pathology Lab [address] [place] [address] Zurdo Thurman MD [address] [address] Other pancytopenia Social History Tobacco Use Types Packs/Day Years Used Date Smoking Tobacco: Never Assessed Comments Unknown Sex and Gender Information Value Date Recorded Sex Assigned at Not on file Legal Sex Female 8:51 AM HATCHERY MAN Gender Identity Not on file Sexual Orientation Not on file documented as of this encounter Plan of Treatment Not on file documented as of this encounter Procedures Procedure Name Priority Date/Time Associated Diagnosis Comments FLOW CYTOMETRY BONE MARROW Routine 03/20/2022 10:10 AM HATCHERY MAN Other pancytopenia (CMS/HCC) documented in this encounter Results * FLOW CYTOMETRY BONE MARROW (03/20/2022 10:10 AM HATCHERY MAN) Case Report Flow Cytometry Case: [id number] Authorizing Provider: Zurdo Thurman MD Collected: 03/20/2022 10:10 AM Ordering Location: [facility] Care Pathology Lab Received: 03/21/2022 09:01 AM Pathologist: Yvonne Cassidy Mai, DO Specimen: Bone Marrow 03/21/2022 11:58 AM HATCHERY MAN [facility] Final Diagnosis Bone marrow, flow cytometric immunophenotypic analysis: - Increased myeloblasts (10.7% by CD34) - See description 03/21/2022 11:58 AM [facility] PATHOLOGY LAB at 1158 HATCHERY MAN Flow Cytometry Interpretation The bone marrow specimen [...] flow cytometry specimen is reviewed for quality control industrial engineer purposes. The sample is aspiculate and hemodilute. The bone marrow aspirate specimen shows an increased myeloblast population comprising 10.7% of events analyzed. Correlation with clinical findings, the concurrent bone marrow core biopsy (accession number pending), and relevant cytogenetic/molecu lar studies is required. 03/21/2022 11:58 AM [facility] PATH[facility] Flow Cytometry Results Differential Result Comment Flow Cell Count /uL 16,000 Total Viability % 93.0 Lymphocytes % 33 Dim CD45 Region % 21 Monocytes % 10 Granulocytes % 35 03/21/2022 11:58 AM [facility] Reason for test Other pancytopenia (CMS/HCC) 284.19 03/21/2022 11:58 AM [facility] PATH[facility] Client Specimen ID # [id number] 03/21/2022 11:58 AM [facility] Number of markers 19 were performed. A-2 Flow CD10 A-3 Flow CD13 A-5 Flow CD20 A-11 Flow CD2 A-13 Flow CD14 A-16 Flow CD117 A-17 Flow CD11b A-18 Flow CD11c A-1 Flow CD5 A-4 Flow CD19 A-6 Flow CD33 A-7 Flow CD34 A-8 Flow CD45 A-12 Flow CD7 A-14 Flow CD56 A-15 Flow CD64 A-9 [place]+CD19+ A-10 Lambda+CD19+ A-19 Flow HLA-DR 03/21/2022 11:58 AM [facility] PATH[facility] Disclaimer Test performed at [facility], [address] [place], [place], [address]. *The established laboratory minimum viability is 70%. [...] high complexity clinical testing. 03/21/2022 11:58 AM HATCHERY MAN [facility] PATHOLOG[facility] LAB Embedded Images 11:58 AM HATCHERY MAN [facility] PATHOLOG[facility] LAB Pathology/Cytolo gy BONE MARROW SPECIMEN / Unknown 03/20/2022 10:10 AM HATCHERY MAN 03/21/2022 9:01 AM HATCHERY MAN Zurdo Thurman MD LAB - PATHOLOGY/CYTOLOGY ORDERAB LES Final Result [facility] PATHOLOGY LAB [address] [place] [address], [facility] [phone] documented in this encounter Visit Diagnoses Diagnosis Other pancytopenia (HCC) Other pancytopenia documented in this encounter
--- OUTSIDE RECORDS SUMMARY | 2025-01-12 08:53 | XMS_ITS | Clinical Summary ---
Author Organization [facility] Address [address], [address] [address] Phone Care Team Providers Care Cash Analyst Name Role Phone Micha Baker MD Primary Care Provider [phone] Rakesh Irby DO Unavailable [phone] Allergies Active Allergy Reactions Criticality Noted [...] 2 - PCV20 or PCV21) 02/27/2017 02/28/2016 Influenza Immunization (#1) 2024 09/2 12/2019, 01/14/2018 SARS-COV-2 Immunization (4 - season) 2024 01/10/2021, 07/05/2020, 06/14/2020 Colonoscopy 10/09/2025 10/10/2015 Colorectal [...] Most Recently Relevant to Health Maintenance Insurance [facility] Care Teams Cash Analyst Relationship Specialty Start Date End Date Micha Baker MD [address] [facility] [address] [place] [address] PCP - General Internal Medicine 10/10/15 Rakesh Irby DO [address] [facility] [address] [place] [address] Consulting Physician Gastroenterology 10/10/15
--- OUTSIDE RECORDS SUMMARY | 2025-01-12 08:53 | XMS_ITS | Clinical Summary ---
Author Organization [facility] [employer] Address [address] [place] [address] Care Team Providers Care Expert Witness Name Role Phone Unavailable Primary Care Provider Unavailabl e Source Comments [facility],non-owned Affiliates and Associated Physician Practices is amultiple site organization consisting of ambulatory clinics and hospital sitesin [place], [place] and [place]. This disclosure is being madepursuant to the Care Everywhere program and may not contain all information available regarding this patient. Last updated 17.[facility] [employer] Immunizations Immunization Administration Dates Next Due Pneumococcal Pcv13 Conj 02/28/2016 ZOSTER VACCINE, LIVE 02/28/2016 Social History Tobacco Use Types Packs/Day Years Used Date Smoking Tobacco: Never Assessed Comments Unknown Sex and Gender Information Value Date Recorded Sex Assigned at Not on file Legal Sex Female 8:51 AM MINISTER OF RELIGION Gender Identity Not on file Sexual Orientation [...]
--- OUTSIDE RECORDS SUMMARY | 2025-01-12 08:53 | XMS_ITS | Encounter Summary ---
Author Organization [facility] Address [address] [place] [address] Care Team Providers Care Game Room Attendant Name Role Phone Unavailable Primary Care Provider Unavailabl e Encounter Details Date Type Department Care Team (Late st Contact Info) Description 03/21/2022 Lab Requisition [facility] Care Pathology Lab [address] [place] [address] Zurdo Thurman MD [address] [address] Illness, unspecified Social History Tobacco Use Types Packs/Day Years Used Date Smoking Tobacco: Never Assessed Comments Unknown Sex and Gender Information Value Date Recorded Sex Assigned at Not on file Legal Sex Female 8:51 AM PRODUCTION SOUND MIXER Gender Identity Not on file Sexual Orientation Not on file documented as of this encounter Plan of Treatment Not on file documented as of this encounter Procedures Procedure Name Priority Date/Time Associated Diagnosis Comments BONE MARROW BIOPSY (STL) Routine 03/20/2022 10:10 AM PRODUCTION SOUND MIXER Illness, unspecified documented in this encounter Results * BONE MARROW BIOPSY (STL) (03/20/2022 10:10 AM PRODUCTION SOUND MIXER) Case Report Bone Marrow Patholog y Report Case: [id number] Authorizing Provider: Zurdo Thurman MD Collected: 03/20/2022 10:10 AM Ordering Location: [facility] Care Pathology Lab Received: 03/21/2022 02:13 PM Pathologist: Yvonne Cassidy Mai, DO Specimens: A) - Bone Marrow Clot B) - Bone Marrow Core 03/22/2022 10:49 AM PRODUCTION SOUND MIXER [facility] Final Diagnosis Bone marrow, aspirate, clot section, and core biopsy: - Normocellular marrow with multilineage dysplasia and increased blasts (11% by manual count) - See description Peripheral blood smear: - Pancytopenia - See description 03/22/2022 10:49 AM PRODUCTION SOUND MIXER [facility] PATHOLOGY LAB at 1049 PRODUCTION SOUND MIXER AP Comment The bone marrow specimen is [...] HM, Pierce SA, Brock A, Pipo T, [place] S, [place] CE, Galindo JE, Kendrick Venegas P, Dereje CD, Andrew H, David EJ, Abbey BL, Jose Miguel EH, Ivan F, Fopriscar K, Ganjairo N, Jeimy U, Joanie LA, G kamaljit N, Del J, [facility] E, El GS, Figueroa R, Miles [...] morphologic, clinical, and genomic data. Blood. 2021 15;140(11):6656-1437. doi: 10.1182/blood.80174974 50. PMID: [id number]; PMCID: [id number]. 03/22/2022 10:49 AM [facility] PATH[facility] Peripheral Smear Description Manual Differential Count (100 cells): 50% neutrophils, 34% lymphocytes, 10% monocytes, 5% eosinophils, and 1% basophils. 0 nRBCs / 100 WBCs. Leukocytes: Decreased with reactive lymphocytes, no circulating blasts seen Erythrocytes: Macrocytic anemia with no significant anisopoikilocytosis Platelets: Decreased 03/22/2022 10:49 AM [facility] Bone Marrow Aspirate Differential count [...] No ring sideroblasts seen 03/22/2022 10:49 AM [facility] Bone Marrow Core Biopsy and [...] performed on the core biopsy in the [facility] Department of Pathology, with appropriately reactive controls, and demonstrate the following: CD34: Stains variable density of blasts, 5-10% of marrow cellularity CD117: Highlights blasts, mast cells and erythroid precursors E-cadherin: Weakly stains erythroid precursors 03/22/2022 10:49 AM [facility] Flow Cytometry Summary [id number]: Increased myeloblasts (10.7% by CD34) 03/22/2022 10:49 AM [facility] Clinical History Pancytopenia 03/22/2022 10:49 AM [facility] Materials Received Received are 21 slides and three blocks (A1, A2, B1) labeled [id number] along with a copy of the outside pathology report. [place] [address]. All original materials are returned to the referring institution, along with a copy of our final report. 03/22/2022 10:49 AM [facility] Disclaimer The performance characteristics of all immunohistochemical and indirect immunofluorescence stains (if any) cited in this report were determined by the Histopathology Laboratory of [facility]. Some of these tests were developed by [...] the attending (teaching) pathologist. 03/22/2022 10:49 AM PRODUCTION SOUND MIXER [facility] PATHOLOG[facility] LAB Embedded Images 03/22/2022 10:49 AM PRODUCTION SOUND MIXER [facility] PATH[facility] LAB Pathology/Cytology BONE MARROW SPECIMEN / Unknown 03/20/2022 10:10 AM PRODUCTION SOUND MIXER 03/21/2022 2:13 PM PRODUCTION SOUND MIXER Miscellaneous samples (specimen) BONE MARROW SPECIMEN / Unknown 03/20/2022 10:10 AM PRODUCTION SOUND MIXER 03/21/2022 2:13 PM PRODUCTION SOUND MIXER us Zurdo Thurman MD LAB - PATHOLOGY/CYTOLOGY ORDERAB LES Final Result [facility] PATH[facility] LAB [address] [place] [address], [facility] [phone] documented in this encounter Visit Diagnoses Diagnosis Illness, unspecified documented in this encounter
--- OUTSIDE RECORDS SUMMARY | 2025-01-12 08:53 | XMS_ITS | Encounter Summary ---
Author Organization [facility] [place] [facility] Address [address] [place] [address] Care Team Providers Care It Manager Name Role Phone Unavailable Primary Care Provider Unavailabl e Encounter Details Date Type Department Care Team (Late st Contact Info) Description 01/27/[address] [facility] - Pathology Lab [address] [place] [address] Kannan Short MD [address] [facility] [address] [place] [address] Illness, unspecified Social History Tobacco Use Types Packs/Day Years Used Date Smoking Tobacco: Never Assessed Comments Unknown Sex and Gender Information Value Date Recorded Sex Assigned at Not on file Legal Sex Female 8:51 AM CASH APPLICATIONS REPRESENTATIVE Gender Identity Not on file Sexual Orientation [...] Report Bone Marrow Patholog y Report Case: [id number] Authorizing Provider: Kannan Short Collected: 01/24/2024 11:00 AM MD Cuauhtemoc Ordering Location: [facility] - Received: 01/27/2024 04:22 PM Pathology Lab Pathologist: Natalee Ceja MD Specimens: A) - Bone Marrow Clot B) - Bone Marrow Core 01/28/2024 2:26 PM [facility] PATH[facility] Final Diagnosis Bone marrow, aspirate, clot section, and core biopsy: - 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 01/28/2024 2:26 PM [facility] PATHOLOGY LAB at 1426 CDT Peripheral Smear Description Not submitted. 01/28/2024 2:26 PM [facility] Bone Marrow Aspirate Differential count (200 cells): not performed due to hemodilution. Specimen quality: hemodilute. Spicules: absent. Most of the paucicellularity represents peripheral blood elements. No overtly increased blasts are seen. 01/28/2024 2:26 PM [facility] Bone Marrow Core Biopsy and [...] stain): no ring sideroblasts. 01/28/2024 2:26 PM [facility] Flow Cytometry Summary Bone marrow, flow cytometry ([id number]): - Expanded CD34+ blast population identified (~8% of overall events 01/28/2024 2:26 PM [facility] Clinical History MDS with excess blasts. 01/28/2024 2:26 PM [facility] PATH[facility] Materials Received Received are 18 slide(s) and 3 blocks labeled [id number] along with a copy of the outside pathology report. [place] [address]. All original materials are returned to the referring institution, along with a copy of our final report. 01/28/2024 2:26 PM [facility] Microscopic Description Immunohistochemistry is performed to assess staining cells in an architectural context: CD34 and CD117 highlight mildly increased blasts at ~7% of marrow cellularity. CD61 highlights the increased and dysplastic blasts. P53 is essentially negative. 01/28/2024 2:26 PM CDT [facility] Pathologist Location at [facility] 01/28/2024 2:26 PM CDT [facility] PATH[facility] Disclaimer The performance characteristics of all immunohistochemical and indirect immunofluorescence stains (if any) cited in this report were determined by the Histopathology Laboratory of [facility]. Some of these tests were developed [...] attending (teaching) pathologist. 01/28/2024 2:26 PM CDT [facility] PATH[facility] Embedded Images 01/28/2024 2:26 PM CDT [facility] Pathology/Cytology BONE MARROW SPECIMEN / Unknown 01/24/2024 11:00 AM CDT 01/27/2024 4:22 PM CDT Miscellaneous samples (specimen) BONE MARROW SPECIMEN / Unknown 01/24/2024 11:00 AM CDT 01/27/2024 4:22 PM CDT Kannan Short MD LAB - PATHOLOGY/CYT OLOGY ORDERABLES Final Result Performing Organization Address City/State/[place] Co de Phone Number [facility] PATH[facility] LAB [address] [place], [place] [id number] [place] [address] documented in this encounter Visit Diagnoses Diagnosis Illness, unspecified documented in this encounter
--- NOTE | 2025-01-12 09:03 | EST_ITS ---
Patient Info Name: Rimma Monzon Age: 74 years : 1950 Gender: Female Ht: 63 in Wt: 150 lbs BSA: 1.76 m2 HR: 79 bpm BP: 151 / 58 mmHg Exam Date: 01/12/2025 9:03 AM Patient Status: O Admit Date: 01/12/2025 Exam Type: CA stress brinda w NM A regadenoson stress test was performed. Staff Referring Physician: Parminder Reese DO Attending Provider: Parminder Reese DO Exercise Technologist: Elenita Odonnell Exercise Physician: Parminder Reese DO Summary 1. 1. Negative lexiscan stress test for ischemic ST changes by ECG criteria. 2. 2. Stable hemodynamics throughout the test. 3. 3. Nuclear scan to follow and will be reported separately. Please correlate with it. 4. 4. Patient informed of the above results. Protocol: Lexiscan Stress ECG Details Stage: REST Duration (min): 1 min : 45 sec HR (bpm): 80 SBP (mmHg): 151 DBP (mmHg): 58 Stage: REST Duration (min): 5 min : 23 sec HR (bpm): 91 SBP (mmHg): 151 DBP (mmHg): 58 Stage: STAGE 1 Duration (min): 1 min : 0 sec HR (bpm): 96 SBP (mmHg): 135 DBP (mmHg): 55 Stage: RECOVERY Duration (min): 1 min : 0 sec HR (bpm): 99 SBP (mmHg): 135 DBP (mmHg): 55 Stage: RECOVERY Duration (min): 2 min : 0 sec HR (bpm): 99 SBP (mmHg): 135 DBP (mmHg): 55 Stage: RECOVERY Duration (min): 3 min : 0 sec HR (bpm): 98 SBP (mmHg): 128 DBP (mmHg): 56 Stage: RECOVERY Duration (min): 3 min : 13 sec HR (bpm): 101 SBP (mmHg): 128 DBP (mmHg): 56 Rest HR: 91 bpm Peak HR: 104 bpm Rest Sys BP: 151 mmHg Peak Sys BP: 135 mmHg Max Pred HR: 148 bpm % Max Pred HR: 70 % Target HR: 126 bpm Max RPP: 14,040 bpm*mmHg Termination Reason: Completed protocol Cardiac Symptoms: Shortness of breath Total Time: 1 min : 0 sec Rest Espinoza BP: 58 mmHg Peak Espinoza BP: 55 mmHg Total Dose: 0.4 mg Resting ECG Sinus rhythm. Stress ECG No ST changes. Arrhythmias None. Report Signatures
== END 2025-01-12 08:30 | disposition home or self-care (01) ==
PROVIDERS: PCP Nurse Practitioner; Visit Provider Internal Medicine Cardiovascular Disease
DX: Z01.810 Encounter for preprocedural cardiovascular examination (principal)
CPT/HCPCS: 78452; 93017; A9502; J2785

== ENCOUNTER 2025-01-15 10:45 | Outpatient (CLI) | payer MEDICARE, OTHER, SELFPAY ==
--- OUTSIDE RECORDS SUMMARY | 2025-01-15 11:25 | XMS_ITS | Clinical Summary ---
Author Organization [facility] Address [address], [address] [address] Phone Care Team Providers Care Boat Person Name Role Phone Micha Baker MD Primary Care Provider [phone] Rakesh Irby DO Unavailable [phone] Allergies Active Allergy Reactions Criticality Noted [...] Most Recently Relevant to Health Maintenance Insurance [facility] Care Teams Boat Person Relationship Specialty Start Date End Date Micha Baker MD [address] [facility] [address] [place] [address] PCP - General Internal Medicine 10/10/15 Rakesh Irby DO [address] [facility] [address] [place] [address] Consulting Physician Gastroenterology 10/10/15
--- OUTSIDE RECORDS SUMMARY | 2025-01-15 11:26 | XMS_ITS | Encounter Summary ---
Author Organization [facility] Address [address] [facility] [place] [address] Care Team Providers Care Paper Mill Manager Name Role Phone Unavailable Primary Care Provider Unavailabl e Encounter Details Date Type Department Care Team (Late st Contact Info) Description 03/21/2022 Lab Requisition [facility] Care Pathology Lab [address] [place] [address] Zurdo Thurman MD [address] [address] Illness, unspecified Social History Tobacco Use Types Packs/Day Years Used Date Smoking Tobacco: Never Assessed Comments Unknown Sex and Gender Information Value Date Recorded Sex Assigned at Not on file Legal Sex Female 8:51 AM HAIRPIECE STYLIST Gender Identity Not on file Sexual Orientation Not on file documented as of this encounter Plan of Treatment Not on file documented as of this encounter Procedures Procedure Name Priority Date/Time Associated Diagnosis Comments BONE MARROW BIOPSY (STL) Routine 03/20/2022 10:10 AM HAIRPIECE STYLIST Illness, unspecified documented in this encounter Results * BONE MARROW BIOPSY (STL) (03/20/2022 10:10 AM HAIRPIECE STYLIST) Case Report Bone Marrow Patholog y Report Case: [id number] Authorizing Provider: Zurdo Thurman MD Collected: 03/20/2022 10:10 AM Ordering Location: [facility] Care Pathology Lab Received: 03/21/2022 02:13 PM Pathologist: Yvonne Cassidy Mai, DO Specimens: A) - Bone Marrow Clot B) - Bone Marrow Core 03/22/2022 10:49 AM HAIRPIECE STYLIST [facility] Final Diagnosis Bone marrow, aspirate, clot section, and core biopsy: - Normocellular marrow with multilineage dysplasia and increased blasts (11% by manual count) - See description Peripheral blood smear: - Pancytopenia - See description 03/22/2022 10:49 AM HAIRPIECE STYLIST [facility] PATHOLOGY LAB at [address] HAIRPIECE STYLIST AP Comment The bone marrow specimen is [...] HM, Pierce SA, Brock A, Pipo T, Boyd S, [place] CE, Galindo JE, Kendrick Venegas P, Dereje CD, Andrew H, David EJ, Abbey BL, Jose Miguel EH, Ivan F, Fopriscar K, Ganjairo N, Jeimy U, Joanie LA, G kamaljit N, Del J, [facility] E, El GS, Figueroa R, Miles [...] morphologic, clinical, and genomic data. Blood. 2021 15;140(11):9372-9560. doi: 10.1182/blood.[id number] 50. PMID: [id number]; PMCID: [id number]. 03/22/2022 10:49 AM [facility] LAB Peripheral Smear Description Manual Differential Count (100 cells): 50% neutrophils, 34% lymphocytes, 10% monocytes, 5% eosinophils, and 1% basophils. 0 nRBCs / 100 WBCs. Leukocytes: Decreased with reactive lymphocytes, no circulating blasts seen Erythrocytes: Macrocytic anemia with no significant anisopoikilocytosis Platelets: Decreased 03/22/2022 10:49 AM [facility] LAB Bone Marrow Aspirate [...] No ring sideroblasts seen 03/22/2022 10:49 AM [facility] Bone Marrow Core [...] performed on the core biopsy in the [facility] Department of Pathology, with appropriately reactive controls, and demonstrate the following: CD34: Stains variable density of blasts, 5-10% of marrow cellularity CD117: Highlights blasts, mast cells and erythroid precursors E-cadherin: Weakly stains erythroid precursors 03/22/2022 10:49 AM [facility] Flow Cytometry Summary [id number]: Increased myeloblasts (10.7% by CD34) 03/22/2022 10:49 AM [facility] Clinical History Pancytopenia 03/22/2022 10:49 AM [facility] Materials Received Received are 21 slides and three blocks (A1, A2, B1) labeled [id number] along with a copy of the outside pathology report. [place] [address]. All original materials are returned to the referring institution, along with a copy of our final report. 03/22/2022 10:49 AM [facility] Disclaimer The performance characteristics of all immunohistochemical and indirect immunofluorescence stains (if any) cited in this report were determined by the Histopathology Laboratory of [facility]. Some of these tests were developed by [...] the attending (teaching) pathologist. 03/22/2022 10:49 AM HAIRPIECE STYLIST [facility] Embedded Images 03/22/2022 10:49 AM HAIRPIECE STYLIST [facility] LAB Pathology/Cytology BONE MARROW SPECIMEN / Unknown 03/20/2022 10:10 AM HAIRPIECE STYLIST 03/21/2022 2:13 PM HAIRPIECE STYLIST Miscellaneous samples (specimen) BONE MARROW SPECIMEN / Unknown 03/20/2022 10:10 AM HAIRPIECE STYLIST 03/21/2022 2:13 PM HAIRPIECE STYLIST us Zurdo Thurman MD LAB - PATHOLOGY/CYTOLOGY ORDERAB LES Final Result [facility] LAB [address] [place] [address], [facility] [phone] documented in this encounter Visit Diagnoses Diagnosis Illness, unspecified documented in this encounter
--- OUTSIDE RECORDS SUMMARY | 2025-01-15 11:26 | XMS_ITS | Clinical Summary ---
Author Organization [facility] Ward dhaliwal [facility] Address [address] [place] [address] Care Team Providers Care Sheet Cutter Name Role Phone Angus Cope DO Primary Care Provider [phone] Allergies Active Allergy Reactions Criticality Noted Date [...] day by oral route. 03/09/20 19 Active coffee-theanin e-superoxide dis (Neuriva De-Stress) 100-200-10 [...] needed by oral route. 04/05/19 21 Active cyanocobalamin (VITAMIN B-12) 100 mcg tablet [...] Take 1 Tablet by mouth daily. Active ferrous sulfate 325 mg (65 mg iron) tablet Take 325 mg by mouth 2 times daily. Active metroNIDAZOLE (FLAGYL) 500 mg tablet Take 1 Tablet (500 mg) by mouth 3 times daily. 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 Max Daily Amount: 6 Tablets 20 Tablet 11/28/19 25 Active furosemide (LASIX) 20 mg tablet Take 20 mg by mouth daily. 12/07/19 25 Active potassium CHLORIDE (KLOR-CON) 10 mEq Extended Release tablet Take 10 mEq by mouth one time only. 12/07/19 25 Active acyclovir (ZOVIRAX) 400 mg tablet Take 1 Tablet (400 mg) by mouth 2 times daily. 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 60 Tablet 3 04/30/19 23 025 Discontin ued(Reord er) acyclovir (ZOVIRAX) 400 mg tablet Take 1 tablet by mouth twice daily 180 Tablet 09/23/19 25 025 Discontin ued(Reord er) Active Problems Problem Noted Date Diagnosed Date MDS (myelodysplastic syndrome) 08/05/2023 Pancytopenia 07/14/2021 Encounters Date Type Department Care Team Description 01/14/2025 Orders Only [facility] Oncology and Hematology - [address] [place] [address] Bang Donnelly MD 01/12/2025 Orders Only [facility] On[facility] Hematology [address] [place] [address] Bang Donnelly MD 01/11/2025 Orders Only [facility] Oncology and Hematology [address] [place] [address] Bang Donnelly MD MDS (myelodysplastic syndrome) (CMS/HCC) 01/06/2025 Orders Only [facility] Oncology and Hematology [address] [place] [address] Bang Donnelly MD MDS (myelodysplastic syndrome) (CMS/HCC) (Primary Dx) 01/04/2025 1:00 PM CDT Office Visit [facility] Oncology and Hematology [facility] [address] [place] [address] Bang Donnelly MD MDS (myelodysplastic syndrome) (CMS/HCC) (Primary Dx); 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) 01/01/2025 Orders Only [facility] Oncology and Hematology [address] [place] [address] Bang Donnelly MD 01/01/2025 Refill [facility] Oncology and Hematology - [address] [place] [address] Bang Donnelly MD 12/28/2024 Orders Only [facility] Oncology and Hematology - [address] [place] [address] Bang Donnelly MD MDS (myelodysplastic syndrome) (CMS/HCC) 12/22/2024 External Device Data STL ABSTRACTION Provider, Abstract 12/21/2024 Orders Only [facility] Oncology and Hematology - [address] [place] [address] Bang Donnelly MD 12/15/2024 External Device Data STL ABSTRACTION Provider, Abstract 12/15/2024 Orders Only [facility] Oncology and Hematology - [address] [place] [address] Bang Donnelly MD 12/14/2024 Orders Only [facility] Oncology and Hematology - [address] [place] [address] Bang Donnelly MD MDS (myelodysplastic syndrome) (CMS/HCC) 12/10/2024 Orders Only [facility] Oncology and Hematology - [address] [place] [address] Bang Donnelly MD Chronic anemia (Primary Dx) 12/07/2024 9:30 AM CDT Office Visit [facility] Oncology and Hematology - [address] [place] [address] Mable Caputo MD MDS (myelodysplastic syndrome) ([facility]/HCC) (Primary Dx); Chronic anemia; Bilateral hip pain 12/07/2024 Orders Only [facility] Oncology and Hematology - [address] [place] [address] Bang Donnelly MD 12/02/2024 Orders Only [facility] Oncology and Hematology - [address] Bang Donnelly MD 12/02/2024 Telephone [facility] Oncology and Hematology - [address] [place] [address] Mable Caputo MD Urine Results 12/01/2024 Orders Only [facility] Oncology and Hematology - [address] [place] [id number] Bang Donnelly MD MDS (myelodysplastic syndrome) ([facility]/HCC) (Primary Dx) 11/30/2024 Orders Only [facility] Oncology and Hematology - [address] [place] [address] Bang Donnelly MD MDS (myelodysplastic syndrome) ([facility]/HCC) 11/27/2024 Orders Only [facility] Oncology and Hematology - [address] [place] [address] Bang Donnelly MD Bilateral hip pain (Primary Dx) 11/23/2024 Refill [facility] Oncology and Hematology - [address] [place] [address] Bang Donnelly MD Bilateral hip pain 11/16/2024 Orders Only [facility] Oncology and Hematology - [address] [place] [address] Bang Donnelly MD MDS (myelodysplastic syndrome) ([facility]/HCC) 11/11/2024 Refill [facility] Oncology and Hematology - [address] [place] [address] Bang Donnelly MD Bilateral hip pain 11/10/2024 Orders Only [facility] Oncology and Hematology - [address] [place] [address] Bang Donnelly MD 11/04/2024 9:00 AM CDT Office Visit [facility] Oncology and Hematology - [address] [place] [address] Bang Donnelly MD MDS (myelodysplastic syndrome) ([facility]/HCC) (Primary Dx) 11/03/2024 Orders Only [facility] Oncology and Hematology - [address] [place] [address] Bang Donnelly MD 11/02/2024 [facility] On[facility] and Hematology - [address] [place] [address] Bang Donnelly MD MDS (myelodysplastic syndrome) (CMS/HCC) 10/27/2024 Orders Only [facility] Oncology and Hematology - [address] [place] [address] Bang Donnelly MD 10/26/2024 Refill [facility] Oncology and Hematology - [address] [place] [address] Bang Donnelly MD Bilateral hip pain 10/21/2024 Orders Only [facility] Oncology and Hematology - [address] [place] [address] Bang Donnelly MD 10/19/2024 Orders Only [facility] Oncology and Hematology - [address] [place] [address] Bang Donnelly MD MDS (myelodysplastic syndrome) ([facility]/HCC) 10/16/2024 Orders Only [facility] Oncology and Hematology - [address] Bang Donnelly MD from Last 3 [...] Sign Reading Time Taken Comments Blood Pressure 117/63 01/04/2025 1:04 PM CDT Pulse 97 01/04/2025 1:04 PM CDT Temperature 36.4 C (97.5 F) 01/04/2025 1:04 PM CDT Respiratory Rate 12 01/04/2025 1:04 PM CDT Oxygen Saturation 93% 01/04/2025 1:04 PM CDT Inhaled Oxygen Concentration - - Weight 64 kg (141 lb) 01/04/2025 1:04 PM CDT Height 157.5 cm (5' 2) 12/12/2021 2:16 PM CDT Body Mass Index 25.79 12/12/2021 2:16 PM CDT Plan of Treatment Upcoming Encounters Date Type Department Care Team (Late st Contact Info) Description 02/05/2025 9:00 AM CAFETERIA HELPER Office Visit [facility] Oncology and Hematology [facility] [address] [facility] [address] [place] [address] Bang Donnelly MD [address] [facility] [address] [place] [address] Health Maintenance Due Date Last Done Comments DTAP/TDAP/TD VACCINES (1 - Tdap) 11/18/1971 Traditional Medicare (ACO) A nnual Wellness Visit 11/18/1971 FIT-DNA Q 3 years 1997 FIT/FOBT Q 1 year 1997 Flex Sig/CT Colonography Q 5 years 1997 PNEUMOCOCCAL VACCINE 50+ YEA RS (2 of 2 - PPSV23, PCV20, or PCV21) 04/24/2016 02/28/2016 ZOSTER VACCINE (1 of 2) 04/24/2016 02/28/2016 OSTEOPOROSIS SCREENING 07/31/2023 07/30/2018 INFLUENZA VACCINE (#1) 2024 BREAST CANCER SCREENING 11/18/2024 11/19/19, 11/19/2023, 11/14/2022, Additional history exists COVID-19 Vaccine (3 - 2024-2 6 season) 2024 07/05/2020, 06/14/2020 RSV VACCINE (60+ or ) (1 - 1-dose 75+ series) 11/18/2027 COLORECTAL SCREENING 02/05/2033 02/05/2023, 10/10/19 Colorectal Cancer Screening 02/05/2033 Procedures Procedure Name Priority Date/Time Associated Diagnosis Comments CBC WITH AUTODIFFERENTIAL Routine 2024 12:23 PM CDT CBC WITH AUTODIFFERENTIAL Routine 2024 7:55 AM CDT CBC WITH AUTODIFFERENTIAL Routine 2024 12:21 PM CDT CBC WITH AUTODIFFERENTIAL Routine 2024 2:41 PM CDT IRON, TIBC, AND PERCENT SATURATION Routine 12/14/2024 [...] WITH DIFFERENTIAL Routine 10/16/2024 1:55 PM CDT from Last 3 Months Results * CBC WITH AUTODIFFERENTIAL (01/13/2025 12:23 PM CDT) Only the most recent of9 resultswithin the time period is included. Blood us Bang Donnelly MD HEMATOLOGY ORDERABLES Final Res ult * IRON, TIBC, AND PERCENT SATURATION (12/14/2024 2:47 PM CDT) Blood us Bang Donnelly MD CHEMISTRY ORDERABLES Final Resu lt * BASIC METABOLIC PANEL (12/07/2024 1:37 PM CDT) Only the most recent of2 resultswithin the time period is included. Blood us Bang Donnelly MD CHEMISTRY ORDERABLES Final Resu lt * COMPREHENSIVE METABOLIC PANEL (12/07/2024 1:30 PM CDT) Only the most recent of4 resultswithin the time period is included. Blood Result Richard Donnelly MD CHEMISTRY ORDERABLES Final Resu lt * URINE CULTURE (12/01/2024 12:51 PM CDT) Urine Result Richard Donnelly MD MICROBIOLOGY - GENERAL ORDERABL ES Final Result * CBC WITH DIFFERENTIAL (10/26/2024 4:22 PM CDT) Only the most recent of3 resultswithin the time period is included. Blood Result Richard Donnelly MD HEMATOLOGY ORDERABLES Final Res ult from Last 3 Months Insurance MEDICARE PART A AND B [employer] [facility] Care Teams Sheet Cutter Relationship Specialty Start Date End Date Angus Cope DO [address] [facility] [address] [place] [address] PCP - General Internal Medicine 11/04/23
--- OUTSIDE RECORDS SUMMARY | 2025-01-15 11:26 | XMS_ITS | Encounter Summary ---
Author Organization [facility] Address [address] [place] [address] Care Team Providers Care Proofer Black And White Name Role Phone Angus Cope DO Primary Care Provider [phone] Encounter Details Date Type Department Care Team (Late Contact Info) Description 01/11/2025 Orders Only [facility] Oncology and Hematology [facility] [address] [place] [address] Bang Donnelly MD [address] [place], [place] [address] [address] [place] [address] MDS (myelodysplastic syndrome) (CMS/HCC) Social History [...] Department Care Team (Late Contact Info) Description 02/05/2025 9:00 AM BLEACH BOILER FILLER Office Visit [facility] Oncology and Hematology [facility] [address] [place] [address] Bang Donnelly MD [address] [employer] [address] [place] [address] documented as of this encounter Visit Diagnoses Diagnosis MDS (myelodysplastic syndrome) (CMS/HCC) Myelodysplastic syndrome, unspecified documented in this encounter Care Teams Proofer Black And White Relationship Specialty Start Date End Date Angus Cope DO [address] [facility] [address] [facility] [address] [place] [address] PCP - General Internal Medicine 11/04/23 documented as of this encounter
--- OUTSIDE RECORDS SUMMARY | 2025-01-15 11:26 | XMS_ITS | Encounter Summary ---
Author Organization [facility] Address [address] [facility] [place] [address] Care Team Providers Care Manufacturing Engineer Chief Name Role Phone Unavailable Primary Care Provider Unavailabl e Encounter Details Date Type Department Care Team (Late st Contact Info) Description 01/27/2024 Lab Requisition [facility] - Pathology Lab [address] [place] [address] Kannan Short MD [address] [facility] [address] [place] [address] Illness, unspecified Social History Tobacco Use Types Packs/Day Years Used Date Smoking Tobacco: Never Assessed Comments Unknown Sex and Gender Information Value Date Recorded Sex Assigned at Not on file Legal 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 Gender Identity Not on file Sexual Orientation [...] Report Bone Marrow Patholog y Report Case: [id number] Authorizing Provider: Kannan Short Collected: 01/24/2024 11:00 AM MD Cuauhtemoc Ordering Location: [facility] - Received: 01/27/2024 04:22 PM Pathology Lab Pathologist: Natalee Ceja MD Specimens: A) - Bone Marrow Clot B) - Bone Marrow Core 01/28/2024 2:26 PM [facility] Final Diagnosis Bone marrow, aspirate, clot section, and core biopsy: - 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 01/28/2024 2:26 PM [facility] at 1426 CDT Peripheral Smear Description Not submitted. 01/28/2024 2:26 PM [facility] Bone Marrow Aspirate Differential count (200 cells): not performed due to hemodilution. Specimen quality: hemodilute. Spicules: absent. Most of the paucicellularity represents peripheral blood elements. No overtly increased blasts are seen. 01/28/2024 2:26 PM [facility] Bone Marrow Core Biopsy and [...] stain): no ring sideroblasts. 01/28/2024 2:26 PM [facility] Flow Cytometry Summary Bone marrow, flow cytometry ([id number]): - Expanded CD34+ blast population identified (~8% of overall events 01/28/2024 2:26 PM [facility] Clinical History MDS with excess blasts. 01/28/2024 2:26 PM [facility] Materials Received Received are 18 slide(s) and 3 blocks labeled [id number] along with a copy of the outside pathology report. [place] [address]. All original materials are returned to the referring institution, along with a copy of our final report. 01/28/2024 2:26 PM [facility] Microscopic Description Immunohistochemistry is performed to assess staining cells in an architectural context: CD34 and CD117 highlight mildly increased blasts at ~7% of marrow cellularity. CD61 highlights the increased and dysplastic blasts. P53 is essentially negative. 01/28/2024 2:26 PM CDT [facility] PATHOLOGY LAB Pathologist Location at [facility] 01/28/2024 2:26 PM CDT [facility] Disclaimer The performance characteristics of all immunohistochemical and indirect immunofluorescence stains (if any) cited in this report were determined by the Histopathology Laboratory of [facility]. Some of these tests were developed by [...] attending (teaching) pathologist. 01/28/2024 2:26 PM CDT [facility] Embedded Images 01/28/2024 2:26 PM CDT [facility] Pathology/Cytology BONE MARROW SPECIMEN / Unknown 01/24/2024 11:00 AM CDT 01/27/2024 4:22 PM CDT Miscellaneous samples (specimen) BONE MARROW SPECIMEN / Unknown 01/24/2024 11:00 AM CDT 01/27/2024 4:22 PM CDT Kannan Short MD LAB - PATHOLOGY/CYT OLOGY ORDERABLES Final Result Performing Organization Address City/State/[facility] Co de Phone Number [facility] [address] [place], [place] [address] [place] [address] documented in this encounter Visit Diagnoses Diagnosis Illness, unspecified documented in this encounter
--- OUTSIDE RECORDS SUMMARY | 2025-01-15 11:26 | XMS_ITS | Encounter Summary ---
Author Organization [facility] Address [address] [facility] [address] Care Team Providers Care Demurrage Man Name Role Phone Unavailable Primary Care Provider Unavailabl e Encounter Details Date Type Department Care Team (Late st Contact Info) Description 03/21/2022 Lab Requisition [facility] Pathology Lab [address] [place] [address] Zurdo Thurman MD [address] [address] Other pancytopenia Social History Tobacco Use Types Packs/Day Years Used Date Smoking Tobacco: Never Assessed Comments Unknown Sex and Gender Information Value Date Recorded Sex Assigned at Not on file Legal 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 Gender Identity Not on file Sexual Orientation Not on file documented as of this encounter Plan of Treatment Not on file documented as of this encounter Procedures Procedure Name Priority Date/Time Associated Diagnosis Comments FLOW CYTOMETRY BONE MARROW Routine 03/20/2022 10:10 AM 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 Other pancytopenia (CMS/HCC) documented in this encounter Results * FLOW CYTOMETRY BONE MARROW (03/20/2022 10:10 AM 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) Case Report Flow Cytometry Case: [id number] Authorizing Provider: Zurdo Thurman MD Collected: 03/20/2022 10:10 AM Ordering Location: [facility] Care Pathology Lab Received: 03/21/2022 09:01 AM Pathologist: Yvonne Cassidy Mai, DO Specimen: Bone Marrow 03/21/2022 11:58 AM 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 [facility] Final Diagnosis Bone marrow, flow cytometric immunophenotypic analysis: - Increased myeloblasts (10.7% by CD34) - See description 03/21/2022 11:58 AM [facility] at 1158 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 Flow Cytometry Interpretation The bone marrow [...] flow cytometry specimen is reviewed for quality supervisor purposes. The sample is aspiculate and hemodilute. The bone marrow aspirate specimen shows an increased myeloblast population comprising 10.7% of events analyzed. Correlation with clinical findings, the concurrent bone marrow core biopsy (accession number pending), and relevant cytogenetic/molecu lar studies is required. 03/21/2022 11:58 AM [facility] Flow Cytometry Results Differential Result Comment Flow Cell Count /uL 16,000 Total Viability % 93.0 Lymphocytes % 33 Dim CD45 Region % 21 Monocytes % 10 Granulocytes % 35 03/21/2022 11:58 AM [facility] Reason for test Other pancytopenia (CMS/HCC) 284.19 03/21/2022 11:58 AM [facility] Client Specimen ID # [id number] 03/21/2022 11:58 AM [facility] Number of markers 19 were performed. A-2 Flow CD10 A-3 Flow CD13 A-5 Flow CD20 A-11 Flow CD2 A-13 Flow CD14 A-16 Flow CD117 A-17 Flow CD11b A-18 Flow CD11c A-1 Flow CD5 A-4 Flow CD19 A-6 Flow CD33 A-7 Flow CD34 A-8 Flow CD45 A-12 Flow CD7 A-14 Flow CD56 A-15 Flow CD64 A-9 [place]+CD19+ A-10 Lambda+CD19+ A-19 Flow HLA-DR 03/21/2022 11:58 AM [facility] Disclaimer Test performed at [facility], [address] [place], [place], [address]. *The established laboratory minimum viability is 70%. [...] high complexity clinical testing. 03/21/2022 11:58 AM 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 [facility] Embedded Images 11:58 AM 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 [facility] Pathology/Cytolo gy BONE MARROW SPECIMEN / Unknown 03/20/2022 10:10 AM 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 03/21/2022 9:01 AM 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 Zurdo Thurman MD LAB - PATHOLOGY/CYTOLOGY ORDERAB LES Final Result [facility] [address] [facility] [place] [address], [facility] [phone] documented in this encounter Visit Diagnoses Diagnosis Other pancytopenia (HCC) Other pancytopenia documented in this encounter
--- OUTSIDE RECORDS SUMMARY | 2025-01-15 11:26 | XMS_ITS | Data Portability ---
Author Organization [facility] [employer], Main Office Address [address] [place] [address] Care Team Providers Care Certified Personal Trainer Name Role Phone CALSAKSHI Primary Care Provider SAKSHI MCCALL Referring Provider [phone] Assessment Encounter Date Assessment Date Assessment LastModified [...] Imaging XR, knee 023 07/19/19 23 [email or web address] [facility] [place], [facility] [facility] [address], [place], [address], 3 10:50:57 Medication Orders None record ed. Patient TargetsNo targets recorded. Patient InstructionsNo instructions recorded. Reason for Referral None Reported. Results Created Date Observation Date Name Description Value Unit Range Abnormal Flag Note LastModifiedBy Organization Detail LastModifiedTime 07/18/19 22 07/17/2021 XR, knee No observ ation record ed. [id number] [facility] [address], [place], [address], 05/30/2022 03:10:56 08/31/19 22 XR, knee No observ ation record ed. [id number] [facility] [place] [address], [place], [address], 05/30/2022 03:10:56 01/24/20 22 XR, shoul gwen, 2 or more view No observ ation record ed. [id number] [facility] [place] [address], [place], [address], 05/30/2022 03:10:56 07/19/19 23 XR, knee No observ ation record ed. [email or web address] [facility] [place] [address], [place], [address], 07/18/2022 09:28:53 Result Notes None recorded. Problems Name Problem SNOMED Code Status Onset Date Resolution Date Notes Provider Name and Address Organization Details Recorded Time Knee pain Active Not Available [facility] 3 02:57:11 Osteoarthriti s [id number] Active Not Available [facility] 3 02:57:11 Problem Notes None recorded. Procedures Surgical History Date Name Laterality Status Provider Name and Address Organization Details Recorded Time total knee replacement completed Not Available [facility] 05/30/2022 02:46:36 total shoulder replacement completed Not Available [facility] 05/30/2022 02:46:36 Imaging Results None recorded. Procedure Notes None recorded. Medical Equipment None Reported. Allergies Allergen ID Allergen Name Allergen Category Reaction Reaction Severity Criticality Documentation Date Start Date Code Code System Note Provider Name and Address Organization Details Recorded Time 5377 Substance with sulfonami de structure and antibacte rial mechanism of action (substanc e) medicatio n rash Not available Not available 05/30/2022 45237 8003 SNOMED Not Available [facility] 3 03:10:23 5378 Product containin g penicilli n (product) medicatio n hives severe Not available 05/30/2022 19984 8001 SNOMED Not Available [facility] 3 03:10:23 Medications Name Sig Start Date [...] administe red by the provider 04/05 completed [facility]: 0003- 0494- 20 Not Available Not Available [...] administe red by the provider 04/05 completed [facility]: 0409- 4276- 17 Not Available Not Available [...] 07/18/2022 154.94 cm ESCOB[place] - [place] [facility] 07/18/2022 09:00:33 Date Recorded Body height Provider [...] Updated DateTime 01/23/2022 32.1 kg/m2 154.94 cm 15358.7 g Not Available [facility] 05/30/2022 02:54:23 Social History Question Answer Notes LastModified by Organizat ion Details LastModified Time Tobacco Smoking Status Former Smoker quit 30 yrs ago Not Available [facility] 05/30/2022 02:44:17 What Was The Date Of Your Most Recent Tobacco Screening? 08/09/2020 [id number] Information not available 05/30/2022 Sex: Unknown Functional Status Question Answer Note LastModified by Organizat ion Details LastModified Time What is your level of alcohol consumption? Occasional [id number] Information not available 05/30/2022 Mental Status None recorded. Family History Relationship Description Onset Age of this Age Resolved Age Notes LastModified by Organization Details LastModified Time Father Family history of malignant neoplasm [id number] Not available 05/30/2022 02:46:46 Father Diabetes mellitus [id number] Not available 05/30/2022 02:46:46 Medical History Condition Response BLINDNESS N KIDNEY STONES N MRSA N CARPAL TUNNEL SYNDROME N LUNG DISEASE/DISORDER N HISTORY OF DRUG ABUSE N RADIATION / CHEMOTHERAPY N COPD N SPORTS INJURY N ANKLE PAIN N [...] HAVE YOU BEEN HOSPITALIZED OR SEEN IN [facility] IN THE PAST YEAR ? N BURSITIS [...] Diagnosis SNOMED-CT Code Diagnosis ICD10 Code Diagnosis IMO Codes Diagnosis Note [id number] [facility] [place] [address] [place] [address] 06/14/2020 00:00:00 06/14/2020 14:42:18 [id number] Josse Miller MD [facility] [place] [address] [place] [address] 07/12/2020 00:00:00 07/12/2020 15:00:07 [id number] Josse Miller MD [facility] [place] [address] [place] [address] 08/09/2020 00:00:00 08/09/2020 13:00:01 [id number] Josse Miller MD [facility] [place] [address] [place] [address] 09/27/2020 00:00:00 09/27/2020 12:34:17 [id number] Josse Miller MD [facility] [place] [address] [place] [address] 01/24/2021 00:00:00 01/24/2021 12:15:13 [id number] Med Hugo MD [facility] [place] [address] [place] [address] 06/21/2021 00:00:00 07/05/2021 15:05:20 [id number] Med Hugo MD [facility] [place] [address] [place] [address] 07/28/2021 00:00:00 07/28/2021 10:12:10 [id number] Med Hugo MD [facility] [place] [address] [place] [address] 08/14/2021 00:00:00 08/14/2021 15:35:33 [id number] Med Hugo MD [facility] [place] [address] [place] [address] 08/30/2021 00:00:00 09/04/2021 13:04:54 [id number] Med Hugo MD [facility] [place] [address] [place] [address] 09/27/2021 00:00:00 09/27/2021 08:57:24 [id number] Josse Miller MD [facility] [place] [address] [place] [address] 01/23/2022 00:00:00 01/23/2022 12:21:52 [id number] Med Hugo MD [facility] [place] [address] [facility] [address] [place] [place], [place] [address] 07/18/2022 08:57:45 07/18/2022 09:31:55 History of left total knee replacement [id number] 134410 Z96.652 Health Concerns Section Related Observation LastModified by Organization Detai ls LastModified Time None Recorded Concern Status LastModified by Organization Details LastModified Time None Recorded Advance Directives Directive None Recorded Payers Insurance Date Sequence Insurance Name Policy Number Policy Tatum Covered Member ID Tatum Member ID Guarantor Name 07/18/2022 1 [place] Rimma Monzon [id number] Rimma Monzon 07/23/2022 2 [employer] [place] (MEDICARE SUPPLEMENT) Rimma Monzon [id number] Rimma Monzon OBGyn Episode No OBEpisode recorded.
--- OUTSIDE RECORDS SUMMARY | 2025-01-15 11:26 | XMS_ITS | Clinical Summary ---
Author Organization [facility] [employer] Address [address] [place] [address] Care Team Providers Care Pawn Shop Keeper Name Role Phone Unavailable Primary Care Provider Unavailabl e Source Comments [facility],non-owned Affiliates and Associated Physician Practices is amultiple site organization consisting of ambulatory clinics and hospital sitesin [place], [place], [place] and [place]. This disclosure is being madepursuant to the Care Everywhere program and may not contain all information available regarding this patient. 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
--- OUTSIDE RECORDS SUMMARY | 2025-01-15 11:26 | XMS_ITS | Encounter Summary ---
Author Organization [facility] [employer] [facility] Address [address] [place] [address] Care Team Providers Care Sales Service Technician Name Role Phone Angus Cope DO Primary Care Provider [phone] Encounter Details Date Type Department Care Team (Late Contact Info) Description 01/14/2025 Orders Only [facility] Oncology and Hematology [facility] [address] [place] [address] Bang Donnelly MD [address] [place] [address] [address] [place] [address] Social History Tobacco Use Types Packs/Day [...] st Contact Info) Description 02/05/2025 9:00 AM BANK RUNNER Office Visit [facility] Oncology and Hematology - Vik [address] [place] [address] Bang Donnelly MD [facility] [address] [place] [address] documented as of this encounter Procedures Procedure Name Priority Date/Time Associated Diagnosis Comments CBC WITH AUTODIFFERENTIAL Routine 2024 12:23 PM CDT documented in this encounter Results * CBC WITH AUTODIFFERENTIAL (01/13/2025 12:23 PM CDT) Blood us Bang Donnelly MD HEMATOLOGY ORDERABLES Final Res ult documented in this encounter Visit Diagnoses Not on filedocumented in this encounter Care Teams Sales Service Technician Relationship Specialty Start Date End Date Angus Cope DO [address] [facility] [address] [place] [address] PCP - General Internal Medicine 11/04/23 documented as of this encounter
--- OUTSIDE RECORDS SUMMARY | 2025-01-15 11:26 | XMS_ITS | Encounter Summary ---
Author Organization [facility] Address [address] [facility] [place] [address] Care Team Providers Care Hot Top Liner Name Role Phone Unavailable Primary Care Provider Unavailabl e Encounter Details Date Type Department Care Team (Late st Contact Info) Description 01/24/2024 Lab Requisition [facility] - Pathology Lab [address] [place] [address] Kannan Short MD [address] [facility] [address] [place] [address] Myelodysplastic syndrome, unspecified Social History Tobacco Use Types Packs/Day Years Used Date Smoking Tobacco: Never Assessed Comments Unknown Sex and Gender Information Value Date Recorded Sex Assigned at Not on file Legal Sex Female 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 Gender Identity Not on file Sexual [...] AM CDT) Case Report Flow Cytometry Case: [id number] Authorizing Provider: Kannan Short Collected: 01/24/2024 11:10 AM MD [place] Ordering Location: [facility] - Received: 01/24/2024 02:58 PM Pathology Lab Pathologist: Natalee Ceja MD Specimen: Bone Marrow 01/27/2024 8:40 AM CDT [facility] Final Diagnosis Bone marrow, flow cytometry: - Expanded CD34+ blast population identified (~8% of overall events) 01/27/2024 8:40 AM [facility] at 0840 CDT Flow Cytometry [...] cytometry specimen has been reviewed for quality compliance coordinator purposes. 01/27/2024 8:40 AM [facility] Flow Cytometry Results Differential Result Comment Flow Cell Count /uL 1,800 Total Viability % 100.0 Lymphocytes % 17 Dim CD45 Region % 16 Monocytes % 14 Granulocytes % 51 01/27/2024 8:40 AM [facility] Reason for test Myelodysplastic syndrome, unspecified (HCC) 238.75 01/27/2024 8:40 AM [facility] Client Specimen ID # [id number] 01/27/2024 8:40 AM [facility] Number of markers 19 were performed. A-2 Flow CD10 A-3 Flow CD13 A-5 Flow CD20 A-11 Flow CD2 A-13 Flow CD14 A-16 Flow CD117 A-17 Flow CD11b A-18 Flow CD11c A-1 Flow CD5 A-4 Flow CD19 A-6 Flow CD33 A-7 Flow CD34 A-8 Flow CD45 A-12 Flow CD7 A-14 Flow CD56 A-15 Flow CD64 A-9 [place]+CD19+ A-10 Lambda+CD19+ A-19 Flow HLA-DR 01/27/2024 8:40 AM [facility] Pathologist Location at [facility] 01/27/2024 8:40 AM [facility] Disclaimer Test performed at [facility], [address] [place] [address], [address]. *The established laboratory minimum viability is 70%. [...] complexity clinical testing. 01/27/2024 8:40 AM CDT [facility] Embedded Images 8:40 AM CDT [facility] Pathology/Cytolo gy BONE MARROW SPECIMEN / Unknown 01/24/2024 11:10 AM CDT 01/24/2024 2:58 PM CDT Kannan Short MD LAB - PATHOLOGY/CYT OLOGY ORDERABLES Final Result Performing Organization Address City/State/[facility] Co de Phone Number [facility] [address] [place] [address], [facility] [phone] documented in this encounter Visit Diagnoses Diagnosis Myelodysplastic syndrome, unspecified (HCC) Myelodysplastic syndrome, unspecified documented in this encounter
--- OUTSIDE RECORDS SUMMARY | 2025-01-15 11:26 | XMS_ITS | Encounter Summary ---
Author Organization [facility] [employer] [facility] Address [address] [place] [address] Care Team Providers Care Director Multimedia Name Role Phone Angus Cope DO Primary Care Provider [phone] Encounter Details Date Type Department Care Team (Late Contact Info) Description 01/12/2025 Orders Only [facility] Oncology and Hematology [facility] [address] [place] [address] Bang Donnelly MD [address] [place], [place] [address]e[place]eka [address] [place] [address] Social History Tobacco Use Types Packs/Day [...] st Contact Info) Description 02/05/2025 9:00 AM IMPLEMENTATION TECHNICIAN Office Visit [facility] Oncology and Hematology - Vik [address] [place] [address] Bang Donnelly MD [facility] [address] [place] [address] documented as of this encounter Procedures Procedure Name Priority Date/Time Associated Diagnosis Comments CBC WITH AUTODIFFERENTIAL Routine 2024 7:55 AM CDT documented in this encounter Results * CBC WITH AUTODIFFERENTIAL (01/11/2025 7:55 AM CDT) Blood us Bang Donnelly MD HEMATOLOGY ORDERABLES Final Res ult documented in this encounter Visit Diagnoses Not on filedocumented in this encounter Care Teams Director Multimedia Relationship Specialty Start Date End Date Angus Cope DO [address] [facility] [address] [place] [address] PCP - General Internal Medicine 11/04/23 documented as of this encounter
[2025-01-15 12:39] LABS: INR 0.9; Prothrombin Time 12.3 Seconds (11.1-14.7)
[2025-01-15 12:40] LABS: Partial Thromboplastin Time 23.3 Seconds (22.3-36.8)
== END 2025-01-15 10:46 | disposition home or self-care (01) ==
LOC: ANHLAB 10:47
PROVIDERS: PCP Nurse Practitioner; Visit Provider Anesthesiology
DX: C94.6 Myelodysplastic disease, not elsewhere classified (principal)
CPT/HCPCS: 36415; 85610; 85730

== ENCOUNTER 2025-01-19 00:53 | Day surgery (SDC) | payer MEDICARE, OTHER, SELFPAY ==
[2025-01-14 12:24] VITALS: BMI 25.8
--- NOTE | 2025-01-14 12:42 | PC.NURSE ---
[facility] has started construction of its new state of the art ER which will open Spring 2026. With this, we anticipate parking may be a challenge for some our surgical patients and families. Parking spaces are limited but are available for all Surgical, obstetrics, and ER patients sharing this lot. If you arrive and find you are having a hard time finding a parking space, please note that we understand the challenges, please drive around the hospital and park near Hospital Entrance 1. When you enter this entrance, you can ask a volunteer to direct or take you back to the surgical waiting area to check in. We appreciate everyone?s understanding of these expected challenges while we build for your future. Report to the Outpatient Waiting Room, entrance under the green pavilion located off [address], at time __12:00pm on date __01/19/25 . Planned Procedure Time:____ 2:00pm .? Time changes happen often and if your time is changed the preop area will call you the afternoon before. - You and your visitor will be asked to self-screen and do not enter if you have any COVID symptoms. Please call surgeon if you need to reschedule. - A mask is optional within the hospital at this time. Patients may have NO FOOD OR DRINK AFTER MIDNIGHT & no smoking, or chewing tobacco (or any form of nicotine). No chewing gum, candy or mints that am. Take only the following medications with a SIP of water on the morning of surgery: _Acyclovoir, Metoprolol, Levothyroxine, Gabapentin, Escitalopram, Tramadol as needed, tylenol as needed, Tizanidine as needed. DO NOT STOP ANY OF YOUR OTHER PRESCRIPTION MEDICATIONS PRIOR TO SURGERY EXCEPT THE FOLLOWING Hold all vitamins and supplements for 3 days per anesthesiologist. Date of last dose is 01/15/25 Medications to discontinue per physician HOLD Meloxicam/NSAIDS per DR ELIZABETH, their office to call pt, as I left message w their office staff. Date to take last dose Pending Please no make-up, nail portuguese, hairspray, perfume, deodorant, or body powder the day of surgery.? No jewelry (including any body piercings) or valuables the day of surgery, leave them at home.? Please take a shower or bath the night before, or the morning of, surgery with an antibacterial soap.? Wear comfortable, loose fitting clothing.? - Jewelry must be removed prior to entering the operating room.? Rings and piercings that are not removed may be cut off. - The hospital will not accept responsibility for valuables.? - Please leave all valuables, including medications, at home the day of surgery. If you are going home after surgery, a licensed cdl dedicated truck driver must drive you home.? - NO public transportation without another adult if you receive anesthesia. - We recommend that an adult stay with you for 24 hours following discharge. - We also recommend that you do not drive, make important decision, drink alcoholic beverages, or take any drugs that were not prescribed by your health care provider for at least 24 hours after your discharge time. NO DRIVING FOR [address] ELIZABETH, pt aware. Follow any additional instructions given to you from your surgeon. Pt to get LABS done tomorrow and put in system ( PT/PTT) Telephone instructions given to ____Patient and asked if any additional questions and then verbalized understanding. Patient advised to call surgeon office or pre surgery nurse liaison [phone] if any additional questions.
[2025-01-19] VITALS (9 sets, daily range): BP systolic 143–178; BP diastolic 49–86; PULSE 77–90; RESP 16–20; TEMP 36.4; O2SAT 96–100; BMI 24.7
--- NOTE | ~2025-01-19 | XR_ITS ---
XR fluoroscopy no charge Indication: Balloon-assisted vertebral augmentation transpedicular approach TECHNIQUE: Fluoroscopy used during Balloon-assisted vertebral augmentation transpedicular approach performed by [Nico Gunn MD] on 01/19/2025. Fluoroscopy time is 4 minutes 10 seconds. with 66 fluoroscopic images captured. FINDINGS: Correlate with procedure note. IMPRESSION: Fluoroscopy used during Balloon-assisted vertebral augmentation transpedicular approach. Reviewed, dictated and finalized at location O. IMPRESSION: Fluoroscopy used during Balloon-assisted vertebral augmentation tra nspedicular approach.
--- OUTSIDE RECORDS SUMMARY | 2025-01-19 00:55 | XMS_ITS | Clinical Summary ---
Author Organization [facility] [employer] Address [address] [place] [address] Care Team Providers Care Diesel Engineer Name Role Phone Unavailable Primary Care Provider Unavailabl e Source Comments [facility],non-owned Affiliates and Associated Physician Practices is amultiple site organization consisting of ambulatory clinics and hospital sitesin [place], [place], [place] and [place]. This disclosure is being madepursuant to the Care Everywhere program and may not contain all information available regarding this patient. 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
--- OUTSIDE RECORDS SUMMARY | 2025-01-19 00:55 | XMS_ITS | Data Portability ---
Author Organization [facility] [employer], Main Office Address [address] [place] [address] Care Team Providers Care Channeler Outsole Name Role Phone CALSAKSHI Primary Care Provider SAKSHI MCCALL Referring Provider [phone] Assessment Encounter Date Assessment Date Assessment LastModified [...] Imaging XR, knee 023 07/19/19 23 [email or web address] [facility] [place], [facility], [place], [address], 3 10:50:57 Medication Orders None record ed. Patient TargetsNo targets recorded. Patient InstructionsNo instructions recorded. Reason for Referral None Reported. Results Created Date Observation Date Name Description Value Unit Range Abnormal Flag Note LastModifiedBy Organization Detail LastModifiedTime 07/18/19 22 07/17/2021 XR, knee No observ ation record ed. [id number] [facility] [address], [place], [address], 05/30/2022 03:10:56 08/31/19 22 XR, knee No observ ation record ed. [id number] [facility] [place] [address], [place], [address], 05/30/2022 03:10:56 01/24/20 22 XR, shoul gwen, 2 or more view No observ ation record ed. [id number] [facility] [place] [address], [place], [address], 05/30/2022 03:10:56 07/19/19 23 XR, knee No observ ation record ed. [email or web address] [facility] [place] [address], [place], [address], 07/18/2022 09:28:53 Result Notes None recorded. Problems Name Problem SNOMED Code Status Onset Date Resolution Date Notes Provider Name and Address Organization Details Recorded Time Knee pain Active Not Available [facility] 3 02:57:11 Osteoarthriti s [id number] Active Not Available [facility] 3 [...] n rash Not available Not available 05/30/2022 59500 8003 SNOMED Not Available [facility] 3 03:10:23 5378 Product containin g penicilli n (product) medicatio n hives severe Not available 05/30/2022 39348 8001 SNOMED Not Available [facility] [...] administe red by the provider 04/05 completed [facility]: 0003- 0494- 20 Not Available Not Available [...] administe red by the provider 04/05 completed [facility]: 0409- 4276- 17 Not Available Not Available [...] cm ESCOBAR [place] - [place] [employer] [facility] 07/18/2022 09:00:33 Date Recorded Body height Provider Name an d Address Organization Details Last Updated DateTime 08/14/2021 154.94 cm Not Available [facility] 3 02:54:22 Date Recorded Body height Provider Name an d Address Organization Details Last Updated DateTime 08/30/2021 154.94 cm Not Available [facility] 3 02:54:22 Date Recorded Body height Provider Name an d Address Organization Details Last Updated DateTime 09/27/2021 154.94 cm Not Available [facility] 3 02:54:22 Date Recorded Body mass index (BMI) Body height Body weight Provider Name and Address Organization Details Last Updated DateTime 01/23/2022 32.1 kg/m2 154.94 cm 46423.7 g Not Available [facility] 05/30/2022 02:54:23 Social History Question Answer Notes LastModified by Organizat ion Details LastModified Time Tobacco Smoking Status Former Smoker quit 30 yrs ago Not Available [facility] 05/30/2022 02:44:17 What Was The Date Of Your Most Recent Tobacco Screening? 08/09/2020 [id number] Information not available 05/30/2022 Sex: Unknown Functional Status Question Answer Note LastModified by Organizat ion Details LastModified Time What is your level of alcohol consumption? Occasional [id number] Information not available 05/30/2022 Mental Status None recorded. Family History Relationship Description Onset Age of this Age Resolved Age Notes LastModified by Organization Details LastModified Time Father Family history of malignant neoplasm [id number] Not available 05/30/2022 02:46:46 Father Diabetes mellitus [id number] Not available 05/30/2022 02:46:46 Medical History Condition Response BLINDNESS N KIDNEY STONES N MRSA N CARPAL TUNNEL SYNDROME N LUNG DISEASE/DISORDER N HISTORY OF DRUG ABUSE N RADIATION / CHEMOTHERAPY N COPD N SPORTS INJURY N ANKLE PAIN N BLOOD DISEASES N SCHIZOPHRENIA N SHINGLES N SHOULDER PAIN N BOWEL PROBLEMS N DEPRESSION (INCLUDING POST ) N STROKE/TIA N ULCERS N KNEE PAIN N BENIGN PROSTATIC HYPERPLASIA N OBESITY N GERD/NAUSEA N ANEURYSM N URINARY/BLADDER/KIDNEY PROBLEMS N CORONARY ARTERY DISEASE (CAD) N ADDICTION CONCERNS N USE OF BLOOD THINNERS N SKIN PROBLEMS N EMPHYSEMA N MUSCLE,JOINT OR BONE PROBLEMS N DVT N STOMACH ULCERS N BLOOD CLOTS N USE OF NSAIDS Y CONCUSSION OR SPINAL TRAUMA N NEUROPATHY N AIDS/HIV N FRACTURES N HYPERTENSION Y ELBOW PAIN N TOURETTE'S N Metal allergy N ANXIETY DISORDER N BLOOD TRANSFUSION N ANEMIA/BLOOD DISORDER N BIPOLAR DISORDER N BRONCHITIS N OSTEOARTHRITIS N TUBERCULOSIS N FOOT PROBLEM N HEART VALVE DISORDERS N ALLERGIES/HAYFEVER N SOFT TISSUE INJURY N INFECTIOUS DISEASE N HEART ARRHYTHMIA N INSOMNIA N HIGH CHOLESTEROL / HYPERLIPIDEMIA N RHEUMATOID ARTHRITIS N EDEMA N CHRONIC PAIN SYNDROME N CAROTID BLOCKAGE N BACK / NECK PROBLEMS N HAVE YOU BEEN HOSPITALIZED OR SEEN IN [facility] IN THE PAST YEAR ? N BURSITIS N HERNIATED DISC N DIALYSIS N FIBROMYALGIA N OSTEOPOROSIS N ARTHRITIS Y NO SIGNIFICANT PAST MEDICAL HISTORY N PERIPHERAL NEUROPATHY N DIABETES, TYPE Y HEARTBURN / REFLUX N HEPATITIS / LIVER DISEASE N GOUT N ALZHEIMER'S DISEASE N SLEEP DISORDER N HERPES N HEADACHES/MIGRAINES N SEIZURES/EPILEPSY N VASCULAR DISEASE N Blood Disorder N HIP PAIN N DIZZINESS N HEAD TRAUMA OR INJURY N HEART DISEASE/HEART PROBLEMS N MULTIPLE SCLEROSIS N CANCER: SPECIFY N CARDIAC ARRHYTHMIA N ANESTHESIA COMPLICATIONS N ATRIAL FIBRILLATION N AUTOIMMUNE DISEASE N Gynecological HistoryNo gynecological history recorded. Obstetrics History GPAL:G 0 P 0 0 0 0 Past Encounters Encounter ID Performer Location Encounter Start Date Encounter Closed Date Diagnosis/Indication Diagnosis SNOMED-CT Code Diagnosis ICD10 Code Diagnosis IMO Codes Diagnosis Note [id number] [facility] [place] [address] [place] [address] 06/14/2020 00:00:00 06/14/2020 14:42:18 [id number] Josse Miller MD [facility] [place] [address] [place] [address] 07/12/2020 00:00:00 07/12/2020 15:00:07 [id number] Josse Miller MD [facility] [place] [address] [place] [address] 08/09/2020 00:00:00 08/09/2020 13:00:01 [id number] Josse Miller MD [facility] [place] [address] [place] [address] 09/27/2020 00:00:00 09/27/2020 12:34:17 [id number] Josse Miller MD [facility] [place] [address] [place] [address] 01/24/2021 00:00:00 01/24/2021 12:15:13 [id number] Med Hugo MD [facility] [place] [address] [place] [address] 06/21/2021 00:00:00 07/05/2021 15:05:20 [id number] Med Hugo MD [facility] [place] [address] [place] [address] 07/28/2021 00:00:00 07/28/2021 10:12:10 [id number] Med Hugo MD [facility] [place] [address] [place] [address] 08/14/2021 00:00:00 08/14/2021 15:35:33 [id number] Med Hugo MD [facility] [place] [address] [place] [address] 08/30/2021 00:00:00 09/04/2021 13:04:54 [id number] Med Hugo MD [facility] [place] [address] [place] [address] 09/27/2021 00:00:00 09/27/2021 08:57:24 [id number] Josse Miller MD [facility] [place] [address] [place] [address] 01/23/2022 00:00:00 01/23/2022 12:21:52 [id number] Med Hugo MD [facility] [place] [address] [place] [address] 07/18/2022 08:57:45 07/18/2022 09:31:55 History of left total knee replacement [id number] Z96.652 Health Concerns Section Related Observation LastModified by Organization Detai ls LastModified Time None Recorded Concern Status LastModified by Organization Details LastModified Time None Recorded Advance Directives Directive None Recorded Payers Insurance Date Sequence Insurance Name Policy Number Policy Tatum Covered Member ID Tatum Member ID Guarantor Name 07/18/2022 1 [place] Rimma Monzon [id number] Rimma Monzon 07/23/2022 2 [employer] [place] (MEDICARE SUPPLEMENT) Rimma Monzon [id number] Rimma Monzon OBGyn Episode No OBEpisode recorded.
--- OUTSIDE RECORDS SUMMARY | 2025-01-19 00:55 | XMS_ITS | Encounter Summary ---
Author Organization [facility] [employer] [facility] Address [address] [place] [address] Care Team Providers Care Cottage Parent Name Role Phone Angus Cope DO Primary Care Provider [phone] Encounter Details Date Type Department Care Team (Late Contact Info) Description 01/14/2025 Orders Only [facility] On[facility] and Hematology [facility] [address] [place] [address] Bang Donnelly MD [address] [place], [place] [address] [address] [place] [address] Social History Tobacco Use Types Packs/Day [...] st Contact Info) Description 02/05/2025 9:00 AM GEAR HOBBER SET UP 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 Office Visit [facility] Oncology and Hematology - [place] [address] [place] [address] Bang Donnelly MD [address] [employer] [address] [place] [address] documented as of this encounter Procedures Procedure Name Priority Date/Time Associated Diagnosis Comments CBC WITH AUTODIFFERENTIAL Routine 2024 12:23 PM CDT documented in this encounter Results * CBC WITH AUTODIFFERENTIAL (01/13/2025 12:23 PM CDT) Blood us Bang Donnelly MD HEMATOLOGY ORDERABLES Final Res ult documented in this encounter Visit Diagnoses Not on filedocumented in this encounter Care Teams Cottage Parent Relationship Specialty Start Date End Date Angus Cope DO [address] [place] [address] PCP - General Internal Medicine 11/04/23 documented as of this encounter
--- OUTSIDE RECORDS SUMMARY | 2025-01-19 00:55 | XMS_ITS | Encounter Summary ---
Author Organization [facility] Address [address] [place] [address] Care Team Providers Care Log Inspector Name Role Phone Unavailable Primary Care Provider Unavailabl e Encounter Details Date Type Department Care Team (Late st Contact Info) Description 03/21/[address] [facility] [address] [place] [address] Zurdo Thurman MD [address] [address] Other pancytopenia Social History Tobacco Use Types Packs/Day Years Used Date Smoking Tobacco: Never Assessed Comments Unknown Sex and Gender Information Value Date Recorded Sex Assigned at Not on file Legal Sex Female 8:51 AM MEDICARE COORDINATOR Gender Identity Not on file Sexual Orientation Not on file documented as of this encounter Plan of Treatment Not on file documented as of this encounter Procedures Procedure Name Priority Date/Time Associated Diagnosis Comments FLOW CYTOMETRY BONE MARROW Routine 03/20/2022 10:10 AM MEDICARE COORDINATOR Other pancytopenia (CMS/HCC) documented in this encounter Results * FLOW CYTOMETRY BONE MARROW (03/20/2022 10:10 AM MEDICARE COORDINATOR) Case Report Flow Cytometry Case: [id number] Authorizing Provider: Zurdo Thurman MD Collected: 03/20/2022 10:10 AM Ordering Location: [facility] Received: 03/21/2022 09:01 AM Pathologist: Yvonne Cassidy Mai, DO Specimen: Bone Marrow 03/21/2022 11:58 AM MEDICARE COORDINATOR [facility] Final Diagnosis Bone marrow, flow cytometric immunophenotypic analysis: - Increased myeloblasts (10.7% by CD34) - See description 03/21/2022 11:58 AM [facility] at 1158 MEDICARE COORDINATOR Flow Cytometry Interpretation The bone marrow specimen [...] the flow cytometry specimen is reviewed for corporate quality engineer purposes. The sample is aspiculate and hemodilute. The bone marrow aspirate specimen shows an increased myeloblast population comprising 10.7% of events analyzed. Correlation with clinical findings, the concurrent bone marrow core biopsy (accession number pending), and relevant cytogenetic/molecu lar studies is required. 03/21/2022 11:58 AM [facility] Flow Cytometry Results Differential Result Comment Flow Cell Count /uL 16,000 Total Viability % 93.0 Lymphocytes % 33 Dim CD45 Region % 21 Monocytes % 10 Granulocytes % 35 03/21/2022 11:58 AM [facility] Reason for test Other pancytopenia (CMS/HCC) 284.19 03/21/2022 11:58 AM [facility] Client Specimen ID # [id number] 03/21/2022 11:58 AM [facility] Number of markers 19 were performed. A-2 Flow CD10 A-3 Flow CD13 A-5 Flow CD20 A-11 Flow CD2 A-13 Flow CD14 A-16 Flow CD117 A-17 Flow CD11b A-18 Flow CD11c A-1 Flow CD5 A-4 Flow CD19 A-6 Flow CD33 A-7 Flow CD34 A-8 Flow CD45 A-12 Flow CD7 A-14 Flow CD56 A-15 Flow CD64 A-9 [place]+CD19+ A-10 Lambda+CD19+ A-19 Flow HLA-DR 03/21/2022 11:58 AM [facility] Disclaimer Test performed at [facility], [address] [place], [place], [address]. *The established laboratory minimum viability is 70%. [...] high complexity clinical testing. 03/21/2022 11:58 AM MEDICARE COORDINATOR [facility] Embedded Images 11:58 AM MEDICARE COORDINATOR [facility] Pathology/Cytolo gy BONE MARROW SPECIMEN / Unknown 03/20/2022 10:10 AM MEDICARE COORDINATOR 03/21/2022 9:01 AM MEDICARE COORDINATOR Zurdo Thurman MD LAB - PATHOLOGY/CYTOLOGY ORDERAB LES Final Result [facility] [address] [facility] [place] [address], [facility] [phone] documented in this encounter Visit Diagnoses Diagnosis Other pancytopenia (HCC) Other pancytopenia documented in this encounter
--- OUTSIDE RECORDS SUMMARY | 2025-01-19 00:55 | XMS_ITS | Encounter Summary ---
Author Organization [facility] Address [address] [place] [address] Care Team Providers Care Revenue Accountant Name Role Phone Unavailable Primary Care Provider Unavailabl e Encounter Details Date Type Department Care Team (Late st Contact Info) Description 01/24/2024 Lab Requisition [facility] - [facility]ology Lab [address] [place] [address] Kannan Short MD [address] [place] [address] Myelodysplastic syndrome, unspecified Social History Tobacco Use Types Packs/Day Years Used Date Smoking Tobacco: Never Assessed Comments Unknown Sex and Gender Information Value Date Recorded Sex Assigned at Not on file Legal Sex Female 8:51 AM GEOGRAPHY HEAD Gender Identity Not on file Sexual Orientation [...] AM CDT) Case Report Flow Cytometry Case: [id number] Authorizing Provider: Kannan Short Collected: 01/24/2024 11:10 AM MD [facility] Ordering Location: [facility] - Received: 01/24/2024 02:58 PM [...] specimen has been reviewed for quality control technician purposes. 01/27/2024 8:40 AM [facility] [...] A-14 Flow CD56 A-15 Flow CD64 A-9 [place]+CD19+ A-10 Lambda+CD19+ A-19 Flow HLA-DR 01/27/2024 8:40 AM [facility] Pathologist Location at [facility] 01/27/2024 8:40 AM [facility] Disclaimer Test performed at [facility], [address] [place] [address], [address]. *The established laboratory minimum viability is 70%. [...] complexity clinical testing. 01/27/2024 8:40 AM CDT [facility] Embedded Images 8:40 AM CDT [facility] Pathology/Cytolo gy BONE MARROW SPECIMEN / Unknown 01/24/2024 11:10 AM CDT 01/24/2024 2:58 PM CDT Kannan Short MD LAB - PATHOLOGY/CYT OLOGY ORDERABLES Final Result Performing Organization Address City/State/[facility] Co de Phone Number [facility] [address] [place] [address], [facility] [phone] documented in this encounter Visit Diagnoses Diagnosis Myelodysplastic syndrome, unspecified (HCC) Myelodysplastic syndrome, unspecified documented in this encounter
--- OUTSIDE RECORDS SUMMARY | 2025-01-19 00:55 | XMS_ITS | Clinical Summary ---
Author Organization [facility] (Formerly [facility]) Ward dhaliwal [facility] Address [address] [place] [address] Care Team Providers Care Employment Trainer Name Role Phone Angus Cope DO Primary Care Provider [phone] Allergies Active Allergy Reactions Criticality Noted Date [...] Encounters Date Type Department Care Team Description 01/15/2025 Abstract [facility] ([facility] Oncology and Hematology - Vik [address] [place] [id number] Bang Donnelly MD 01/15/2025 Orders Only [facility] ([facility] Oncology and Hematology - Vik [address] [place] [id number] Bang Donnelly MD 01/14/2025 Orders Only [facility] ([facility] Oncology and Hematology - Vik [address] [place] [address] Bang Donnelly MD 01/12/2025 Orders Only [facility] ([facility] Oncology and Hematology - Vik [address] [place] [address] Bang Donnelly MD 01/11/2025 Orders Only [facility] ([facility] Oncology and Hematology - Vik [address] [place] [address] Bang Donnelly MD MDS (myelodysplastic syndrome) ([facility]/HCC) 01/06/2025 Orders Only [facility] Oncology and Hematology - Vik [address] [place] [address] Bang Donnelly MD MDS (myelodysplastic syndrome) ([facility]/HCC) (Primary Dx) 01/04/2025 1:00 PM CDT Office Visit [facility] ([facility] Oncology and Hematology - Vik [address] [place] [phone] Bang Donnelly MD MDS (myelodysplastic syndrome) ([facility]/HCC) (Primary Dx); Acute myeloid leukemia not having achieved remission ([facility]/HCC) 01/01/2025 Orders Only [facility] Oncology and Hematology - Vik [address] [place] [id number] Bang Donnelly MD 01/01/2025 Refill [facility] Oncology and Hematology - Vik [address] [place] [id number] Bang Donnelly MD 12/28/2024 Orders Only [facility] Oncology and Hematology - Vik [address] [place] [phone] Bang Donnelly MD MDS (myelodysplastic syndrome) ([facility]/HCC) 12/22/2024 External Device Data STL ABSTRACTION Provider, Abstract 12/21/2024 Orders Only [facility] Oncology and Hematology - [address] [place] [address] Bang Donnelly MD 12/15/2024 External Device Data STL ABSTRACTION Provider, Abstract 12/15/2024 Orders Only [facility] Oncology and Hematology - Vik [address] [place] [address] Bang Donnelly MD 12/14/2024 Orders Only [facility] Oncology and Hematology - Vik [address] [place] [address] Bang Donnelly MD MDS (myelodysplastic syndrome) ([facility]/HCC) 12/10/2024 Orders Only [facility] Oncology and Hematology - Vik [address] [place] [address] Bang Donnelly MD Chronic anemia (Primary Dx) 12/07/2024 9:30 AM CDT Office Visit [facility] Oncology and Hematology - Vik [address] Mable Caputo MD MDS (myelodysplastic syndrome) ([facility]/HCC) (Primary Dx); Chronic anemia; Bilateral hip pain 12/07/2024 Orders Only [facility] Oncology and Hematology - Vik [address] [place] [address] Bang Donnelly MD 12/02/2024 Orders Only [facility] Oncology and Hematology - Vik [address] Bang Donnelly MD 12/02/2024 Telephone [facility] Oncology and Hematology - Vik [address] [place] [phone] Mable Caputo MD Urine Results 12/01/2024 Orders Only [facility] Oncology and Hematology - Vik [address] Bang Donnelly MD MDS (myelodysplastic syndrome) ([facility]/HCC) (Primary Dx) 11/30/2024 Orders Only [facility] Oncology and Hematology - Vik [address] [place] [address] Bang Donnelly MD MDS (myelodysplastic syndrome) (CMS/HCC) 11/27/2024 Orders Only [facility] Oncology and Hematology - Vik [address] [place] [address] Bang Donnelly MD Bilateral hip pain (Primary Dx) 11/23/2024 Refill [facility] Oncology and Hematology - [address] [place] [address] Bang Donnelly MD Bilateral hip pain 11/16/2024 Orders Only [facility] Oncology and Hematology - Vik [address] [place] [phone] Bang Donnelly MD MDS (myelodysplastic syndrome) (CMS/HCC) 11/11/2024 Refill [facility] Oncology and Hematology - Vik [address] Bang Donnelly MD Bilateral hip pain 11/10/2024 Orders Only [facility] Oncology and Hematology - Vik [address] [place] [address] Bang Donnelly MD 11/04/2024 9:00 AM CDT Office Visit [facility] Oncology and Hematology - Vik [address] Bang Donnelly MD MDS (myelodysplastic syndrome) (CMS/HCC) (Primary Dx) 11/03/2024 Orders Only [facility] Oncology and Hematology - Vik [address] [place] [address] Bang Donnelly MD 11/02/2024 Orders Only [facility] Oncology and Hematology - Vik [address] Bang Donnelly MD MDS (myelodysplastic syndrome) (CMS/HCC) 10/27/2024 Orders Only [facility] Oncology and Hematology - Vik [address] [place] [phone] Bang Donnelly MD 10/26/2024 Refill [facility] Oncology and Hematology - Vik [address] [place] [address] Bang Donnelly MD Bilateral hip pain 10/21/2024 Orders Only [facility] Oncology and Hematology - Vik [address] [place] [address] Bang Donnelly MD 10/19/2024 Orders Only [facility] Oncology and Hematology - Vik [address] [place] [address] Bang Donnelly MD MDS (myelodysplastic syndrome) (CMS/HCC) [...] st Contact Info) Description 02/05/2025 9:00 AM RETAIL LOAN ORIGINATOR Office Visit [facility] Oncology and Hematology - Vik [address] [facility] [address] [place] [address] Bang Donnelly MD [address] [facility] [address] [place] [address] Health Maintenance Due Date Last [...] Diagnosis Comments CBC WITH AUTODIFFERENTIAL Routine 2024 11:47 AM CDT CBC WITH AUTODIFFERENTIAL Routine 2024 12:23 PM [...] WITH DIFFERENTIAL Routine 10/19/2024 2:42 PM CDT from Last 3 Months Results * CBC WITH AUTODIFFERENTIAL (01/15/2025 11:47 AM CDT) Only the most recent of10 resultswithin [...] 4:22 PM CDT) Only the most recent of2 resultswithin the time period is included. Blood us Bang Donnelly MD HEMATOLOGY ORDERABLES Final Res ult from Last 3 Months Insurance MEDICARE PART A AND B [facility] Care Teams Employment Trainer Relationship Specialty Start Date End Date Angus Cope DO [address] [facility] [address] [place] [address] PCP - General Internal Medicine 11/04/23
--- OUTSIDE RECORDS SUMMARY | 2025-01-19 00:55 | XMS_ITS | Clinical Summary ---
Author Organization [facility] Address [address], [address] [address] Phone Care Team Providers Care Teacher Tutor Name Role Phone Micha Baker MD Primary Care Provider [phone] Rakesh Irby DO Unavailable [phone] Allergies Active Allergy Reactions Criticality Noted [...] Most Recently Relevant to Health Maintenance Insurance [facility] Care Teams Teacher Tutor Relationship Specialty Start Date End Date Micha Baker MD [address] [facility] [address] [place] [address] PCP - General Internal Medicine 10/10/15 Rakesh Irby DO [address] [facility] [address] [place] [address] Consulting Physician Gastroenterology 10/10/15
--- OUTSIDE RECORDS SUMMARY | 2025-01-19 00:55 | XMS_ITS | Encounter Summary ---
Author Organization [facility] Address [address] [place] [address] Care Team Providers Care Respiratory Equipment Assistant Name Role Phone Unavailable Primary Care Provider Unavailabl e Encounter Details Date Type Department Care Team (Late st Contact Info) Description 01/27/2024 Lab Requisition [facility] - Pathology Lab [address] [place] [address] Kannan Short MD [address] [facility] [address] [place] [address] Illness, unspecified Social History Tobacco Use Types Packs/Day Years Used Date Smoking Tobacco: Never Assessed Comments Unknown Sex and Gender Information Value Date Recorded Sex Assigned at Not on file Legal Sex Female 8:51 AM CLAY CASTER Gender Identity Not on file Sexual Orientation [...] Report Bone Marrow Patholog y Report Case: [id number] Authorizing Provider: Kannan Short Collected: 01/24/2024 11:00 AM MD Cuauhtemoc Ordering Location: [facility] - Received: 01/27/2024 04:22 PM Pathology Lab Pathologist: Natalee Ceja MD Specimens: A) - Bone Marrow Clot B) - Bone Marrow Core 01/28/2024 2:26 PM [facility] PATH[facility] Final Diagnosis Bone marrow, aspirate, clot section, and core biopsy: - 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 01/28/2024 2:26 PM [facility] PATH[facility] at 1426 CDT Peripheral Smear Description Not submitted. 01/28/2024 2:26 PM [facility] Bone Marrow Aspirate Differential count (200 cells): not performed due to hemodilution. Specimen quality: hemodilute. Spicules: absent. Most of the paucicellularity represents peripheral blood elements. No overtly increased blasts are seen. 01/28/2024 2:26 PM [facility] Bone Marrow Core Biopsy [...] stain): no ring sideroblasts. 01/28/2024 2:26 PM [facility] Flow Cytometry Summary Bone marrow, flow cytometry ([id number]): - Expanded CD34+ blast population identified (~8% of overall events 01/28/2024 2:26 PM [facility] Clinical History MDS with excess blasts. 01/28/2024 2:26 PM [facility] Materials Received Received are 18 slide(s) and 3 blocks labeled [id number] along with a copy of the outside pathology report[place] [address]. All original materials are returned to the referring institution, along with a copy of our final report. 01/28/2024 2:26 PM [facility] Microscopic Description Immunohistochemistry is performed to assess staining cells in an architectural context: CD34 and CD117 highlight mildly increased blasts at ~7% of marrow cellularity. CD61 highlights the increased and dysplastic blasts. P53 is essentially negative. 01/28/2024 2:26 PM CDT [facility] Pathologist Location at [facility] 01/28/2024 2:[address] [facility] Disclaimer The performance characteristics of all immunohistochemical and indirect immunofluorescence stains (if any) cited in this report were determined by the Histopathology Laboratory of [facility]. Some of these tests were developed [...] attending (teaching) pathologist. 01/28/2024 2:[address] [facility] Embedded Images 01/28/2024 2:[address] [facility] Pathology/Cytology BONE MARROW SPECIMEN / Unknown 01/24/2024 11:00 AM CDT 01/27/2024 4:22 PM CDT Miscellaneous samples (specimen) BONE MARROW SPECIMEN / Unknown 01/24/2024 11:00 AM CDT 01/27/2024 4:22 PM CDT Kannan Short MD LAB - PATHOLOGY/CYT OLOGY ORDERABLES Final Result Performing Organization Address City/State/[facility] Co de Phone Number [facility] PATHOLOGY LAB [address] [place], [place] [address] [place] [address] documented in this encounter Visit Diagnoses Diagnosis Illness, unspecified documented in this encounter
--- OUTSIDE RECORDS SUMMARY | 2025-01-19 00:55 | XMS_ITS | Encounter Summary ---
Author Organization [facility] Address [address] [place] [address] Care Team Providers Care Registered Nurse Step Down Name Role Phone Unavailable Primary Care Provider Unavailabl e Encounter Details Date Type Department Care Team (Late st Contact Info) Description 03/21/2022 Lab Requisition [facility] Care Pathology Lab [address] [place] [address] Zurdo Thurman MD [address] [address] Illness, unspecified Social History Tobacco Use Types Packs/Day Years Used Date Smoking Tobacco: Never Assessed Comments Unknown Sex and Gender Information Value Date Recorded Sex Assigned at Not on file Legal Sex Female 8:51 AM FORENSICS ANALYST Gender Identity Not on file Sexual Orientation Not on file documented as of this encounter Plan of Treatment Not on file documented as of this encounter Procedures Procedure Name Priority Date/Time Associated Diagnosis Comments BONE MARROW BIOPSY (STL) Routine 03/20/2022 10:10 AM FORENSICS ANALYST Illness, unspecified documented in this encounter Results * BONE MARROW BIOPSY (STL) (03/20/2022 10:10 AM FORENSICS ANALYST) Case Report Bone Marrow Patholog y Report Case: [id number] Authorizing Provider: Zurdo Thurman MD Collected: 03/20/2022 10:10 AM Ordering Location: [facility] Care Pathology Lab Received: 03/21/2022 02:13 PM Pathologist: Yvonne Cassidy Mai, DO Specimens: A) - Bone Marrow Clot B) - Bone Marrow Core 03/22/2022 10:49 AM FORENSICS ANALYST [facility] Final Diagnosis Bone marrow, aspirate, clot section, and core biopsy: - Normocellular marrow with multilineage dysplasia and increased blasts (11% by manual count) - See description Peripheral blood smear: - Pancytopenia - See description 03/22/2022 10:49 AM FORENSICS ANALYST [facility] PATHOLOGY LAB at 1049 FORENSICS ANALYST AP Comment The bone marrow specimen [...] HM, Pierce SA, Brock A, Pipo T, Alliance S, [place] CE, Galindo JE, Kendrick Venegas P, Dereje CD, Andrew H, David EJ, Abbey BL, Jose Miguel EH, Ivan F, Fopriscar K, Ganjairo N, Jeimy U, Joanie LA, G kamaljit N, Del J, [facility] E, El GS, Figueroa R, Miles [...] morphologic, clinical, and genomic data. Blood. 2021 15;140(11):0122-6905. doi: 10.1182/blood.90356121 50. PMID: 76450804; PMCID: [id number]. 03/22/2022 10:49 AM [facility] Peripheral Smear Description Manual Differential Count (100 cells): 50% neutrophils, 34% lymphocytes, 10% monocytes, 5% eosinophils, and 1% basophils. 0 nRBCs / 100 WBCs. Leukocytes: Decreased with reactive lymphocytes, no circulating blasts seen Erythrocytes: Macrocytic anemia with no significant anisopoikilocytosis Platelets: Decreased 03/22/2022 10:49 AM [facility] Bone Marrow Aspirate Differential count [...] ring sideroblasts seen 03/22/2022 10:49 AM [facility] Bone Marrow Core Biopsy and [...] performed on the core biopsy in the [facility] Department of Pathology, with appropriately reactive controls, and demonstrate the following: CD34: Stains variable density of blasts, 5-10% of marrow cellularity CD117: Highlights blasts, mast cells and erythroid precursors E-cadherin: Weakly stains erythroid precursors 03/22/2022 10:49 AM [facility] Flow Cytometry Summary [id number]: Increased myeloblasts (10.7% by CD34) 03/22/2022 10:49 AM [facility] Clinical History Pancytopenia 03/22/2022 10:49 AM [facility] Materials Received Received are 21 slides and three blocks (A1, A2, B1) labeled [id number] along with a copy of the outside pathology report. [place] [address]. All original materials are returned to the referring institution, along with a copy of our final report. 03/22/2022 10:49 AM [facility] Disclaimer The performance characteristics of all immunohistochemical and indirect immunofluorescence stains (if any) cited in this report were determined by the Histopathology Laboratory of [facility]. Some of these tests were developed [...] the attending (teaching) pathologist. 03/22/2022 10:49 AM FORENSICS ANALYST [facility] PATH[facility] LAB Embedded Images 03/22/2022 10:49 AM FORENSICS ANALYST [facility] PATH[facility] LAB Pathology/Cytology BONE MARROW SPECIMEN / Unknown 03/20/2022 10:10 AM FORENSICS ANALYST 03/21/2022 2:13 PM FORENSICS ANALYST Miscellaneous samples (specimen) BONE MARROW SPECIMEN / Unknown 03/20/2022 10:10 AM FORENSICS ANALYST 03/21/2022 2:13 PM FORENSICS ANALYST us Zurdo Thurman MD LAB - PATHOLOGY/CYTOLOGY ORDERAB LES Final Result [facility] PATHOLOGY LAB [address] [place] [address], [facility] [phone] documented in this encounter Visit Diagnoses Diagnosis Illness, unspecified documented in this encounter
--- OUTSIDE RECORDS SUMMARY | 2025-01-19 00:55 | XMS_ITS | Encounter Summary ---
Author Organization [facility] Address [address] [place] [address] Care Team Providers Care Cobol Application Developer Name Role Phone Angus Cope DO Primary Care Provider [phone] Encounter Details Date Type Department Care Team (Late Contact Info) Description 01/15/[address] [facility] Oncology and Hematology [facility] [address] [place] [address] Bang Donnelly MD [address] [place], [place] [address] [address] [place] [address] Social History Tobacco Use Types Packs/Day [...] st Contact Info) Description 02/05/2025 9:00 AM NUT SHELLER Office Visit [facility] Oncology and Hematology - Vik [address] [place] [address] Bang Donnelly MD [address] [place] [address] documented as of this encounter Procedures Procedure Name Priority Date/Time Associated Diagnosis Comments CBC WITH AUTODIFFERENTIAL Routine 2024 11:47 AM CDT documented in this encounter Results * CBC WITH AUTODIFFERENTIAL (01/15/2025 11:47 AM CDT) Blood us Bang Donnelly MD HEMATOLOGY ORDERABLES Final Res ult documented in this encounter Visit Diagnoses Not on filedocumented in this encounter Care Teams Cobol Application Developer Relationship Specialty Start Date End Date Angus Cope DO [address] [facility] [address] [place] [address] PCP - General Internal Medicine 11/04/23 documented as of this encounter
[2025-01-19 13:13] LABS: Immature Platelet Fraction Pct 1.9 % (0.9-11.2); Platelet Count Result 129 k/mm3 (150-375)
--- NOTE | 2025-01-19 14:48 | P.HPUP_ITS ---
History and Physical Update Update Date/Time: 01/19/25 14:48 Upon further review of most recent MRI in discussion with Neurosurgery, it appears that the most likely locations for her acute/subacute compression fracture to include T12, L3 and L4. L1 appears to be chronic. Decision was ma jennifer to move forward with T12, L3 and L4 levels today. History and Physical has been reviewed, including an updated exam of the patient. There are NO changes in the patient's condition. Risks, benefits, and alternatives have been discussed and questions answered. Patient agrees to proceed with procedure.
--- NOTE | 2025-01-19 14:49 | P.OP_ITS ---
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 Surgeon Nico Gunn MD Plastic Molder None. Anesthesia General Indications Osteoporotic vertebral compression fracture with greater than 25% deformity in the absence of neurologic deficit or significant central canal stenosis. Description of Procedure INFORMED CONSENT: Risks, benefits and alternatives to the procedure were discussed in detail with the patient who expressed explicit understanding and consent to proceed. Patient was informed verbally and in written form regarding the risks associated with the procedure including the low risk of serious local or systemic infection, bleeding/bruising, allergic reaction, pulmonary embolus/edema, extravasation of cement requiring surgical intervention, worsening fracture, nerve or organ injury, paralysis, procedural site pain or discomfort, worsening pain and/or mobility, failure to treat and/or disfigurement. The patient expressed explicit understanding and consent to proceed. All materials required for the procedure were available prior to procedure start. Site and side were marked prior to procedure and confirmed in the presence of the unsedated patient. PROCEDURE IN DETAIL: After full informed consent was obtained, appropriate IV access was confirmed by Anesthesia without difficulty. The patient was escorted to the operative theater. Supplemental oxygen was initiated to maintain O2 saturation between 92-99%. Careful positioning was undertaken and ASA standard monitors were applied and checked routinely throughout the case. Prophylactic antibiotics were administered prior to procedure start. Patient was placed in the prone position in optimal extension using pillows and the thoracolumbar spine was prepared and draped in the usual sterile manner using tinted ChloraPrep scrub and allowed to dry completely for at least 3 minutes. Fluoroscopy in the AP and lateral position was used with perfect linear projections at the T12 level to identify/confirm the procedural level and presence of deformity. Percutaneous trocar was introduced from a rightward approach (transpedicular approach) via a small stab skin incision made at the entry site using a #11 scalpel following adequate anesthesia via infiltration of a 1:1 admixture of 2% PF lidocaine with epinephrine and 0.5% PF bupivacaine with a 2 inch 27-gauge needle after negative aspiration for blood or body fluid. Anesthesia was extended to periosteum at the intended procedural level with a 3.5 inch 22g Quincke spinal needle. A 10-gauge trocar with a angel tip was introduced through the skin incision and docked on the right posterior pedicle of T12 in the superolateral (11 o'clock) position. Under live fluoroscopy while alternating between AP and lateral views, the trocar was advanced intermittently in the anterior, medial and inferior directions using a metal surgical mallet, taking care to advance only in the AP view, using lateral views to confirm depth and direction. In the AP view, as the tip of the trocar approached (but did not violate) the medial, inferior border of the pedicle, lateral view was utilized to confirm advancement of the trocar through the pedicle and into the posterior third of the vertebral body. Using the verification specialist-provided bone biopsy device, an intravertebral core biopsy was obtained from each level treated and sent in an appropriately-labeled sterile specimen cup with formalin for pathological analysis. Trocar was then advanced in the lateral view, with appropriate trajectory and final placement identified/confirmed by intermittent evaluation in the AP view until the trocar tip reached the anterior 3rd of the vertebral body at or near midline without violation of the anterior or lateral vertebral quintana. A 15 ml balloon catheter prefilled with Omnipaque 300 contrast medium was advanced to the anterior third of the vertebral body at or near midline in the medial and lateral views and inflated with contrast to a volume of 5 ml or less at an internal pressure of 400 psi or less, creating an appropriately sized cavity within the vertebral body with correct balloon location identified in both the AP and Lateral views. The cement introducer was then advanced into the far end of the cavity and the void was filled in a controlled fashion, in 0.5-1. 0 mL increments, monitoring in both the AP and Lateral views for appropriate cement position and fill, utilizing a total of 3-5 mm of polymethylmethacrylate containing nonionic contrast, stopping with any posterior spread or evidence of vascular, disc space or extra vertebral encroachment of cement. Once appropriate fill was confirmed in both the lateral and AP views, the cement introducer was withdrawn, stylette was reinserted and trocar removed in a stepwise fashion under live fluoroscopy in the lateral view to ensure lack of cement migration into the trocar tracts. The same procedure was repeated for all additional intended levels/structures treated, L3, L4, with identical methodology modified to compensate for different level/location, with similar results and no evidence of complication. Patient was allowed to remain in the prone position under relative thoracolumbar extension until cement had fully hardened, or approximately 15 minutes after initial mixing. The patient's skin was cleansed and the stab incision(s) were closed using benzoin and Steri-Strips in a fanta- crossing fashion and covered by a non-stick sponge pad and self-adherent clear, occlusive dressing. The patient tolerated this procedure well. Anesthesia was reversed without difficulty. The patient was transported to the recovery area in stable condition and without evidence of subsequent complication. Peripheral IV was discontinued. Patient was eventually discharged under their own power with pain satisfactorily controlled, without significant nausea or neurologic deficit and with full ability to ambulate, void and tolerate liquids by mouth. The patient was instructed to avoid excessive activity for the next 48 hours. Patient was restricted from driving for 48 hours. The patient was instructed to restart any anticoagulants 24 hours after the procedure unless otherwise directed by their prescribing physician. They were instructed to avoid heavy lifting, pushing, pulling or carrying weights greater than 5 pounds until released. They are to avoid any overhead work. The patient is to sponge bathe only for the next 48 hours. Top bandage can be removed after 48 hours. Steri- Strips are to remain in place until they fall off on their own or until removed by physician. After 48 hours and top bandage is removed, patient may resume showering. No bathing or soaking for one week or as released by physician. The patient is to monitor for signs of infection including fevers, chills, night sweats, redness, swelling or discharge at the procedural site. They are to monitor for signs of neurologic change including new numbness, weakness or pain in the upper or lower extremities, headaches or loss of bowel or bladder control. Should they develop any of these symptoms they are to call our office immediately during office hours or report directly to the nearest emergency department if after hours or if no immediate answer. COMPLICATIONS: None. COMMENTS: None. EBL: Minimal. DRAINS: None. PACKING: None. PATHOLOGY: Intraosseous, intravertebral core bone biopsy x3 labeled respectively T12, L3, L4 vertebral body sent in preservative. Drains No Packing No Complications No immediate complications Condition Stable Disposition PACU [facility] Billing Surgery - Charge Forward: Surgery Billing
--- NOTE | 2025-01-19 15:14 | WPDANESEPPF ---
Anes - Initial Pre Proc Eval Procedure: Operation Date: 01/19/25 14:00 Proposed Procedures p Balloon Assisted Vertebral Augmentation Via Transpedicular Approach at T12, L1 and L4 with Intra Osseous Bone Biopsy Under Fluoroscopic Guidance - Nico Gunn MD Date/Time: 01/19/25 15:14 Surgeon: Nico Gunn MD Pre Op Diagnosis: unspec fx T11-T12 and L1, wedge compression fx L4 Patient Data Age: 74 Gender: F Height: 1.6 m Weight: 63.4 kg Last Vital Signs Temp 97.5 F L 01/19/25 12:15 Pulse 79 01/19/25 12:15 Resp 18 01/19/25 12:15 BP 143/53 H 01/19/25 12:15 Pulse Ox 99 01/19/25 12:15 O2 Del Method Room Air 01/19/25 12:15 Allergies Allergy/AdvReac Type Severity Reaction Status Date / Time Penicillins Allergy Mild Hives Verified 01/18/25 07:25 Sulfa (Sulfonamide Allergy Mild rash Verified 01/18/25 07:25 Antibiotics) Home Medications ?Medication ?Instructions ?Recorded ?Confirmed ?Type calcium 333 mg-vit D3 200 1 tablet PO BID 11/10/19 01/14/25 History unit-magnesium 133 mg-zinc 5 mg tablet famotidine 20 mg tablet (Pepcid AC) 20 mg PO QACLUNCH 11/10/19 01/14/25 History loratadine 10 mg tablet 10 mg PO DAILY 11/10/19 01/14/25 History Lactobacills gasseri-Bifidobac 1 cap PO QAM 07/04/21 01/14/25 History bifidum,longum 1.5 billion cell capsule ([facility]) wrvmwaognrxc-Fa-ccjf-minerals 1 tablet PO DAILY 07/04/21 01/14/25 History omeprazole 20 mg capsule,delayed 20 mg PO DAILY 07/04/21 01/14/25 History release cyanocobalamin (vitamin B-12) 1,000 mcg PO DAILY 12/15/21 01/14/25 History 1,000 mcg capsule acyclovir 400 mg tablet 400 mg PO BID 01/24/23 01/19/25 History ferrous sulfate 325 mg (65 mg 325 mg PO TID 01/24/23 01/14/25 History iron) tablet (Iron (ferrous sulfate)) felodipine 5 mg tablet,extended 5 mg PO DAILY #90 tabs 03/05/24 01/14/25 Rx release 24 hr metoprolol succinate 25 mg 25 mg PO QAM #90 tabs 05/27/24 01/19/25 Rx tablet,extended release 24 hr simvastatin 40 mg tablet 40 mg PO HS #90 tabs 05/27/24 01/14/25 Rx Magic Mouthwash 50 mL suspension 10 ml PO .every 4 hours PRN mouth 07/03/24 01/14/25 History pain #50 mL epoetin whit 20,000 unit/mL 20,000 unit subcut WEEKLY PRN 07/29/24 01/14/25 History injection solution (Epogen) based on labs ondansetron HCl 8 mg tablet 8 mg PO Q12H 07/29/24 01/14/25 History levothyroxine 100 mcg tablet 100 mcg PO DAILY #90 tabs 09/15/24 01/19/25 Rx (Levoxyl) decitabine 50 mg intravenous 35 mg IV .COMPLEX 11/05/24 01/14/25 History solution (Dacogen) tizanidine 4 mg capsule 4 mg PO HS PRN muscle spasticity 11/05/24 01/14/25 Rx #14 caps meloxicam 15 mg tablet 15 mg PO HS #90 tabs 12/03/24 01/19/25 Rx furosemide 20 mg tablet (Lasix) 20 mg PO DAILY #90 tabs 12/15/24 01/14/25 Rx potassium chloride 10 mEq 10 meq PO DAILY #90 tabs 12/15/24 01/14/25 Rx tablet,extended release (Klor-Con) escitalopram oxalate 10 mg tablet See Rx Instructions .Route 12/18/24 01/19/25 Rx .COMPLEX #90 tabs melatonin 10 mg capsule 10 mg PO QHS 12/21/24 01/14/25 History losartan 100 mg tablet 100 mg PO DAILY 12/31/24 01/14/25 History acetaminophen 500 mg tablet 1,000 mg PO Q6-8H PRN pain 01/14/25 01/14/25 History (Acetaminophen Extra Strength) gabapentin 100 mg capsule See Rx Instructions .Route 01/19/25 Rx .COMPLEX #90 caps tramadol 50 mg tablet 50 mg PO Q6H PRN pain #60 tabs 01/19/25 Rx Laboratory Tests 01/19/25 12:45 Plt Count 129 L D k/mm3 (150-375) MPV 9.7 fl (7.4-10.4) % Immature Plt Fraction 1.9 % (0.9-11.2) Patient hx anesthesia problems: none Family hx anesthesia problems: none Results Review: All pre-operative results and documents have been reviewed as part of the pre-operative evaluation. [facility] Past Medical History Medical History Myelodysplastic syndrome, unspecified L4 vertebral fracture BMI 28.0-28.9,adult PONV (postoperative nausea and vomiting) Aortic stenosis, moderate Screening for breast cancer Screening for colon cancer Essential (primary) hypertension Hypothyroidism, unspecified Surgical History Surgical History History of total left knee replacement History of total right knee replacement Family History Family History Sibling Patient's brother is Acute myocardial infarction Father Family history of lung cancer, Onset Age: 65 Family history of type 2 diabetes mellitus Mother No problems noted. Other Social History Social History Smoking packs per day: 2.5 Smoking cigarettes per day: 50.0 Years smoked: 32 Smoking pack-years: 80.00 Smoking status: Former smoker Tobacco type: cigarettes Second hand tobacco smoke exposure: Yes Smoking end date: 01/08/98 Additional smoking assessment comments: quit smoking 30 plus years Alcohol intake: never Alcohol use details: RARELY 2-3 DRINKS/YEAR Substance use: never Substance use type: painkillers Other substance usage details: Tramadol as needed Do You Feel Safe in your Home?: Yes Lack of Transportation: No Lack of Food: Never True Current Housing: I Have Housing Concerned About Future Housing: No Difficulty Paying Gas/Electric Bills: No Difficulty Paying for Meds: No Currently Unemployed: No Education: Associate Degree Difficulty w/ Childcare or Family Care: No Living arrangements: with family Additional living arrangements comments: son and grandson live with her Occupation/Education: retired Additional 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 Gender identity (if verbalized by the patient): Female Spiritual care concerns: No Anes - Eval Final PreProcedure Day of Procedure 01/19/25 15:14 Patient weight: normal Heart: murmur (2/6 at R sternal border. ) Lungs: clear to auscultation and normal air movement Airway: Mallampati scale class II Neurological: alert and oriented Last oral intake: >/= 8 hours ASA classification: III Emergent: no Anesthetic plan: proceed Anesthesia type and monitoring: general ETT and standard monitoring Results Review: All pre-operative results and documents have been reviewed as part of the pre-operative evaluation. HTN, hyperlipidemia, hypothyroidism, hx of , mod by ECHO w nml LVEF. Hx of radiation to the side of neck for hx of salivary duct stones. Informed Consent: The patient's anesthetic plan and its attendant risks and benefits were discussed with the patient/family/POA. Questions were solicited and answers provided to the satisfaction of the patient/family/POA.
[2025-01-19] MEDS: ceFAZolin 2 GM in SODIUM CHLORIDE 0.9% IV 50 ML 100 ML IVPB (16:05)
[2025-01-19] MEDS: LIDOCAINE 1% PF INJ 5 ML VIAL 10 ML INFILTRATE (16:21)
--- NOTE | 2025-01-19 16:22 | S_PTH ---
PATIENT: Rimma Monzon LOC: [facility] U#:[id number] AGE/SX: 74/F ROOM: RE01/19/[address]: Nico Gunn MD : 1950 BED: DIS: 01/19/2025 SPEC #: [id number] RECD: 01/20/25 11:08 STATUS: S[place]AN [place] #: [id number] STORM: 01/19/25 16:[address]: Nico Gunn DEPT: [facility] Surgical RECD BY: Birgit Harper ENTERED: 01/20/25 11:08 SP TYPE: Surgical OTHR DR: Shashank Sheehan, BARRETT Tissues: A - Bone Biopsy B - Bone Biopsy C - Bone Biopsy Procedures: Hematoxylin and Eosin Stain Gross and Microscopic Level 5 Decalcification
[2025-01-19] MEDS: BUPIVACAINE/EPINEPHRINE 0.5% 50 ML VIAL 10 ML INFILTRATE (16:40)
[2025-01-19] MEDS: LACTATED RINGERS 1,000 ML 30 ML IV CONT ×2 (17:10→17:11)
[2025-01-19] MEDS: oxyCODONE HCL (*CRX) 5 MG TAB IR PO (18:58)
== END 2025-01-19 19:40 | disposition home or self-care (01) ==
PROVIDERS: Anesthesiology; PCP Nurse Practitioner; Visit Provider Anesthesiology Pain Medicine
PROC: (CPT 22514; principal; 2025-01-19 14:00)
DX: M80.08XA Age-related osteoporosis with current pathological fracture, vertebra(e), initial encounter for fracture (principal); C94.6 Myelodysplastic disease, not elsewhere classified; M48.062 Spinal stenosis, lumbar region with neurogenic claudication; E11.9 Type 2 diabetes mellitus without complications
CPT/HCPCS: 22514; 22515 ×2; 36415; 85049; 85055; 88307; 88311; 99199; J0690; A9270; J2003; J2250; J2405; J2704; J3010; J7120; Q9965

== ENCOUNTER 2025-02-02 14:39 | Outpatient (CLI) | payer MEDICARE, OTHER, SELFPAY ==
--- NOTE | ~2025-02-02 | XR_ITS ---
XR lumbar spine 2-3V Indication: S32.019A - Unspecified fracture of first lumbar vertebra,... Comparison: None Findings: Moderate loss of vertebral height throughout with multiple remote compression fractures, kyphoplasty changes at L4, L3 and T12 with loss of height maximally of T12 90%. No acute fracture. Severe loss of disc height throughout. Soft tissues unremarkable Impression: No acute abnormality. Reviewed, dictated and finalized at location P. LE TAKER OPERATOR Impression: No acute abnormality.
--- OUTSIDE RECORDS SUMMARY | 2025-02-02 16:12 | XMS_ITS | Encounter Summary ---
Author Organization [facility] Address [address] [place] [address] Care Team Providers Care Online Merchant Name Role Phone Unavailable Primary Care Provider Unavailabl e Encounter Details Date Type Department Care Team (Late st Contact Info) Description 03/21/2022 Lab Requisition [facility] Pathology Lab [address] [place] [address] Zurdo Thurman MD [address] [id number] Other pancytopenia Social History Tobacco Use Types Packs/Day Years Used Date Smoking Tobacco: Never Assessed Comments Unknown Sex and Gender Information Value Date Recorded Sex Assigned at Not on file Legal Sex Female 8:51 AM 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 Gender Identity Not on file Sexual Orientation Not on file documented as of this encounter Plan of Treatment Not on file documented as of this encounter Procedures Procedure Name Priority Date/Time Associated Diagnosis Comments FLOW CYTOMETRY BONE MARROW Routine 03/20/2022 10:10 AM 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 Other pancytopenia (CMS/HCC) documented in this encounter Results * FLOW CYTOMETRY BONE MARROW (03/20/2022 10:10 AM 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) Case Report Flow Cytometry Case: [id number] Authorizing Provider: Zurdo Thurman MD Collected: 03/20/2022 10:10 AM Ordering Location: [facility] Care Pathology Lab Received: 03/21/2022 09:01 AM Pathologist: Yvonne Cassidy Mai, DO Specimen: Bone Marrow 03/21/2022 11:58 AM 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 [facility] Final Diagnosis Bone marrow, flow cytometric immunophenotypic analysis: - Increased myeloblasts (10.7% by CD34) - See description 03/21/2022 11:58 AM [facility] PATHOLOGY LAB at [address]8 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 Flow Cytometry Interpretation The bone marrow specimen [...] flow cytometry specimen is reviewed for quality compliance consultant purposes. The sample is aspiculate and hemodilute. The bone marrow aspirate specimen shows an increased myeloblast population comprising 10.7% of events analyzed. Correlation with clinical findings, the concurrent bone marrow core biopsy (accession number pending), and relevant cytogenetic/molecu lar studies is required. 03/21/2022 11:58 AM [facility] PATH[facility] LAB Flow Cytometry Results Differential Result Comment Flow Cell Count /uL 16,000 Total Viability % 93.0 Lymphocytes % 33 Dim CD45 Region % 21 Monocytes % 10 Granulocytes % 35 03/21/2022 11:58 AM [facility] Reason for test Other pancytopenia (CMS/HCC) 284.19 03/21/2022 11:58 AM [facility] PATH[facility] Client Specimen ID # [id number] 03/21/2022 11:58 AM [facility] PATH[facility] Number of markers 19 were performed. A-2 Flow CD10 A-3 Flow CD13 A-5 Flow CD20 A-11 Flow CD2 A-13 Flow CD14 A-16 Flow CD117 A-17 Flow CD11b A-18 Flow CD11c A-1 Flow CD5 A-4 Flow CD19 A-6 Flow CD33 A-7 Flow CD34 A-8 Flow CD45 A-12 Flow CD7 A-14 Flow CD56 A-15 Flow CD64 A-9 [place]+CD19+ A-10 Lambda+CD19+ A-19 Flow HLA-DR 03/21/2022 11:58 AM [facility] PATH[facility] LAB Disclaimer Test performed at [facility], [address] [place], [place], [address]. *The established laboratory minimum viability is 70%. [...] high complexity clinical testing. 03/21/2022 11:58 AM 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 [facility] PATHOLOGY LAB Embedded Images 11:58 AM 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 [facility] PATHOLOGY LAB Pathology/Cytolo gy BONE MARROW SPECIMEN / Unknown 03/20/2022 10:10 AM 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 03/21/2022 9:01 AM 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 Zurdo Thurman MD LAB - PATHOLOGY/CYTOLOGY ORDERAB LES Final Result [facility] PATHOLOGY LAB [address] [place] [address], [facility] [phone] documented in this encounter Visit Diagnoses Diagnosis Other pancytopenia (HCC) Other pancytopenia documented in this encounter
--- OUTSIDE RECORDS SUMMARY | 2025-02-02 16:12 | XMS_ITS | Encounter Summary ---
Author Organization [facility] Address [address] [facility] [place] [address] Care Team Providers Care Visual Manager Name Role Phone Unavailable Primary Care Provider Unavailabl e Encounter Details Date Type Department Care Team (Late st Contact Info) Description 01/27/2024 Lab Requisition [facility] - Pathology Lab [address] [place] [address] Kannan Short MD [address] [facility] [address] [place] [id number] Illness, unspecified Social History Tobacco Use Types Packs/Day Years Used Date Smoking Tobacco: Never Assessed Comments Unknown Sex and Gender Information Value Date Recorded Sex Assigned at Not on file Legal 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 Gender Identity Not on file Sexual Orientation [...] Report Bone Marrow Patholog y Report Case: [id number] Authorizing Provider: Kannan Short Collected: 01/24/2024 11:00 AM MD [place] Ordering Location: [facility] - Received: 01/27/2024 04:22 PM Pathology Lab Pathologist: Natalee Ceja MD Specimens: A) - Bone Marrow Clot B) - Bone Marrow Core 01/28/2024 2:26 PM [facility] PATHOLOGY LAB Final Diagnosis Bone marrow, aspirate, clot section, and core biopsy: - 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 01/28/2024 2:26 PM [facility] PATHOLOGY LAB at 1426 CDT Peripheral Smear Description Not submitted. 01/28/2024 2:26 PM [facility] PATH[facility] Bone Marrow Aspirate Differential count (200 cells): not performed due to hemodilution. Specimen quality: hemodilute. Spicules: absent. Most of the paucicellularity represents peripheral blood elements. No overtly increased blasts are seen. 01/28/2024 2:26 PM [facility] PATH[facility] Bone Marrow [...] stain): no ring sideroblasts. 01/28/2024 2:26 PM [facility] Flow Cytometry Summary Bone marrow, flow cytometry ([id number]): - Expanded CD34+ blast population identified (~8% of overall events 01/28/2024 2:26 PM [facility] Clinical History MDS with excess blasts. 01/28/2024 2:26 PM [facility] PATH[facility] Materials Received Received are 18 slide(s) and 3 blocks labeled [id number] along with a copy of the outside pathology report. [place] [id number]. All original materials are returned to the referring institution, along with a copy of our final report. 01/28/2024 2:26 PM [facility] PATH[facility] LAB Microscopic Description Immunohistochemistry is performed to assess staining cells in an architectural context: CD34 and CD117 highlight mildly increased blasts at ~7% of marrow cellularity. CD61 highlights the increased and dysplastic blasts. P53 is essentially negative. 01/28/2024 2:26 PM CDT [facility] PATH[facility] Pathologist Location at [facility] 01/28/2024 2:26 PM CDT [facility] Disclaimer The performance characteristics of all immunohistochemical and indirect immunofluorescence stains (if any) cited in this report were determined by the Histopathology Laboratory of [facility]. Some of these tests were developed [...] attending (teaching) pathologist. 01/28/2024 2:26 PM CDT [facility] PATH[facility] Embedded Images 01/28/2024 2:26 PM CDT [facility] Pathology/Cytology BONE MARROW SPECIMEN / Unknown 01/24/2024 11:00 AM CDT 01/27/2024 4:22 PM CDT Miscellaneous samples (specimen) BONE MARROW SPECIMEN / Unknown 01/24/2024 11:00 AM CDT 01/27/2024 4:22 PM CDT Kannan Short MD LAB - PATHOLOGY/CYT OLOGY ORDERABLES Final Result Performing Organization Address City/State/[facility] Co de Phone Number [facility] [address] [place], [place] [id number] [place] [address] documented in this encounter Visit Diagnoses Diagnosis Illness, unspecified documented in this encounter
--- OUTSIDE RECORDS SUMMARY | 2025-02-02 16:12 | XMS_ITS | Encounter Summary ---
Author Organization [facility] Address [address] [place] [address] Care Team Providers Care Assistant Finance Director Name Role Phone Unavailable Primary Care Provider Unavailabl e Encounter Details Date Type Department Care Team (Late st Contact Info) Description 01/24/2024 Lab Requisition [facility] - Pathology Lab [address] [place] [address] Kannan Short MD [address] [facility] [address] [place] [address] Myelodysplastic syndrome, unspecified Social History Tobacco Use Types Packs/Day Years Used Date Smoking Tobacco: Never Assessed Comments Unknown Sex and Gender Information Value Date Recorded Sex Assigned at Not on file Legal Sex 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 Gender Identity Not on file Sexual [...] AM CDT) Case Report Flow Cytometry Case: [id number] Authorizing Provider: Kannan Short Collected: 01/24/2024 11:10 AM MD Cu[place]emoc Ordering Location: [facility] - Received: 01/24/2024 02:58 PM Pathology Lab Pathologist: Natalee Ceja MD Specimen: Bone Marrow 01/27/2024 8:40 AM CDT [facility] PATHOLOGY LAB Final Diagnosis Bone marrow, flow cytometry: - Expanded CD34+ blast population identified (~8% of overall events) 01/27/2024 8:40 AM [facility] PATHOLOGY LAB at 0840 [...] flow cytometry specimen has been reviewed for rn clinical quality purposes. 01/27/2024 8:40 AM [facility] PATHOLOGY LAB Flow Cytometry Results Differential Result Comment Flow Cell Count /uL 1,800 Total Viability % 100.0 Lymphocytes % 17 Dim CD45 Region % 16 Monocytes % 14 Granulocytes % 51 01/27/2024 8:40 AM [facility] PATHOLOGY LAB Reason for test Myelodysplastic syndrome, unspecified (HCC) 238.75 01/27/2024 8:40 AM [facility] PATHOLOGY LAB Client Specimen ID # [id number] 01/27/2024 8:40 AM [facility] PATHOLOGY LAB Number of markers 19 were performed. A-2 Flow CD10 A-3 Flow CD13 A-5 Flow CD20 A-11 Flow CD2 A-13 Flow CD14 A-16 Flow CD117 A-17 Flow CD11b A-18 Flow CD11c A-1 Flow CD5 A-4 Flow CD19 A-6 Flow CD33 A-7 Flow CD34 A-8 Flow CD45 A-12 Flow CD7 A-14 Flow CD56 A-15 Flow CD64 A-9 [place]+CD19+ A-10 Lambda+CD19+ A-19 Flow HLA-DR 01/27/2024 8:40 AM [facility] PATHOLOGY LAB Pathologist Location at [facility] 01/27/2024 8:40 AM [facility] PATHOLOGY LAB Disclaimer Test performed at [facility], [address] [place] [address], [address]. *The established laboratory minimum viability is 70%. [...] complexity clinical testing. 01/27/2024 8:40 AM CDT [facility] PATHOLOGY LAB Embedded Images 8:40 AM CDT [facility] PATHOLOGY LAB Pathology/Cytolo gy BONE MARROW SPECIMEN / Unknown 01/24/2024 11:10 AM CDT 01/24/2024 2:58 PM CDT Kannan Short MD LAB - PATHOLOGY/CYT OLOGY ORDERABLES Final Result Performing Organization Address City/State/[facility] Co de Phone Number [facility] PATHOLOGY LAB [address] [place] [address], [facility] [phone] documented in this encounter Visit Diagnoses Diagnosis Myelodysplastic syndrome, unspecified (HCC) Myelodysplastic syndrome, unspecified documented in this encounter
--- OUTSIDE RECORDS SUMMARY | 2025-02-02 16:12 | XMS_ITS | Clinical Summary ---
Author Organization [facility] Address [address], [address] [address] Phone Care Team Providers Care Chair And Couch Maker Name Role Phone Micha Baker MD Primary Care Provider [phone] Rakesh Irby DO Unavailable [phone] Allergies Active Allergy Reactions Criticality Noted [...] Most Recently Relevant to Health Maintenance Insurance [facility] Care Teams Chair And Couch Maker Relationship Specialty Start Date End Date iMcha Baker MD [address] [facility] [address] [place] [address] PCP - General Internal Medicine 10/10/15 Rakesh Irby DO [address] [facility] [address] [place] [address] Consulting Physician Gastroenterology 10/10/15
--- OUTSIDE RECORDS SUMMARY | 2025-02-02 16:12 | XMS_ITS | Clinical Summary ---
Author Organization [facility] Address [address] [place] [address] Care Team Providers Care Warning Coordination Meteorologist Name Role Phone Unavailable Primary Care Provider Unavailabl e Source Comments [facility],non-owned Affiliates and Associated Physician Practices is amultiple site organization consisting of ambulatory clinics and hospital sitesin [place], [place], [place] and [place]. This disclosure is being madepursuant to the Care Everywhere program and may not contain all information available regarding this patient. 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 Gender Identity Not on file Sexual Orientation [...] 02/27/2017 02/28/2016 DEPRESSION SCREENING 04/01/2024 COVID-19 VACCINE (1 - 2023-2 5 season) 2024 INFLUENZA VACCINE [...] patient's age to complete this topic Insurance [facility] MEDICARE [facility] SELF PAY NO INSURANCE Member Subscriber Plan / Payer (Ef fective for All Dates) Name:Rimma Monzon Member ID:Not on file Relation to Subscriber:Not on file Name:RIMMA MONZON Subscriber ID:Not on file (Home) Address: [address] [place] [address] Payer ID:Not on file Group ID:Not on file Type:Self Pay Address: [place], [place] MEDICARE
--- OUTSIDE RECORDS SUMMARY | 2025-02-02 16:12 | XMS_ITS | Encounter Summary ---
Author Organization [facility] Address [address] [facility] [place] [address] Care Team Providers Care Quality Rep Name Role Phone Unavailable Primary Care Provider Unavailabl e Encounter Details Date Type Department Care Team (Late st Contact Info) Description 03/21/2022 Lab Requisition [facility] Care Pathology Lab [address] [place] [address] Zurdo Thurman MD [address] [address] Illness, unspecified Social History Tobacco Use Types Packs/Day Years Used Date Smoking Tobacco: Never Assessed Comments Unknown Sex and Gender Information Value Date Recorded Sex Assigned at Not on file Legal Sex Female 8:51 AM HERBICIDE SPRAYER Gender Identity Not on file Sexual Orientation Not on file documented as of this encounter Plan of Treatment Not on file documented as of this encounter Procedures Procedure Name Priority Date/Time Associated Diagnosis Comments BONE MARROW BIOPSY (STL) Routine 03/20/2022 10:10 AM HERBICIDE SPRAYER Illness, unspecified documented in this encounter Results * BONE MARROW BIOPSY (STL) (03/20/2022 10:10 AM HERBICIDE SPRAYER) Case Report Bone Marrow Patholog y Report Case: [id number] Authorizing Provider: Zurdo Thurman MD Collected: 03/20/2022 10:10 AM Ordering Location: [facility] Care Pathology Lab Received: 03/21/2022 02:13 PM Pathologist: Yvonne Cassidy Mai, DO Specimens: A) - Bone Marrow Clot B) - Bone Marrow Core 03/22/2022 10:49 AM HERBICIDE SPRAYER [facility] PATHOLOGY LAB Final Diagnosis Bone marrow, aspirate, clot section, and core biopsy: - Normocellular marrow with multilineage dysplasia and increased blasts (11% by manual count) - See description Peripheral blood smear: - Pancytopenia - See description 03/22/2022 10:49 AM HERBICIDE SPRAYER [facility] PATHOLOGY LAB at 1049 HERBICIDE SPRAYER AP Comment The bone marrow specimen is [...] HM, Pierce SA, Brock A, Pipo T, [place] S, [place]-Ashley CE, Galindo JE, Kendrick Venegas P, Dereje CD, Andrew H, David EJ, Abbey BL, Jose Miguel EH, Ivan F, Fopriscar K, Ganjairo N, Jeimy U, Joanie LA, G kamaljit N, Del J, [facility] E, El GS, Figueroa R, Miles [...] morphologic, clinical, and genomic data. Blood. 2021 15;140(11):7326-0716. doi: 10.1182/blood.08638536 50. PMID: 92726118; PMCID: [id number]. 03/22/2022 10:49 AM [facility] PATHOLOGY LAB Peripheral Smear Description Manual Differential Count (100 cells): 50% neutrophils, 34% lymphocytes, 10% monocytes, 5% eosinophils, and 1% basophils. 0 nRBCs / 100 WBCs. Leukocytes: Decreased with reactive lymphocytes, no circulating blasts seen Erythrocytes: Macrocytic anemia with no significant anisopoikilocytosis Platelets: Decreased 03/22/2022 10:49 AM [facility] PATHOLOGY LAB Bone Marrow Aspirate Differential [...] No ring sideroblasts seen 03/22/2022 10:49 AM [facility] PATHOLOGY LAB Bone Marrow Core Biopsy [...] performed on the core biopsy in the [facility] Department of Pathology, with appropriately reactive controls, and demonstrate the following: CD34: Stains variable density of blasts, 5-10% of marrow cellularity CD117: Highlights blasts, mast cells and erythroid precursors E-cadherin: Weakly stains erythroid precursors 03/22/2022 10:49 AM [facility] PATHOLOGY LAB Flow Cytometry Summary [id number]: Increased myeloblasts (10.7% by CD34) 03/22/2022 10:49 AM [facility] PATHOLOGY LAB Clinical History Pancytopenia 03/22/2022 10:49 AM [facility] PATHOLOGY LAB Materials Received Received are 21 slides and three blocks (A1, A2, B1) labeled [id number] along with a copy of the outside pathology report. [place] [address]. All original materials are returned to the referring institution, along with a copy of our final report. 03/22/2022 10:49 AM [facility] PATHOLOGY LAB Disclaimer The performance characteristics of all immunohistochemical and indirect immunofluorescence stains (if any) cited in this report were determined by the Histopathology Laboratory of [facility]. Some of these tests were [...] the attending (teaching) pathologist. 03/22/2022 10:49 AM HERBICIDE SPRAYER [facility] PATHOLOGY LAB Embedded Images 03/22/2022 10:49 AM HERBICIDE SPRAYER [facility] PATHOLOGY LAB Pathology/Cytology BONE MARROW SPECIMEN / Unknown 03/20/2022 10:10 AM HERBICIDE SPRAYER 03/21/2022 2:13 PM HERBICIDE SPRAYER Miscellaneous samples (specimen) BONE MARROW SPECIMEN / Unknown 03/20/2022 10:10 AM HERBICIDE SPRAYER 03/21/2022 2:13 PM HERBICIDE SPRAYER us Zurdo Thurman MD LAB - PATHOLOGY/CYTOLOGY ORDERAB LES Final Result [facility] PATHOLOGY LAB [address] [place] [address], [facility] [phone] documented in this encounter Visit Diagnoses Diagnosis Illness, unspecified documented in this encounter
--- OUTSIDE RECORDS SUMMARY | 2025-02-02 16:13 | XMS_ITS | Encounter Summary ---
Author Organization [facility] Address [address] [place] [address] Care Team Providers Care Cabinet Mounter Name Role Phone Angus Cope DO Primary Care Provider [phone] Encounter Details Date Type Department Care Team (Late Contact Info) Description 01/29/2025 Orders Only [facility] Oncology and Hematology [facility] [address] [place] [address] Bang Donnelly MD [address] [place], [place] [address] [address] [place] [address] Social History Tobacco Use Types Packs/Day [...] Contact Info) Description 02/05/2025 9:00 AM BANK COMPLIANCE OFFICER Office Visit [facility] Oncology and Hematology - [place] [address] [place] [address] Bang Donnelly MD [address] [employer] [address] [place] [address] documented as of this encounter Procedures Procedure Name Priority Date/Time Associated Diagnosis Comments CBC WITH AUTODIFFERENTIAL Routine 2024 11:41 AM CDT documented in this encounter Results * CBC WITH AUTODIFFERENTIAL (01/28/2025 11:41 AM CDT) Blood us Bang Donnelly MD HEMATOLOGY ORDERABLES Final Res ult documented in this encounter Visit Diagnoses Not on filedocumented in this encounter Care Teams Cabinet Mounter Relationship Specialty Start Date End Date Angus Cope DO [address] [facility] [address] [place] [address] PCP - General Internal Medicine 11/04/23 documented as of this encounter
--- OUTSIDE RECORDS SUMMARY | 2025-02-02 16:13 | XMS_ITS | Clinical Summary ---
Author Organization [facility] Ward dhaliwal [facility] Address [address] [place] [address] Care Team Providers Care Malariologist Name Role Phone Angus Cope DO Primary Care Provider [phone] Allergies Active Allergy Reactions Criticality Noted Date [...] 3 04/30/19 23 025 Discontin ued(Reord er) Active Problems Problem Noted Date Diagnosed Date MDS (myelodysplastic syndrome) 08/05/2023 Pancytopenia 07/14/2021 Encounters Date Type Department Care Team Description 01/29/2025 Orders Only [facility] Oncology and Hematology - [place] [address] Bang Donnelly MD 01/25/2025 Orders Only [facility] Oncology and Hematology - [place] [address] [place] [phone] Bang Donnelly MD MDS (myelodysplastic syndrome) ([facility]/HCC) 01/20/2025 External Device Data STL ABSTRACTION Provider, Abstract 01/19/2025 External Device Data STL ABSTRACTION Provider, Abstract 01/19/2025 Orders Only [facility] Oncology and Hematology - [place] [address] [place] [phone] Bang Donnelly MD 01/15/2025 Abstract [facility] Oncology and Hematology - [place] [address] [place] [address] Bang Donnelly MD 01/15/2025 Orders Only [facility] On[facility] and Hematology - [place] [address] [place] [address] Bang Donnelly MD 01/14/2025 Orders Only [facility] Oncology and Hematology - [place] [address] [place] [address] Bang Donnelly MD 01/12/2025 Orders Only [facility] Oncology and Hematology - [place] [address] [place] [phone] Bang Donnelly MD 01/11/2025 Orders Only [facility] Oncology and Hematology - [place] [address] [place] [phone] Bang Donnelly MD MDS (myelodysplastic syndrome) ([facility]/HCC) 01/06/2025 Orders Only [facility] Oncology and Hematology - [place] [address] [place] [phone] Bang Donnelly MD MDS (myelodysplastic syndrome) ([facility]/HCC) (Primary Dx) 01/04/2025 1:00 PM CDT Office Visit [facility] Oncology and Hematology - [place] [address] [place] [address] Bang Donnelly MD MDS (myelodysplastic syndrome) ([facility]/HCC) (Primary Dx); Acute myeloid leukemia not having achieved remission ([facility]) 01/01/2025 Orders Only [facility] Oncology and Hematology [address] [place] [phone] Bang Donnelly MD 01/01/2025 Refill [facility] Oncology and Hematology [address] [place] [address] Bang Donnelly MD 12/28/2024 Orders Only [facility] Oncology and Hematology - [place] [address] [place] [address] Bang Donnelly MD MDS (myelodysplastic syndrome) ([facility]/HCC) 12/22/2024 External Device Data STL ABSTRACTION Provider, Abstract 12/21/2024 Orders Only [facility] Oncology and Hematology - [place] [address] [place] [address] Bang Donnelly MD 12/15/2024 External Device Data STL ABSTRACTION Provider, Abstract 12/15/2024 Orders Only [facility] Oncology and Hematology - [place] [address] [place] [address] Bang Donnelly MD 12/14/2024 Orders Only [facility] Oncology and Hematology - [place] [address] [place] [phone] Bang Donnelly MD MDS (myelodysplastic syndrome) (CMS/HCC) 12/10/2024 Orders Only [facility] Oncology and Hematology - [place] [address] [place] [address] Bang Donnelly MD Chronic anemia (Primary Dx) 12/07/2024 9:30 AM CDT Office Visit [facility] Oncology and Hematology - [place] [address] [place] [address] Mable Caputo MD MDS (myelodysplastic syndrome) ([facility]/HCC) (Primary Dx); Chronic anemia; Bilateral hip pain 12/07/2024 Orders Only [facility] Oncology and Hematology - [place] [address] [place] [address] Bang Donnelly MD 12/02/2024 Orders Only [facility] Oncology and Hematology - [place] [address] [place] [address] Bang Donnelly MD 12/02/2024 Telephone [facility] Oncology and Hematology - [place] [address] [place] [address] Mable Caputo MD Urine Results 12/01/2024 Orders Only [facility] Oncology and Hematology - [place] [address] [place] [address] Bang Donnelly MD MDS (myelodysplastic syndrome) (CMS/HCC) (Primary Dx) 11/30/2024 Orders Only [facility] Oncology and Hematology - [place] [address] [place] [address] Bang Donnelly MD MDS (myelodysplastic syndrome) (CMS/HCC) 11/27/2024 Orders Only [facility] Oncology and Hematology - [place] [address] [place] [phone] Bang Donnelly MD Bilateral hip pain (Primary Dx) 11/23/2024 Refill [facility] Oncology and Hematology - [place] [address] Bang Donnelly MD Bilateral hip pain 11/16/2024 Orders Only [facility] Oncology and Hematology - [place] [address] [place] [address] Bang Donnelly MD MDS (myelodysplastic syndrome) (CMS/HCC) 11/11/2024 Refill [facility] Oncology and Hematology - [place] [address] [place] [phone] Bang Donnelly MD Bilateral hip pain 11/10/2024 Orders Only [facility] Oncology and Hematology - [place] [address] [place] [phone] Bang Donnelly MD 11/04/2024 9:00 AM CDT Office Visit [facility] Oncology and Hematology - [place] [address] Bang Donnelly MD MDS (myelodysplastic syndrome) (CMS/HCC) (Primary Dx) 11/03/2024 Orders Only [facility] Oncology and Hematology - [place] [address] Bang Donnelly MD 11/02/2024 Orders Only [facility] Oncology and Hematology - [place] [address] Bang Donnelly MD MDS (myelodysplastic syndrome) [...] st Contact Info) Description 02/05/2025 9:00 AM TRANSPORTATION DEPARTMENT HEAD Office Visit [facility] Oncology and Hematology - [place] [address] [facility] [address] [place] [address] Bang Donnelly MD [address] [facility] [address] [place] [address] Health Maintenance Due Date Last [...] VACCINE (#1) 2024 BREAST CANCER SCREENING 11/18/2024 11/19/19 24, 11/19/2023, 11/14/2022, Additional history exists COVID-19 Vaccine (3 - 2024-2 6 season) 2024 07/05/2020, 06/14/2020 RSV VACCINE (60+ or ) (1 - 1-dose 75+ series) 11/18/2027 COLORECTAL SCREENING 02/05/2033 02/05/2023, 10/10/19 Colorectal Cancer Screening 02/05/2033 Procedures Procedure Name Priority Date/Time Associated Diagnosis Comments CBC WITH AUTODIFFERENTIAL Routine 2024 11:41 AM CDT CBC WITH AUTODIFFERENTIAL Routine 2024 12:36 PM CDT CBC WITH AUTODIFFERENTIAL Routine 2024 11:47 AM [...] WITH AUTODIFFERENTIAL Routine 2024 8:05 AM CDT from Last 3 Months Results * CBC WITH AUTODIFFERENTIAL (01/28/2025 11:41 AM CDT) Only the most recent of12 resultswithin the time period is included. Blood [...] MICROBIOLOGY - GENERAL ORDERABL ES Final Result from Last 3 Months Insurance MEDICARE PART A AND B [facility] Care Teams Malariologist Relationship Specialty Start Date End Date Angus Cope DO [address] [facility] [address] [place] [address] PCP - General Internal Medicine 11/04/23
== END 2025-02-02 14:40 | disposition home or self-care (01) ==
PROVIDERS: PCP Nurse Practitioner; Visit Provider Nurse Practitioner Adult Health
DX: S32.019A Unspecified fracture of first lumbar vertebra, initial encounter for closed fracture (principal); X58.XXXA Exposure to other specified factors, initial encounter
CPT/HCPCS: 72100

== ENCOUNTER 2025-02-15 13:44 | Outpatient (CLI) | payer MEDICARE, OTHER, SELFPAY ==
[2025-02-15 16:43] LABS: Free T4 Free Thyroxine 0.58 ng/dL (0.78-2.19)
[2025-02-15 16:58] LABS: Thyroid Stimulating Hormone 19.000 uIU/mL (0.465-4.680)
== END 2025-02-15 13:45 | disposition home or self-care (01) ==
LOC: ANHLAB 13:46
PROVIDERS: PCP Nurse Practitioner; Visit Provider Nurse Practitioner
DX: E03.9 Hypothyroidism, unspecified (principal)
CPT/HCPCS: 36415; 84439; 84443

== ENCOUNTER 2025-02-16 02:08 | Day surgery (SDC) | payer MEDICARE, OTHER, SELFPAY ==
[2025-02-15 15:46] VITALS: BMI 28.3
--- NOTE | ~2025-02-16 | BM_ITS ---
EXAMINATION: CCL bone marrow asp w bx diag ORDER COMPLETED DATE: 02/16/2025 09:45 INDICATION: Myelodysplastic syndrome TECHNIQUE: A time-out was performed to verify the patient's name, date of , and procedure to be performed. The procedure including the risks and benefits was discussed with the patient. Risks discussed included bleeding, infection, nerve injury and allergic reaction. The patient understood the risks and agreed to proceed. The skin overlying the right posterior iliac spine was prepped and draped in usual sterile fashion. Anesthetic was administered with 1% lidocaine subcutaneously. Moderate conscious sedation was achieved with 50 mcg fentanyl IV and 1 mg of Versed IV. An 11 gauge needle was inserted into the right ilium with fluoroscopic guidance. Bone marrow was aspirated. An 8 gauge needle was then inserted into the right ilium with fluoroscopic guidance. A core bone marrow biopsy was obtained. The needle was removed and the entry site was cleaned and dressed. There were no immediate complications. A total of 83 fluoroscopic images were recorded. Fluoroscopy exposure time was 0.1 minutes. Total DAP was 178 mGycm^2. FINDINGS: Real-time fluoroscopy demonstrates the biopsy needle tip overlying the right posterior iliac spine. IMPRESSION: 1. Successful fluoroscopic guided bone marrow aspiration. 2. Successful fluoroscopic guided bone marrow biopsy. Reviewed, dictated and finalized at location A. [facility]
--- OUTSIDE RECORDS SUMMARY | 2025-02-16 03:17 | XMS_ITS | Encounter Summary ---
Author Organization [facility] Address [address] [place] [address] Care Team Providers Care Network Relay Tester Name Role Phone Johanna Parsih MD Unavailable Encounter Details Date Type Department Care Team (Late Contact Info) Description 03/21/2022 Lab Requisition [facility] Care Pathology Lab [address] [place] [address] Zurdo Thurmna MD [address] [address] Other pancytopenia Social History Tobacco Use Types Packs/Day Years Used Date Smoking Tobacco: Never Assessed Comments Unknown Sex and Gender Information Value Date Recorded Sex Assigned at Not on file Legal Sex Female 8:51 AM FAMILY CASEWORKER Gender Identity Not on file Sexual Orientation Not on file documented as of this encounter Plan of Treatment Upcoming Encounters Date Type Department Care Team (Late Contact Info) Description 03/02/2025 1:30 PM FAMILY CASEWORKER Office Visit [facility] - Hematology/Oncology [address] [place] [phone] Johanna Parish MD [address] [place] [address] documented as of this encounter Procedures Procedure Name Priority Date/Time Associated Diagnosis Comments FLOW CYTOMETRY BONE MARROW Routine 03/20/2022 10:10 AM FAMILY CASEWORKER Other pancytopenia (CMS/HCC) documented in this encounter Results * FLOW CYTOMETRY BONE MARROW (03/20/2022 10:10 AM FAMILY CASEWORKER) Case Report Flow Cytometry Case: [id number] Authorizing Provider: Zurdo Thurman MD Collected: 03/20/2022 10:10 AM Ordering Location: [facility] Pathology Lab Received: 03/21/2022 09:01 AM Pathologist: Yvonne Cassidy Mai, DO Specimen: Bone Marrow 03/21/2022 11:[address] [facility] Final Diagnosis Bone marrow, flow cytometric immunophenotypic analysis: - Increased myeloblasts (10.7% by CD34) - See description 03/21/2022 11:[address] [facility] PATHOLOG[facility] at 1158 FAMILY CASEWORKER Flow Cytometry Interpretation The bone marrow specimen [...] the flow cytometry specimen is reviewed for nurse quality purposes. The sample is aspiculate and hemodilute. The bone marrow aspirate specimen shows an increased myeloblast population comprising 10.7% of events analyzed. Correlation with clinical findings, the concurrent bone marrow core biopsy (accession number pending), and relevant cytogenetic/molecu lar studies is required. 03/21/2022 11:[address] [facility] Flow Cytometry Results Differential Result Comment Flow Cell Count /uL 16,000 Total Viability % 93.0 Lymphocytes % 33 Dim CD45 Region % 21 Monocytes % 10 Granulocytes % 35 03/21/2022 11:58 AM [facility] PATH[facility] Reason for test Other pancytopenia (CMS/HCC) 284.19 03/21/2022 11:[address] [facility] Client Specimen ID # [id number] 03/21/2022 11:[address] [facility] Number of markers 19 were performed. A-2 Flow CD10 A-3 Flow CD13 A-5 Flow CD20 A-11 Flow CD2 A-13 Flow CD14 A-16 Flow CD117 A-17 Flow CD11b A-18 Flow CD11c A-1 Flow CD5 A-4 Flow CD19 A-6 Flow CD33 A-7 Flow CD34 A-8 Flow CD45 A-12 Flow CD7 A-14 Flow CD56 A-15 Flow CD64 A-9 Bolan+CD19+ A-10 Lambda+CD19+ A-19 Flow HLA-DR 03/21/2022 11:[address] [facility] Disclaimer Test performed at [facility], [address] [place], [place], [address]. *The established laboratory minimum viability is 70%. [...] high complexity clinical testing. 03/21/2022 11:[address] [facility] Embedded Images 11:[address] [facility] Pathology/Cytolo gy BONE MARROW SPECIMEN / Unknown 03/20/2022 10:10 AM FAMILY CASEWORKER 03/21/2022 9:01 AM FAMILY CASEWORKER Zurdo Thurman MD LAB - PATHOLOGY/CYTOLOGY ORDERAB LES Final Result [facility] PATHOLOGY LAB [address] [place] [address]. [address] [phone] documented in this encounter Visit Diagnoses Diagnosis Other pancytopenia (HCC) Other pancytopenia documented in this encounter Care Teams Network Relay Tester Relationship Specialty Start Date End Date Johanna Parish MD [address] [place] [address] Marketing Account Manager/Oncologist Hematology and Oncology 02/10/25 documented as of this encounter
--- OUTSIDE RECORDS SUMMARY | 2025-02-16 03:17 | XMS_ITS | Clinical Summary ---
Author Organization [facility] Address [address], [address] [address] Phone Care Team Providers Care Mft Name Role Phone Micha Baker MD Primary Care Provider [phone] Rakesh Irby DO Unavailable [phone] Allergies Active Allergy Reactions Criticality Noted [...] Recently Relevant to Health Maintenance Insurance [facility] Care Teams Mft Relationship Specialty Start Date End Date Micha Baker MD [address] [facility] [address] [place] [address] PCP - General Internal Medicine 10/10/15 Rakesh Irby DO [address] [facility] [address] [place] [address] Consulting Physician Gastroenterology 10/10/15
--- OUTSIDE RECORDS SUMMARY | 2025-02-16 03:18 | XMS_ITS | Encounter Summary ---
Author Organization [facility] Address [address] [place] [address] Care Team Providers Care Lawyer Criminal Name Role Phone Johanna Parish MD Unavailable Encounter Details Date Type Department Care Team (Late Contact Info) Description 01/27/2024 Lab Requisition [facility] - Pathology Lab [address] [place] [address] Kannan Short MD [address] [facility] [address] [place] [address] Illness, unspecified Social History Tobacco Use Types Packs/Day Years Used Date Smoking Tobacco: Never Assessed Comments Unknown Sex and Gender Information Value Date Recorded Sex Assigned at Not on file Legal Sex Female 8:51 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 Gender Identity Not on file Sexual Orientation Not on file documented as of this encounter Plan of Treatment Upcoming Encounters Date Type Department Care Team (Late Contact Info) Description 03/02/2025 1:30 PM PRINTING GRAY 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 Office Visit [facility] - Hematology/Oncology [address] [place] [phone] Johanna Parish MD [address] [place] [address] documented as of this encounter Procedures Procedure Name Priority Date/Time Associated Diagnosis Comments BONE MARROW BIOPSY (STL) Routine 01/24/2024 11:00 AM CDT Illness, unspecified documented in this encounter Results * BONE MARROW BIOPSY (STL) (01/24/2024 11:00 AM CDT) Case Report Bone Marrow Patholog y Report Case: [id number] Authorizing Provider: Kannan Short Collected: 01/24/2024 11:00 AM MD [facility] Ordering Location: [facility] - Received: 01/27/2024 04:22 PM Pathology Lab Pathologist: Natalee Ceja MD Specimens: A) - Bone Marrow Clot B) - Bone Marrow Core 01/28/2024 2:26 PM CDT [facility] PATHOLOGY LAB Final Diagnosis Bone marrow, aspirate, clot section, and core biopsy: - 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 01/28/2024 2:26 PM CDT [facility] PATHOLOGY LAB at 1426 CDT Peripheral Smear Description Not submitted. 01/28/2024 2:26 PM CDT [facility] PATH[facility] Bone Marrow Aspirate Differential count (200 cells): not performed due to hemodilution. Specimen quality: hemodilute. Spicules: absent. Most of the paucicellularity represents peripheral blood elements. No overtly increased blasts are seen. 01/28/2024 2:26 PM CDT [facility] PATHOLOGY LAB Bone Marrow Core Biopsy and [...] stain): no ring sideroblasts. 01/28/2024 2:26 PM CDT [facility] PATH[facility] Flow Cytometry Summary Bone marrow, flow cytometry ([id number]): - Expanded CD34+ blast population identified (~8% of overall events 01/28/2024 2:26 PM CDT [facility] PATH[facility] Clinical History MDS with excess blasts. 01/28/2024 2:26 PM CDT [facility] PATHOLOGY LAB Materials Received Received are 18 slide(s) and 3 blocks labeled [id number] along with a copy of the outside pathology report. [place] [address]. All original materials are returned to the referring institution, along with a copy of our final report. 01/28/2024 2:26 PM T [facility] PATH[facility] Microscopic Description Immunohistochemistry is performed to assess staining cells in an architectural context: CD34 and CD117 highlight mildly increased blasts at ~7% of marrow cellularity. CD61 highlights the increased and dysplastic blasts. P53 is essentially negative. 01/28/2024 2:26 PM T [facility] PATHOLOGY LAB Pathologist Location at [facility] 01/28/2024 2:26 PM T [facility] PATH[facility] Disclaimer The performance characteristics of all immunohistochemical and indirect immunofluorescence stains (if any) cited in this report were determined by the Histopathology Laboratory of [facility] [place] [facility]. Some of these tests were developed [...] the attending (teaching) pathologist. 01/28/2024 2:26 PM T [facility] PATHOLOG[facility] LAB Embedded Images 01/28/2024 2:26 PM CDT [facility] PATH[facility] Pathology/Cytology BONE MARROW SPECIMEN / Unknown 01/24/2024 11:00 AM CDT 01/27/2024 4:22 PM CDT Miscellaneous samples (specimen) BONE MARROW SPECIMEN / Unknown 01/24/2024 11:00 AM CDT 01/27/2024 4:22 PM CDT Kannan Short MD LAB - PATHOLOGY/CYT OLOGY ORDERABLES Final Result [facility] PATHOLOGY LAB [address] [place] [address], [facility] [phone] documented in this encounter Visit Diagnoses Diagnosis Illness, unspecified documented in this encounter Care Teams Lawyer Criminal Relationship Specialty Start Date End Date Johanna Praish MD [address] [place] [address] Area Field Person/Oncologist Hematology and Oncology 02/10/25 documented as of this encounter
--- OUTSIDE RECORDS SUMMARY | 2025-02-16 03:18 | XMS_ITS | Clinical Summary ---
Author Organization [facility] Address [address] [place] [address] Care Team Providers Care Chip Tester Name Role Phone Johanna Parish MD Unavailable Source Comments [facility],non-owned Affiliates and Associated Physician Practices is amultiple site organization consisting of ambulatory clinics and hospital sitesin [place], [place], [place] and [place]. This disclosure is being madepursuant to the Care Everywhere program and may not contain all information available regarding this patient. Last updated 17.[facility] Encounters Date Type Department Care Team Description 02/12/2025 Telephone [facility] - Hematology/Oncology [address] [place] [phone] Johanna Parish MD Referral (See note) 02/10/2025 Telephone [facility] - Hematology/Oncology [address] [place] [phone] Johanna Parish MD Referral (See note) 02/10/2025 Travel from Last 3 Months Immunizations Immunization Administration Dates Next Due Pneumococcal Pcv13 Conj 02/28/2016 ZOSTER VACCINE, LIVE 02/28/2016 Social History Tobacco Use Types Packs/Day Years Used Date Smoking Tobacco: Never Assessed Comments Unknown Sex and Gender Information Value Date Recorded Sex Assigned at Not on file Legal Sex Female 8:51 AM INSURANCE RISK 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 Gender Identity Not on file Sexual Orientation Not on file Plan of Treatment Upcoming Encounters Date Type Department Care Team (Late st Contact Info) Description 03/02/2025 1:30 PM INSURANCE RISK ANALYST Office Visit [facility] - Hematology/Oncology [address] [place] [address] Johanna Parish MD [address] [place] [address] Health Maintenance Due Date Last Done Comments BONE DENSITY TESTING 1950 COLOGUARD (AGES 45-75) - COLON CA SCREENING 1950 COLON MONITORING 1950 COLONOSCOPY [...] 02/27/2017 02/28/2016 DEPRESSION SCREENING 04/01/2024 COVID-19 VACCINE (2024- season) 2025 12/31/2024, 12/20/2023, 01/13/2023, Additional history exists Respiratory Syncytial Virus (RSV) Vaccine Pt: or over 60 yrs (1 - 1-dose 75+ series) 11/18/2027 INFLUENZA VACCINE Completed 01/12/2025, , 01/08/2023, Additional history exists HEPATITIS B VACCINE Aged Out No longe r eligible based on patient's age to complete this topic HIB VACCINE Aged Out No longer eligi ble based on patient's age to complete this topic HPV VACCINE Aged Out No longer eligi ble based on patient's age to complete this topic MENINGOCOCCAL (Group B) VACCINE SHARED DECISION-MAKING Aged Out No longer eligible based on patient's age to complete this topic MENINGOCOCCAL GROUPS A/C/Y/W VACCINE Aged Out No longer eligible based on patient's age to complete this topic Insurance MEDICARE [facility] SELF PAY NO INSURANCE Member Subscriber Plan / Payer (Ef fective for All Dates) Name:Rimma Monzon Member ID:Not on file Relation to Subscriber:Not on file Name:RIMMA MONZON Subscriber ID:Not on file (Home) Address: [place] [address] Payer ID:Not on file Group ID:Not on file Type:Self Pay Address: [place], [place] MEDICARE Care Teams Chip Tester Relationship Specialty Start Date End Date Johanna Parish MD [address] [place] [address] Circus Supervisor/Oncologist Hematology and Oncology 02/10/25
--- OUTSIDE RECORDS SUMMARY | 2025-02-16 03:18 | XMS_ITS | Encounter Summary ---
Author Organization [facility] Address [address] [place] [address] Care Team Providers Care Baker Pastry Name Role Phone Johanna Parish MD Unavailable Encounter Details Date Type Department Care Team (Late Contact Info) Description 03/21/2022 Lab Requisition [facility] Care Pathology Lab [address] [place] [address] Zurdo Thurman MD [address] [address] Illness, unspecified Social History Tobacco Use Types Packs/Day Years Used Date Smoking Tobacco: Never Assessed Comments Unknown Sex and Gender Information Value Date Recorded Sex Assigned at Not on file Legal Sex Female 8:51 AM KAIAWHINA Gender Identity Not on file Sexual Orientation Not on file documented as of this encounter Plan of Treatment Upcoming Encounters Date Type Department Care Team (Late Contact Info) Description 03/02/2025 1:30 PM KAIAWHINA Office Visit [facility] - Hematology/Oncology [address] [place] [phone] Johanna Parish MD [address] [place] [address] documented as of this encounter Procedures Procedure Name Priority Date/Time Associated Diagnosis Comments BONE MARROW BIOPSY (STL) Routine 03/20/2022 10:10 AM KAIAWHINA Illness, unspecified documented in this encounter Results * BONE MARROW BIOPSY (STL) (03/20/2022 10:10 AM KAIAWHINA) Case Report Bone Marrow Patholog y Report Case: [id number] Authorizing Provider: Zurdo Thurman MD Collected: 03/20/2022 10:10 AM Ordering Location: [facility] Pathology Lab Received: 03/21/2022 02:13 PM Pathologist: Yvonne Cassidy Mai, DO Specimens: A) - Bone Marrow Clot B) - Bone Marrow Core 03/22/2022 10:49 AM KAIAWHINA [facility] PATHOLOGY LAB Final Diagnosis Bone marrow, aspirate, clot section, and core biopsy: - Normocellular marrow with multilineage dysplasia and increased blasts (11% by manual count) - See description Peripheral blood smear: - Pancytopenia - See description 03/22/2022 10:49 AM KAIAWHINA [facility] PATHOLOGY LAB at [address] KAIAWHINA AP Comment The bone marrow specimen is [...] RP, Erik MJ, Disha KR, Nikki HM, Peirce SA, Janessag A, Pipo T, James S, [place]-Ashley CE, Galindo JE, Kendrick Venegas P, Dereje CD, Andrew H, David EJ, Abbey BL, Jose Miguel EH, Facisrraeli F, Fopriscar K, Gangat N, Gianelli U, Joanie LA, G kamaljit N, Del J, Yonas m-Rina E, El GS, Figueroa R, Miles EJ, Park JohnsonJ, Jairo RA, Shireen Arechiga MM, Crow ML, L claudia B, Krishan E, Jenifer L, Antonio CG, Jan C, Gladyske OM, Ogawa S, Orfao A, Papaemmanuil E, Passamonti F, Porkka K, Pui CH, Radich LAY, Karlo A, Rozman M, Rudelius M, Arline MR, Elizabeth CA, Aleah A, Darshanaamura A, Nina J, Jaziel WA, Stone RM, Caleb MS, Charles J, Cesar HF, Tzdevaughnov A, Shelbi AM, Michael P, Kosta AH, Criss OK, Gela A, Librado Baumann, Carey daley H, Mehdi A. International Consensus Classification of Myeloid Neoplasms and Acute Leukemias: integrating morphologic, clinical, and genomic data. Blood. 2021 15;140(11):4661-1681. doi: 10.1182/blood.80365816 50. PMID: [id number]; PMCID: [id number]. 03/22/2022 10:49 AM [facility] Peripheral Smear Description Manual Differential Count (100 cells): 50% neutrophils, 34% lymphocytes, 10% monocytes, 5% eosinophils, and 1% basophils. 0 nRBCs / 100 WBCs. Leukocytes: Decreased with reactive lymphocytes, no circulating blasts seen Erythrocytes: Macrocytic anemia with no significant anisopoikilocytosis Platelets: Decreased 03/22/2022 10:49 AM [facility] Bone Marrow [...] No ring sideroblasts seen 03/22/2022 10:49 AM [facility] Bone Marrow Core [...] performed on the core biopsy in the [facility] Department of Pathology, with appropriately reactive controls, and demonstrate the following: CD34: Stains variable density of blasts, 5-10% of marrow cellularity CD117: Highlights blasts, mast cells and erythroid precursors E-cadherin: Weakly stains erythroid precursors 03/22/2022 10:49 AM [facility] Flow Cytometry Summary [id number]: Increased myeloblasts (10.7% by CD34) 03/22/2022 10:49 AM [facility] Clinical History Pancytopenia 03/22/2022 10:49 AM [facility] Materials Received Received are 21 slides and three blocks (A1, A2, B1) labeled [id number] along with a copy of the outside pathology report. [place] [address]. All original materials are returned to the referring institution, along with a copy of our final report. 03/22/2022 10:49 AM [facility] PATH[facility] Disclaimer The performance characteristics of all immunohistochemical and indirect immunofluorescence stains (if any) cited in this report were determined by the Histopathology Laboratory of [facility]. Some of these tests were [...] the attending (teaching) pathologist. 03/22/2022 10:49 AM [facility] Embedded Images 03/22/2022 10:49 AM [facility] Pathology/Cytology BONE MARROW SPECIMEN / Unknown 03/20/2022 10:10 AM KAIAWHINA 03/21/2022 2:13 PM KAIAWHINA Miscellaneous samples (specimen) BONE MARROW SPECIMEN / Unknown 03/20/2022 10:10 AM KAIAWHINA 03/21/2022 2:13 PM KAIAWHINA Zurdo Thurman MD LAB - PATHOLOGY/CYTOLOGY ORDERAB LES Final Result [facility] PATHOLOGY LAB [address] [phone] documented in this encounter Visit Diagnoses Diagnosis Illness, unspecified documented in this encounter Care Teams Baker Pastry Relationship Specialty Start Date End Date Johanna Parish MD [facility] [place] [address] Anesthetist/Oncologist Hematology and Oncology 02/10/25 documented as of this encounter
--- OUTSIDE RECORDS SUMMARY | 2025-02-16 03:19 | XMS_ITS | Encounter Summary ---
Author Organization [facility] Address [address] [facility] [place] [address] Care Team Providers Care Superior Court Judge Name Role Phone Johanna Parish MD Unavailable Encounter Details Date Type Department Care Team (Late Contact Info) Description 01/24/2024 Lab Requisition [facility] - Pathology Lab [address] [place] [address] Kannan Short MD [address] [facility] [address] [place] [address] Myelodysplastic syndrome, unspecified Social History Tobacco Use Types Packs/Day Years Used Date Smoking Tobacco: Never Assessed Comments Unknown Sex and Gender Information Value Date Recorded Sex Assigned at Not on file Legal Sex Female 8:51 AM SITE SUPERINTENDENT Gender Identity Not on file Sexual Orientation Not on file documented as of this encounter Plan of Treatment Upcoming Encounters Date Type Department Care Team (Late Contact Info) Description 03/02/2025 1:30 PM SITE SUPERINTENDENT Office Visit [facility] - Hematology/Oncology [address] [place] [phone] Johanna Parish MD [address] [place] [address] documented as of this encounter Procedures Procedure Name Priority Date/Time Associated Diagnosis Comments FLOW CYTOMETRY BONE MARROW Routine 01/24/2024 11:10 AM CDT Myelodysplastic syndrome, unspecified (HCC) documented in this encounter Results * FLOW CYTOMETRY BONE MARROW (01/24/2024 11:10 AM CDT) Case Report Flow Cytometry Case: [id number] Authorizing Provider: Kannan Short Collected: 01/24/2024 11:10 AM MD [facility] Ordering Location: [facility] - Received: 01/24/2024 02:58 PM Pathology Lab Pathologist: Natalee Ceja MD Specimen: Bone Marrow 01/27/2024 8:40 AM T [facility] PATH[facility] Final Diagnosis Bone marrow, flow cytometry: - Expanded CD34+ blast population identified (~8% of overall events) 01/27/2024 8:40 AM [facility] PATHOLOGY LAB at 0840 CDT Flow [...] cytometry specimen has been reviewed for quality improvement analyst purposes. 01/27/2024 8:40 AM [facility] Flow Cytometry Results Differential Result Comment Flow Cell Count /uL 1,800 Total Viability % 100.0 Lymphocytes % 17 Dim CD45 Region % 16 Monocytes % 14 Granulocytes % 51 01/27/2024 8:40 AM [facility] PATH[facility] Reason for test Myelodysplastic syndrome, unspecified (HCC) 238.75 01/27/2024 8:40 AM [facility] Client Specimen ID # [id number] 01/27/2024 8:40 AM [facility] Number of markers 19 were performed. A-2 Flow CD10 A-3 Flow CD13 A-5 Flow CD20 A-11 Flow CD2 A-13 Flow CD14 A-16 Flow CD117 A-17 Flow CD11b A-18 Flow CD11c A-1 Flow CD5 A-4 Flow CD19 A-6 Flow CD33 A-7 Flow CD34 A-8 Flow CD45 A-12 Flow CD7 A-14 Flow CD56 A-15 Flow CD64 A-9 [place]ia+CD19+ A-10 Lambda+CD19+ A-19 Flow HLA-DR 01/27/2024 8:40 AM CDT [facility] Pathologist Location at [facility] 01/27/2024 8:40 AM CDT [facility] Disclaimer Test performed at [facility], [address] [place], [place], [address]. *The established laboratory minimum viability is 70%. [...] complexity clinical testing. 01/27/2024 8:40 AM CDT [facility] Embedded Images 8:40 AM CDT [facility] Pathology/Cytolo gy BONE MARROW SPECIMEN / Unknown 01/24/2024 11:10 AM CDT 01/24/2024 2:58 PM CDT Kannan Short MD LAB - PATHOLOGY/CYT OLOGY ORDERABLES Final Result [facility] [address] [facility] [place] [address], [place] [phone] documented in this encounter Visit Diagnoses Diagnosis Myelodysplastic syndrome, unspecified (HCC) Myelodysplastic syndrome, unspecified documented in this encounter Care Teams Superior Court Judge Relationship Specialty Start Date End Date Johanna Parish MD [address] [place] [address] Application Support Engineer/Oncologist Hematology and Oncology 02/10/25 documented as of this encounter
--- OUTSIDE RECORDS SUMMARY | 2025-02-16 03:20 | XMS_ITS | Clinical Summary ---
Author Organization [facility] Ward dhaliwal [facility] Address [address] [place] [address] Care Team Providers Care Supervisor [employer] Name Role Phone Angus Cope DO Primary [...] once daily 90 Tablet 3 5 Active traMADol (ULTRAM) 50 mg tabletIndicati ons:Bilateral hip pain TAKE 1 TABLET BY MOUTH EVERY 6 HOURS NEEDED FOR PAIN 30 Tablet 5 Active HYDROcodone-ac etaminophen (NORCO) 5-325 mg tabletIndicati ons:Bilateral hip pain Take 1 Tablet by mouth every 4 hours as needed for Pain, Moderate. Max Daily Amount: 6 Tablets 20 Tablet 5 Active furosemide (LASIX) 20 mg tablet Take 20 mg by mouth daily. 5 Active potassium CHLORIDE (KLOR-CON) 10 mEq Extended Release tablet Take 10 mEq by mouth one time only. 5 Active acyclovir (ZOVIRAX) 400 mg tablet Take 1 Tablet (400 mg) by mouth 2 times daily. 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 60 Tablet 3 5 Active Active Problems Problem Noted Date Diagnosed Date MDS (myelodysplastic syndrome) 08/05/2023 Pancytopenia 07/14/2021 Encounters Date Type Department Care Team Description 02/09/2025 Orders Only [facility] Oncology and Hematology - Vik [address]ady [address] [phone] Bang Donnelly MD 02/08/2025 Orders Only [facility] Oncology and Hematology - Vik [address] [phone] Bang Donnelly MD MDS (myelodysplastic syndrome) ([facility]/HCC) 02/05/2025 9:00 AM REFRIGERATING ENGINEER HEAD Office Visit [facility] Oncology and Hematology - Low[place] Grady [address] [phone] Bang Donnelly MD MDS (myelodysplastic syndrome) ([facility]/HCC) (Primary Dx) 01/29/2025 Orders Only [facility] Oncology and Hematology - Vik [address] [phone] Bang Donnelly MD 01/25/2025 Orders Only [facility] Oncology and Hematology - Vik [address] [place] [id number] Bang Donnelly MD MDS (myelodysplastic syndrome) ([facility]/HCC) 01/20/2025 External Device Data STL ABSTRACTION Provider, Abstract 01/19/2025 External Device Data STL ABSTRACTION Provider, Abstract 01/19/2025 Orders Only [facility] Oncology and Hematology - Vik [address] [place] [id number] Bang Donnelly MD 01/15/2025 Abstract [facility] Oncology and Hematology - Vik [address] [place] [address] Bang Donnelly MD 01/15/2025 Orders Only [facility] Oncology and Hematology - Vik [address] [place] [address] Bang Donnelly MD 01/14/2025 Orders Only [facility] Oncology and Hematology - Vik [address] [place] [address] Bang Donnelly MD 01/12/2025 Orders Only [facility] Oncology and Hematology - Vik [address] [place] [address] Bang Donnelly MD 01/11/2025 Orders Only [facility] Oncology and Hematology - [address] [place] [address] Bang Donnelly MD MDS (myelodysplastic syndrome) ([facility]/HCC) 01/06/2025 Orders Only [facility] Oncology and Hematology - Vik [address] [place] [address] Bang Donnelly MD MDS (myelodysplastic syndrome) ([facility]/HCC) (Primary Dx) 01/04/2025 1:00 PM CDT Office Visit [facility] Oncology and Hematology - Vik [address] [place] [address] Bang Donnelly MD MDS (myelodysplastic syndrome) ([facility]) (Primary Dx); Acute myeloid leukemia not having achieved remission ([facility]/HCC) 01/01/2025 Orders Only [facility] Oncology and Hematology - [address] [place] [address] Bang Donnelly MD 01/01/2025 Refill [facility] Oncology and Hematology - [address] [place] [address] Bang Donnelly MD 12/28/2024 Orders Only [facility] Oncology and Hematology - [address] [place] [address] Bang Donnelly MD MDS (myelodysplastic syndrome) ([facility]/HCC) 12/22/2024 External Device Data STL ABSTRACTION Provider, Abstract 12/21/2024 Orders Only [facility] Oncology and Hematology - [address] [place] [address] Bang Donnelly MD 12/15/2024 External Device Data STL ABSTRACTION Provider, Abstract 12/15/2024 Orders Only [facility] Oncology and Hematology - Ivk [address] [place] [address] Bang Donnelly MD 12/14/2024 Orders Only [facility] Oncology and Hematology - [address] [place] [address] Bang Donnelly MD MDS (myelodysplastic syndrome) (CMS/HCC) 12/10/2024 Orders Only [facility] Oncology and Hematology - [address] [place] [address] Bang Donnelly MD Chronic anemia (Primary Dx) 12/07/2024 9:30 AM CDT Office Visit [facility] Oncology and Hematology - [address] [place] [address] Mable Caputo MD MDS (myelodysplastic syndrome) (CMS/HCC) (Primary Dx); Chronic anemia; Bilateral hip pain 12/07/2024 Orders Only [facility] Oncology and Hematology - Vik [address] [place] [address] Bang Donnelly MD 12/02/2024 Orders Only [facility] Oncology and Hematology - [address] [place] [address] Bang Donnelly MD 12/02/2024 Telephone [facility] Oncology and Hematology - [address] [place] [phone] Mable Caputo MD Urine Results 12/01/2024 Orders Only [facility] Oncology and Hematology - Vik [address] [place] [phone] Bang Donnelly MD MDS (myelodysplastic syndrome) (CMS/HCC) (Primary Dx) 11/30/2024 Orders Only [facility] Oncology and Hematology [facility] [address] [phone] Bang Donnelly MD MDS (myelodysplastic syndrome) (CMS/HCC) 11/27/2024 Orders Only [facility] Oncology and Hematology [facility] [address] [phone] Bang Donnelly MD Bilateral hip pain (Primary Dx) 11/23/2024 Refill [facility] Oncology and Hematology [facility] [address] [phone] Bang Donnelly MD Bilateral hip pain 11/16/2024 Orders Only [facility] Oncology and Hematology [address] [phone] Bang Donnelly MD MDS (myelodysplastic syndrome) (CMS/HCC) [...] Sign Reading Time Taken Comments Blood Pressure 118/51 02/05/2025 9:10 AM REFRIGERATING ENGINEER HEAD Pulse 85 02/05/2025 9:10 AM REFRIGERATING ENGINEER HEAD Temperature 36.3 C (97.3 F) 02/05/2025 9:10 AM REFRIGERATING ENGINEER HEAD Respiratory Rate 15 02/05/2025 9:10 AM REFRIGERATING ENGINEER HEAD Oxygen Saturation 93% 02/05/2025 9:10 AM REFRIGERATING ENGINEER HEAD Inhaled Oxygen Concentration - - Weight 63 kg (138 lb 12.8 oz) 02/05/2025 9:10 AM REFRIGERATING ENGINEER HEAD Height 157.5 cm (5' 2) 12/12/2021 2:16 PM CDT Body Mass Index 25.39 12/12/2021 2:16 PM CDT Plan of Treatment Upcoming Encounters Date Type Department Care Team (Late st Contact Info) Description 02/17/2025 1:00 PM REFRIGERATING ENGINEER HEAD Office Visit [facility] Oncology and Hematology [facility] [address] [facility] [address] [place] [address] Elayne Valiente MD [address] [facility] [address] [facility] [facility] [address] [place] [address] 03/09/2025 9:15 AM REFRIGERATING ENGINEER HEAD Office Visit [facility] Oncology [facility] Hematology [facility] [address] [place] [address] Bang Donnelly MD [address] [facility] [employer] [address] [place] [address] Health Maintenance Due Date Last [...] Associated Diagnosis Comments COMPREHENSIVE METABOLIC PANEL Routine 02/08/2025 3:12 PM REFRIGERATING ENGINEER HEAD CBC WITH AUTODIFFERENTIAL Routine 2024 3:05 PM REFRIGERATING ENGINEER HEAD CBC WITH AUTODIFFERENTIAL Routine 2024 11:41 AM [...] WITH AUTODIFFERENTIAL Routine 2024 12:27 PM CDT from Last 3 Months Results * COMPREHENSIVE METABOLIC PANEL (02/08/2025 3:12 PM REFRIGERATING ENGINEER HEAD) Only the most recent of3 resultswithin the time period is included. Blood Bang Donnelly MD CHEMISTRY ORDERABLES Final Resu lt * CBC WITH AUTODIFFERENTIAL (02/08/2025 3:05 PM REFRIGERATING ENGINEER HEAD) Only the most recent of10 resultswithin the [...] A AND B [facility] Care Teams Supervisor [employer] Relationship Specialty Start Date End Date Angus Cope DO [address] [facility] [address] [facility] [address] [place] [phone] PCP - General Internal Medicine 11/04/23
[2025-02-16 08:00] VITALS: BP 132/78; PULSE 86; RESP 14; TEMP 36.3; O2SAT 100
[2025-02-16 08:22] LABS: Hematocrit 29.1 % (37.0-47.0); Hemoglobin 9.4 g/dL (12.0-15.0); Immature Granulocyte Percent A 0.3 % (0-0.5); Immature Platelet Fraction Pct 2.7 % (0.9-11.2); Lymphocytes Absolute Auto 1.09 K/mm3 (0.9-3.2); Mean Corpuscular HGB Conc 32.3 g/dl (32-36); Mean Corpuscular Hemoglobin 39.0 pg (26-34); Mean Corpuscular Volume 120.7 fl (80-100); Nucleated Red Blood Cells Absolute Auto 0.000 K/mm3 (0.0-0.012); Nucleated Red Blood Cells Perc 0.0 % (0.0-0.2); Platelet Count Result 79 k/mm3 (150-375); Red Blood Count 2.41 M/mm3 (4.2-5.4); White Blood Count 3.0 K/mm3 (4.5-10.0)
[2025-02-16 08:31] LABS: INR 0.9; Prothrombin Time 12.5 Seconds (11.1-14.7)
[2025-02-16 08:43] LABS: Macrocytosis 2+ (NORMAL); Schistocytes None Seen
--- NOTE | 2025-02-16 09:10 | WPDMODSED ---
Moderate Sedation Note-Pt Data Patient Data Diagnosis: MDS Present Complaint: MDS Procedure to be performed/Plan: bone marrow biopsy Allergies Allergy/AdvReac Type Severity Reaction Status Date / Time Penicillins Allergy Mild Hives Verified 02/15/25 15:45 Sulfa (Sulfonamide Allergy Mild rash Verified 02/15/25 15:45 Antibiotics) Home Medications ?Medication ?Instructions ?Recorded ?Confirmed ?Type calcium 333 mg-vit D3 200 1 tablet PO BID 11/10/19 02/15/25 History unit-magnesium 133 mg-zinc 5 mg tablet famotidine 20 mg tablet (Pepcid AC) 20 mg PO QACLUNCH 11/10/19 02/15/25 History loratadine 10 mg tablet 10 mg PO DAILY 11/10/19 02/15/25 History Lactobacills gasseri-Bifidobac 1 cap PO QAM 07/04/21 02/15/25 History bifidum,longum 1.5 billion cell capsule ([employer]) wwjyksgivbey-Ff-nazz-minerals 1 tablet PO DAILY 07/04/21 02/15/25 History omeprazole 20 mg capsule,delayed 20 mg PO DAILY 07/04/21 02/15/25 History release cyanocobalamin (vitamin B-12) 1,000 mcg PO DAILY 12/15/21 02/15/25 History 1,000 mcg capsule acyclovir 400 mg tablet 400 mg PO BID 01/24/23 02/15/25 History ferrous sulfate 325 mg (65 mg 325 mg PO TID 01/24/23 02/15/25 History iron) tablet (Iron (ferrous sulfate)) felodipine 5 mg tablet,extended 5 mg PO DAILY #90 tabs 03/05/24 02/15/25 Rx release 24 hr metoprolol succinate 25 mg 25 mg PO QAM #90 tabs 05/27/24 02/15/25 Rx tablet,extended release 24 hr simvastatin 40 mg tablet 40 mg PO HS #90 tabs 05/27/24 02/15/25 Rx Magic Mouthwash 50 mL suspension 10 ml PO .every 4 hours PRN mouth 07/03/24 02/15/25 History pain #50 mL epoetin whit 20,000 unit/mL 20,000 unit subcut WEEKLY PRN 07/29/24 02/15/25 History injection solution (Epogen) based on labs ondansetron HCl 8 mg tablet 8 mg PO Q12H 07/29/24 02/15/25 History decitabine 50 mg intravenous 35 mg IV .COMPLEX 11/05/24 02/15/25 History solution (Dacogen) tizanidine 4 mg capsule 4 mg PO HS PRN muscle spasticity 11/05/24 02/15/25 Rx #14 caps meloxicam 15 mg tablet 15 mg PO HS #90 tabs 12/03/24 02/15/25 Rx furosemide 20 mg tablet (Lasix) 20 mg PO DAILY #90 tabs 12/15/24 02/15/25 Rx potassium chloride 10 mEq 10 meq PO DAILY #90 tabs 12/15/24 02/15/25 Rx tablet,extended release (Klor-Con) escitalopram oxalate 10 mg tablet See Rx Instructions .Route 12/18/24 02/15/25 Rx .COMPLEX #90 tabs melatonin 10 mg capsule 10 mg PO QHS 12/21/24 02/15/25 History losartan 100 mg tablet 100 mg PO DAILY 12/31/24 02/15/25 History acetaminophen 500 mg tablet 1,000 mg PO Q6-8H PRN pain 01/14/25 02/15/25 History (Acetaminophen Extra Strength) gabapentin 100 mg capsule See Rx Instructions .Route 01/19/25 02/15/25 Rx .COMPLEX #90 caps fluconazole 100 mg tablet 100 mg PO DAILY 02/15/25 02/15/25 History tramadol 50 mg tablet 50 mg PO Q6H PRN pain #60 tabs 02/15/25 02/15/25 Rx levothyroxine 112 mcg tablet 112 mcg PO DAILY #90 tabs 02/16/25 Rx (Levoxyl) Sedation/Anesthesia: No previous sedation/anesthesia problems (including family history). [facility] Past Medical History Medical History Myelodysplastic syndrome, unspecified L4 vertebral fracture BMI 28.0-28.9,adult PONV (postoperative nausea and vomiting) Aortic stenosis, moderate Screening for breast cancer Screening for colon cancer Essential (primary) hypertension Hypothyroidism, unspecified Surgical History Surgical History (Updated 02/03/25 @ 09:32 by Pooja Buckley MA) History of kyphoplasty History of total left knee replacement History of total right knee replacement Family History Family History Sibling Patient's brother is Acute myocardial infarction Father Family history of lung cancer, Onset Age: 65 Family history of type 2 diabetes mellitus Mother No problems noted. Other Social History Social History Smoking packs per day: 2.5 Smoking cigarettes per day: 50.0 Years smoked: 32 Smoking pack-years: 80.00 Smoking status: Former smoker Tobacco type: cigarettes Second hand tobacco smoke exposure: Yes Smoking end date: 01/08/98 Additional smoking assessment comments: quit smoking 30 plus years Alcohol intake: never Alcohol use details: RARELY 2-3 DRINKS/YEAR Substance use: never Substance use type: painkillers Other substance usage details: Tramadol as needed Do You Feel Safe in your Home?: Yes Lack of Transportation: No Lack of Food: Never True Current Housing: I Have Housing Concerned About Future Housing: No Difficulty Paying Gas/Electric Bills: No Difficulty Paying for Meds: No Currently Unemployed: No Education: Associate Degree Difficulty w/ Childcare or Family Care: No Living arrangements: with family Additional living arrangements comments: son and grandson live with her Occupation/Education: retired 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 Gender identity (if verbalized by the patient): Female Spiritual care concerns: No Mod Sed Physical Exam Physical Exam Pre Procedural Exam: Normal: Appearance, Throat, Lungs, Heart Rate and Heart Rhythm Hours since solid foods: 11 Hours since liquid intake: 11 Mallampati Classification: class II Internal Medicine - PN: Obj Da Vital Signs Vital Signs: Vital Signs - 24 hr 02/16/25 08:00 Temperature 97.3 F L Pulse Rate 86 Respiratory Rate 14 Blood Pressure 132/78 Pulse Oximetry 100 Oxygen Delivery Room Air Labs 02/16/25 08:14 Labs: Laboratory Results - last 24 hr 02/16/25 08:14 WBC 3.0 L RBC 2.41 L Hgb 9.4 L Hct 29.1 L MCV 120.7 H MCH 39.0 H MCHC 32.3 RDW 16.3 H Plt Count 79 L MPV 11.4 H Immature Gran % (Auto) 0.3 Neut % (Auto) 56.3 Lymph % (Auto) 36.7 Bonner % (Auto) 5.4 Eos % (Auto) 0.3 Baso % (Auto) 1.0 Lymph # (Auto) 1.09 Bonner # (Auto) 0.2 Eos # (Auto) 0.0 Baso # (Auto) 0.0 Abs Immat Gran (auto) 0.01 Absolute Neuts (auto) 1.7 Absolute Nucleated RBC 0.000 Band Neutrophils % Not Reportable Nucleated RBC % 0.0 Platelet Estimate Decreased % Immature Plt Fraction 2.7 Macrocytosis 2+ Schistocytes None seen PT 12.5 INR 0.9 ASA Classification/Sedation ASA Classification/Sedation ASA Class: II Emergent: No Risks: Risks, benefits and alternatives explained and patient/family accepted plan for sedation. Patient re-evaluated immediately prior to sedation.
--- NOTE | 2025-02-16 09:37 | BM_PTH ---
PATIENT: Rimma Monzon [id number] AGE/SX: 74/F ROOM: RE02/16/[address]: Bang Donnelly MD : 1950 BED: DIS: 02/16/2025 SPEC #: [id number] RECD: 02/16/25 09:39 STATUS: SUSAN REQ #: [id number] STORM: 02/16/25 09:[address]: Bang Donnelly DEPT: [facility] Bone Marrow RECD BY: Nohelia Haas ENTERED: 02/16/25 09:39 SP TYPE: Bone Marro OTHR DR: Shashank Sheehan APRN Tissues: A - Bone Marrow Aspiration B - Bone Marrow Biopsy Procedures: Unstained Slides Hematoxylin and Eosin Stain Gross and Microscopic Level 4 Bone Marrow Smear Decalcification Iron Stain
[2025-02-16 09:45] VITALS: BP 122/86; PULSE 81; RESP 15; O2SAT 100
[2025-02-16 10:00] VITALS: BP 127/76; PULSE 79; RESP 14; O2SAT 100
[2025-02-16 10:15] VITALS: BP 126/78; PULSE 78; RESP 16; O2SAT 100
[2025-02-16 10:30] VITALS: BP 111/57; PULSE 73; RESP 16; O2SAT 100
[2025-02-16 10:45] VITALS: BP 119/66; PULSE 74; RESP 16; O2SAT 99
== END 2025-02-16 11:10 | disposition home or self-care (01) ==
PROVIDERS: PCP Nurse Practitioner; Referring Provider Radiology Diagnostic Radiology; Visit Provider Internal Medicine Hematology & Oncology
DX: C94.6 Myelodysplastic disease, not elsewhere classified (principal)
CPT/HCPCS: 36415; 38222; 85025; 85055; 85610; 88305; 88311; 88313; J2003; J2250; J3010